=== PATIENT | male | born 1945 | race Caucasian/White ===

== ENCOUNTER → 2017-12-11 | Outpatient (CLI) | payer MEDICARE, OTHER ==
[~2017-12-11] MED LIST: ISOVUE-370 76% 100ML VIAL (Q9967) As Ordered
== END ==
LOC: M RAD 17:55
DX: I65.23 Occlusion and stenosis of bilateral carotid arteries (principal); I67.2 Cerebral atherosclerosis
CPT/HCPCS: Q9967

== ENCOUNTER → 2018-07-24 | Outpatient (CLI) | payer MEDICARE, OTHER ==
--- NOTE | 2018-07-24 11:43 | REP ---
Duplex carotid sonography: History: Occlusion and stenosis bilateral carotid arteries. Comparison CT angiography December 11, 2017. Findings: Antegrade flow is observed in the left vertebral artery. The right vertebral artery was not seen by ultrasound. There is a 2.5 x 1.2 x 0.8 cm lymph node in the right neck noted incidentally. Right carotid: The right common carotid artery is unremarkable on two-dimensional scanning. There is moderate mixed plaquing in the bulb and proximal ICA producing some stenosis in the proximal ICA. Elevated systolic velocities are observed. Velocity chart right carotid: PSV EDV Right CCA 121.0 cm/s Right ICA 165.0 38.0 Right ECA 94.0 Right ICA/CCA ratio 1.4. Impression: 50-79% category narrowing in the right ICA by Doppler velocity criteria. Moderate mixed plaquing in the proximal ICA. Left carotid: The left common carotid artery is unremarkable on two-dimensional scanning. There is moderate mixed plaquing in the proximal ICA and bulb on two-dimensional scanning. Color flow and spectral Doppler interrogation are unremarkable on the left. Velocity chart left carotid: PSV EDV Left CCA 76.0 cm/s Left ICA 81.0 23.0 Left ECA 59.0 Left ICA/CCA ratio normal 1.1. Impression: 16-49% category narrowing in the left ICA by Doppler velocity criteria. Probably near the upper end of this range. Electronically Signed by Tin Medina MD 07/24/2018 01:37 P
== END ==
LOC: M RAD 09:33
PROVIDERS: ATTEND Surgery Vascular Surgery
DX: I65.23 Occlusion and stenosis of bilateral carotid arteries (principal)

== ENCOUNTER → 2019-02-15 | Outpatient (CLI) | payer MEDICARE, OTHER ==
--- NOTE | 2019-02-15 13:18 | REP ---
Clinical: History of stenosis . Comparison: 07/24/2018 Technique: Juarez scale and color Doppler evaluation using linear high frequency transducer Findings: Two-dimensional juarez scale and color images demonstrate bilateral atherosclerotic changes including significant narrowing to the right carotid bulb and proximal internal carotid artery. Normal flow direction in the bilateral vertebral arteries noted. RIGHT (cm/s) LEFT (cm/s) ICA peak systolic velocity 286 96.5 ICA diastolic velocity 68.3 22.6 ECA peak systolic velocity 130 122 CCA peak systolic velocity 103 180 ICA/CCA ratio 2.8 0.5 Impression: Narrowing through the proximal right internal carotid artery approaches the 70% range. Electronically Signed by Jason Elam MD 02/15/2019 01:10 P
== END ==
LOC: M RAD 12:19
PROVIDERS: ATTEND Physician Assistant
DX: I65.29 Occlusion and stenosis of unspecified carotid artery (principal)

== ENCOUNTER → 2019-05-19 | Outpatient (CLI) | payer MEDICARE, BC ==
--- NOTE | 2019-05-19 13:13 | REP ---
Bilateral lower extremity arterial Doppler ultrasound: The right lower extremity: Brachial peak systole: 60 mmHg. The dorsalis pedis peak systole: 200 mmHg. OFFICE RECEPTIONIST peak systole: 210 mmHg. YSABEL: 1.3 Peak Systolic Phasicity Velocity PRESIDENTIAL HELICOPTER CREW CHIEF 140 biphasic Profunda 127 biphasic SFA prox 118 biphasic SFA mid 66.6 biphasic SFA dist 101 biphasic Pop 77.9 biphasic ADDI prox 40.4 biphasic Tib/P tr 64.4 biphasic OFFICE RECEPTIONIST pr 23.9 biphasic OFFICE RECEPTIONIST dst 93.7 biphasic ADDI dst 46.1 biphasic Left lower extremity: Brachial peak systole: 158 mmHg. Dorsalis pedis peak systole: 180 mmHg. OFFICE RECEPTIONIST: 174 mmHg. YSABEL: 1.1 Peak Systolic Phasicity Velocity PRESIDENTIAL HELICOPTER CREW CHIEF 115 biphasic Profunda 37.7 biphasic SFA prox 90.0 biphasic SFA mid 102 biphasic SFA dist 119 biphasic Pop 93.2 biphasic ADDI prox 191 biphasic Tib/P tr 72.1 biphasic OFFICE RECEPTIONIST pr 78 biphasic OFFICE RECEPTIONIST dst 91.4 biphasic ADDI dst 37 biphasic The there is mild/moderate atheromatous plaque bilaterally. There are biphasic wave forms bilaterally. There is a 2:1 stenosis in the proximal left ADDI. Electronically Signed by Chadwick Becerril MD 05/19/2019 01:05 P
== END ==
LOC: M RAD 11:48
PROVIDERS: ATTEND Physician Assistant
DX: R09.89 Other specified symptoms and signs involving the circulatory and respiratory systems (principal)

== ENCOUNTER → 2019-11-18 | Outpatient (CLI) | payer MEDICARE, BC | LOC: M RAD 11:30 | PROVIDERS: ATTEND Physician Assistant | DX: I65.29 Occlusion and stenosis of unspecified carotid artery (principal) ==

== ENCOUNTER 2020-06-23 10:53 | Inpatient (IN) | payer MEDICARE, BC ==
[~2020-06-23] VITALS: Ht 180.3 cm; Wt 131.0 kg
[2020-06-23] MEDS ORDERED: GLUCAGON INJ 1MG VIAL SC PRN (13:55)
[2020-06-23] MEDS ORDERED: DEXTROSE 50% 50 ML SYRINGE IV PRN (13:55)
[2020-06-23] MEDS ORDERED: ACETAMINOPHEN TAB 650MG DOSE (2X325MG) PEG PRN (13:55)
[2020-06-23] MEDS ORDERED: BISACODYL 10 MG SUPP PR PRN (13:55)
[2020-06-23] MEDS ORDERED: GLUCOSE 4GM CHEW TABLET PO PRN (13:55)
--- NOTE | 2020-06-23 14:37 | HPEPDOC ---
Attic Fans Mechanic Note DATE OF ADMISSION: 06-23-20 DATE OF SERVICE: 06-24-20 TIME OF ADMISSION: Please refer to physician's admission order. 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 He was not a candidate for TPA, however was evaluated by neurosurgery and underwent a thrombectomy with TICI 2b reperfusion on 06-01-20. 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 His antiplatelet therapy was held, EVD placed with serial CTHs and ultimately removed 06-10-20. Follow-up CTH on 06-12-20 showed, No significant interval change. Stable extent of intraparenchymal hemorrhage and edema involving the right basal ganglia/external capsule, extra-axial blood in the occipital horns of the lateral ventricles. Stable midline shift to the left measures approximately 4 mm at the level of the foramen of Alfredo. Stable size of the ventricular system. He was treated with Keppra for seizure-like activity which was after stopped due to negative findings on EEG. He was treated for HAP aspiration klebsiella PNA in setting of hypoxic respiratory failure and developed Acute renal failure with tubular necrosis. He was seen by orthopedics for right leg weakness deemed to be from severe lumbar stenosis, but not deemed operable. He remained NPO per speech therapy recommendations and underwent a PEG tube placement on 06-22-20 without complications. He had significant mobility impairments and deemed medically appropriate for discharge to ARU on 06-23-20. REVIEW OF SYSTEMS: The following is a completed review of systems and has been reviewed. Difficult to assess due to patient unable to respond, he appeared lethargic, able to be woken up briefly, did not appear to be in pain- (per nursing and therapy staff had been up for therapy session and able to do oral care) EARS, NOSE, & THROAT: + dysphagia PULMONARY: +on 02, breathing comfortably GASTROINTESTINAL: +peg GENITOURINARY: +incontinence MUSCULOSKELETAL: generalized weakness NEUROLOGICAL:+ left sided paresis SKIN: +sacral ulcers PAST MEDICAL HISTORY: as per HPI ALLERGIES: Please see below. MEDICATIONS: Please see below. SOCIAL HISTORY: No etoh/illicit drugs/smoking DIET: NPO PHYSICAL EXAMINATION: VITAL SIGNS: Please see below. GENERAL:sleeping, but able to wake, obese HEENT: PERRL. Clear conjunctiva, +left sided facial droop CARDIOVASCULAR: [Regular rate and rhythm. No murmurs, rubs, or gallops LUNGS: clear to auscultation bilaterally. No wheezes. No rhonch ABDOMEN: Soft, nontender, nondistended. Positive bowel sounds. Normal active bowel sounds, +PEG NEUROLOGICAL: sleeping, able ot be woken briefly, able to squeeze hand to command EXTREMITIES: 5/5 RUE, spontaneous motion in both RLE and LLE, flaccid LUE (-) edema bilat SKIN: sacral ulcers, right frontal sutures c/d/i LABORATORY DATA: Please see below. IMAGING:Imaging documentation personally reviewed by record FUNCTIONAL STATUS: Premorbid: Independent with all activities of daily life as well as mobility On Admission: total assist for bed mobility, dressing, toileting, ambulation GOALS: Supervision for bed mobility, contact guard for dressing, toileting ambulation ASSESSMENT:74-year-old M with past medical history of HTn, HLD who presents status post stroke with hemorrhagic conversion PLAN: 1. rehab- pt/ot advance mobility and ADLs, strengthen/stretch/maintain ROM all 4limbs -FAMILY PROGRAM SPECIALIST for cog and swallow eval-oral care 2. 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 s/p EVD placement and removal 06-10-20, c/u ASA and statin -encephalopathic c/u amantadine and provigil for neurostimulation -monitor for seizures -patient with left sided paresis due to stroke and RLE weakness in setting of severe lumbar stenosis- tx with therapy -daily thiamine -will start SSRI for motor recovery if able to wean off scheduled reglan (or make prn) 3. Cardiac- hx of HTN c/e labetalol, amlodipine, Diovan, clonidine- medicine consulted to assist in overall management 4. Resp- s/p treatment for klebsiella PNA with hypoxic respiratory failure- duonebs, guaifenesin, monitor for infection 5. GI- NPO, PEG feeds goal 65cc/hr for now, will transition to bolus feeds Friday if able to tolerate -c/u reglan and zofran prn for nausea -pepcid for ppx 6. DVT ppx- will order dopplers, c/u lovenox 7. SKin- turn q2 heel floats, zinc oxide to sacrum 8. - c/u [place] for now, will co trial voids once more mobile 9. Endo- newly dx DM, c/u insulin 10. Pain- tylenol prn 11. Dispo- TBD POST ADMISSION PHYSICIAN EVALUATION: Medical and functional status: Description of medical status, medical assessment: As above. Rehabilitation diagnosis and current and prior cold morbid medical conditions as above. Risk of complications and plans to mitigate them as above. Description of functional status current status is as above. Prior status as above. Status compared to preadmission: There are no clinically significant differences between the patient's current status and the information described on the preadmission screening document. Treatment plan anticipated: Treatment plan is as described above. Required disciplines including physical therapy, occupational therapy, others as noted above. Intensity of services: 3 hours a day, 6 days a week. Special considerations: There are no specific special or safety considerations that would likely preclude immediate implementation of an intensive rehabilitation program or subsequently influence the plan of care. ATTESTATION: Considering all the information above, it is my best judgment that this patient requires intensive rehabilitation therapy as described above and an inpatient hospital environment due to the complexity of nursing, medical, and rehabilitation needs required by the patient. Furthermore, this patient can reasonably be expected to participate in an benefit from an inpatient rehabilitation stay with an interdisciplinary team approach to the delivery of rehabilitation care under the direction and supervision of rehabilitation physician. PROGNOSIS: fair ESTIMATED LENGTH OF STAY:21-28 days. PROJECTED DISCHARGE DESTINATION: Home with family support and any durable medical equipment required to increase functional safety and mobility. TIME SPENT COUNSELING AND COORDINATING INITIAL CARE: Greater than 70 minutes. Vital Signs Vital Signs Date Time Temp Pulse Resp B/P (MAP) Pulse Ox O2 Delivery O2 Flow Rate FiO2 06/23/20 18:00 98.1 80 20 123/58 (79) 94 Nasal Cannula 3.0 Home Medications Scheduled Amantadine HCl (Amantadine) 100 Mg Tablet, 100 MG PO BID, (Reported) GIVEN A SLOUTION AT [facility] Amlodipine Besylate (Amlodipine Besylate) 10 Mg Tablet, 10 MG PO DAILY, (R eported) Aspirin (Aspirin) 81 Mg Tab.chew, 81 MG PO DAILY, (Reported) Atorvastatin Calcium (Atorvastatin Calcium) 80 Mg Tablet, 80 MG PO QHS, (Reported) Clonidine HCl (Clonidine HCl) 0.1 Mg Tablet, 0.1 MG PEG BID, (Reported) Docusate Sodium (Docusate Sodium) 50 Mg/5 Ml Liquid, 10 ML PO BID, (Reported) Enoxaparin Sodium (Lovenox) 40 Mg/0.4 Ml Syringe, 40 MG SC DAILY, (Reported) Insulin Glargine,Hum.rec.anlog (Lantus Solostar) 100 Unit/1 Ml Insuln.pen, 32 U NITS SC QHS, (Reported) Labetalol HCl (Labetalol HCl) 300 Mg Tablet, 300 MG PO BID, (Reported) Modafinil (Modafinil) 100 Mg Tablet, 100 MG PO BID, (Reported) 0600, 1400 Pantoprazole Sodium (Protonix IV) 40 Mg Vial, 40 MG IV BID, (Reported) Polyethylene Glycol 3350 (Polyethylene Glycol 3350) 17 Gm Powd.pack, 17 GM PO DAILY, (Reported) Sennosides (Senna) 8.8 Mg/5 Ml Syrup, 10 ML PO QHS, (Reported) Tamsulosin HCl (Flomax) 0.4 Mg Capsule, 0.4 MG PO BID, (Reported) once daily 1/2 hour following the same meal each day Thiamine HCl (Thiamine HCl) 100 Mg Tablet, 100 MG PO DAILY, (Reported) GIVEN AN INJECTION AT [facility] Valsartan (Valsartan) 320 Mg Tablet, 320 MG PO DAILY, (Reported) Allergies Coded Allergies: No Known Allergies (Unverified , 06/23/20) A-FIB/CHADSVASC A-FIB History Current/History of A-Fib/PAF?: No Current PO Anticoag Therapy: No RICKY MCDONOUGH MD Jun 23, 2020 14:37
[2020-06-23 18:00] VITALS: BP 123/58
[2020-06-23] MEDS: REMEDY PHYTOPLEX Z-GUARD PASTE 113GM TUBE (FROM STOREROOM PRODUCT) TOP SCH (18:00)
[2020-06-23] MEDS: HumaLOG INSULIN (NovoLOG) PER UNIT SC SCH (18:00)
[2020-06-23] MEDS ORDERED: CLON-412 PEG (19:03)
[2020-06-23] MEDS ORDERED: VALS1TAB68 PO (19:03)
[2020-06-23] MEDS ORDERED: MODA100T13 PO (19:03)
[2020-06-23] MEDS ORDERED: AMLO1TAB25 PO (19:03)
[2020-06-23] MEDS ORDERED: POLY17PO18 PO (19:03)
[2020-06-23] MEDS ORDERED: DOCU5LIQ PO (19:03)
[2020-06-23] MEDS ORDERED: LABE300T2 PO (19:03)
[2020-06-23] MEDS ORDERED: PROT40IN4 IV (19:03)
[2020-06-23] MEDS ORDERED: AMAN100T PO (19:03)
[2020-06-23] MEDS ORDERED: ASPI81CH33 PO (19:03)
[2020-06-23] MEDS ORDERED: LOVE1INJ SC (19:03)
[2020-06-23] MEDS ORDERED: SENN8.8S11 PO (19:03)
[2020-06-23] MEDS ORDERED: THIA100T7 PO (19:03)
[2020-06-23] MEDS ORDERED: FLOM0.4C39 PO (19:04)
[2020-06-23] MEDS ORDERED: LANTINJ4 SC (19:04)
[2020-06-23] MEDS ORDERED: ATOR80TA59 PO (19:04)
[2020-06-23] MEDS: IPRATROPIUM 0.5MG/ALBUTEROL 2.5MG INH SOL UD 3ML (DUONEB) NEB SCH (20:00)
--- NOTE | 2020-06-23 20:14 | REPVR ---
PROCEDURE INFORMATION: Exam: US Duplex Lower Extremity Veins, Bilateral Exam date and time: 06/23/2020 8:04 PM Age: 74 years old Clinical indication: Condition or disease; Other: Immobility TECHNIQUE: Imaging protocol: Real-time duplex ultrasound of the extremities with 2-D fox scale, color Doppler flow and spectral waveform analysis with image documentation. Complete exam focused on the bilateral lower extremity veins. COMPARISON: No relevant prior studies available. FINDINGS: Right deep veins: Unremarkable. The common femoral, femoral and popliteal veins are patent without thrombus. Normal Doppler waveforms. Normal compressibility and/or augmentation response. Right superficial veins: Saphenofemoral junction is patent without thrombus. Left deep veins: Unremarkable. The common femoral, femoral and popliteal veins are patent without thrombus. Normal Doppler waveforms. Normal compressibility and/or augmentation response. Left superficial veins: Saphenofemoral junction is patent without thrombus. Soft tissues: Unremarkable. IMPRESSION: No sonographic evidence of deep vein thrombosis. Electronically signed by: Abad Reyes On 06/23/2020 20:14:58 PM
[2020-06-23 20:20] VITALS: BP 147/76
[2020-06-23] MEDS: AMANTADINE 100MG/10ML SYRUP UDC PEG SCH (21:47)
[2020-06-23] MEDS: guaiFENesin SYRUP 200 MG/10 ML UDC PEG SCH (21:47)
[2020-06-23] MEDS: MAGIC MOUTHWASH SUSPENSION BTL SSP SCH (21:47)
[2020-06-23] MEDS: FAMOTIDINE 20 MG TAB PEG SCH (21:48)
[2020-06-23] MEDS: SENNA 8.6 MG TAB (SENOKOT) PEG SCH (21:48)
[2020-06-23] MEDS: cloNIDine 0.1MG TABLET GT SCH (21:48)
[2020-06-23] MEDS: LEVEMIR (INSULIN DETEMIR) 1 UNITS/0.01ML SC SCH (21:48)
[2020-06-23] MEDS: ATORVASTATIN 20 MG TAB PEG SCH (21:49)
[2020-06-23] MEDS: LABETALOL 100MG TAB PEG SCH (21:49)
[2020-06-24] MEDS: METOCLOPRAMIDE HCL LIQUID 10 MG/10 ML UDC PEG SCH ×4 (00:38→17:18)
[2020-06-24] MEDS: HumaLOG INSULIN (NovoLOG) PER UNIT SC SCH ×4 (00:39→17:19)
[2020-06-24] MEDS: REMEDY PHYTOPLEX Z-GUARD PASTE 113GM TUBE (FROM STOREROOM PRODUCT) TOP SCH ×4 (00:39→17:19)
[2020-06-24 06:00] VITALS: BP 147/70
[2020-06-24] MEDS: MODAFINIL 100 MG TABLET PEG SCH ×2 (06:07→14:17)
[2020-06-24] MEDS: IPRATROPIUM 0.5MG/ALBUTEROL 2.5MG INH SOL UD 3ML (DUONEB) NEB SCH ×3 (07:06→19:42)
[2020-06-24 07:11] LABS: BASO % 0.2 % (0.0-1.0); EOS # 0.4 10^3/uL (0.0-0.5); EOS % 4.3 % (0.0-3.0); HEMOGLOBIN 8.7 g/dl (13.5-17.5); LYMPH # 1.1 10^3/uL (1.5-5.0); LYMPH % 10.6 % (24.0-44.0); MEAN CORPUSCULAR HEMOGLOBIN 25.5 pg (27.0-33.0); MONO # 0.7 10^3/uL (0.0-0.8); MONO % 6.5 % (2.0-8.0); NEUTROPHILS # 7.8 10^3/uL (1.5-8.5); NEUTROPHILS % 77.8 % (36.0-66.0); PLATELET COUNT, AUTOMATED 291 10^3/uL (150-450); RED BLOOD COUNT 3.41 10^6/uL (4.30-6.10); WHITE BLOOD COUNT 10.1 10^3/uL (4.0-10.0)
[2020-06-24 07:34] LABS: ALBUMIN 2.4 GM/DL (3.2-5.2); ALT/SGPT 62 U/L (12-78); BILIRUBIN,TOTAL 0.6 MG/DL (0.2-1.0); BLOOD UREA NITROGEN 33 MG/DL (7-18); CALCIUM LEVEL 8.8 MG/DL (8.8-10.2); CARBON DIOXIDE LEVEL 30 MEQ/L (21-32); CHLORIDE LEVEL 103 MEQ/L (98-107); CREATININE FOR GFR 0.94 MG/DL (0.70-1.30); GLOMERULAR FILTRATION RATE > 60.0 (>42); GLUCOSE, FASTING 210 MG/DL (70-100); POTASSIUM SERUM 4.2 MEQ/L (3.5-5.1); SODIUM LEVEL 138 MEQ/L (136-145); TOTAL PROTEIN 6.5 GM/DL (6.4-8.2)
[2020-06-24] MEDS: ASPIRIN 81 MG CHEW TABLET PEG SCH (08:33)
[2020-06-24] MEDS: cloNIDine 0.1MG TABLET GT SCH ×2 (08:33→20:17)
[2020-06-24] MEDS: VALSARTAN 80 MG TAB (DIOVAN) PEG SCH (08:34)
[2020-06-24] MEDS: LABETALOL 100MG TAB PEG SCH ×2 (08:35→20:16)
[2020-06-24] MEDS: FAMOTIDINE 20 MG TAB PEG SCH ×2 (08:35→20:17)
[2020-06-24] MEDS: amLODIPine 5 MG TAB PEG SCH (08:35)
[2020-06-24] MEDS: guaiFENesin SYRUP 200 MG/10 ML UDC PEG SCH ×4 (08:35→20:17)
[2020-06-24] MEDS: AMANTADINE 100MG/10ML SYRUP UDC PEG SCH ×2 (08:35→20:17)
[2020-06-24] MEDS: MAGIC MOUTHWASH SUSPENSION BTL SSP SCH ×4 (08:36→20:17)
[2020-06-24] MEDS: THIAMINE 200MG/2ML VIAL (J3411 PER 100MG) IM SCH (08:36)
[2020-06-24] MEDS: ENOXAPARIN 40MG/0.4ML SYRINGE (J1650 PER 10MG) SC SCH (08:36)
[2020-06-24 14:00] VITALS: BP 140/65
[2020-06-24 20:00] VITALS: BP 133/60
[2020-06-24] MEDS: SENNA 8.6 MG TAB (SENOKOT) PEG SCH (20:16)
[2020-06-24] MEDS: ATORVASTATIN 20 MG TAB PEG SCH (20:17)
[2020-06-24] MEDS: LEVEMIR (INSULIN DETEMIR) 1 UNITS/0.01ML SC SCH (20:18)
[2020-06-25] MEDS: METOCLOPRAMIDE HCL LIQUID 10 MG/10 ML UDC PEG SCH ×4 (00:31→17:05)
[2020-06-25] MEDS: HumaLOG INSULIN (NovoLOG) PER UNIT SC SCH ×4 (00:31→17:06)
[2020-06-25] MEDS: REMEDY PHYTOPLEX Z-GUARD PASTE 113GM TUBE (FROM STOREROOM PRODUCT) TOP SCH ×4 (00:32→18:00)
[2020-06-25 05:27] VITALS: BP 141/65
[2020-06-25] MEDS: MODAFINIL 100 MG TABLET PEG SCH ×2 (06:00→14:37)
[2020-06-25] MEDS: IPRATROPIUM 0.5MG/ALBUTEROL 2.5MG INH SOL UD 3ML (DUONEB) NEB SCH ×3 (07:00→20:06)
[2020-06-25] MEDS: ASPIRIN 81 MG CHEW TABLET PEG SCH (08:00)
[2020-06-25] MEDS: VALSARTAN 80 MG TAB (DIOVAN) PEG SCH (08:00)
[2020-06-25] MEDS: amLODIPine 5 MG TAB PEG SCH (08:00)
[2020-06-25] MEDS: AMANTADINE 100MG/10ML SYRUP UDC PEG SCH ×2 (08:00→21:00)
[2020-06-25] MEDS: MAGIC MOUTHWASH SUSPENSION BTL SSP SCH ×4 (08:01→21:02)
[2020-06-25] MEDS: THIAMINE 200MG/2ML VIAL (J3411 PER 100MG) IM SCH (08:01)
[2020-06-25] MEDS: cloNIDine 0.1MG TABLET GT SCH ×2 (08:06→21:01)
[2020-06-25] MEDS: FAMOTIDINE 20 MG TAB PEG SCH ×2 (08:06→21:01)
[2020-06-25] MEDS: guaiFENesin SYRUP 200 MG/10 ML UDC PEG SCH ×4 (08:07→21:00)
[2020-06-25] MEDS: ENOXAPARIN 40MG/0.4ML SYRINGE (J1650 PER 10MG) SC SCH (08:07)
[2020-06-25 08:11] VITALS: BP 117/56
[2020-06-25] MEDS: LABETALOL 100MG TAB PEG SCH ×2 (09:00→21:01)
[2020-06-25 13:58] VITALS: BP 137/61
[2020-06-25 20:00] VITALS: BP 144/67
[2020-06-25] MEDS: ATORVASTATIN 20 MG TAB PEG SCH (21:01)
[2020-06-25] MEDS: SENNA 8.6 MG TAB (SENOKOT) PEG SCH (21:01)
[2020-06-25] MEDS: LEVEMIR (INSULIN DETEMIR) 1 UNITS/0.01ML SC SCH (21:02)
[2020-06-25 22:00] VITALS: BP 144/67
[2020-06-26] MEDS: METOCLOPRAMIDE HCL LIQUID 10 MG/10 ML UDC PEG SCH ×5 (00:48→23:51)
[2020-06-26] MEDS: HumaLOG INSULIN (NovoLOG) PER UNIT SC SCH ×5 (00:49→23:52)
[2020-06-26] MEDS: REMEDY PHYTOPLEX Z-GUARD PASTE 113GM TUBE (FROM STOREROOM PRODUCT) TOP SCH ×5 (00:49→23:52)
[2020-06-26] MEDS: MODAFINIL 100 MG TABLET PEG SCH ×2 (05:50→13:07)
[2020-06-26 06:00] VITALS: BP 115/59
[2020-06-26] MEDS: IPRATROPIUM 0.5MG/ALBUTEROL 2.5MG INH SOL UD 3ML (DUONEB) NEB SCH ×3 (07:04→19:52)
[2020-06-26] MEDS: THIAMINE 200MG/2ML VIAL (J3411 PER 100MG) IM SCH (08:57)
[2020-06-26] MEDS: MAGIC MOUTHWASH SUSPENSION BTL SSP SCH ×4 (08:58→20:23)
[2020-06-26] MEDS: AMANTADINE 100MG/10ML SYRUP UDC PEG SCH ×2 (09:01→20:16)
[2020-06-26] MEDS: ENOXAPARIN 40MG/0.4ML SYRINGE (J1650 PER 10MG) SC SCH (09:01)
[2020-06-26] MEDS: guaiFENesin SYRUP 200 MG/10 ML UDC PEG SCH ×4 (09:02→20:16)
[2020-06-26] MEDS: amLODIPine 5 MG TAB PEG SCH (09:03)
[2020-06-26] MEDS: LABETALOL 100MG TAB PEG SCH ×2 (09:04→20:18)
[2020-06-26] MEDS: ASPIRIN 81 MG CHEW TABLET PEG SCH (09:04)
[2020-06-26] MEDS: VALSARTAN 80 MG TAB (DIOVAN) PEG SCH (09:04)
[2020-06-26] MEDS: FAMOTIDINE 20 MG TAB PEG SCH ×2 (09:04→20:17)
[2020-06-26] MEDS: cloNIDine 0.1MG TABLET GT SCH ×2 (09:05→20:18)
--- NOTE | 2020-06-26 09:35 | IPNPDOC ---
PM&R Progress Note DATE OF SERVICE: Jun 26, 2020 Practice Representative Progress Note Subjective: Patient seen sitting up in therapy, able to march in place to command inconsistently, was unable to verbalize at the time but smiled and reached out to shake hands with his right arm. REVIEW OF SYSTEMS: The following is a completed review of systems and has been reviewed. Difficult to assess due to patient unable to respond, he appeared lethargic, able to be woken up briefly, did not appear to be in pain- (per nursing and therapy staff had been up for therapy session and able to do oral c are) EARS, NOSE, & THROAT: + dysphagia PULMONARY: +on 02, breathing comfortably GASTROINTESTINAL: +peg GENITOURINARY: +incontinence MUSCULOSKELETAL: generalized weakness NEUROLOGICAL:+ left sided paresis SKIN: +sacral ulcers PHYSICAL EXAMINATION: VITAL SIGNS: Please see below. GENERAL: NAD HEENT: PERRL. Clear conjunctiva, +left sided facial droop CARDIOVASCULAR: Regular rate and rhythm. No murmurs, rubs, or gallops LUNGS: clear to auscultation bilaterally. No wheezes. No rhonch ABDOMEN: Soft, nontender, nondistended. Positive bowel sounds. Normal active bowel sounds, +PEG NEUROLOGICAL: responds inconsistently to commands, A&O x0, ranchos level 3 EXTREMITIES: 5/5 RUE, spontaneous motion in both RLE and LLE, flaccid LUE (-) edema bilat SKIN: sacral ulcers, right frontal sutures c/d/i ASSESSMENT:74-year-old M with past medical history of HTn, HLD who presents status post stroke with hemorrhagic conversion PLAN: 1. rehab- pt/ot advance mobility and ADLs, strengthen/stretch/maintain ROM all 4limbs -MANUFACTURING ENGINEERING DIRECTOR for cog and swallow eval-oral care 2. 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 s/p EVD placement and removal 06-10-20, c/u presenting as severe non-traumatic brain injury patient with a [place] Score of about 3 will benefit from therapy, c/u ASA and statin -encephalopathic c/u amantadine and provigil for neurostimulation-patient seems to be more alert in the afternoon with therapy, tapering reglan -monitor for seizures -patient with left sided paresis due to stroke and RLE weakness in setting of severe lumbar stenosis- tx with therapy -daily thiamine -will start SSRI for motor recovery if able to wean off scheduled reglan to avoid serotonin syndrome 3. Cardiac- hx of HTN c/e labetalol, amlodipine, Diovan, clonidine- medicine consulted to assist in overall management 4. Resp- s/p treatment for klebsiella PNA with hypoxic respiratory failure- duonebs, guaifenesin, monitor for infection -suspect sleep apnea, c/u nocturnal 02 5. GI- NPO, PEG feeds goal 65cc/hr patient tolerating, will wean off reglan as contributing to lethargy before switching to bolus feeds -c/u reglan (tapering) and zofran prn for nausea -pepcid for ppx 6. DVT ppx- will order dopplers, c/u lovenox 7. SKin- turn q2 heel floats, zinc oxide to sacrum 8. - c/u lagunas for now, will co trial voids once more mobile 9. Endo- newly dx DM, c/u insulin 10. Pain- tylenol prn 11. Dispo- TBD Allergies Coded Allergies: No Known Allergies (Unverified , 06/23/20) Vital Signs Vital Signs Date Time Temp Pulse Resp B/P (MAP) Pulse Ox O2 Delivery O2 Flow Rate FiO2 06/26/20 09:05 141/66 06/26/20 09:04 85 06/26/20 06:32 94 Nasal Cannula 3.0 06/26/20 06:00 98.2 21 Laboratory Data Labs 24H Laboratory Tests 2 06/25/20 11:50: Bedside Glucose (Misc Panel) 252H 06/25/20 16:33: Bedside Glucose (Misc Panel) 211H 06/25/20 20:45: Bedside Glucose (Misc Panel) 246H 06/25/20 23:59: Bedside Glucose (Misc Panel) 241H 06/26/20 05:23: Bedside Glucose (Misc Panel) 288H Microbiology Microbiology 06/24/20 Blood Culture - Preliminary, Resulted No Growth after 48 hours. All Specime... 06/24/20 Blood Culture - Preliminary, Resulted No Growth after 48 hours. All Specime... Current Medications Current Medications Current Medications Medications (Trade) Dose Ordered Sig/Andi Route PRN Reason Start Time Stop Time Status Last Admin Dose Admin Acetaminophen (Tylenol Tab) 650 mg Q4HP PRN PEG fever/MILD PAIN (PS 1-4) 06/23/20 13:55 Albuterol/ Ipratropium (Duoneb (Ipr 0.5mg/Alb 2.5mg)) 3 ml RTID NEB 06/23/20 20:00 06/26/20 07:04 Amantadine HCl (Symmetrel Syrup) 100 mg BID PEG 06/23/20 21:00 06/26/20 09:01 Amlodipine Besylate (Norvasc) 5 mg DAILY PEG 06/24/20 09:00 06/26/20 09:03 Aspirin (Aspirin Chewable) 81 mg DAILY PEG 06/24/20 09:00 06/26/20 09:04 Atorvastatin Calcium (Lipitor) 80 mg QHS PEG 06/23/20 21:00 06/25/20 21:01 Bisacodyl (Dulcolax Suppository) 10 mg DAILYPRN PRN DC CONSTIPATION 06/23/20 13:55 Clonidine HCl (Catapres) 0.1 mg BID GT 06/23/20 21:00 06/26/20 09:05 Dextrose (Dextrose 50%) 25 ml ASDIRECTED PRN IV SEE LABEL COMMENTS 06/23/20 13:55 Enoxaparin Sodium (Lovenox) 40 mg DAILY SC 06/24/20 09:00 06/26/20 09:01 Famotidine (Pepcid) 40 mg BID PEG 06/23/20 21:00 06/26/20 09:04 Glucagon (Glucagon) 1 mg ASDIRECTED PRN SC SEE LABEL COMMENTS 06/23/20 13:55 Glucose (Glucose) 16 GM ASDIRECTED PRN PO SEE LABEL COMMENTS 06/23/20 13:55 Guaifenesin (Robitussin) 10 ml QID PEG 06/23/20 21:00 06/26/20 09:02 Home Med (Med Rec Complete!) ASDIRECTED XX 06/23/20 19:15 06/23/20 19:14 DC Insulin Detemir (Levemir Insulin) 10 units QHS SC 06/23/20 21:00 06/25/20 21:02 Insulin Human Lispro (HumaLOG INSULIN) SEE PROTOCOL TABLE Q6H SC 06/23/20 18:00 06/26/20 05:51 Labetalol HCl (Normodyne, Trandate) 300 mg BID PEG 06/23/20 21:00 06/26/20 09:04 Lidocaine/ Diphenhydr/Alum/ Mg/Simeth (Magic Mouthwash) 5ml QID SSP 06/23/20 21:00 06/26/20 08:58 Metoclopramide HCl (Reglan Liquid) 10 mg Q6H PEG 06/24/20 00:00 06/26/20 05:50 Modafinil (Provigil) 100 mg BID@0600,1400 PEG 06/24/20 06:00 06/26/20 05:50 Senna (Senokot) 1 tab QHS PEG 06/23/20 21:00 06/25/20 21:01 Thiamine HCl (VITAMIN B1 INJection) 100 mg DAILY IM 06/24/20 09:00 06/26/20 08:57 Valsartan (Diovan) 320 mg DAILY PEG 06/24/20 09:00 06/26/20 09:04 RICKY MCDONOUGH MD Jun 26, 2020 09:35
[2020-06-26 12:04] LABS: HEMOGLOBIN 8.4 g/dl (13.5-17.5); MEAN CORPUSCULAR HEMOGLOBIN 25.5 pg (27.0-33.0); MEAN CORPUSCULAR VOLUME 84.8 fl (80.0-96.0); NEUTROPHILS % 75.5 % (36.0-66.0); PLATELET COUNT, AUTOMATED 249 10^3/uL (150-450); WHITE BLOOD COUNT 9.6 10^3/uL (4.0-10.0)
[2020-06-26 12:05] LABS: BASO % 0.1 % (0.0-1.0); EOS # 0.5 10^3/uL (0.0-0.5); EOS % 5.4 % (0.0-3.0); LYMPH % 10.3 % (24.0-44.0); MONO # 0.8 10^3/uL (0.0-0.8); MONO % 8.4 % (2.0-8.0); NEUTROPHILS # 7.2 10^3/uL (1.5-8.5)
[2020-06-26 12:27] LABS: BLOOD UREA NITROGEN 48 MG/DL (7-18); CALCIUM LEVEL 8.7 MG/DL (8.8-10.2); CARBON DIOXIDE LEVEL 29 MEQ/L (21-32); CHLORIDE LEVEL 102 MEQ/L (98-107); CREATININE FOR GFR 1.05 MG/DL (0.70-1.30); GLOMERULAR FILTRATION RATE > 60.0 (>42); GLUCOSE, FASTING 331 MG/DL (70-100); POTASSIUM SERUM 4.9 MEQ/L (3.5-5.1); SODIUM LEVEL 136 MEQ/L (136-145)
[2020-06-26 14:00] VITALS: BP 113/58
[2020-06-26 17:29] LABS: ABG BASE EXCESS 4.4 (-2.0-2.0); ABG HCO3 28.1 MEQ/L (22.0-26.0); ABG O2 SATURATION 92.4 % (95.0-99.0); ABG PARTIAL PRESSURE CO2 38.3 mmHg (35.0-45.0); ABG STANDARD HCO3 28.4 MEQ/L (22.0-26.0); ABG TOTAL CO2 29.3 MEQ/L (23.0-31.0); ABG pH (ARTERIAL) 7.484 UNITS (7.350-7.450)
[2020-06-26 17:30] VITALS: O2SAT 93
--- NOTE | 2020-06-26 17:48 | REP ---
INDICATION: somnolent COMPARISON: None. TECHNIQUE: Portable AP view of the chest FINDINGS: The mediastinum and cardiac silhouette are within normal limits for portable technique. Evidence for prior sternotomy and CABG noted. The lung solorio demonstrate chronic appearing changes without acute consolidation, effusion, or pneumothorax. Skeletal structures are intact. IMPRESSION: Chronic appearing changes suggested. No discrete focal consolidation or effusion. <Electronically signed by Jason Elam > 06/26/20 [id number]
--- NOTE | 2020-06-26 18:42 | CR.PDOC ---
General Date of Consultation: Jun 26, 2020 Consultation REASON FOR CONSULTATION/CHIEF COMPLAINT hx of CVA HISTORY OF PRESENT ILLNESS: 74 yo M with a hx of HTN, HLD, CAD s/p CABG in 1999, chronic diastolic CHF, R ICA occlusion (on DAPT). Sustained a large ischemic CVA with L sided weakness and facial droop, CTA at [facility] showing R ICA and R M1 occlusion. Did not receive tPA as non candidate, but underwent a thrombectomy with TICI 2b reperfusion on 06/01/20. Subsequently he developed hemorrhagic conerish with IVH extension and obstructive hydrocephalus. Antiplaletes were held and an external ventricular drain was placed. Stay was complicated by seizure like activity, and was started on keppra, as well as a bout of hospital acquired pneumonia 2/2 aspiration with klebsiella PNA. He further suffered from hypoxic respiratory failure as well as acute renal failure and tubular necrosis. Patient underwent a PEG tube placement. Transfered to ARU at [facility] on 06/23/20. ALLERGIES: Please see below. HOME MEDICATIONS: Please see below. PAST MEDICAL HISTORY: HTN HLDCAD s/p CABG 1999 Chronic diastolic CHF R CRISTI occlusion FAMILY HISTORY: unable to obtain SOCIAL HISTORY: Patient denies smoking Patient denies etoh use Patient denies illicit drug use REVIEW OF SYSTEMS: patient is somnolent, unable to obtain PHYSICAL EXAMINATION: VITAL SIGNS: please see below General: sleeping rousing to stimulation HEENT: L sided facial droop. PERRLA Neck: supple, normal ROM, no JVD Respiratory: lungs CTAB, no wheeze, no rales, no crackles CVS: RRR, normal S1, S2, no murmurs Abdo: soft, no masses, no hepatosplenomegaly, BS+, no rebound tenderness Extremities: no edema, pulses 2+ MSK: no joint deformities, normal ROM Neuro: deeply sleeping, able to rouse intermittently. 0/5 strength in LUE LABORATORY DATA: Please see below. ASSESSMENT/PLAN: R MCA infact s/p thrombectomy/hemorrhagic conversion/obstructing hydrocephalus - s/p EVD placement. was removed 05/23/20 - continue aspirin - continue statin - on amantadine and provigil, per PMR - plavix held Hypoxic respiratory failure - suspected ANJEL, likely chronic respiratory failure - 97% on 3L NC - ABG pH 7.484. pCO28.1. pO2 59. HCO3 28.1. - d/w Dr. Walker. will obtain nocturnal oxymetry. - if desaturates, trial CPAP Hx of seizures s/p CVA - seizure precautions HTN - c/w meds: labetalol. amlodipine. clonidine. valsartan DM2 - ISS. FSBS. Hx of klebsiella HAP - CXR on 06/26/20, no infiltrate - no WBC, no fevers. R leg weakness, per report 2/2 lumbar stenosis - was seen by ortho in [facility] - deemed inoperable Vital Signs/I&O Vital Signs Date Time Temp Pulse Resp B/P (MAP) Pulse Ox O2 Delivery O2 Flow Rate FiO2 06/26/20 14:00 98.1 79 20 113/58 (76) 97 Nasal Cannula 3.0 I&O- Last 24 Hours up to 6 AM 06/26/20 06:00 Intake Total 2595 ml Balance 2595 ml Laboratory Data Labs 24H Laboratory Tests 2 06/25/20 20:45: Bedside Glucose (Misc Panel) 246H 06/25/20 23:59: Bedside Glucose (Misc Panel) 241H 06/26/20 05:23: Bedside Glucose (Misc Panel) 288H 06/26/20 11:21: Bedside Glucose (Misc Panel) 282H 06/26/20 11:33: Immature Granulocyte % (Auto) 0.3, Neutrophils (%) (Auto) 75.5H, Lymphocytes (%) (Auto) 10.3L, Monocytes (%) (Auto) 8.4H, Eosinophils (%) (Auto) 5.4H, Basophils (%) (Auto) 0.1, Neutrophils # (Auto) 7.2, Lymphocytes # (Auto) 1.0L, Monocytes # (Auto) 0.8, Eosinophils # (Auto) 0.5, Basophils # (Auto) 0.0, Nucleated Red Blood Cells % (auto) 0.0, Anion Gap 5L, Glomerular Filtration Rate > 60.0, Calcium Level 8.7L 06/26/20 16:28: Bedside Glucose (Misc Panel) 276H 06/26/20 17:12: Blood Gas Bicarbonate Standard 28.4H, Arterial Blood pH 7.484H, Arterial Blood Partial Pressure CO2 38.3, Arterial Blood Partial Pressure O2 59.0L, Arterial Blood Total CO2 29.3, Arterial Blood HCO3 28.1H, Arterial Blood Base Excess 4 .4H, Arterial Blood Oxygen Saturation 92.4L 06/26/20 17:47: Bedside Glucose (Misc Panel) 248H CBC/BMP Laboratory Tests 06/26/20 11:33 Microbiology Microbiology 06/24/20 Blood Culture - Preliminary, Resulted No Growth after 48 hours. All Specime... 06/24/20 Blood Culture - Preliminary, Resulted No Growth after 48 hours. All Specime... Allergies Coded Allergies: No Known Allergies (Unverified , 06/23/20) Home Medications Scheduled Amantadine HCl (Amantadine) 100 Mg Tablet, 100 MG PO BID, (Reported) GIVEN A SLOUTION AT [facility] Amlodipine Besylate (Amlodipine Besylate) 10 Mg Tablet, 10 MG PO DAILY, (Reported) Aspirin (Aspirin) 81 Mg Tab.chew, 81 MG PO DAILY, (Reported) Atorvastatin Calcium (Atorvastatin Calcium) 80 Mg Tablet, 80 MG PO QHS, (Reported) Clonidine HCl (Clonidine HCl) 0.1 Mg Tablet, 0.1 MG PEG BID, (Reported) Docusate Sodium (Docusate Sodium) 50 Mg/5 Ml Liquid, 10 ML PO BID, (Reported) Enoxaparin Sodium (Lovenox) 40 Mg/0.4 Ml Syringe, 40 MG SC DAILY, (Reported) Insulin Glargine,Hum.rec.anlog (Lantus Solostar) 100 Unit/1 Ml Insuln.pen, 32 UNITS SC QHS, (Reported) Labetalol HCl (Labetalol HCl) 300 Mg Tablet, 300 MG PO BID, (Reported) Modafinil (Modafinil) 100 Mg Tablet, 100 MG PO BID, (Reported) 0600, 1400 Pantoprazole Sodium (Protonix IV) 40 Mg Vial, 40 MG IV BID, (Reported) Polyethylene Glycol 3350 (Polyethylene Glycol 3350) 17 Gm Powd.pack, 17 GM PO DAILY, (Reported) Sennosides (Senna) 8.8 Mg/5 Ml Syrup, 10 ML PO QHS, (Reported) Tamsulosin HCl (Flomax) 0.4 Mg Capsule, 0.4 MG PO BID, (Reported) once daily 1/2 hour following the same meal each day Thiamine HCl (Thiamine HCl) 100 Mg Tablet, 100 MG PO DAILY, (Reported) GIVEN AN INJECTION AT [facility] Valsartan (Valsartan) 320 Mg Tablet, 320 MG PO DAILY, (Reported) SHIV TORRES MD Jun 26, 2020 18:42
[2020-06-26 19:53] VITALS: O2SAT 97
[2020-06-26 20:00] VITALS: BP 140/63
[2020-06-26] MEDS: ATORVASTATIN 20 MG TAB PEG SCH (20:16)
[2020-06-26] MEDS: SENNA 8.6 MG TAB (SENOKOT) PEG SCH (20:17)
[2020-06-26] MEDS ORDERED: LEVEMIR (INSULIN DETEMIR) 1 UNITS/0.01ML SC SCH (21:00)
[2020-06-26 22:00] VITALS: BP 140/63
[2020-06-27] MEDS: MODAFINIL 100 MG TABLET PEG SCH ×2 (05:54→13:12)
[2020-06-27] MEDS: METOCLOPRAMIDE HCL LIQUID 10 MG/10 ML UDC PEG SCH ×3 (05:54→17:59)
[2020-06-27] MEDS: HumaLOG INSULIN (NovoLOG) PER UNIT SC SCH ×4 (05:54→23:59)
[2020-06-27] MEDS: REMEDY PHYTOPLEX Z-GUARD PASTE 113GM TUBE (FROM STOREROOM PRODUCT) TOP SCH ×4 (05:55→23:59)
[2020-06-27 06:00] VITALS: BP 124/69
[2020-06-27] MEDS: IPRATROPIUM 0.5MG/ALBUTEROL 2.5MG INH SOL UD 3ML (DUONEB) NEB SCH ×3 (07:45→20:00)
[2020-06-27 08:16] LABS: HEMATOCRIT 25.9 % (42.0-52.0); HEMOGLOBIN 7.9 g/dl (13.5-17.5); MEAN CORPUSCULAR HEMOGLOBIN 25.8 pg (27.0-33.0); MEAN CORPUSCULAR HGB CONC 30.5 g/dl (32.0-36.5); MEAN CORPUSCULAR VOLUME 84.6 fl (80.0-96.0); PLATELET COUNT, AUTOMATED 228 10^3/uL (150-450); RED BLOOD COUNT 3.06 10^6/uL (4.30-6.10); WHITE BLOOD COUNT 9.2 10^3/uL (4.0-10.0)
[2020-06-27 08:40] LABS: ALBUMIN 2.2 GM/DL (3.2-5.2); BILIRUBIN,TOTAL 0.3 MG/DL (0.2-1.0); CALCIUM LEVEL 8.6 MG/DL (8.8-10.2); CREATININE FOR GFR 1.28 MG/DL (0.70-1.30); GLOMERULAR FILTRATION RATE 58.3 (>42); POTASSIUM SERUM 4.5 MEQ/L (3.5-5.1)
[2020-06-27] MEDS: ENOXAPARIN 40MG/0.4ML SYRINGE (J1650 PER 10MG) SC SCH (09:50)
[2020-06-27] MEDS: THIAMINE 200MG/2ML VIAL (J3411 PER 100MG) IM SCH (09:50)
[2020-06-27] MEDS: AMANTADINE 100MG/10ML SYRUP UDC PEG SCH ×2 (09:50→21:09)
[2020-06-27] MEDS: guaiFENesin SYRUP 200 MG/10 ML UDC PEG SCH ×4 (09:50→21:09)
[2020-06-27] MEDS: ASPIRIN 81 MG CHEW TABLET PEG SCH (09:50)
[2020-06-27 09:51] LABS: PERCENT SATURATION 8.9 % (19.7-50.0)
[2020-06-27] MEDS: FAMOTIDINE 20 MG TAB PEG SCH ×2 (09:51→21:08)
[2020-06-27] MEDS: MAGIC MOUTHWASH SUSPENSION BTL SSP SCH ×4 (09:56→21:10)
[2020-06-27] MEDS: cloNIDine 0.1MG TABLET GT SCH ×2 (09:57→21:09)
[2020-06-27] MEDS: LABETALOL 100MG TAB PEG SCH ×2 (09:58→21:08)
[2020-06-27] MEDS: amLODIPine 5 MG TAB PEG SCH (09:59)
[2020-06-27] MEDS: VALSARTAN 80 MG TAB (DIOVAN) PEG SCH (10:00)
--- NOTE | 2020-06-27 10:32 | IPNPDOC ---
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 REVIEW OF SYSTEMS: The following is a completed review of systems and has been reviewed. Difficult to assess due to patient unable to respond, he appeared lethargic, able to be woken up briefly, did not appear to be in pain- (per nursing and therapy staff had been up for therapy session and able to do oral care) EARS, NOSE, & THROAT: + dysphagia PULMONARY: +on 02, breathing comfortably GASTROINTESTINAL: +peg GENITOURINARY: +incontinence MUSCULOSKELETAL: generalized weakness NEUROLOGICAL:+ left sided paresis SKIN: +sacral ulcers PHYSICAL EXAMINATION: VITAL SIGNS: Please see below. GENERAL: NAD HEENT: PERRL. Clear conjunctiva, +left sided facial droop CARDIOVASCULAR: Regular rate and rhythm. No murmurs, rubs, or gallops LUNGS: clear to auscultation bilaterally. No wheezes. No rhonchi ABDOMEN: Soft, nontender, nondistended. Positive bowel sounds. Normal active bowel sounds, +PEG NEUROLOGICAL: responds inconsistently to commands, A&O x0, ranch[place] level 3 EXTREMITIES: 5/5 RUE, spontaneous motion in both RLE and LLE, flaccid LUE (+) edema LE bilat SKIN: sacral ulcers, right frontal sutures c/d/i ASSESSMENT:74-year-old M with past medical history of HTn, HLD who presents status post stroke with hemorrhagic conversion PLAN: 1. rehab- pt/ot advance mobility and ADLs, strengthen/stretch/maintain ROM all 4limbs -FACTORY HAND for cog and swallow eval-oral care 2. 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 s/p EVD placement and removal 06-10-20, c/u presenting as severe non-traumatic brain injury patient with a [place] Score of about 3 will benefit from therapy, c/u ASA and statin -encephalopathic c/u amantadine and provigil for neurostimulation-patient seems to be more alert in the afternoon with therapy, tapering reglan -monitor for seizures -patient with left sided paresis due to stroke and RLE weakness in setting of severe lumbar stenosis- tx with therapy -daily thiamine -will start SSRI for motor recovery if able to wean off scheduled reglan to avoid serotonin syndrome 3. Cardiac- hx of HTN c/e labetalol, amlodipine, Diovan, clonidine- medicine consulted to assist in overall management -ECHO at [facility] 06-11-20 showing grade 2 diastolic CHF- will consult renal to assist with fluid management as more edematous today on exam and increase in BUN/[employer] 4. Resp- s/p treatment for klebsiella PNA with hypoxic respiratory failure- duonebs, guaifenesin, monitor for infection- CXR 06-26-20 negative for infiltrate -suspect sleep apnea, c/u nocturnal 02- goal 88-92% to avoid increasing apneic episodes 5. GI- NPO, PEG feeds goal 65cc/hr patient tolerating, will wean off reglan as contributing to lethargy before switching to bolus feeds -c/u reglan (tapering) and zofran prn for nausea -pepcid for ppx -will order FOBT for drop in Hgb 6. DVT ppx- dopplers negative for dvt, c/u lovenox 7. SKin- turn q2 heel floats, zinc oxide to sacrum 8. - not retaining, however incontinent, will order UA to see if infection contributing to AMS 9. Renal- will consult for fluid management in setting of CHF, to monitor kidney function, and assist with iron deficiency anemia 9. Endo- newly dx DM, c/u insulin 10. Pain- tylenol prn 11. Dispo- TBD Allergies Coded Allergies: No Known Allergies (Unverified , 06/23/20) Vital Signs Vital Signs Date Time Temp Pulse Resp B/P (MAP) Pulse Ox O2 Delivery O2 Flow Rate FiO2 06/27/20 10:00 142/68 06/27/20 09:59 89 06/27/20 06:00 98.8 20 95 Nasal Cannula 3.0 06/26/20 22:49 28 Laboratory Data CBC/BMP Laboratory Tests 06/26/20 11:33 06/27/20 07:29 Labs 24H Laboratory Tests 2 06/26/20 11:21: Bedside Glucose (Misc Panel) 282H 06/26/20 11:33: Immature Granulocyte % (Auto) 0.3, Neutrophils (%) (Auto) 75.5H, Lymphocytes (%) (Auto) 10.3L, Monocytes (%) (Auto) 8.4H, Eosinophils (%) (Auto) 5.4H, Basophils (%) (Auto) 0.1, Neutrophils # (Auto) 7.2, Lymphocytes # (Auto) 1.0L, Monocytes # (Auto) 0.8, Eosinophils # (Auto) 0.5, Basophils # (Auto) 0.0, Nucleated Red Blood Cells % (auto) 0.0, Anion Gap 5L, Glomerular Filtration Rate > 60.0, Calci um Level 8.7L 06/26/20 16:28: Bedside Glucose (Misc Panel) 276H 06/26/20 17:12: Blood Gas Bicarbonate Standard 28.4H, Arterial Blood pH 7.484H, Arterial Blood Partial Pressure CO2 38.3, Arterial Blood Partial Pressure O2 59.0L, Arterial Blood Total CO2 29.3, Arterial Blood HCO3 28.1H, Arterial Blood Base Excess 4.4H, Arterial Blood Oxygen Saturation 92.4L 06/26/20 17:47: Bedside Glucose (Misc Panel) 248H 06/26/20 20:21: Bedside Glucose (Misc Panel) 212H 06/26/20 23:34: Bedside Glucose (Misc Panel) 201H 06/27/20 05:06: Bedside Glucose (Misc Panel) 305H 06/27/20 07:29: Nucleated Red Blood Cells % (auto) 0.0, Anion Gap 7L, Glomerular Filtration Rate 58.3, Calcium Level 8.6L, Iron Level 21L, Total Iron Binding Capacity 235L, Transferrin % Saturation 8.9L, Ferritin 302, Total Bilirubin 0.3, Aspartate Amino Transf (AST/SGOT) 28, Alanine Aminotransferase (ALT/SGPT) 49, Alkaline Phosphatase 97, Total Protein 7.0, Albumin 2.2L, Albumin/Globulin Ratio 0.5 Microbiology Microbiology 06/24/20 Blood Culture - Preliminary, Resulted No Growth after 72 hours. All specime... 06/24/20 Blood Culture - Preliminary, Resulted No Growth after 72 hours. All specime... Current Medications Current Medications Current Medications Medications (Trade) Dose Ordered Sig/Andi Route PRN Reason Start Time Stop Time Status Last Admin Dose Admin Acetaminophen (Tylenol Tab) 650 mg Q4HP PRN PEG fever/MILD PAIN (PS 1-4) 06/23/20 13:55 Albuterol/ Ipratropium (Duoneb (Ipr 0.5mg/Alb 2.5mg)) 3 ml RTID NEB 06/23/20 20:00 06/27/20 07:45 Amantadine HCl (Symmetrel Syrup) 100 mg BID PEG 06/23/20 21:00 06/27/20 09:50 Amlodipine Besylate (Norvasc) 5 mg DAILY PEG 06/24/20 09:00 06/27/20 09:59 Aspirin (Aspirin Chewable) 81 mg DAILY PEG 06/24/20 09:00 06/27/20 09:50 Atorvastatin Calcium (Lipitor) 80 mg QHS PEG 06/23/20 21:00 06/26/20 20:16 Bisacodyl (Dulcolax Suppository) 10 mg DAILYPRN PRN [place] CONSTIPATION 06/23/20 13:55 Clonidine HCl (Catapres) 0.1 mg BID GT 06/23/20 21:00 06/27/20 09:57 Dextrose (Dextrose 50%) 25 ml ASDIRECTED PRN IV SEE LABEL COMMENTS 06/23/20 13:55 Enoxaparin Sodium (Lovenox) 40 mg DAILY SC 06/24/20 09:00 06/27/20 09:50 Famotidine (Pepcid) 40 mg BID PEG 06/23/20 21:00 06/27/20 09:51 Glucagon (Glucagon) 1 mg ASDIRECTED PRN SC SEE LABEL COMMENTS 06/23/20 13:55 Glucose (Glucose) 16 GM ASDIRECTED PRN PO SEE LABEL COMMENTS 06/23/20 13:55 Guaifenesin (Robitussin) 10 ml QID PEG 06/23/20 21:00 06/27/20 09:50 Home Med (Med Rec Complete!) ASDIRECTED XX 06/23/20 19:15 06/23/20 19:14 DC Insulin Detemir (Levemir Insulin) 10 units QHS SC 06/23/20 21:00 06/26/20 09:35 DC 06/25/20 21:02 Insulin Detemir (Levemir Insulin) 12 units QHS SC 06/26/20 21:00 06/27/20 07:18 DC 06/26/20 20:23 Insulin Detemir (Levemir Insulin) 20 units QHS SC 06/27/20 21:00 Insulin Human Lispro (HumaLOG INSULIN) SEE PROTOCOL TABLE Q6H SC 06/23/20 18:00 06/27/20 05:54 Labetalol HCl (Normodyne, Trandate) 300 mg BID PEG 06/23/20 21:00 06/27/20 09:58 Lidocaine/ Diphenhydr/Alum/ Mg/Simeth (Magic Mouthwash) 5ml QID SSP 06/23/20 21:00 06/27/20 09:56 Metoclopramide HCl (Reglan Liquid) 5 mg Q6H PEG 06/26/20 12:00 06/27/20 05:54 Metoclopramide HCl (Reglan Liquid) 10 mg Q6H PEG 06/24/20 00:00 06/26/20 09:35 DC 06/26/20 05:50 Modafinil (Provigil) 100 mg BID@0600,1400 PEG 06/24/20 06:00 06/27/20 05:54 Senna (Senokot) 1 tab QHS PEG 06/23/20 21:00 06/26/20 20:17 Thiamine HCl (VITAMIN B1 INJection) 100 mg DAILY IM 06/24/20 09:00 06/27/20 09:50 Valsartan (Diovan) 320 mg DAILY PEG 06/24/20 09:00 06/27/20 10:00 RICKY MCDONOUGH MD Jun 27, 2020 10:32
--- NOTE | 2020-06-27 12:43 | IPNPDOC ---
Date Seen The patient was seen on 06/27/20. Progress Note SUBJECTIVE: Neg CXR, lower H/H today. Ordered occult blood and anemia workup. Somnolent on exam today;however, saturating well on 3 L NC. Reglan being titrated down. Creatinine slightly increased, watching with labs. Patient did not wake up to cooperate with exam today. Per nursing similar to yesterday. OBJECTIVE: PHYSICAL EXAMINATION: VITAL SIGNS: please see below General: arousable minimally with sleeping on exam- similar to day prior HEENT: L sided facial droop. PERRLA Neck: supple, normal ROM, no JVD Respiratory: lungs CTAB, no wheeze, no rales, no crackles CVS: RRR, normal S1, S2, no murmurs Abdo: PEG in place LUQ, soft, no masses, no hepatosplenomegaly, BS+ Extremities: +1 pitting edema in lower ext, pulses 2+ MSK: no joint deformities, normal ROM Neuro: 0/5 strength in LUE, reflexes in tact in all extremities, Did not participate in eye exam, cranial nerve exam. LABORATORY DATA: Please see below. ASSESSMENT/PLAN: R MCA infact with somnolence s/p thrombectomy/hemorrhagic conversion/obstructing hydrocephalus - S/p EVD placement. was removed 05/23/20 - New infection source unlikely so somnolence thought to be low level brain injury - Tapering down reglan as this could be causing some somnolence - Continue aspirin, statin - On amantadine and provigil, per PMR - plavix held Hypoxic respiratory failure likely 2/2 to ANJEL, chronic respiratory failure - 97% on 3L NC- 6 LNC overnight - Case discussed with Dr. Walker who suggested nocturnal oximetry- known ANJEL per family, refused CPAP - CXR: no acute abnormality - Repeat ABG PRN SHERIDAN , r/o GI bleed -No s/s of bleeding;however, H/H less today -Occult blood, anemia workup pending -C/w ASA, enoxaparin for now. Plavix is held -C/w ferrous sulfate supplementation Fluid overload, hx of chronic diastolic CHF without exacerbation -+ 1 edema in lower ext, no upper ext edema, SOB increased or s/s of overload on CXR -C/w BB, CCB -Not on lasix Respiratory alkalosis primary, chronic with secondary metabolic alkalosis -No new issues seen that can cause -No hyperventilation, incr atelectasis, concern for PE or increased pulmonary edema on CXR -Monitor closely, ABG PRN -Nephrology consulted. Hx of seizures s/p CVA - No seizures while here - seizure precautions DM2 -Uncontrolled BS -Resumed/increased to home insulin, ISS -FSBS, hypoglycemic protocol HTN - c/w meds: labetalol. amlodipine. clonidine. valsartan Hx of klebsiella HAP - CXR on 06/26/20, no infiltrate - no WBC, no fevers. R leg weakness, per report 2/2 lumbar stenosis - was seen by ortho in [facility] - deemed inoperable Dysphagia 2/2 to CVA -PEG in place, operating well -Increased free water per nephrology DVT px -enoxaparin DISPOSITION: Will continue to follow closely while in ARU. VS, I&O, 24H, Fishbone Vital Signs/I&O Vital Signs Date Time Temp Pulse Resp B/P (MAP) Pulse Ox O2 Delivery O2 Flow Rate FiO2 06/27/20 10:00 142/68 06/27/20 09:59 89 06/27/20 06:00 98.8 20 95 Nasal Cannula 3.0 06/26/20 22:49 28 I&O- Last 24 Hours up to 6 AM 06/27/20 06:00 Intake Total 195 ml Balance 195 ml Laboratory Data 24H LABS Laboratory Tests 2 06/26/20 16:28: Bedside Glucose (Misc Panel) 276H 06/26/20 17:12: Blood Gas Bicarbonate Standard 28.4H, Arterial Blood pH 7.484H, Arterial Blood Partial Pressure CO2 38.3, Arterial Blood Partial Pressure O2 59.0L, Arterial Blood Total CO2 29.3, Arterial Blood HCO3 28.1H, Arterial Blood Base Excess 4.4H, Arterial Blood Oxygen Saturation 92.4L 06/26/20 17:47: Bedside Glucose (Misc Panel) 248H 06/26/20 20:21: Bedside Glucose (Misc Panel) 212H 06/26/20 23:34: Bedside Glucose (Misc Panel) 201H 06/27/20 05:06: Bedside Glucose (Misc Panel) 305H 06/27/20 07:29: Nucleated Red Blood Cells % (auto) 0.0, Anion Gap 7L, Glomerular Filtration Rate 58.3, Calcium Level 8.6L, Iron Level 21L, Total Iron Binding Capacity 235L, Transferrin % Saturation 8.9L, Ferritin 302, Total Bilirubin 0.3, Aspartate A jimmy Transf (AST/SGOT) 28, Alanine Aminotransferase (ALT/SGPT) 49, Alkaline Phosphatase 97, Total Protein 7.0, Albumin 2.2L, Albumin/Globulin Ratio 0.5 06/27/20 11:13: Urine Color YELLOW, Urine Appearance HAZY, Urine pH 5.0, Urine Specific [place] 1.016, Urine Protein NEGATIVE, Urine Glucose (UA) NEGATIVE, Urine Ketones NEGATIVE, Urine Blood NEGATIVE, Urine Nitrite NEGATIVE, Urine Bilirubin NEGATIVE, Urine Urobilinogen 2.0H, Urine Leukocyte Esterase NEGATIVE, Urine WBC (Auto) 1, Urine RBC (Auto) 8H, Urine Hyaline Casts (Auto) 0, Urine Bacteria (Auto) NEGATIVE, Urine Squamous Epithelial Cells 0, Urine Sperm (Auto) 06/27/20 11:22: Bedside Glucose (Misc Panel) 276H CBC/BMP Laboratory Tests 06/27/20 07:29 Microbiology Microbiology 06/27/20 Stool Occult Blood (DARREN), Ordered Pending 06/24/20 Blood Culture - Preliminary, Resulted No Growth after 72 hours. All specime... 06/24/20 Blood Culture - Preliminary, Resulted No Growth after 72 hours. All specime... Current Medications Current Medications Medications (Trade) Dose Ordered Sig/Andi Route PRN Reason Start Time Stop Time Status Last Admin Dose Admin Acetaminophen (Tylenol Tab) 650 mg Q4HP PRN PEG fever/MILD PAIN (PS 1-4) 06/23/20 13:55 Albuterol/ Ipratropium (Duoneb (Ipr 0.5mg/Alb 2.5mg)) 3 ml RTID NEB 06/23/20 20:00 06/27/20 07:45 Amantadine HCl (Symmetrel Syrup) 100 mg BID PEG 06/23/20 21:00 06/27/20 09:50 Amlodipine Besylate (Norvasc) 5 mg DAILY PEG 06/24/20 09:00 06/27/20 09:59 Aspirin (Aspirin Chewable) 81 mg DAILY PEG 06/24/20 09:00 06/27/20 09:50 Atorvastatin Calcium (Lipitor) 80 mg QHS PEG 06/23/20 21:00 06/26/20 20:16 Bisacodyl (Dulcolax Suppository) 10 mg DAILYPRN PRN [place] CONSTIPATION 06/23/20 13:55 Clonidine HCl (Catapres) 0.1 mg BID GT 06/23/20 21:00 06/27/20 09:57 Dextrose (Dextrose 50%) 25 ml ASDIRECTED PRN IV SEE LABEL COMMENTS 06/23/20 13:55 Enoxaparin Sodium (Lovenox) 40 mg DAILY SC 06/24/20 09:00 06/27/20 09:50 Famotidine (Pepcid) 40 mg BID PEG 06/23/20 21:00 06/27/20 09:51 Ferrous Sulfate (Ferrous Sulfate) 300 mg BID PEG 06/27/20 09:00 Glucagon (Glucagon) 1 mg ASDIRECTED PRN SC SEE LABEL COMMENTS 06/23/20 13:55 Glucose (Glucose) 16 GM ASDIRECTED PRN PO SEE LABEL COMMENTS 06/23/20 13:55 Guaifenesin (Robitussin) 10 ml QID PEG 06/23/20 21:00 06/27/20 09:50 Home Med (Med Rec Complete!) ASDIRECTED XX 06/23/20 19:15 06/23/20 19:14 DC Insulin Detemir (Levemir Insulin) 10 units QHS SC 06/23/20 21:00 06/26/20 09:35 DC 06/25/20 21:02 Insulin Detemir (Levemir Insulin) 12 units QHS SC 06/26/20 21:00 06/27/20 07:18 DC 06/26/20 20:23 Insulin Detemir (Levemir Insulin) 20 units QHS SC 06/27/20 21:00 Insulin Human Lispro (HumaLOG INSULIN) SEE PROTOCOL TABLE Q6H SC 06/23/20 18:00 06/27/20 05:54 Labetalol HCl (Normodyne, Trandate) 300 mg BID PEG 06/23/20 21:00 06/27/20 09:58 Lidocaine/ Diphenhydr/Alum/ Mg/Simeth (Magic Mouthwash) 5ml QID SSP 06/23/20 21:00 06/27/20 09:56 Metoclopramide HCl (Reglan Liquid) 5 mg Q6H PEG 06/26/20 12:00 06/27/20 05:54 Metoclopramide HCl (Reglan Liquid) 10 mg Q6H PEG 06/24/20 00:00 06/26/20 09:35 DC 06/26/20 05:50 Modafinil (Provigil) 100 mg BID@0600,1400 PEG 06/24/20 06:00 06/27/20 05:54 Senna (Senokot) 1 tab QHS PEG 06/23/20 21:00 06/26/20 20:17 Thiamine HCl (VITAMIN B1 INJection) 100 mg DAILY IM 06/24/20 09:00 06/27/20 09:50 Valsartan (Diovan) 320 mg DAILY PEG 06/24/20 09:00 06/27/20 10:00 Allergies Coded Allergies: No Known Allergies (Unverified , 06/23/20) Lucy Carr MD Jun 27, 2020 12:43
[2020-06-27] MEDS: FERROUS SULFATE 300MG/5ML UDC LIQUID PEG SCH ×2 (13:12→21:09)
[2020-06-27 14:00] VITALS: BP 141/68
[2020-06-27 20:00] VITALS: BP 137/63
[2020-06-27] MEDS ORDERED: LEVEMIR (INSULIN DETEMIR) 1 UNITS/0.01ML SC SCH (21:00)
[2020-06-27] MEDS: SENNA 8.6 MG TAB (SENOKOT) PEG SCH (21:08)
[2020-06-27] MEDS: ATORVASTATIN 20 MG TAB PEG SCH (21:08)
[2020-06-27] MEDS: LEVEMIR (INSULIN DETEMIR) 1 UNITS/0.01ML SC SCH (21:10)
[2020-06-28 05:15] VITALS: BP 152/66
[2020-06-28] MEDS: HumaLOG INSULIN (NovoLOG) PER UNIT SC SCH ×3 (05:47→17:52)
[2020-06-28] MEDS: MODAFINIL 100 MG TABLET PEG SCH ×2 (05:47→14:05)
[2020-06-28] MEDS: METOCLOPRAMIDE HCL LIQUID 10 MG/10 ML UDC PEG SCH ×3 (05:47→12:01)
[2020-06-28] MEDS: REMEDY PHYTOPLEX Z-GUARD PASTE 113GM TUBE (FROM STOREROOM PRODUCT) TOP SCH ×4 (05:48→21:22)
[2020-06-28 06:28] LABS: HEMATOCRIT 25.2 % (42.0-52.0); HEMOGLOBIN 7.8 g/dl (13.5-17.5); MEAN CORPUSCULAR HEMOGLOBIN 25.9 pg (27.0-33.0); MEAN CORPUSCULAR VOLUME 83.7 fl (80.0-96.0); PLATELET COUNT, AUTOMATED 191 10^3/uL (150-450); RED BLOOD COUNT 3.01 10^6/uL (4.30-6.10); WHITE BLOOD COUNT 8.8 10^3/uL (4.0-10.0)
[2020-06-28 07:02] LABS: ALBUMIN 2.2 GM/DL (3.2-5.2); ALT/SGPT 50 U/L (12-78); BILIRUBIN,TOTAL 0.5 MG/DL (0.2-1.0); BLOOD UREA NITROGEN 50 MG/DL (7-18); CALCIUM LEVEL 8.7 MG/DL (8.8-10.2); CARBON DIOXIDE LEVEL 32 MEQ/L (21-32); CHLORIDE LEVEL 101 MEQ/L (98-107); CREATININE FOR GFR 0.96 MG/DL (0.70-1.30); GLOMERULAR FILTRATION RATE > 60.0 (>42); GLUCOSE, FASTING 229 MG/DL (70-100); POTASSIUM SERUM 4.5 MEQ/L (3.5-5.1); SODIUM LEVEL 136 MEQ/L (136-145); TOTAL PROTEIN 6.2 GM/DL (6.4-8.2)
[2020-06-28] MEDS: IPRATROPIUM 0.5MG/ALBUTEROL 2.5MG INH SOL UD 3ML (DUONEB) NEB SCH ×3 (07:12→20:57)
[2020-06-28 09:06] VITALS: BP 164/72
[2020-06-28] MEDS: FERROUS SULFATE 300MG/5ML UDC LIQUID PEG SCH ×2 (09:06→21:20)
[2020-06-28] MEDS: AMANTADINE 100MG/10ML SYRUP UDC PEG SCH ×2 (09:06→21:19)
[2020-06-28] MEDS: FAMOTIDINE 20 MG TAB PEG SCH ×2 (09:07→21:18)
[2020-06-28] MEDS: amLODIPine 5 MG TAB PEG SCH (09:07)
[2020-06-28] MEDS: guaiFENesin SYRUP 200 MG/10 ML UDC PEG SCH ×4 (09:07→21:19)
[2020-06-28] MEDS: ASPIRIN 81 MG CHEW TABLET PEG SCH (09:07)
[2020-06-28] MEDS: cloNIDine 0.1MG TABLET GT SCH ×2 (09:07→21:18)
[2020-06-28] MEDS: LABETALOL 100MG TAB PEG SCH ×2 (09:08→21:19)
[2020-06-28] MEDS: VALSARTAN 80 MG TAB (DIOVAN) PEG SCH (09:08)
[2020-06-28] MEDS: THIAMINE 200MG/2ML VIAL (J3411 PER 100MG) IM SCH (09:08)
[2020-06-28] MEDS: MAGIC MOUTHWASH SUSPENSION BTL SSP SCH ×4 (09:09→21:21)
[2020-06-28] MEDS: ENOXAPARIN 40MG/0.4ML SYRINGE (J1650 PER 10MG) SC SCH (09:09)
--- NOTE | 2020-06-28 12:29 | IPNPDOC ---
PM&R Progress Note DATE OF SERVICE: Jun 28, 2020 Waiter Waitress Progress Note Subjective: Patient seen in in therapy working on the tilt table and later seen in bed, appeared comfortable, but sleeping. REVIEW OF SYSTEMS: The following is a completed review of systems and has been reviewed. Difficult to assess due to patient unable to respond, he appeared lethargic, able to be woken up briefly, did not appear to be in pain- (per nursing and therapy staff had been up for therapy session and able to do oral care) EARS, NOSE, & THROAT: + dysphagia PULMONARY: +on 02, breathing comfortably GASTROINTESTINAL: +peg GENITOURINARY: +incontinence MUSCULOSKELETAL: generalized weakness NEUROLOGICAL:+ left sided paresis SKIN: +sacral ulcers PHYSICAL EXAMINATION: VITAL SIGNS: Please see below. GENERAL: NAD HEENT: PERRL. Clear conjunctiva, +left sided facial droop CARDIOVASCULAR: Regular rate and rhythm. No murmurs, rubs, or gallops LUNGS: clear to auscultation bilaterally. No wheezes. No rhonchi ABDOMEN: Soft, nontender, nondistended. Positive bowel sounds. Normal active bowel sounds, +PEG NEUROLOGICAL: responds inconsistently to commands, A&O x0, ranchos level 3 EXTREMITIES: 5/5 RUE, spontaneous motion in both RLE and LLE, flaccid LUE (+) edema LE bilat SKIN: sacral ulcers, right frontal sutures c/d/i ASSESSMENT:74-year-old M with past medical history of HTn, HLD who presents status post stroke with hemorrhagic conversion PLAN: 1. rehab- pt/ot advance mobility and ADLs, strengthen/stretch/maintain ROM all 4limbs -BURRITO MAKER for cog and swallow eval-oral care 2. 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 s/p EVD placement and removal 06-10-20, c/u presenting as severe non-traumatic brain injury patient with a [place] Score of about 3 will benefit from the rapy, c/u ASA and statin -encephalopathic c/u amantadine and provigil for neurostimulation-patient seems to be more alert in the afternoon with therapy, d/cing reglan today which should help improve lethargy -monitor for seizures -patient with left sided paresis due to stroke and RLE weakness in setting of severe lumbar stenosis- tx with therapy -daily thiamine -will start SSRI for motor recovery if able to wean off scheduled reglan to avoid serotonin syndrome 3. Cardiac- hx of HTN c/e labetalol, amlodipine, Diovan, clonidine- medicine consulted to assist in overall management -ECHO at [facility] 06-11-20 showing grade 2 diastolic CHF 4. Resp- s/p treatment for klebsiella PNA with hypoxic respiratory failure- duonebs, guaifenesin, monitor for infection- CXR 06-26-20 negative for infiltrate -suspect sleep apnea, c/u nocturnal 02- goal 88-92% to avoid increasing apneic episodes 5. GI- NPO, PEG feeds goal 65cc/hr patient tolerating, d/c reglan today and monitor for residuals -c/u zofran prn for nausea -pepcid for ppx -FOBT reordered 6. DVT ppx- dopplers negative for dvt, c/u lovenox 7. SKin- turn q2 heel floats, zinc oxide to sacrum 8. - not retaining, however incontinent, will order UA to see if infection contributing to AMS 9. Renal- consulted for fluid management in setting of CHF, to monitor kidney function, and assist with iron deficiency anemia -increased free water boluses to correct elevated BUN-recs appreciated -c/u iron supplement for iron deficiency anemia 9. Endo- newly dx DM, c/u insulin 10. Pain- tylenol prn 11. Dispo- TBD Allergies Coded Allergies: No Known Allergies (Unverified , 06/23/20) Vital Signs Vital Signs Date Time Temp Pulse Resp B/P (MAP) Pulse Ox O2 Delivery O2 Flow Rate FiO2 06/28/20 09:08 164/72 06/28/20 09:08 84 06/28/20 08:00 2.0 06/28/20 05:15 98.0 21 94 Nasal Cannula 06/26/20 22:49 28 Laboratory Data CBC/BMP Laboratory Tests 06/28/20 05:29 Labs 24H Laboratory Tests 2 06/27/20 16:31: Bedside Glucose (Misc Panel) 308H 06/27/20 17:48: Bedside Glucose (Misc Panel) 279H 06/27/20 20:54: Bedside Glucose (Misc Panel) 227H 06/27/20 23:53: Bedside Glucose (Misc Panel) 245H 06/28/20 04:33: Bedside Glucose (Misc Panel) 201H 06/28/20 05:29: Nucleated Red Blood Cells % (auto) 0.0, Anion Gap 3L, Glomerular Filtration Rate > 60.0, Calcium Level 8.7L, Total Bilirubin 0.5#, Aspartate Amino Transf (AST/SGOT) 28, Alanine Aminotransferase (ALT/SGPT) 50, Alkaline Phosphatase 98, Total Protein 6.2L, Albumin 2.2L, Albumin/Globulin Ratio 0.6 06/28/20 11:33: Bedside Glucose (Misc Panel) 291H Microbiology Microbiology 06/27/20 Stool Occult Blood (DARREN), Ordered Pending 06/24/20 Blood Culture - Preliminary, Resulted No Growth after 72 hours. All specime... 06/24/20 Blood Culture - Preliminary, Resulted No Growth after 72 hours. All specime... Current Medications Current Medications Current Medications Medications (Trade) Dose Ordered Sig/Andi Route PRN Reason Start Time Stop Time Status Last Admin Dose Admin Acetaminophen (Tylenol Tab) 650 mg Q4HP PRN PEG fever/MILD PAIN (PS 1-4) 06/23/20 13:55 Albuterol/ Ipratropium (Duoneb (Ipr 0.5mg/Alb 2.5mg)) 3 ml RTID NEB 06/23/20 20:00 06/28/20 07:12 Amantadine HCl (Symmetrel Syrup) 100 mg BID PEG 06/23/20 21:00 06/28/20 09:06 Amlodipine Besylate (Norvasc) 5 mg DAILY PEG 06/24/20 09:00 06/28/20 09:07 Aspirin (Aspirin Chewable) 81 mg DAILY PEG 06/24/20 09:00 06/28/20 09:07 Atorvastatin Calcium (Lipitor) 80 mg QHS PEG 06/23/20 21:00 06/27/20 21:08 Bisacodyl (Dulcolax Suppository) 10 mg DAILYPRN PRN [place] CONSTIPATION 06/23/20 13:55 Clonidine HCl (Catapres) 0.1 mg BID GT 06/23/20 21:00 06/28/20 09:07 Dextrose (Dextrose 50%) 25 ml ASDIRECTED PRN IV SEE LABEL COMMENTS 06/23/20 13:55 Enoxaparin Sodium (Lovenox) 40 mg DAILY SC 06/24/20 09:00 06/28/20 09:09 Famotidine (Pepcid) 40 mg BID PEG 06/23/20 21:00 06/28/20 09:07 Ferrous Sulfate (Ferrous Sulfate) 300 mg BID PEG 06/27/20 09:00 06/28/20 09:06 Glucagon (Glucagon) 1 mg ASDIRECTED PRN SC SEE LABEL COMMENTS 06/23/20 13:55 Glucose (Glucose) 16 GM ASDIRECTED PRN PO SEE LABEL COMMENTS 06/23/20 13:55 Guaifenesin (Robitussin) 10 ml QID PEG 06/23/20 21:00 06/28/20 12:03 Home Med (Med Rec Complete!) ASDIRECTED XX 06/23/20 19:15 06/23/20 19:14 DC Insulin Detemir (Levemir Insulin) 10 units QHS SC 06/23/20 21:00 06/26/20 09:35 DC 06/25/20 21:02 Insulin Detemir (Levemir Insulin) 12 units QHS SC 06/26/20 21:00 06/27/20 07:18 DC 06/26/20 20:23 Insulin Detemir (Levemir Insulin) 20 units QHS SC 06/27/20 21:00 06/27/20 12:20 DC Insulin Detemir (Levemir Insulin) 32 units QHS SC 06/27/20 21:00 06/27/20 21:10 Insulin Human Lispro (HumaLOG INSULIN) SEE PROTOCOL TABLE Q6H SC 06/23/20 18:00 06/28/20 12:01 Labetalol HCl (Normodyne, Trandate) 300 mg BID PEG 06/23/20 21:00 06/28/20 09:08 Lidocaine/ Diphenhydr/Alum/ Mg/Simeth (Magic Mouthwash) 5ml QID SSP 06/23/20 21:00 06/28/20 12:03 Metoclopramide HCl (Reglan Liquid) 5 mg Q6H PEG 06/26/20 12:00 06/28/20 12:01 Metoclopramide HCl (Reglan Liquid) 10 mg Q6H PEG 06/24/20 00:00 06/26/20 09:35 DC 06/26/20 05:50 Modafinil (Provigil) 100 mg BID@0600,1400 PEG 06/24/20 06:00 06/28/20 05:47 Senna (Senokot) 1 tab QHS PEG 06/23/20 21:00 06/27/20 21:08 Thiamine HCl (VITAMIN B1 INJection) 100 mg DAILY IM 06/24/20 09:00 06/28/20 09:08 Valsartan (Diovan) 320 mg DAILY PEG 06/24/20 09:00 06/28/20 09:08 RICKY MCDONOUGH MD Jun 28, 2020 12:29
[2020-06-28 14:00] VITALS: BP 142/67
[2020-06-28 20:00] VITALS: BP 163/71
--- NOTE | 2020-06-28 20:56 | CR ---
NEPHROLOGY CONSULTATION DATE: 06/28/2020 REQUESTING PHYSICIAN: RICKY MCDONOUGH M.D. REASON FOR CONSULTATION: Acute kidney injury. HISTORY OF PRESENT ILLNESS: The patient is a 74-year-old male with a history of hypertension, hyperlipidemia, coronary artery disease, status post CABG in 1999, history of chronic diastolic dysfunction, history of right internal carotid artery occlusion, and a history of large ischemic CVA with left sided weakness and facial droop. He is admitted to the acute rehab floor at [facility] due to the stroke. He did not receive TPA as he was not a candidate. The patient did have a thrombectomy with TICI to be for perfusion. He developed a hemorrhagic stroke with extension and obstructive hydrocephalus. An external ventricle drain was placed. His hospitalization was complicated with seizure-like activity and was started on Keppra. He also had a hospital acquired pneumonia due to aspiration. He had acute renal failure with acute tubular necrosis and hypoxic respiratory failure. The patient has a PEG tube placement for feeding. He has now at the acute rehab unit at [facility] for rehab. A Nephrology consultation was requested as the patient had elevated BUN and progressive increase in the creatinine. He has been receiving tube feedings along with free water. MEDICATIONS: His current medications in the hospital are: 1. Levemir insulin 32 units at bedtime. 2. Ferrous Sulfate 300 mg twice daily. 3. Lovenox 40 mg subcutaneously daily. 4. Levemir insulin 32 units at bedtime. 5. Ferrous Sulfate 300 mg twice daily. 6. Lovenox 40 mg subcutaneously daily. 7. Vitamin B-1 100 mg daily. 8. Amlodipine 5 mg daily. 9. Aspirin 81 mg daily. 10. Diovan 320 mg daily. 11. Provigil 100 mg twice daily. 12. Senokot one tablet at bedtime. 13. Dilantin syrup 100 mg twice daily. 14. Catapres 0.1 mg twice daily. 15. Labetalol 300 mg twice daily. 16. Pepcid 40 mg twice daily. 17. Robitussin 10 mL four times daily. 18. Atorvastatin 80 mg at bedtime. 19. Albuterol nebulizers three times daily. 20. Humalog insulin per sliding scale. 21. Tylenol as needed. He is receiving all his medications via PEG tube. ALLERGIES: The patient has no known drug allergies. FAMILY HISTORY: The patient's family history is not obtainable at present. PERSONAL AND SOCIAL HISTORY: The patient himself is not able to provide any information at present as he is non-communicative. REVIEW OF SYSTEMS: The patient's review of systems was not possible, as the patient is unable to answer any questions. Nursing staff reports that he has been tolerating his tube feedings well without any significant residuals. He is not able to follow any commands. PHYSICAL EXAMINATION: VITAL SIGNS: Temperature 98.7 degrees Fahrenheit, heart rate 84 per minute and respiratory rate 20 per minute, blood pressure 164/72 mm of mercury and oxygen saturation 99% on 2-3 liters oxygen. GENERAL APPEARANCE: The patient is totally non-communicative. HEENT: His head is atraumatic. Oral mucosa is dry. NECK: Supple and JVD not visible. HEART: Regular. LUNGS: Decreased breath sounds due to poor inspiratory effort. ABDOMEN: Soft and a PEG tube is in place. Bowel sounds are normal. EXTREMITIES: Without any cyanosis or clubbing. There is no peripheral edema. NEUROLOGICAL: The patient is unresponsive and non-communicative. LABORATORY STUDIES: Yesterday his hemoglobin was 9.2, white blood cell count was 9.2, hemoglobin 7.9 and hematocrit 25.9, platelet count 228. His BUN was up to 58 and creatinine 1.28 yesterday and glucose 309. Sodium 138 and potassium 4.5, CO2 was 28 and calcium 8.6. His iron level is 21. His saturation is 0.9%, total protein 7.0 and albumin 2.2. Blood gas done on June 26 showed a pH of 7.48, pco2 38 and pO2 59. Urinalysis no protein or blood, only one WBC and 8 RBCs. PROBLEMS: 1. Acute kidney injury most likely the patient has prerenal azotemia due to inability to take any fluids by mouth. He is receiving tube feeding at 65 mL per hour and in addition, he is receiving some free water. I have increased the free water and BUN has already come down to 50 and creatinine 0.96 today. Electrolytes are within normal range. At this point his volume status is very well compensated, and we will continue with the current free water along with tube feeds. Once his condition reaches of adequate hydration, then we will consider to cut back on the free water right now he is receiving 300 mL of free water every 4 hours and nursing staff is checking the residual of his gastric contents. 2. Anemia - The patient has significant anemia due to complicated hospitalization recently and he also has iron deficiency. He receiving iron supplement via G-tube. His anemia is likely to get worse as he gets hydrated. There is no emergent indication for a transfusion at this point, and CBC should be repeated again in a couple of days. 3. Protein calorie malnutrition related to complicated recent hospitalization and the apparently is now receiving adequate nutrition via G-tube it will probably take a while before his serum albumin level improves. Thank you for involving me in the care of Mr. Patterson. I will follow him along with you. MARTIN
[2020-06-28] MEDS: SENNA 8.6 MG TAB (SENOKOT) PEG SCH (21:19)
[2020-06-28] MEDS: ATORVASTATIN 20 MG TAB PEG SCH (21:19)
[2020-06-28] MEDS: LEVEMIR (INSULIN DETEMIR) 1 UNITS/0.01ML SC SCH (21:20)
[2020-06-29] MEDS: HumaLOG INSULIN (NovoLOG) PER UNIT SC SCH ×4 (00:17→17:45)
[2020-06-29 06:00] VITALS: BP 103/52
[2020-06-29 06:03] LABS: BASO % 0.2 % (0.0-1.0); EOS # 0.3 10^3/uL (0.0-0.5); EOS % 3.4 % (0.0-3.0); HEMOGLOBIN 7.9 g/dl (13.5-17.5); LYMPH % 10.1 % (24.0-44.0); MEAN CORPUSCULAR HEMOGLOBIN 26.1 pg (27.0-33.0); MEAN CORPUSCULAR HGB CONC 31.6 g/dl (32.0-36.5); MEAN CORPUSCULAR VOLUME 82.5 fl (80.0-96.0); MONO # 0.9 10^3/uL (0.0-0.8); MONO % 9.4 % (2.0-8.0); NEUTROPHILS # 7.4 10^3/uL (1.5-8.5); NEUTROPHILS % 76.5 % (36.0-66.0); PLATELET COUNT, AUTOMATED 205 10^3/uL (150-450); RED BLOOD COUNT 3.03 10^6/uL (4.30-6.10); WHITE BLOOD COUNT 9.7 10^3/uL (4.0-10.0)
[2020-06-29] MEDS: REMEDY PHYTOPLEX Z-GUARD PASTE 113GM TUBE (FROM STOREROOM PRODUCT) TOP SCH ×3 (06:45→17:46)
[2020-06-29] MEDS: MODAFINIL 100 MG TABLET PEG SCH ×2 (06:45→15:22)
[2020-06-29] MEDS: IPRATROPIUM 0.5MG/ALBUTEROL 2.5MG INH SOL UD 3ML (DUONEB) NEB SCH ×3 (07:26→20:38)
--- NOTE | 2020-06-29 07:48 | IPNPDOC ---
PM&R Progress Note DATE OF SERVICE: Jun 29, 2020 Global Professional Progress Note Subjective: Patient seen in PT, being turned in bed for bowel care, patient appeared diaphoretic with more labored breathing. REVIEW OF SYSTEMS: The following is a completed review of systems and has been reviewed. Difficult to assess due to patient unable to respond EARS, NOSE, & THROAT: + dysphagia PULMONARY: +on 02, breathing more labored GASTROINTESTINAL: +peg GENITOURINARY: +incontinence MUSCULOSKELETAL: generalized weakness NEUROLOGICAL:+ left sided paresis SKIN: +sacral ulcers PHYSICAL EXAMINATION: VITAL SIGNS: Please see below. GENERAL: NAD HEENT: PERRL. Clear conjunctiva, +left sided facial droop CARDIOVASCULAR: Regular rate and rhythm. No murmurs, rubs, or gallops LUNGS: clear to auscultation bilaterally. No wheezes. No rhonchi ABDOMEN: Soft, nontender, slightly distended. Positive bowel sounds. Normal active bowel sounds, +PEG NEUROLOGICAL: responds inconsistently to commands, A&O x0, ranchos level 3 EXTREMITIES: 5/5 RUE, spontaneous motion in both RLE and LLE, flaccid LUE (+) edema LE bilat SKIN: sacral ulcers, right frontal sutures c/d/i ASSESSMENT:74-year-old M with past medical history of HTn, HLD who presents status post stroke with hemorrhagic conversion PLAN: 1. rehab- pt/ot advance mobility and ADLs, strengthen/stretch/maintain ROM all 4limbs -BURGLAR ALARM INSTALLER for cog and swallow eval-oral care 2. 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 s/p EVD placement and removal 06-10-20, c/u presenting as severe non-traumatic brain injury patient with a [place] Score of about 3 will benefit from therapy, c/u ASA and statin -encephalopathic c/u amantadine and provigil for neurostimulation-patient seems to be more alert in the afternoon with therapy, d/cing reglan today which should help improve lethargy -monitor for seizures -patient with left sided paresis due to stroke and RLE weakness in setting of severe lumbar stenosis- tx with therapy -daily thiamine -will start SSRI for motor recovery once weaned off reglan to avoid serotonin syndrome 3. Cardiac- hx of HTN c/e labetalol, amlodipine, Diovan, clonidine- medicine consulted to assist in overall management -ECHO at [facility] 06-11-20 showing grade 2 diastolic CHF 4. Resp- s/p treatment for klebsiella PNA with hypoxic respiratory failure- duonebs, guaifenesin, monitor for infection- CXR 06-26-20 negative for infiltrate, however today patient with increased work of breathing, diaphoretic, with fever of 101, CXR ordered in addition to blood cx and MRSA screen, will start IV zosyn for presumed aspiration PNA and c/u to monitor -suspect sleep apnea, c/u nocturnal 02- goal 88-92% to avoid increasing apneic episodes 5. GI- NPO, PEG feeds goal 65cc/hr patient tolerating, d/c'd reglan c/u to monitor for residuals -c/u zofran prn for nausea -pepcid for ppx -FOBT reordered -KUB ordered today as part of fever work-up to r/o obstruction/perforation 6. DVT ppx- dopplers negative for dvt, c/u lovenox 7. SKin- turn q2 heel floats, zinc oxide to sacrum 8. - not retaining, however incontinent, but Urine negative for infection 9. Renal- consulted for fluid management in setting of CHF, to monitor kidney function, and assist with iron deficiency anemia -increased free water boluses to correct elevated BUN-recs appreciated -c/u iron supplement for iron deficiency anemia 9. Endo- newly dx DM, c/u insulin adjustments for hyperglycemia 10. Pain- tylenol changed to standing with lidoderm patch to right shoulder- patient grimaces with rotation of right shoulder 11. Dispo- TBD Allergies Coded Allergies: No Known Allergies (Unverified , 06/23/20) Vital Signs Vital Signs Date Time Temp Pulse Resp B/P (MAP) Pulse Ox O2 Delivery O2 Flow Rate FiO2 06/29/20 06:00 98.1 85 17 103/52 (69) 94 Aerosol Mask 1.0 06/26/20 22:49 28 Laboratory Data CBC/BMP Laboratory Tests 06/29/20 05:20 Labs 24H Laboratory Tests 2 06/28/20 11:33: Bedside Glucose (Misc Panel) 291H 06/28/20 16:24: Bedside Glucose (Misc Panel) 301H 06/28/20 17:45: Bedside Glucose (Misc Panel) 297H 06/28/20 20:13: Bedside Glucose (Misc Panel) 256H 06/29/20 00:07: Bedside Glucose (Misc Panel) 256H 06/29/20 05:20: Immature Granulocyte % (Auto) 0.4, Neutrophils (%) (Auto) 76.5H, Lymphocytes (%) (Auto) 10.1L, Monocytes (%) (Auto) 9.4H, Eosinophils (%) (Auto) 3.4H, Basophils (%) (Auto) 0.2, Neutrophils # (Auto) 7.4, Lymphocytes # (Auto) 1.0L, Monocytes # (Auto) 0.9H, Eosinophils # (Auto) 0.3, Basophils # (Auto) 0.0, Nucleated Red Blood Cells % (auto) 0.0 06/29/20 06:17: Bedside Glucose (Misc Panel) 303H Microbiology Microbiology 06/27/20 Stool Occult Blood (DARREN), Ordered Pending 06/24/20 Blood Culture - Final, Complete NO GROWTH AFTER 5 DAYS 06/24/20 Blood Culture - Final, Complete NO GROWTH AFTER 5 DAYS Current Medications Current Medications Current Medications Medications (Trade) Dose Ordered Sig/Andi Route PRN Reason Start Time Stop Time Status Last Admin Dose Admin Acetaminophen (Tylenol Tab) 650 mg Q4HP PRN PEG fever/MILD PAIN (PS 1-4) 06/23/20 13:55 Albuterol/ Ipratropium (Duoneb (Ipr 0.5mg/Alb 2.5mg)) 3 ml RTID NEB 06/23/20 20:00 06/29/20 07:26 Amantadine HCl (Symmetrel Syrup) 100 mg BID PEG 06/23/20 21:00 06/28/20 21:19 Amlodipine Besylate (Norvasc) 5 mg DAILY PEG 06/24/20 09:00 06/28/20 09:07 Aspirin (Aspirin Chewable) 81 mg DAILY PEG 06/24/20 09:00 06/28/20 09:07 Atorvastatin Calcium (Lipitor) 80 mg QHS PEG 06/23/20 21:00 06/28/20 21:19 Bisacodyl (Dulcolax Suppository) 10 mg DAILYPRN PRN [place] CONSTIPATION 06/23/20 13:55 Clonidine HCl (Catapres) 0.1 mg BID GT 06/23/20 21:00 06/28/20 21:18 Dextrose (Dextrose 50%) 25 ml ASDIRECTED PRN IV SEE LABEL COMMENTS 06/23/20 13:55 Enoxaparin Sodium (Lovenox) 40 mg DAILY SC 06/24/20 09:00 06/28/20 09:09 Famotidine (Pepcid) 40 mg BID PEG 06/23/20 21:00 06/28/20 21:18 Ferrous Sulfate (Ferrous Sulfate) 300 mg BID PEG 06/27/20 09:00 06/28/20 21:20 Glucagon (Glucagon) 1 mg ASDIRECTED PRN SC SEE LABEL COMMENTS 06/23/20 13:55 Glucose (Glucose) 16 GM ASDIRECTED PRN PO SEE LABEL COMMENTS 06/23/20 13:55 Guaifenesin (Robitussin) 10 ml QID PEG 06/23/20 21:00 06/28/20 21:19 Home Med (Med Rec Complete!) ASDIRECTED XX 06/23/20 19:15 06/23/20 19:14 DC Insulin Detemir (Levemir Insulin) 10 units QHS SC 06/23/20 21:00 06/26/20 09:35 DC 06/25/20 21:02 Insulin Detemir (Levemir Insulin) 12 units QHS SC 06/26/20 21:00 06/27/20 07:18 DC 06/26/20 20:23 Insulin Detemir (Levemir Insulin) 20 units QHS SC 06/27/20 21:00 06/27/20 12:20 DC Insulin Detemir (Levemir Insulin) 32 units QHS SC 06/27/20 21:00 06/28/20 21:20 Insulin Human Lispro (HumaLOG INSULIN) SEE PROTOCOL TABLE Q6H SC 06/23/20 18:00 06/29/20 06:46 Labetalol HCl (Normodyne, Trandate) 300 mg BID PEG 06/23/20 21:00 06/28/20 21:19 Lidocaine/ Diphenhydr/Alum/ Mg/Simeth (Magic Mouthwash) 5ml QID SSP 06/23/20 21:00 06/28/20 21:21 Metoclopramide HCl (Reglan Liquid) 5 mg Q6H PEG 06/26/20 12:00 06/28/20 12:28 DC 06/28/20 12:01 Metoclopramide HCl (Reglan Liquid) 10 mg Q6H PEG 06/24/20 00:00 06/26/20 09:35 DC 06/26/20 05:50 Modafinil (Provigil) 100 mg BID@0600,1400 PEG 06/24/20 06:00 06/29/20 06:45 Senna (Senokot) 1 tab QHS PEG 06/23/20 21:00 06/28/20 21:19 Thiamine HCl (VITAMIN B1 INJection) 100 mg DAILY IM 06/24/20 09:00 06/28/20 09:08 Valsartan (Diovan) 320 mg DAILY PEG 06/24/20 09:00 06/28/20 09:08 RICKY MCDONOUGH MD Jun 29, 2020 07:48
[2020-06-29] MEDS: amLODIPine 5 MG TAB PEG SCH (09:00)
[2020-06-29] MEDS: cloNIDine 0.1MG TABLET GT SCH ×2 (09:00→22:00)
[2020-06-29] MEDS: LABETALOL 100MG TAB PEG SCH ×2 (09:00→22:01)
[2020-06-29] MEDS: VALSARTAN 80 MG TAB (DIOVAN) PEG SCH (09:00)
[2020-06-29] MEDS: guaiFENesin SYRUP 200 MG/10 ML UDC PEG SCH ×4 (09:05→21:59)
[2020-06-29] MEDS: AMANTADINE 100MG/10ML SYRUP UDC PEG SCH ×2 (09:05→21:59)
[2020-06-29] MEDS: FERROUS SULFATE 300MG/5ML UDC LIQUID PEG SCH ×2 (09:05→21:59)
[2020-06-29] MEDS: LEVEMIR (INSULIN DETEMIR) 1 UNITS/0.01ML SC SCH ×2 (09:06→21:59)
[2020-06-29] MEDS: THIAMINE 200MG/2ML VIAL (J3411 PER 100MG) IM SCH (09:06)
[2020-06-29] MEDS: MAGIC MOUTHWASH SUSPENSION BTL SSP SCH ×4 (09:07→22:00)
[2020-06-29] MEDS: ASPIRIN 81 MG CHEW TABLET PEG SCH (09:09)
[2020-06-29] MEDS: ENOXAPARIN 40MG/0.4ML SYRINGE (J1650 PER 10MG) SC SCH (09:10)
[2020-06-29] MEDS: FAMOTIDINE 20 MG TAB PEG SCH ×2 (09:10→22:00)
[2020-06-29 13:30] VITALS: BP 164/72
[2020-06-29] MEDS ORDERED: ACETAMINOPHEN TAB 650MG DOSE (2X325MG) PEG PRN (13:35)
[2020-06-29 14:00] VITALS: BP 166/73
--- NOTE | 2020-06-29 14:37 | REP ---
INDICATION: hx of recent hemorrhagic stroke r/o new bleed. COMPARISON: The only comparison brain CT study available at this juncture is December 11, 2017 CT angiography of the brain.. TECHNIQUE: Helical scanning is acquired. 5 mm axial images were reformatted. Coronal MPR images were generated. FINDINGS: Digital preliminary arcade games mechanic images are unremarkable. There is heavy vascular calcification in the distal internal carotid and distal vertebral arteries bilaterally. The bony calvarium is intact. Visualized paranasal sinuses are clear. No intraorbital abnormality is seen. On soft tissue window settings, there is periventricular low-density and edematous mass effect in the right frontal lobe and right basal ganglia. Centrally in the low-density area there is slightly higher attenuation material consistent with resolving basal ganglia hemorrhage or hemorrhagic infarction. The adjacent overlying fox matter appears relatively spared. There is some low density extending into the caudate nucleus. The right frontal horn is attenuated by the mass effect. There is no evidence of midline shift however. No extra-axial fluid collection is seen. No intracranial mass is observed. No acute intracranial hemorrhage is seen. IMPRESSION: Findings consistent with resolving right basal ganglia hemorrhage or hemorrhagic infarction. Some mass effect but no midline shift. No acute intracranial bleed seen.. <Electronically signed by Ranjit Medina > 06/29/20 [id number]
--- NOTE | 2020-06-29 14:37 | REP ---
INDICATION: r/o aspiration PNA vs pulmonary edema COMPARISON: 06/26/2020 TECHNIQUE: PA and lateral. FINDINGS: The mediastinum and cardiac silhouette are stable. No focal consolidation, effusion, or pneumothorax. Skeletal structures stable. IMPRESSION: No acute cardiopulmonary process. <Electronically signed by Jason Elam > 06/29/20 [id number]
--- NOTE | 2020-06-29 14:38 | REP ---
INDICATION: r/o aspiration PNA vs pulmonary edema COMPARISON: None. TECHNIQUE: Supine view of the abdomen and pelvis. FINDINGS: Percutaneous gastrostomy tube appears to be in satisfactory position. The bowel gas pattern is nonspecific. No obvious free air. No organomegaly. No abnormal foreign body. Skeletal structures demonstrate age-related changes. IMPRESSION: Nonspecific bowel gas pattern. Percutaneous gastrostomy in satisfactory position. <Electronically signed by Jason Elam > 06/29/20 [id number]
[2020-06-29] MEDS: LIDOCAINE 5% (LIDODERM) PATCH TD SCH (15:22)
[2020-06-29] MEDS: PIPERACILLIN/TAZOBACTAM SOD 4.5 GM in D5W MINI-BAG PLUS 50 ML IV SCH ×2 (15:23→21:58)
[2020-06-29] MEDS: ACETAMINOPHEN 325 MG/10.15 ML UDC GT SCH ×2 (15:23→21:59)
[2020-06-29 16:15] LABS: NT-PRO BNP 1504 PG/ML (<450)
[2020-06-29 19:00] LABS: BLOOD UREA NITROGEN 34 MG/DL (7-18); CALCIUM LEVEL 8.6 MG/DL (8.8-10.2); CARBON DIOXIDE LEVEL 30 MEQ/L (21-32); CHLORIDE LEVEL 98 MEQ/L (98-107); GLOMERULAR FILTRATION RATE > 60.0 (>42); GLUCOSE, FASTING 335 MG/DL (70-100); POTASSIUM SERUM 4.6 MEQ/L (3.5-5.1); SODIUM LEVEL 133 MEQ/L (136-145)
[2020-06-29 20:10] VITALS: BP 146/65
[2020-06-29] MEDS: ATORVASTATIN 20 MG TAB PEG SCH (22:01)
[2020-06-29] MEDS: **NOTE PATIENT COMMENT** MISC XX SCH (22:02)
[2020-06-30] MEDS: REMEDY PHYTOPLEX Z-GUARD PASTE 113GM TUBE (FROM STOREROOM PRODUCT) TOP SCH ×5 (00:03→23:44)
[2020-06-30] MEDS: HumaLOG INSULIN (NovoLOG) PER UNIT SC SCH ×5 (00:03→23:45)
[2020-06-30] MEDS: PIPERACILLIN/TAZOBACTAM SOD 4.5 GM in D5W MINI-BAG PLUS 50 ML IV SCH ×4 (02:19→21:20)
[2020-06-30] MEDS: MODAFINIL 100 MG TABLET PEG SCH ×2 (05:53→13:47)
[2020-06-30 06:00] VITALS: BP 159/77
[2020-06-30 06:07] LABS: BASO % 0.2 % (0.0-1.0); EOS # 0.2 10^3/uL (0.0-0.5); EOS % 2.4 % (0.0-3.0); HEMATOCRIT 25.1 % (42.0-52.0); HEMOGLOBIN 7.8 g/dl (13.5-17.5); LYMPH # 0.8 10^3/uL (1.5-5.0); LYMPH % 8.4 % (24.0-44.0); MEAN CORPUSCULAR HEMOGLOBIN 25.9 pg (27.0-33.0); MEAN CORPUSCULAR HGB CONC 31.1 g/dl (32.0-36.5); MEAN CORPUSCULAR VOLUME 83.4 fl (80.0-96.0); MONO % 10.4 % (2.0-8.0); NEUTROPHILS # 7.2 10^3/uL (1.5-8.5); NEUTROPHILS % 78.2 % (36.0-66.0); PLATELET COUNT, AUTOMATED 183 10^3/uL (150-450); RED BLOOD COUNT 3.01 10^6/uL (4.30-6.10); WHITE BLOOD COUNT 9.2 10^3/uL (4.0-10.0)
[2020-06-30 06:28] LABS: BLOOD UREA NITROGEN 33 MG/DL (7-18); CALCIUM LEVEL 8.4 MG/DL (8.8-10.2); CARBON DIOXIDE LEVEL 31 MEQ/L (21-32); CHLORIDE LEVEL 99 MEQ/L (98-107); CREATININE FOR GFR 0.96 MG/DL (0.70-1.30); GLOMERULAR FILTRATION RATE > 60.0 (>42); GLUCOSE, FASTING 337 MG/DL (70-100); POTASSIUM SERUM 4.3 MEQ/L (3.5-5.1); SODIUM LEVEL 135 MEQ/L (136-145)
[2020-06-30] MEDS: IPRATROPIUM 0.5MG/ALBUTEROL 2.5MG INH SOL UD 3ML (DUONEB) NEB SCH ×3 (07:12→18:29)
--- NOTE | 2020-06-30 08:12 | IPN ---
NEPHROLOGY PROGRESS NOTE DATE: 06/29/2020 SUBJECTIVE: Mr. Patterson is seen this morning at this bedside. He is laying in the bed and remains unresponsive. He has Grant rob breathing. He continues to receive tube feeding and free water via his PEG tube. OBJECTIVE: PHYSICAL EXAMINATION: VITAL SIGNS: Temperature 98.1 degrees Fahrenheit, heart rate 85 per minute and respiratory rate 17 per minute. Blood pressure 106/52 mm of mercury and oxygen saturation 94%. HEENT: His head is atraumatic. NECK: Supple and JVD not abnormally elevated. HEART: Regular. LUNGS: Good bilateral air entry. He has Grant rob breathing. ABDOMEN: Soft and PEG tube is in place. EXTREMITIES: Without any cyanosis or clubbing. NEUROLOGICAL: He remains unresponsive. LABORATORY STUDIES: Today's labs show a white blood cell count of 9.7, hemoglobin 7.9 and hematocrit 25.0. He did not have any chemistries done today. Yesterday his BUN was 50 and creatinine 0.96. His BNP level is down today which s 1,504. PROBLEMS: 1. Acute kidney injury superimposed on chronic kidney disease - with increased free water via PEG tube, his kidney function did improve yesterday. I am going to add another basic metabolic profile today and will monitor his kidney function. We will check his chemistries again tomorrow. 2. Congestive heart failure volume status seems clinically compensated without any peripheral edema or elevated neck veins. His BNP level is slightly elevated at 1,500 and we will need to monitor and trend his BNP level. At this point we will continue with current free water and tube feeding. 3. Anemia his anemia is significant but unchanged over the last few days. He is receiving iron supplements. No urgent need for a transfusion and we will hold off on any Aranesp due to risk of thromboembolic complications and improved renal function. 4. Nutrition - The patient continues to receive his tube feeding and free water. Electrolytes are stable.
[2020-06-30] MEDS: LEVEMIR (INSULIN DETEMIR) 1 UNITS/0.01ML SC SCH ×2 (08:14→21:19)
[2020-06-30] MEDS: FERROUS SULFATE 300MG/5ML UDC LIQUID PEG SCH ×2 (08:23→21:18)
[2020-06-30] MEDS: ENOXAPARIN 40MG/0.4ML SYRINGE (J1650 PER 10MG) SC SCH (08:23)
[2020-06-30] MEDS: ACETAMINOPHEN 325 MG/10.15 ML UDC GT SCH ×3 (08:23→21:18)
[2020-06-30] MEDS: AMANTADINE 100MG/10ML SYRUP UDC PEG SCH ×2 (08:24→21:18)
[2020-06-30] MEDS: FAMOTIDINE 20 MG TAB PEG SCH ×2 (08:24→21:16)
[2020-06-30] MEDS: cloNIDine 0.1MG TABLET GT SCH ×2 (08:24→21:18)
[2020-06-30] MEDS: guaiFENesin SYRUP 200 MG/10 ML UDC PEG SCH ×4 (08:24→21:18)
[2020-06-30] MEDS: VALSARTAN 80 MG TAB (DIOVAN) PEG SCH (08:24)
[2020-06-30] MEDS: ASPIRIN 81 MG CHEW TABLET PEG SCH (08:25)
[2020-06-30] MEDS: LABETALOL 100MG TAB PEG SCH ×2 (08:25→21:17)
[2020-06-30] MEDS: MAGIC MOUTHWASH SUSPENSION BTL SSP SCH ×4 (08:25→21:20)
[2020-06-30] MEDS: amLODIPine 5 MG TAB PEG SCH (08:25)
[2020-06-30] MEDS: LIDOCAINE 5% (LIDODERM) PATCH TD SCH (08:26)
[2020-06-30] MEDS: THIAMINE 200MG/2ML VIAL (J3411 PER 100MG) IM SCH (08:26)
[2020-06-30 14:00] VITALS: BP 141/66
[2020-06-30 20:00] VITALS: BP 126/61
[2020-06-30] MEDS: ATORVASTATIN 20 MG TAB PEG SCH (21:16)
[2020-06-30] MEDS: **NOTE PATIENT COMMENT** MISC XX SCH (21:25)
[2020-07-01] MEDS: PIPERACILLIN/TAZOBACTAM SOD 4.5 GM in D5W MINI-BAG PLUS 50 ML IV SCH ×4 (02:50→21:30)
[2020-07-01 05:14] VITALS: BP 166/73
[2020-07-01] MEDS: REMEDY PHYTOPLEX Z-GUARD PASTE 113GM TUBE (FROM STOREROOM PRODUCT) TOP SCH ×3 (05:53→18:08)
[2020-07-01] MEDS: MODAFINIL 100 MG TABLET PEG SCH ×2 (05:53→14:02)
[2020-07-01] MEDS: HumaLOG INSULIN (NovoLOG) PER UNIT SC SCH ×3 (05:53→18:08)
[2020-07-01 06:22] VITALS: BP 134/88
[2020-07-01] MEDS: IPRATROPIUM 0.5MG/ALBUTEROL 2.5MG INH SOL UD 3ML (DUONEB) NEB SCH ×3 (07:11→19:32)
[2020-07-01] MEDS: ASPIRIN 81 MG CHEW TABLET PEG SCH (08:46)
[2020-07-01] MEDS: cloNIDine 0.1MG TABLET GT SCH ×2 (08:46→21:31)
[2020-07-01] MEDS: ENOXAPARIN 40MG/0.4ML SYRINGE (J1650 PER 10MG) SC SCH (08:46)
[2020-07-01] MEDS: LIDOCAINE 5% (LIDODERM) PATCH TD SCH (08:46)
[2020-07-01] MEDS: amLODIPine 5 MG TAB PEG SCH (08:46)
[2020-07-01] MEDS: guaiFENesin SYRUP 200 MG/10 ML UDC PEG SCH ×4 (08:47→21:30)
[2020-07-01] MEDS: ACETAMINOPHEN 325 MG/10.15 ML UDC GT SCH ×3 (08:47→21:30)
[2020-07-01] MEDS: FAMOTIDINE 20 MG TAB PEG SCH ×2 (08:47→21:31)
[2020-07-01] MEDS: FERROUS SULFATE 300MG/5ML UDC LIQUID PEG SCH (08:47)
[2020-07-01] MEDS: AMANTADINE 100MG/10ML SYRUP UDC PEG SCH ×2 (08:47→21:30)
[2020-07-01] MEDS: MAGIC MOUTHWASH SUSPENSION BTL SSP SCH ×4 (08:48→21:32)
[2020-07-01] MEDS: LABETALOL 100MG TAB PEG SCH ×2 (08:48→21:31)
[2020-07-01] MEDS: THIAMINE 200MG/2ML VIAL (J3411 PER 100MG) IM SCH (08:48)
[2020-07-01] MEDS: LEVEMIR (INSULIN DETEMIR) 1 UNITS/0.01ML SC SCH ×2 (08:50→21:32)
[2020-07-01] MEDS: VALSARTAN 80 MG TAB (DIOVAN) PEG SCH (08:52)
[2020-07-01] MEDS: IRON SUCROSE 100 MG in NS 100 ML IV SCH (12:16)
[2020-07-01 12:20] VITALS: BP 132/63
[2020-07-01 12:35] VITALS: BP 136/63
--- NOTE | 2020-07-01 19:12 | REPVR ---
PROCEDURE INFORMATION: Exam: CT Chest Without Contrast; Diagnostic Exam date and time: 07/01/2020 5:50 PM Age: 74 years old Clinical indication: Other: R/O infiltrate TECHNIQUE: Imaging protocol: Diagnostic computed tomography of the chest without contrast. 3D rendering (Not supervised by radiologist): MIP and/or 3D reconstructed images were created by the technologist. Radiation optimization: All CT scans at this facility use at least one of these dose optimization techniques: automated exposure control; mA and/or kV adjustment per patient size (includes targeted exams where dose is matched to clinical indication); or iterative reconstruction. COMPARISON: CR Chest, 2 view PA, Lat 06/29/2020 2:20 PM FINDINGS: Tubes, catheters and devices: Gastrostomy tube is present with balloon in the stomach, partially included. Thyroid: Included thyroid is unremarkable. Lungs: There is breathing motion artifact. Discoid atelectasis or scar is seen in the lower lungs. No definite dense consolidation. Limited evaluation for ground-glass infiltrates given the breathing motion artifact. Dependent changes posteriorly in the lower lobes more than the upper lobes. Pleural spaces: Unremarkable. No pneumothorax. No pleural effusion. Heart: Cardiac revascularization has been performed. There is coronary atherosclerosis. Heart size is enlarged. No pericardial effusion. Pulmonary arteries: Central pulmonary arteries are enlarged. Aorta: Thoracic aorta is tortuous, ectatic, and atherosclerotic. Additional atherosclerotic changes in the upper abdomen. The pancreas appears atrophic or visualized. Atherosclerotic calcification in the splenic artery and upper abdominal aorta. Lymph nodes: There are small bilateral axillary lymph nodes. Mildly enlarged lymph node along the right anterolateral aspect of the charlene measuring 14 mm short axis dimension. Multiple small paratracheal nodes. Bones/joints: Median sternotomy has been performed. The 2 superior median sternotomy wires are again fractured. There is no acute osseous abnormality. Multilevel degenerative changes in the sub thoracic spine. Breathing motion artifact limits evaluation for subtle rib fractures. Soft tissues: Mild bilateral gynecomastia. IMPRESSION: 1. No definite dense consolidation. Discoid atelectasis or scar bilaterally as well as additional nodular atelectasis or scar in the lingula upon further review. Some limitation in evaluation for ground-glass opacities given significant breathing motion artifact. Mild dependent changes in the lungs bilaterally posteriorly. 2. Cardiomegaly, status post cardiac revascularization. 3. Prior median sternotomy with fracture of the 2 superior most wires again noted. 4. Enlarged central pulmonary arteries suggesting pulmonary arterial hypertension. 5. Aortic and coronary as well as splenic artery atherosclerosis. 6. The history provided is rule out infiltrate. An addendum will be added to this report when clinical history becomes available. Electronically signed by: Mita Acosta On 07/01/2020 19:12:27 PM
[2020-07-01 19:32] VITALS: O2SAT 95
[2020-07-01 20:00] VITALS: BP 128/58
[2020-07-01] MEDS: **NOTE PATIENT COMMENT** MISC XX SCH (21:30)
[2020-07-01] MEDS: ATORVASTATIN 20 MG TAB PEG SCH (21:30)
--- NOTE | 2020-07-01 22:29 | IPN ---
NEPHROLOGY PROGRESS NOTE DATE: 07/01/2020 SUBJECTIVE: Patient was seen and examined at the bedside today morning. He was lying in the rehab unit. He continues to be on tube feeds, Jevity. Latest labs are not available. Patient is unable to provide any review of systems at this time. OBJECTIVE: VITAL SIGNS: Temperature 97 degrees Fahrenheit, blood pressure 136/63, pulse 82, respiratory rate 20, sating 89% on the aerosol mask at 1 liter. INTAKE AND OUTPUT: Urine output is not recorded well. Weight in the bed scale is 115.3 kg. PHYSICAL EXAMINATION: GENERAL: Patient is awake, nonverbal, lying in bed. HEENT: Pupils equally round and reactive to light. Mucous membranes are moist. Neck is supple. No JVD. RESPIRATORY: Chest is clear to auscultation bilaterally. Bilateral equal air entry. No rales or rhonchi. CARDIOVASCULAR: S1, S2, regular rate. No significant edema of the bilateral lower extremities. ABDOMEN: Soft, positive bowel sounds. He has a PEG tube in the epigastrium, which is being used for tube feeds at this time. GENITOURINARY: Bladder is not palpable. MUSCULOSKELETAL: No clubbing or cyanosis. Pulses are 2+. 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 He has left hemiparesis. He follows very few commands. LABORATORY DATA: CBC is from yesterday with hemoglobin 7.8 and BMP is also from yesterday with creatinine of 0.96. CURRENT INPATIENT MEDICATIONS: Patient's medications were all reviewed by myself. There is no other significant change in the medications today as compared with yesterday. I have started the patient on Venofer 100 mg I.V. daily. He continues to be on I.V. Zosyn. I changed the iron tablet to 300 mg via PEG once a day only. Insulin Levemir was changed to 13 units subcutaneously in the morning and 40 units in the evening. ASSESSMENT AND PLAN: 1. Acute kidney injury superimposed on chronic kidney disease: Patient's renal function is stable. Creatinine is 0.9. 2. Iron deficiency anemia: Patient has been started on I.V. Venofer. Oral iron dose has been decreased. 3. Nutrition: Patient continues to be on Jevity tube feeds, which he is tolerating well. 4. Right middle cerebral artery infarct; status post thrombectomy with left hemiparesis: Patient is getting physical therapy. Continue aspirin and statin.
[2020-07-02] VITALS (7 sets, daily range): BP systolic 132–151; BP diastolic 61–68
[2020-07-02] MEDS: REMEDY PHYTOPLEX Z-GUARD PASTE 113GM TUBE (FROM STOREROOM PRODUCT) TOP SCH ×4 (00:22→17:51)
[2020-07-02] MEDS: HumaLOG INSULIN (NovoLOG) PER UNIT SC SCH ×4 (00:23→17:51)
[2020-07-02] MEDS: PIPERACILLIN/TAZOBACTAM SOD 4.5 GM in D5W MINI-BAG PLUS 50 ML IV SCH ×4 (03:40→21:24)
[2020-07-02] MEDS: MODAFINIL 100 MG TABLET PEG SCH ×2 (05:52→13:08)
[2020-07-02] MEDS: IPRATROPIUM 0.5MG/ALBUTEROL 2.5MG INH SOL UD 3ML (DUONEB) NEB SCH ×3 (07:12→20:14)
[2020-07-02 08:26] LABS: BASO % 0.2 % (0.0-1.0); EOS # 0.6 10^3/uL (0.0-0.5); EOS % 6.1 % (0.0-3.0); HEMATOCRIT 24.8 % (42.0-52.0); HEMOGLOBIN 7.6 g/dl (13.5-17.5); LYMPH % 10.3 % (24.0-44.0); MEAN CORPUSCULAR HEMOGLOBIN 25.6 pg (27.0-33.0); MEAN CORPUSCULAR HGB CONC 30.6 g/dl (32.0-36.5); MEAN CORPUSCULAR VOLUME 83.5 fl (80.0-96.0); MONO # 0.5 10^3/uL (0.0-0.8); MONO % 5.5 % (2.0-8.0); NEUTROPHILS # 7.3 10^3/uL (1.5-8.5); NEUTROPHILS % 77.5 % (36.0-66.0); PLATELET COUNT, AUTOMATED 181 10^3/uL (150-450); RED BLOOD COUNT 2.97 10^6/uL (4.30-6.10); WHITE BLOOD COUNT 9.4 10^3/uL (4.0-10.0)
[2020-07-02 08:43] LABS: ALBUMIN 1.8 GM/DL (3.2-5.2); BLOOD UREA NITROGEN 39 MG/DL (7-18); CALCIUM LEVEL 8.1 MG/DL (8.8-10.2); CARBON DIOXIDE LEVEL 30 MEQ/L (21-32); CHLORIDE LEVEL 100 MEQ/L (98-107); CREATININE FOR GFR 0.83 MG/DL (0.70-1.30); GLOMERULAR FILTRATION RATE > 60.0 (>42); GLUCOSE, FASTING 239 MG/DL (70-100); PHOSPHORUS LEVEL 2.9 MG/DL (2.5-4.9); POTASSIUM SERUM 3.8 MEQ/L (3.5-5.1); SODIUM LEVEL 137 MEQ/L (136-145)
[2020-07-02] MEDS: cloNIDine 0.1MG TABLET GT SCH ×2 (09:26→21:22)
[2020-07-02] MEDS: ASPIRIN 81 MG CHEW TABLET PEG SCH (09:26)
[2020-07-02] MEDS: FAMOTIDINE 20 MG TAB PEG SCH ×2 (09:26→21:21)
[2020-07-02] MEDS: ACETAMINOPHEN 325 MG/10.15 ML UDC GT SCH ×3 (09:26→21:23)
[2020-07-02] MEDS: amLODIPine 5 MG TAB PEG SCH (09:26)
[2020-07-02] MEDS: VALSARTAN 80 MG TAB (DIOVAN) PEG SCH (09:26)
[2020-07-02] MEDS: LABETALOL 100MG TAB PEG SCH ×2 (09:26→21:22)
[2020-07-02] MEDS: LEVEMIR (INSULIN DETEMIR) 1 UNITS/0.01ML SC SCH ×2 (09:27→21:23)
[2020-07-02] MEDS: THIAMINE 200MG/2ML VIAL (J3411 PER 100MG) IM SCH (09:27)
[2020-07-02] MEDS: guaiFENesin SYRUP 200 MG/10 ML UDC PEG SCH ×4 (09:27→21:22)
[2020-07-02] MEDS: AMANTADINE 100MG/10ML SYRUP UDC PEG SCH ×2 (09:27→21:22)
[2020-07-02] MEDS: ENOXAPARIN 40MG/0.4ML SYRINGE (J1650 PER 10MG) SC SCH (09:27)
[2020-07-02] MEDS: FERROUS SULFATE 300MG/5ML UDC LIQUID PEG SCH (09:28)
[2020-07-02] MEDS: MAGIC MOUTHWASH SUSPENSION BTL SSP SCH ×4 (09:28→21:23)
[2020-07-02] MEDS: LIDOCAINE 5% (LIDODERM) PATCH TD SCH (09:28)
[2020-07-02] MEDS: IRON SUCROSE 100 MG in NS 100 ML IV SCH (13:11)
[2020-07-02] MEDS: ATORVASTATIN 20 MG TAB PEG SCH (21:21)
[2020-07-02] MEDS: **NOTE PATIENT COMMENT** MISC XX SCH (21:23)
--- NOTE | 2020-07-02 22:14 | IPN ---
PROGRESS NOTE DATE: 07/02/2020 SUBJECTIVE: Patient was seen and examined at the bedside today morning. He was laying in the bed, he was awake, he continues to be on tube feeds. Renal function is stable. OBJECTIVE: Vital signs: Temperature is 97.9 degrees Fahrenheit, blood pressure 141/63, pulse is 76, respiratory rate of 20, saturating 96% on aerosol mask at 1 liter. Intake and output: Urine output is not recorded. He has incontinent voids. Weight in the bed scale is 117.9 kg. PHYSICAL EXAMINATION: General: Patient is awake, answers very few questions. Head and neck exam: Extraocular muscles intact. Pupils equally round and reactive to light. Mucous membranes are moist. Neck is supple. There is no jugular venous distension (JVD). Cardiovascular: S1, S2, regular rate. No edema of the bilateral lower extremities. Respiratory: Chest is clear to auscultation bilaterally. Bilateral equal air entry. No rales or rhonchi. Abdomen: Soft, obese, positive bowel sounds. Percutaneous endoscopic gastrostomy (PEG) tube in the epigastrium is noted. Musculoskeletal: No clubbing or cyanosis. Pulses are 2+. Central nervous system (DRESSAGE JUDGE): Patient has dysphagia, answers very few questions, and he has left hemiparesis. LABORATORY REVIEW: CBC showed WBC 9.4, hemoglobin 7.6, platelets are 181. BMP showed sodium 137, potassium 3.8, chloride 100, bicarbonate 30, BUN 39, creatinine is 0.8. CURRENT INPATIENT MEDICATIONS: Patient's medications were all reviewed by myself. He continues to be on IV Venofer. I have ordered 1 unit of packed red blood cells (PRBC) transfusion. No other significant change in the medications today as compared with yesterday. ASSESSMENT AND PLAN: 1. Iron deficiency anemia. Patient is on Venofer, however hemoglobin stays below 8. One unit of packed red blood cells (PRBC) transfusion will be given today. Continue current dose of Venofer. 2. Chronic kidney disease stage II. Renal function is stable and has improved with a glomerular filtration rate (GFR) greater than 60 and creatinine of 0.8. Okay to continue current medications. 3. Hypertension. Continue current dose of amlodipine 5 mg by mouth daily, clonidine 0.1 mg twice a day, and valsartan 320 mg by mouth daily. 4. 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 Continue current antihypertensive regimen. Continue Lipitor 80 mg daily. 5. Nutrition. Patient is unable to take feeds orally. He is currently dependent on Jevity tube feeds via the percutaneous endoscopic gastrostomy (PEG) tube.
[2020-07-03] MEDS: HumaLOG INSULIN (NovoLOG) PER UNIT SC SCH ×4 (00:15→18:30)
[2020-07-03] MEDS: REMEDY PHYTOPLEX Z-GUARD PASTE 113GM TUBE (FROM STOREROOM PRODUCT) TOP SCH ×5 (00:15→21:44)
[2020-07-03] MEDS: PIPERACILLIN/TAZOBACTAM SOD 4.5 GM in D5W MINI-BAG PLUS 50 ML IV SCH ×4 (03:01→21:43)
[2020-07-03] MEDS: MODAFINIL 100 MG TABLET PEG SCH ×2 (05:47→13:36)
[2020-07-03 06:00] VITALS: BP 150/76
[2020-07-03 06:38] LABS: BASO % 0.2 % (0.0-1.0); EOS # 0.5 10^3/uL (0.0-0.5); EOS % 5.7 % (0.0-3.0); HEMATOCRIT 26.3 % (42.0-52.0); HEMOGLOBIN 8.1 g/dl (13.5-17.5); LYMPH % 10.5 % (24.0-44.0); MEAN CORPUSCULAR HEMOGLOBIN 26.1 pg (27.0-33.0); MEAN CORPUSCULAR HGB CONC 30.8 g/dl (32.0-36.5); MEAN CORPUSCULAR VOLUME 84.8 fl (80.0-96.0); MONO # 0.6 10^3/uL (0.0-0.8); MONO % 6.5 % (2.0-8.0); NEUTROPHILS # 7.1 10^3/uL (1.5-8.5); NEUTROPHILS % 76.6 % (36.0-66.0); PLATELET COUNT, AUTOMATED 204 10^3/uL (150-450); WHITE BLOOD COUNT 9.3 10^3/uL (4.0-10.0)
[2020-07-03 07:05] LABS: BLOOD UREA NITROGEN 33 MG/DL (7-18); CALCIUM LEVEL 8.4 MG/DL (8.8-10.2); CARBON DIOXIDE LEVEL 30 MEQ/L (21-32); CHLORIDE LEVEL 100 MEQ/L (98-107); CREATININE FOR GFR 0.85 MG/DL (0.70-1.30); GLOMERULAR FILTRATION RATE > 60.0 (>42); GLUCOSE, FASTING 297 MG/DL (70-100); POTASSIUM SERUM 3.9 MEQ/L (3.5-5.1); SODIUM LEVEL 135 MEQ/L (136-145)
[2020-07-03] MEDS: IPRATROPIUM 0.5MG/ALBUTEROL 2.5MG INH SOL UD 3ML (DUONEB) NEB SCH ×3 (07:08→19:36)
--- NOTE | 2020-07-03 09:16 | IPN ---
NEPHROLOGY PROGRESS NOTE DATE: 06/30/2020 SUBJECTIVE: Mr. Patterson is seen this morning on his bedside. His is present on the bedside today. When I called his name, the patient briefly opened his eyes and did respond; however, after that, multiple attempts failed to elicit any response from him. He has been totally unresponsive. The patient is receiving tube feedings and medications through is percutaneous endoscopic gastrostomy (PEG) tube. PHYSICAL EXAMINATION: Temperature 98 degrees Fahrenheit, heart rate 84 per minute, respiratory rate 18 per minute, blood pressure 159/77 mmHg, oxygen saturation 95%. HEAD: Atraumatic. Patient is completely unresponsive. NECK: Neck veins are difficult to be assessed. HEART SOUNDS: Regular. LUNGS: Diminished breath sounds at bases. Patient has Grant Triplett breathing. ABDOMEN: Soft and PEG tube is in place. EXTREMITIES: Without any cyanosis or clubbing. There is no peripheral edema. LABORATORY STUDIES: Today's labs show WBC 9.2, hemoglobin 7.8, hematocrit 25. Sodium 135, potassium 4.3, BUN 33, creatinine 0.96, glucose 337, calcium 8.4. PROBLEMS: 1. Acute kidney injury. Kidney function has recovered and patient continues with free water via PEG tube along with tube feeding. 2. Hyperglycemia. His blood sugars are running somewhat high. I recommend adjustment in his insulin. 3. Anemia. At present, his anemia is essentially unchanged for the last four days. He is receiving iron through his PEG tube. 4. History of congestive heart failure. Currently, he is not on any diuretic and he is receiving tube feeing along with free water. Will need to monitor closely and probably make some adjustments in the amount of free water over the next few days. 5. Stroke with left-sided weakness. Patient remains completely unresponsive. His left upper extremity is completely plegic and he cannot hold it up. He was able to hold his right hand up.
[2020-07-03] MEDS: guaiFENesin SYRUP 200 MG/10 ML UDC PEG SCH ×4 (09:43→21:45)
[2020-07-03] MEDS: ACETAMINOPHEN 325 MG/10.15 ML UDC GT SCH ×3 (09:43→21:41)
[2020-07-03] MEDS: FERROUS SULFATE 300MG/5ML UDC LIQUID PEG SCH (09:43)
[2020-07-03] MEDS: LEVEMIR (INSULIN DETEMIR) 1 UNITS/0.01ML SC SCH ×2 (09:43→21:43)
[2020-07-03] MEDS: AMANTADINE 100MG/10ML SYRUP UDC PEG SCH ×2 (09:43→21:42)
[2020-07-03] MEDS: FAMOTIDINE 20 MG TAB PEG SCH (09:44)
[2020-07-03] MEDS: LIDOCAINE 5% (LIDODERM) PATCH TD SCH (09:44)
[2020-07-03] MEDS: MAGIC MOUTHWASH SUSPENSION BTL SSP SCH ×4 (09:45→21:44)
[2020-07-03] MEDS: ENOXAPARIN 40MG/0.4ML SYRINGE (J1650 PER 10MG) SC SCH (09:45)
[2020-07-03] MEDS: THIAMINE 200MG/2ML VIAL (J3411 PER 100MG) IM SCH (09:45)
[2020-07-03] MEDS: amLODIPine 5 MG TAB PEG SCH (09:46)
[2020-07-03] MEDS: LABETALOL 100MG TAB PEG SCH ×2 (09:46→21:39)
[2020-07-03] MEDS: ASPIRIN 81 MG CHEW TABLET PEG SCH (09:46)
[2020-07-03] MEDS: cloNIDine 0.1MG TABLET GT SCH ×2 (09:46→21:39)
[2020-07-03] MEDS: VALSARTAN 80 MG TAB (DIOVAN) PEG SCH (09:51)
[2020-07-03] MEDS: PANTOPRAZOLE 40MG VIAL (C9113 PER 1) IV SCH (11:55)
[2020-07-03] MEDS: IRON SUCROSE 100 MG in NS 100 ML IV SCH (11:55)
[2020-07-03 14:00] VITALS: BP 142/65
[2020-07-03] MEDS: **NOTE PATIENT COMMENT** MISC XX SCH (18:31)
[2020-07-03 20:00] VITALS: BP 150/76
[2020-07-03] MEDS: ATORVASTATIN 20 MG TAB PEG SCH (21:40)
[2020-07-03] MEDS: SODIUM CHLORIDE NASAL 0.65% SPRAY BTL (OCEAN) SCH (21:44)
--- NOTE | 2020-07-03 22:25 | IPN ---
NEPHROLOGY PROGRESS NOTE DATE: 07/03/2020 SUBJECTIVE: Patient was seen and examined at the bedside today morning. The patient is much more awake and alert today. He is off the oxygen mask. He was able to answer a few questions and tries to communicate. He continues to be on tube feeds. He was given a unit of PRBC transfusion. Hemoglobin level improved to 8.1 today. OBJECTIVE: VITAL SIGNS: Temperature 97.9 degrees Fahrenheit, blood pressure 150/76, pulse 78, respiratory rate 18, sating 93% on room air. INTAKE AND OUTPUT: Urine output is not recorded, he has incontinent voids. Weight in the bed scale is 117.8 kg. PHYSICAL EXAMINATION: GENERAL: Patient is awake, alert, tries to communicate. Eyes are open. HEAD AND NECK: Pupils equally round and reactive to light. Mucous membranes are moist. Neck is supple. No JVD. RESPIRATORY: Chest is clear to auscultation bilaterally. Bilateral equal air entry. No rales or rhonchi. CARDIOVASCULAR: S1, S2, regular rate. No significant edema of the bilateral lower extremities. ABDOMEN: Soft, obese, positive bowel sounds. PEG tube in the epigastrium is noted MUSCULOSKELETAL: No clubbing or cyanosis. Pulses are 2+. ELECTRICAL SUPERVISOR: Patient is expressive aphasia and he has left hemiparesis. LABORATORY REVIEW: CBC showed WBC 9.3, hemoglobin 8.1, platelets 204,000. BMP showed sodium 135, potassium 3.9, chloride 100, bicarb 30, BUN 33, creatinine 0.8. Calcium 8.4. CURRENT INPATIENT MEDICATIONS: Patient's medications were all reviewed by myself. He continues to be on I.V. Zosyn. No other significant change in the medications today as compared with yesterday. ASSESSMENT AND PLAN: 1. Chronic kidney disease stage 2: Patient's renal function is stable, close to his baseline with a creatinine of 0.8. 2. Iron deficiency anemia: Patient was given 1 unit of PRBC transfusion. He is also getting I.V. Venofer. Hemoglobin level is stable and improving. 3. Hypertension: Continue current dose of Amlodipine, Clonidine and Valsartan. 4. 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 5. Nutrition: Patient is getting Jevity tube feeds. Patient's renal function is stable. Electrolytes are within the acceptable range. Nephrology service is going to sign off at this moment. Please call nephrology service for any help in the management of this patient during this hospitalization.
[2020-07-04] MEDS: HumaLOG INSULIN (NovoLOG) PER UNIT SC SCH ×5 (00:32→21:00)
[2020-07-04] MEDS: PIPERACILLIN/TAZOBACTAM SOD 4.5 GM in D5W MINI-BAG PLUS 50 ML IV SCH ×4 (03:00→21:29)
[2020-07-04] MEDS: MODAFINIL 100 MG TABLET PEG SCH ×2 (05:59→13:24)
[2020-07-04 06:00] VITALS: BP 144/62
[2020-07-04] MEDS: REMEDY PHYTOPLEX Z-GUARD PASTE 113GM TUBE (FROM STOREROOM PRODUCT) TOP SCH ×4 (06:00→21:40)
[2020-07-04] MEDS: IPRATROPIUM 0.5MG/ALBUTEROL 2.5MG INH SOL UD 3ML (DUONEB) NEB SCH ×3 (07:09→19:43)
[2020-07-04] MEDS: ENOXAPARIN 40MG/0.4ML SYRINGE (J1650 PER 10MG) SC SCH (08:40)
[2020-07-04] MEDS: THIAMINE 200MG/2ML VIAL (J3411 PER 100MG) IM SCH (08:41)
[2020-07-04] MEDS: LEVEMIR (INSULIN DETEMIR) 1 UNITS/0.01ML SC SCH ×2 (08:41→21:36)
[2020-07-04] MEDS: PANTOPRAZOLE 40MG VIAL (C9113 PER 1) IV SCH (08:41)
[2020-07-04] MEDS: FERROUS SULFATE 300MG/5ML UDC LIQUID PEG SCH (08:42)
[2020-07-04] MEDS: ACETAMINOPHEN 325 MG/10.15 ML UDC GT SCH ×3 (08:42→21:37)
[2020-07-04] MEDS: guaiFENesin SYRUP 200 MG/10 ML UDC PEG SCH ×4 (08:42→21:37)
[2020-07-04] MEDS: cloNIDine 0.1MG TABLET GT SCH ×2 (08:43→21:38)
[2020-07-04] MEDS: amLODIPine 5 MG TAB PEG SCH (08:43)
[2020-07-04] MEDS: ASPIRIN 81 MG CHEW TABLET PEG SCH (08:43)
[2020-07-04] MEDS: LABETALOL 100MG TAB PEG SCH ×2 (08:43→21:38)
[2020-07-04] MEDS: VALSARTAN 80 MG TAB (DIOVAN) PEG SCH (08:44)
[2020-07-04] MEDS: AMANTADINE 100MG/10ML SYRUP UDC PEG SCH ×2 (08:44→21:37)
[2020-07-04] MEDS: MAGIC MOUTHWASH SUSPENSION BTL SSP SCH ×4 (08:44→21:39)
[2020-07-04] MEDS: SODIUM CHLORIDE NASAL 0.65% SPRAY BTL (OCEAN) SCH ×3 (08:44→21:39)
[2020-07-04] MEDS: LIDOCAINE 5% (LIDODERM) PATCH TD SCH (08:45)
[2020-07-04] MEDS: ESCITALOPRAM OXALATE 10 MG TAB (LEXAPRO) PEG SCH (09:00)
[2020-07-04] MEDS ORDERED: GLUCOSE 4GM CHEW TABLET PO PRN (11:05)
[2020-07-04] MEDS ORDERED: GLUCAGON INJ 1MG VIAL SC PRN (11:05)
[2020-07-04] MEDS ORDERED: DEXTROSE 50% 50 ML SYRINGE IV PRN (11:05)
--- NOTE | 2020-07-04 11:29 | IPNPDOC ---
PM&R Progress Note DATE OF SERVICE: Jul 04, 2020 Zinc Chloride Operator Progress Note Subjective: Patient seen in his room sitting up in his chair with his eyes open, smiling, able to provide some appropriate responses to questions, not oriented to place or time, interacting somewhat with his who was in the room. REVIEW OF SYSTEMS: The following is a completed review of systems and has been reviewed. Difficult to assess due to patient unable to respond EARS, NOSE, & THROAT: + dysphagia PULMONARY: denies cough GASTROINTESTINAL: +peg GENITOURINARY: +incontinence MUSCULOSKELETAL: generalized weakness NEUROLOGICAL:+ left sided paresis SKIN: +sacral ulcers PHYSICAL EXAMINATION: VITAL SIGNS: Please see below. GENERAL: NAD, sitting up in chair, alert HEENT: PERRL. Clear conjunctiva, +left sided facial droop CARDIOVASCULAR: Regular rate and rhythm. No murmurs, rubs, or gallops LUNGS: clear to auscultation bilaterally. No wheezes. No rhonchi, breathing comfortably ABDOMEN: Soft, nontender, slightly distended. no guarding, Positive bowel sounds. Normal active bowel sounds, +PEG NEUROLOGICAL: responds inconsistently to commands, A&O x0, ranchos level 3 EXTREMITIES: 5/5 RUE, spontaneous motion in both RLE and LLE, flaccid LUE SKIN: sacral ulcers, right frontal sutures c/d/i ASSESSMENT:74-year-old M with past medical history of HTn, HLD who presents status post stroke with hemorrhagic conversion PLAN: 1. rehab- pt/ot advance mobility and ADLs, strengthen/stretch/maintain ROM all 4limbs, starting to tolerate being upright more and beginning to participate in therapy from a cognitive standpoint -MAPPING PILOT for cog and swallow eval-oral care 2. 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 s/p EVD placement and removal 06-10-20, c/u presenting as severe non-traumatic brain injury patient with a [place] Score of about 4 will benefit from therapy, c/u ASA and statin -encephalopathic c/u amantadine and provigil for neurostimulation-reglan discontinued- cognition and level of alertness improving -monitor for seizures -patient with left sided paresis due to stroke and RLE weakness in setting of severe lumbar stenosis- tx with therapy -daily thiamine -will start lexapro to help with motor recovery 3. Cardiac- hx of HTN c/e labetalol, amlodipine, Diovan, clonidine- medicine consulted to assist in overall management -ECHO at [facility] 06-11-20 showing grade 2 diastolic CHF 4. Resp- s/p treatment for klebsiella PNA with hypoxic respiratory failure at [facility], restarted on IV zosyn 06-29-20 due to increased work of breathing and fever, f/u CT 07-01-20 showing no definite infiltrate, however did show bilat discoid atelectasis, patient has cognitively improved since starting ant ibiotics, will c/u through today for 5-day course, c/u duonebs, guaifenesin -suspect sleep apnea, c/u nocturnal 02- goal 88-92% to avoid increasing apneic episodes 5. GI- NPO, patient tolerating PEG feeds, now off reglan, will switch to bolus feeds -c/u zofran prn for nausea -pepcid for ppx -FOBT negative -KUB 06-29-20 WNL 6. DVT ppx- dopplers negative for dvt, c/u lovenox 7. SKin- turn q2 heel floats, zinc oxide to sacrum 8. - not retaining, however incontinent, but Urine negative for infection 9. Renal- consulted for fluid management in setting of CHF, to monitor kidney function, and assist with iron deficiency anemia- intervention appreciated, renal signing off -c/u increased free water boluses to correct elevated BUN- -c/u iron supplement for iron deficiency anemia 9. Endo- newly dx DM, c/u insulin adjustments for hyperglycemia 10. heme- iron deficiency anemia s/p venofer per renal and 1 unit prbc 07-02-20, FOBT negative, c/u to monitor 10. Pain- tylenol changed to standing with lidoderm patch to right shoulder- 11. Dispo- TBD Allergies Coded Allergies: No Known Allergies (Unverified , 06/23/20) Vital Signs Vital Signs Date Time Temp Pulse Resp B/P (MAP) Pulse Ox O2 Delivery O2 Flow Rate FiO2 07/04/20 08:44 144/62 07/04/20 08:43 79 07/04/20 06:00 96.8 18 99 Aerosol Mask 1.0 07/01/20 19:32 24 Laboratory Data Labs 24H Laboratory Tests 2 07/03/20 12:02: Bedside Glucose (Misc Panel) 270H 07/03/20 17:53: Bedside Glucose (Misc Panel) 236H 07/03/20 20:06: Bedside Glucose (Misc Panel) 201H 07/04/20 00:05: Bedside Glucose (Misc Panel) 245H 07/04/20 05:51: Bedside Glucose (Misc Panel) 207H Microbiology Microbiology 06/29/20 Blood Culture - Preliminary, Resulted No Growth after 72 hours. All specime... 06/29/20 Blood Culture - Preliminary, Resulted No Growth after 72 hours. All specime... 06/29/20 Stool Occult Blood (DARREN) - Final, Complete 06/24/20 Blood Culture - Final, Complete NO GROWTH AFTER 5 DAYS 06/24/20 Blood Culture - Final, Complete NO GROWTH AFTER 5 DAYS Current Medications Current Medications Current Medications Medications (Trade) Dose Ordered Sig/Andi Route PRN Reason Start Time Stop Time Status Last Admin Dose Admin Acetaminophen (Tylenol Suspension) 650 mg TID GT 06/29/20 16:00 07/04/20 08:42 Acetaminophen (Tylenol Tab) 650 mg Q4HP PRN PEG fever/MILD PAIN (PS 1-4) 06/23/20 13:55 06/29/20 13:35 DC Acetaminophen (Tylenol Tab) 650 mg Q8HP PRN PEG fever 06/29/20 13:35 Albuterol/ Ipratropium (Duoneb (Ipr 0.5mg/Alb 2.5mg)) 3 ml RTID NEB 06/23/20 20:00 07/04/20 07:09 Amantadine HCl (Symmetrel Syrup) 100 mg BID PEG 06/23/20 21:00 07/04/20 08:44 Amlodipine Besylate (Norvasc) 5 mg DAILY PEG 06/24/20 09:00 07/04/20 08:43 Aspirin (Aspirin Chewable) 81 mg DAILY PEG 06/24/20 09:00 07/04/20 08:43 Atorvastatin Calcium (Lipitor) 80 mg QHS PEG 06/23/20 21:00 07/03/20 21:40 Bisacodyl (Dulcolax Suppository) 10 mg DAILYPRN PRN [place] CONSTIPATION 06/23/20 13:55 06/29/20 11:02 Clonidine HCl (Catapres) 0.1 mg BID GT 06/23/20 21:00 07/04/20 08:43 Dextrose (Dextrose 50%) 25 ml ASDIRECTED PRN IV SEE LABEL COMMENTS 07/04/20 11:05 UNV Dextrose (Dextrose 50%) 25 ml ASDIRECTED PRN IV SEE LABEL COMMENTS 06/23/20 13:55 07/04/20 11:07 DC Enoxaparin Sodium (Lovenox) 40 mg DAILY SC 06/24/20 09:00 07/04/20 08:40 Escitalopram Oxalate (Lexapro) 10 mg DAILY PEG 07/05/20 09:00 UNV Famotidine (Pepcid) 40 mg BID PEG 06/23/20 21:00 07/03/20 10:00 DC 07/03/20 09:44 Ferrous Sulfate (Ferrous Sulfate) 300 mg BID PEG 06/27/20 09:00 07/01/20 09:25 DC 07/01/20 08:47 Ferrous Sulfate (Ferrous Sulfate) 300 mg DAILY PEG 07/02/20 09:00 07/04/20 08:42 Glucagon (Glucagon) 1 mg ASDIRECTED PRN SC SEE LABEL COMMENTS 07/04/20 11:05 UNV Glucagon (Glucagon) 1 mg ASDIRECTED PRN SC SEE LABEL COMMENTS 06/23/20 13:55 07/04/20 11:07 DC Glucose (Glucose) 16 GM ASDIRECTED PRN PO SEE LABEL COMMENTS 07/04/20 11:05 UNV Glucose (Glucose) 16 GM ASDIRECTED PRN PO SEE LABEL COMMENTS 06/23/20 13:55 07/04/20 11:07 DC Guaifenesin (Robitussin) 10 ml QID PEG 06/23/20 21:00 07/04/20 08:42 Home Med (Med Rec Complete!) ASDIRECTED XX 06/23/20 19:15 06/23/20 19:14 DC Insulin Detemir (Levemir Insulin) 10 units DAILY SC 06/29/20 09:00 07/01/20 09:59 DC 06/30/20 08:14 Insulin Detemir (Levemir Insulin) 10 units QHS SC 06/23/20 21:00 06/26/20 09:35 DC 06/25/20 21:02 Insulin Detemir (Levemir Insulin) 12 units QHS SC 06/26/20 21:00 06/27/20 07:18 DC 06/26/20 20:23 Insulin Detemir ([facility]mir [facility]ulin) [facility] 09:00 07/04/20 08:41 Insulin Detemir (Levemir Insulin) 20 units QHS AK 06/27/20 21:00 06/27/20 12:20 DC Insulin Detemir (Levemir Insulin) 32 units QHS AK 06/27/20 21:00 07/01/20 08:31 DC 06/30/20 21:19 Insulin Detemir (Levemir Insulin) 40 units QHS AK 07/01/20 21:00 07/03/20 21:43 Insulin Human Lispro (HumaLOG INSULIN) SEE PROTOCOL TABLE AC AK 07/04/20 12:00 UNV Insulin Human Lispro (HumaLOG INSULIN) SEE PROTOCOL TABLE Q6H AK 06/23/20 18:00 07/04/20 11:07 DC 07/04/20 05:59 Insulin Human Lispro (HumaLOG INSULIN) SEE PROTOCOL TABLE QHS AK 07/04/20 21:00 UNV Iron 100 mg/ Sodium Chloride 105 ml @ 105 mls/hr Q24H IV 07/01/20 12:00 07/06/20 11:59 07/03/20 11:55 Labetalol HCl (Normodyne, Trandate) 300 mg BID PEG 06/23/20 21:00 07/04/20 08:43 Lidocaine (Lidoderm Patch) 1 patch DAILY TD 06/29/20 13:35 07/04/20 08:45 Lidocaine/ Diphenhydr/Alum/ Mg/Simeth (Magic Mouthwash) 5ml QID SSP 06/23/20 21:00 07/04/20 08:44 Metoclopramide HCl (Reglan Liquid) 5 mg Q6H PEG 06/26/20 12:00 06/28/20 12:28 DC 06/28/20 12:01 Metoclopramide HCl (Reglan Liquid) 10 mg Q6H PEG 06/24/20 00:00 06/26/20 09:35 DC 06/26/20 05:50 Modafinil (Provigil) 100 mg BID@0600,1400 PEG 06/24/20 06:00 07/04/20 05:59 Non-Formulary Medication ( See Comment Field Below ) REMOVE LIDODERM PATCH DAILY@21 XX 06/29/20 21:00 07/02/20 21:23 Pantoprazole Sodium (Protonix) 40 mg DAILY IV 07/03/20 10:00 07/04/20 08:41 Piperacillin Sod/ Tazobactam Sod 4.5 gm/Dextrose 50 ml @ 50 mls/hr Q6H IV 06/29/20 15:00 07/04/20 23:00 07/04/20 08:39 Senna (Senokot) 1 tab QHS PEG 06/23/20 21:00 06/29/20 14:44 DC 06/28/20 21:19 Sodium Chloride ([place] Nasal [place]) 2 spray TID NA 07/03/20 21:00 07/04/20 08:44 Thiamine HCl (VITAMIN B1 INJection) 100 mg DAILY IM 06/24/20 09:00 07/04/20 08:41 Valsartan (Diovan) 320 mg DAILY PEG 06/24/20 09:00 07/04/20 08:44 RICKY MCDONOUGH MD Jul 04, 2020 11:29
[2020-07-04] MEDS: IRON SUCROSE 100 MG in NS 100 ML IV SCH (11:39)
[2020-07-04 14:00] VITALS: BP 151/67
[2020-07-04 20:20] VITALS: BP 129/61
[2020-07-04] MEDS: ATORVASTATIN 20 MG TAB PEG SCH (21:38)
[2020-07-04] MEDS: **NOTE PATIENT COMMENT** MISC XX SCH (21:39)
[2020-07-05 06:13] VITALS: BP 151/80
[2020-07-05] MEDS: MODAFINIL 100 MG TABLET PEG SCH ×2 (06:25→14:07)
[2020-07-05] MEDS: REMEDY PHYTOPLEX Z-GUARD PASTE 113GM TUBE (FROM STOREROOM PRODUCT) TOP SCH ×3 (06:26→17:15)
[2020-07-05 06:41] LABS: BASO % 0.2 % (0.0-1.0); EOS # 0.5 10^3/uL (0.0-0.5); EOS % 5.6 % (0.0-3.0); HEMATOCRIT 26.9 % (42.0-52.0); HEMOGLOBIN 8.4 g/dl (13.5-17.5); LYMPH % 11.2 % (24.0-44.0); MEAN CORPUSCULAR HEMOGLOBIN 26.8 pg (27.0-33.0); MEAN CORPUSCULAR HGB CONC 31.2 g/dl (32.0-36.5); MEAN CORPUSCULAR VOLUME 85.9 fl (80.0-96.0); MONO # 0.5 10^3/uL (0.0-0.8); MONO % 5.2 % (2.0-8.0); NEUTROPHILS # 7.2 10^3/uL (1.5-8.5); NEUTROPHILS % 77.5 % (36.0-66.0); PLATELET COUNT, AUTOMATED 215 10^3/uL (150-450); RED BLOOD COUNT 3.13 10^6/uL (4.30-6.10); WHITE BLOOD COUNT 9.3 10^3/uL (4.0-10.0)
[2020-07-05 07:09] LABS: BLOOD UREA NITROGEN 21 MG/DL (7-18); CALCIUM LEVEL 8.6 MG/DL (8.8-10.2); CARBON DIOXIDE LEVEL 30 MEQ/L (21-32); CHLORIDE LEVEL 104 MEQ/L (98-107); CREATININE FOR GFR 0.58 MG/DL (0.70-1.30); GLOMERULAR FILTRATION RATE > 60.0 (>42); GLUCOSE, FASTING 144 MG/DL (70-100); POTASSIUM SERUM 4.2 MEQ/L (3.5-5.1); SODIUM LEVEL 140 MEQ/L (136-145)
[2020-07-05] MEDS: IPRATROPIUM 0.5MG/ALBUTEROL 2.5MG INH SOL UD 3ML (DUONEB) NEB SCH ×3 (07:16→19:32)
[2020-07-05 07:51] VITALS: BP 164/80
[2020-07-05] MEDS: THIAMINE 200MG/2ML VIAL (J3411 PER 100MG) IM SCH (07:52)
[2020-07-05] MEDS: LIDOCAINE 5% (LIDODERM) PATCH TD SCH (07:52)
[2020-07-05] MEDS: PANTOPRAZOLE 40MG VIAL (C9113 PER 1) IV SCH (07:53)
[2020-07-05] MEDS: LABETALOL 100MG TAB PEG SCH ×2 (07:53→20:56)
[2020-07-05] MEDS: VALSARTAN 80 MG TAB (DIOVAN) PEG SCH (07:54)
[2020-07-05] MEDS: guaiFENesin SYRUP 200 MG/10 ML UDC PEG SCH ×4 (07:54→20:54)
[2020-07-05] MEDS: ACETAMINOPHEN 325 MG/10.15 ML UDC GT SCH ×3 (07:55→20:55)
[2020-07-05] MEDS: ESCITALOPRAM OXALATE 10 MG TAB (LEXAPRO) PEG SCH (07:56)
[2020-07-05] MEDS: FERROUS SULFATE 300MG/5ML UDC LIQUID PEG SCH (07:57)
[2020-07-05] MEDS: amLODIPine 5 MG TAB PEG SCH (07:57)
[2020-07-05] MEDS: cloNIDine 0.1MG TABLET GT SCH ×2 (07:57→20:57)
[2020-07-05] MEDS: ASPIRIN 81 MG CHEW TABLET PEG SCH (07:57)
[2020-07-05] MEDS: AMANTADINE 100MG/10ML SYRUP UDC PEG SCH ×2 (07:58→20:54)
[2020-07-05] MEDS: HumaLOG INSULIN (NovoLOG) PER UNIT SC SCH ×4 (07:58→20:56)
[2020-07-05] MEDS: ENOXAPARIN 40MG/0.4ML SYRINGE (J1650 PER 10MG) SC SCH (07:59)
[2020-07-05] MEDS: MAGIC MOUTHWASH SUSPENSION BTL SSP SCH ×4 (07:59→20:59)
[2020-07-05] MEDS: SODIUM CHLORIDE NASAL 0.65% SPRAY BTL (OCEAN) SCH ×3 (07:59→20:59)
[2020-07-05] MEDS: LEVEMIR (INSULIN DETEMIR) 1 UNITS/0.01ML SC SCH ×2 (08:00→20:56)
--- NOTE | 2020-07-05 10:16 | IPNPDOC ---
PM&R Progress Note DATE OF SERVICE: Jul 05, 2020 [facility] [employer] Experience Strategy Progress Note Subjective: Patient seen in OT sitting in his chair, eyes open, smiling, verbalizing minimally, able to follow commands inconsistently and able to reach forward and hold his trunk steady. REVIEW OF SYSTEMS: The following is a completed review of systems and has been reviewed. Difficult to assess due to patient unable to respond EARS, NOSE, & THROAT: + dysphagia PULMONARY: denies cough GASTROINTESTINAL: +peg GENITOURINARY: +incontinence MUSCULOSKELETAL: generalized weakness NEUROLOGICAL:+ left sided paresis SKIN: +sacral ulcers PHYSICAL EXAMINATION: VITAL SIGNS: Please see below. GENERAL: NAD, sitting up in chair, alert HEENT: PERRL. Clear conjunctiva, +left sided facial droop CARDIOVASCULAR: Regular rate and rhythm. No murmurs, rubs, or gallops LUNGS: clear to auscultation bilaterally. No wheezes. No rhonchi, breathing comfortably ABDOMEN: Soft, nontender, slightly distended. no guarding, Positive bowel sounds. Normal active bowel sounds, +PEG NEUROLOGICAL: responds inconsistently to commands, A&O x0, ranchos level 3 EXTREMITIES: 5/5 RUE, spontaneous motion in both RLE and LLE, flaccid LUE SKIN: sacral ulcers, right frontal sutures c/d/i ASSESSMENT:74-year-old M with past medical history of HTn, HLD who presents status post stroke with hemorrhagic conversion PLAN: 1. rehab- pt/ot advance mobility and ADLs, strengthen/stretch/maintain ROM all 4limbs, starting to tolerate being upright more and beginning to participate in therapy from a cognitive standpoint -[employer]K [employer] OPERATOR for cog and swallow eval-oral care 2. 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 Cardiac- hx of HTN c/u labetalol, amlodipine, Diovan, will increase clonidine to 0.2mg BID for elevated BPs- medicine consulted to assist in overall management -ECHO at [facility] 06-11-20 showing grade 2 diastolic CHF 4. Resp- s/p treatment for klebsiella PNA with hypoxic respiratory failure at [facility], restarted on IV zosyn 06-29-20 due to increased work of breathing and fever, f/u CT 07-01-20 showing no definite infiltrate, however did show bilat discoid atelectasis, patient has cognitively improved since starting antibiotics, will c/u through today for 5-day course, c/u duonebs, guaifenesin -suspect sleep apnea, c/u nocturnal 02- goal 88-92% to avoid increasing apneic episodes 5. GI- NPO, patient tolerating PEG feeds, now off reglan, switched to bolus feeds- tolerating -c/u zofran prn for nausea -pepcid for ppx -FOBT negative -KUB 06-29-20 WNL 6. DVT ppx- dopplers negative for dvt, c/u lovenox 7. SKin- turn q2,heel floats, zinc oxide to sacrum 8. - not retaining, however incontinent, but Urine negative for infection 9. Renal- consulted for fluid management in setting of CHF, to monitor kidney function, and assist with iron deficiency anemia- intervention appreciated, renal signing off 9. Endo- newly dx DM, c/u insulin adjustments for hyperglycemia 10. heme- iron deficiency anemia s/p venofer per renal and 1 unit prbc 07-02-20, FOBT negative, c/u to monitor 10. Pain- tylenol changed to standing with lidoderm patch to right shoulder- 11. Dispo- TBD Allergies Coded Allergies: No Known Allergies (Unverified , 06/23/20) Vital Signs Vital Signs Date Time Temp Pulse Resp B/P (MAP) Pulse Ox O2 Delivery O2 Flow Rate FiO2 07/05/20 08:00 1.0 07/05/20 07:57 78 164/80 07/05/20 06:13 96.8 18 94 Aerosol Mask 07/01/20 19:32 24 Laboratory Data CBC/BMP Laboratory Tests 07/05/20 05:58 Labs 24H Laboratory Tests 2 07/04/20 16:28: Bedside Glucose (Misc Panel) 148H 07/04/20 16:35: Uric Acid 2.2L 07/04/20 20:21: Bedside Glucose (Misc Panel) 217H 07/05/20 05:58: Immature Granulocyte % (Auto) 0.3, Neutrophils (%) (Auto) 77.5H, Lymphocytes (%) (Auto) 11.2L, Monocytes (%) (Auto) 5.2, Eosinophils (%) (Auto) 5.6H, Basophils (%) (Auto) 0.2, Neutrophils # (Auto) 7.2, Lymphocytes # (Auto) 1.0L, Monocytes # (Auto) 0.5, Eosinophils # (Auto) 0.5, Basophils # (Auto) 0.0, Nucleated Red Blood Cells % (auto) 0.0, Anion Gap 6L, Glomerular Filtration Rate > 60.0, Calcium Level 8.6L Microbiology Microbiology 06/29/20 Blood Culture - Final, Complete NO GROWTH AFTER 5 DAYS 06/29/20 Blood Culture - Final, Complete NO GROWTH AFTER 5 DAYS 06/29/20 Stool Occult Blood (DARREN) - Final, Complete Current Medications Current Medications Current Medications Medications (Trade) Dose Ordered Sig/Andi Route PRN Reason Start Time Stop Time Status Last Admin Dose Admin Acetaminophen (Tylenol Suspension) 650 mg TID GT 06/29/20 16:00 07/05/20 07:55 Acetaminophen (Tylenol Tab) 650 mg Q4HP PRN PEG fever/MILD PAIN (PS 1-4) 06/23/20 13:55 06/29/20 13:35 DC Acetaminophen (Tylenol Tab) 650 mg Q8HP PRN PEG fever 06/29/20 13:35 Albuterol/ Ipratropium (Duoneb (Ipr 0.5mg/Alb 2.5mg)) 3 ml RTID NEB 06/23/20 20:00 07/05/20 07:16 Amantadine HCl (Symmetrel Syrup) 100 mg BID PEG 06/23/20 21:00 07/05/20 07:58 Amlodipine Besylate (Norvasc) 5 mg DAILY PEG 06/24/20 09:00 07/05/20 07:57 Aspirin (Aspirin Chewable) 81 mg DAILY PEG 06/24/20 09:00 07/05/20 07:57 Atorvastatin Calcium (Lipitor) 80 mg QHS PEG 06/23/20 21:00 07/04/20 21:38 Bisacodyl (Dulcolax Suppository) 10 mg DAILYPRN PRN [place] CONSTIPATION 06/23/20 13:55 06/29/20 11:02 Clonidine HCl (Catapres) 0.1 mg BID GT 06/23/20 21:00 07/05/20 07:57 Dextrose (Dextrose 50%) 25 ml ASDIRECTED PRN IV SEE LABEL COMMENTS 07/04/20 11:05 Dextrose (Dextrose 50%) 25 ml ASDIRECTED PRN IV SEE LABEL COMMENTS 06/23/20 13:55 07/04/20 11:07 DC Enoxaparin Sodium (Lovenox) 40 mg DAILY SC 06/24/20 09:00 07/05/20 07:59 Escitalopram Oxalate (Lexapro) 10 mg DAILY PEG 07/04/20 09:00 07/05/20 07:56 Famotidine (Pepcid) 40 mg BID PEG 06/23/20 21:00 07/03/20 10:00 DC 07/03/20 09:44 Ferrous Sulfate (Ferrous Sulfate) 300 mg BID PEG 06/27/20 09:00 07/01/20 09:25 DC 07/01/20 08:47 Ferrous Sulfate (Ferrous Sulfate) 300 mg DAILY PEG 07/02/20 09:00 07/05/20 07:57 Glucagon (Glucagon) 1 mg ASDIRECTED PRN SC SEE LABEL COMMENTS 07/04/20 11:05 Glucagon (Glucagon) 1 mg ASDIRECTED PRN SC SEE LABEL COMMENTS 06/23/20 13:55 07/04/20 11:07 DC Glucose (Glucose) 16 GM ASDIRECTED PRN PO SEE LABEL COMMENTS 07/04/20 11:05 Glucose (Glucose) 16 GM ASDIRECTED PRN PO SEE LABEL COMMENTS 06/23/20 13:55 07/04/20 11:07 DC Guaifenesin (Robitussin) 10 ml QID PEG 06/23/20 21:00 07/05/20 07:54 Home Med (Med Rec Complete!) ASDIRECTED XX 06/23/20 19:15 06/23/20 19:14 DC Insulin Detemir (Levemir Insulin) 10 units DAILY SC 06/29/20 09:00 07/01/20 09:59 DC 06/30/20 08:14 Insulin Detemir (Levemir Insulin) 10 units QHS MD 06/23/20 21:00 06/26/20 09:35 DC 06/25/20 21:02 Insulin Detemir (Levemir Insulin) 12 units QHS MD 06/26/20 21:00 06/27/20 07:18 DC 06/26/20 20:23 Insulin Detemir (Le[facility]mir Insulin) [facility] [place] [facility] 09:00 07/05/20 08:00 Insulin Detemir (Levemir Insulin) 20 units QHS MD 06/27/20 21:00 06/27/20 12:20 DC Insulin Detemir (Levemir Insulin) 32 units QHS MD 06/27/20 21:00 07/01/20 08:31 DC 06/30/20 21:19 Insulin Detemir (Levemir Insulin) 40 units QHS MD 07/01/20 21:00 07/04/20 21:36 Insulin Human Lispro (HumaLOG INSULIN) SEE PROTOCOL TABLE AC MD 07/04/20 12:00 07/05/20 07:58 Insulin Human Lispro (HumaLOG INSULIN) SEE PROTOCOL TABLE Q6H MD 06/23/20 18:00 07/04/20 11:07 DC 07/04/20 05:59 Insulin Human Lispro (HumaLOG INSULIN) SEE PROTOCOL TABLE QHS MD 07/04/20 21:00 Iron 100 mg/ Sodium Chloride 105 ml @ 105 mls/hr Q24H IV 07/01/20 12:00 07/06/20 11:59 07/04/20 11:39 Labetalol HCl (Normodyne, Trandate) 300 mg BID PEG 06/23/20 21:00 07/05/20 07:53 Lidocaine (Lidoderm Patch) 1 patch DAILY TD 06/29/20 13:35 07/05/20 07:52 Lidocaine/ Diphenhydr/Alum/ Mg/Simeth (Magic Mouthwash) 5ml QID SSP 06/23/20 21:00 07/05/20 07:59 Metoclopramide HCl (Reglan Liquid) 5 mg Q6H PEG 06/26/20 12:00 06/28/20 12:28 DC 06/28/20 12:01 Metoclopramide HCl (Reglan Liquid) 10 mg Q6H PEG 06/24/20 00:00 06/26/20 09:35 DC 06/26/20 05:50 Modafinil (Provigil) 100 mg BID@0600,1400 PEG 06/24/20 06:00 07/05/20 06:25 Non-Formulary Medication ( See Comment Field Below ) REMOVE LIDODERM PATCH DAILY@ XX 06/29/20 21:00 07/04/20 21:39 Pantoprazole Sodium (Protonix) 40 mg DAILY IV 07/03/20 10:00 07/05/20 07:53 Piperacillin Sod/ Tazobactam Sod 4.5 gm/Dextrose 50 ml @ 50 mls/hr Q6H IV 06/29/20 15:00 07/04/20 23:00 DC 07/04/20 21:29 Senna (Senokot) 1 tab QHS PEG 06/23/20 21:00 06/29/20 14:44 DC 06/28/20 21:19 Sodium Chloride ([place] Nasal [place]) 2 spray TID NA 07/03/20 21:00 07/05/20 07:59 Thiamine HCl (VITAMIN B1 INJection) 100 mg DAILY IM 06/24/20 09:00 07/05/20 07:52 Valsartan (Diovan) 320 mg DAILY PEG 06/24/20 09:00 07/05/20 07:54 RICKY MCDONOUGH MD Jul 05, 2020 10:16
[2020-07-05] MEDS: IRON SUCROSE 100 MG in NS 100 ML IV SCH (12:34)
[2020-07-05] MEDS: SALIVA SUBSTITUTE(MOUTHKOTE) BTL MT SCH ×3 (13:00→20:59)
[2020-07-05 14:00] VITALS: BP 140/65
[2020-07-05 20:00] VITALS: BP 162/68
[2020-07-05] MEDS: ATORVASTATIN 20 MG TAB PEG SCH (20:57)
[2020-07-05] MEDS: **NOTE PATIENT COMMENT** MISC XX SCH (21:00)
[2020-07-06] MEDS: REMEDY PHYTOPLEX Z-GUARD PASTE 113GM TUBE (FROM STOREROOM PRODUCT) TOP SCH ×4 (00:12→17:13)
[2020-07-06 05:15] VITALS: BP 152/70
[2020-07-06] MEDS: MODAFINIL 100 MG TABLET PEG SCH ×2 (05:24→13:07)
[2020-07-06] MEDS: IPRATROPIUM 0.5MG/ALBUTEROL 2.5MG INH SOL UD 3ML (DUONEB) NEB SCH ×3 (07:09→20:00)
[2020-07-06] MEDS: HumaLOG INSULIN (NovoLOG) PER UNIT SC SCH ×4 (08:00→21:00)
[2020-07-06] MEDS: FERROUS SULFATE 300MG/5ML UDC LIQUID PEG SCH (08:01)
[2020-07-06] MEDS: LEVEMIR (INSULIN DETEMIR) 1 UNITS/0.01ML SC SCH ×2 (08:01→21:03)
[2020-07-06] MEDS: AMANTADINE 100MG/10ML SYRUP UDC PEG SCH ×2 (08:01→21:02)
[2020-07-06] MEDS: ASPIRIN 81 MG CHEW TABLET PEG SCH (08:01)
[2020-07-06] MEDS: THIAMINE 200MG/2ML VIAL (J3411 PER 100MG) IM SCH (08:01)
[2020-07-06] MEDS: ACETAMINOPHEN 325 MG/10.15 ML UDC GT SCH ×3 (08:01→21:03)
[2020-07-06] MEDS: ENOXAPARIN 40MG/0.4ML SYRINGE (J1650 PER 10MG) SC SCH (08:02)
[2020-07-06] MEDS: guaiFENesin SYRUP 200 MG/10 ML UDC PEG SCH ×4 (08:02→21:02)
[2020-07-06] MEDS: ESCITALOPRAM OXALATE 10 MG TAB (LEXAPRO) PEG SCH (08:02)
[2020-07-06] MEDS: cloNIDine 0.1MG TABLET GT SCH ×2 (08:03→21:04)
[2020-07-06] MEDS: VALSARTAN 80 MG TAB (DIOVAN) PEG SCH (08:03)
[2020-07-06] MEDS: LABETALOL 100MG TAB PEG SCH ×2 (08:04→21:04)
[2020-07-06] MEDS: LIDOCAINE 5% (LIDODERM) PATCH TD SCH (08:04)
[2020-07-06] MEDS: SODIUM CHLORIDE NASAL 0.65% SPRAY BTL (OCEAN) SCH ×3 (08:04→21:05)
[2020-07-06] MEDS: SALIVA SUBSTITUTE(MOUTHKOTE) BTL MT SCH ×4 (08:05→21:04)
[2020-07-06] MEDS: MAGIC MOUTHWASH SUSPENSION BTL SSP SCH ×4 (08:05→21:04)
[2020-07-06] MEDS: amLODIPine 5 MG TAB PEG SCH (08:05)
[2020-07-06] MEDS: PANTOPRAZOLE 40MG VIAL (C9113 PER 1) IV SCH (08:13)
[2020-07-06 14:00] VITALS: BP 135/63
[2020-07-06 20:00] VITALS: BP 169/80
[2020-07-06] MEDS: ATORVASTATIN 20 MG TAB PEG SCH (21:03)
[2020-07-06] MEDS: **NOTE PATIENT COMMENT** MISC XX SCH (21:05)
[2020-07-07] MEDS: REMEDY PHYTOPLEX Z-GUARD PASTE 113GM TUBE (FROM STOREROOM PRODUCT) TOP SCH ×5 (00:18→21:31)
[2020-07-07 05:23] VITALS: BP 142/82
[2020-07-07] MEDS: MODAFINIL 100 MG TABLET PEG SCH ×2 (05:48→14:05)
[2020-07-07 06:45] LABS: BASO % 0.1 % (0.0-1.0); EOS # 0.5 10^3/uL (0.0-0.5); EOS % 5.3 % (0.0-3.0); HEMATOCRIT 27.5 % (42.0-52.0); HEMOGLOBIN 8.6 g/dl (13.5-17.5); LYMPH # 1.1 10^3/uL (1.5-5.0); LYMPH % 11.4 % (24.0-44.0); MEAN CORPUSCULAR HEMOGLOBIN 26.9 pg (27.0-33.0); MEAN CORPUSCULAR HGB CONC 31.3 g/dl (32.0-36.5); MEAN CORPUSCULAR VOLUME 85.9 fl (80.0-96.0); MONO # 0.4 10^3/uL (0.0-0.8); MONO % 4.6 % (2.0-8.0); NEUTROPHILS # 7.2 10^3/uL (1.5-8.5); NEUTROPHILS % 77.8 % (36.0-66.0); PLATELET COUNT, AUTOMATED 235 10^3/uL (150-450); WHITE BLOOD COUNT 9.2 10^3/uL (4.0-10.0)
[2020-07-07 07:01] LABS: BLOOD UREA NITROGEN 19 MG/DL (7-18); CALCIUM LEVEL 8.6 MG/DL (8.8-10.2); CARBON DIOXIDE LEVEL 29 MEQ/L (21-32); CHLORIDE LEVEL 103 MEQ/L (98-107); CREATININE FOR GFR 0.59 MG/DL (0.70-1.30); GLOMERULAR FILTRATION RATE > 60.0 (>42); GLUCOSE, FASTING 194 MG/DL (70-100); POTASSIUM SERUM 4.2 MEQ/L (3.5-5.1); SODIUM LEVEL 138 MEQ/L (136-145)
[2020-07-07] MEDS: IPRATROPIUM 0.5MG/ALBUTEROL 2.5MG INH SOL UD 3ML (DUONEB) NEB SCH ×3 (07:20→20:04)
[2020-07-07] MEDS: PANTOPRAZOLE 40MG VIAL (C9113 PER 1) IV SCH (08:07)
[2020-07-07] MEDS: LIDOCAINE 5% (LIDODERM) PATCH TD SCH (08:08)
[2020-07-07] MEDS: amLODIPine 5 MG TAB PEG SCH (08:08)
[2020-07-07] MEDS: VALSARTAN 80 MG TAB (DIOVAN) PEG SCH (08:08)
[2020-07-07] MEDS: THIAMINE 200MG/2ML VIAL (J3411 PER 100MG) IM SCH (08:08)
[2020-07-07] MEDS: ACETAMINOPHEN 325 MG/10.15 ML UDC GT SCH ×3 (08:08→21:27)
[2020-07-07] MEDS: AMANTADINE 100MG/10ML SYRUP UDC PEG SCH ×2 (08:09→21:27)
[2020-07-07] MEDS: guaiFENesin SYRUP 200 MG/10 ML UDC PEG SCH ×4 (08:09→21:29)
[2020-07-07] MEDS: ENOXAPARIN 40MG/0.4ML SYRINGE (J1650 PER 10MG) SC SCH (08:09)
[2020-07-07] MEDS: HumaLOG INSULIN (NovoLOG) PER UNIT SC SCH ×4 (08:09→21:00)
[2020-07-07] MEDS: LEVEMIR (INSULIN DETEMIR) 1 UNITS/0.01ML SC SCH ×2 (08:09→21:28)
[2020-07-07] MEDS: FERROUS SULFATE 300MG/5ML UDC LIQUID PEG SCH (08:09)
[2020-07-07] MEDS: LABETALOL 100MG TAB PEG SCH ×2 (08:10→21:29)
[2020-07-07] MEDS: ESCITALOPRAM OXALATE 10 MG TAB (LEXAPRO) PEG SCH (08:10)
[2020-07-07] MEDS: SALIVA SUBSTITUTE(MOUTHKOTE) BTL MT SCH ×4 (08:10→21:30)
[2020-07-07] MEDS: MAGIC MOUTHWASH SUSPENSION BTL SSP SCH ×4 (08:10→21:28)
[2020-07-07] MEDS: SODIUM CHLORIDE NASAL 0.65% SPRAY BTL (OCEAN) SCH ×3 (08:10→21:30)
[2020-07-07] MEDS: cloNIDine 0.1MG TABLET GT SCH ×2 (08:10→21:30)
[2020-07-07] MEDS: ASPIRIN 81 MG CHEW TABLET PEG SCH (08:10)
[2020-07-07 14:00] VITALS: BP 141/63
[2020-07-07 20:00] VITALS: BP 159/76
[2020-07-07] MEDS: ATORVASTATIN 20 MG TAB PEG SCH (21:28)
[2020-07-07] MEDS: **NOTE PATIENT COMMENT** MISC XX SCH (21:30)
[2020-07-08 06:05] VITALS: BP 159/81
[2020-07-08] MEDS: MODAFINIL 100 MG TABLET PEG SCH ×2 (06:10→13:56)
[2020-07-08] MEDS: REMEDY PHYTOPLEX Z-GUARD PASTE 113GM TUBE (FROM STOREROOM PRODUCT) TOP SCH ×4 (06:10→20:58)
[2020-07-08] MEDS: IPRATROPIUM 0.5MG/ALBUTEROL 2.5MG INH SOL UD 3ML (DUONEB) NEB SCH ×3 (07:15→20:06)
[2020-07-08] MEDS: HumaLOG INSULIN (NovoLOG) PER UNIT SC SCH ×4 (08:19→20:56)
[2020-07-08] MEDS: LEVEMIR (INSULIN DETEMIR) 1 UNITS/0.01ML SC SCH ×2 (08:20→20:55)
[2020-07-08] MEDS: THIAMINE 200MG/2ML VIAL (J3411 PER 100MG) IM SCH (08:21)
[2020-07-08] MEDS: MAGIC MOUTHWASH SUSPENSION BTL SSP SCH ×4 (08:21→20:58)
[2020-07-08] MEDS: AMANTADINE 100MG/10ML SYRUP UDC PEG SCH ×2 (08:22→20:54)
[2020-07-08] MEDS: SALIVA SUBSTITUTE(MOUTHKOTE) BTL MT SCH ×4 (08:22→20:57)
[2020-07-08] MEDS: ENOXAPARIN 40MG/0.4ML SYRINGE (J1650 PER 10MG) SC SCH (08:22)
[2020-07-08] MEDS: FERROUS SULFATE 300MG/5ML UDC LIQUID PEG SCH (08:22)
[2020-07-08] MEDS: ACETAMINOPHEN 325 MG/10.15 ML UDC GT SCH ×3 (08:22→20:53)
[2020-07-08] MEDS: OMEPRAZOLE SUSPENSION 20MG 10ML ORAL SYRINGE PEG SCH (08:22)
[2020-07-08] MEDS: ASPIRIN 81 MG CHEW TABLET PEG SCH (08:23)
[2020-07-08] MEDS: amLODIPine 5 MG TAB PEG SCH (08:23)
[2020-07-08] MEDS: cloNIDine 0.1MG TABLET GT SCH ×2 (08:24→20:54)
[2020-07-08] MEDS: VALSARTAN 80 MG TAB (DIOVAN) PEG SCH (08:24)
[2020-07-08] MEDS: LIDOCAINE 5% (LIDODERM) PATCH TD SCH (08:25)
[2020-07-08] MEDS: guaiFENesin SYRUP 200 MG/10 ML UDC PEG SCH ×4 (08:25→20:54)
[2020-07-08] MEDS: LABETALOL 100MG TAB PEG SCH ×2 (08:25→20:55)
[2020-07-08] MEDS: ESCITALOPRAM OXALATE 10 MG TAB (LEXAPRO) PEG SCH (08:25)
[2020-07-08] MEDS: SODIUM CHLORIDE NASAL 0.65% SPRAY BTL (OCEAN) SCH ×3 (08:25→20:56)
[2020-07-08 14:00] VITALS: BP 144/78
[2020-07-08 20:00] VITALS: BP 159/80
[2020-07-08] MEDS: ATORVASTATIN 20 MG TAB PEG SCH (20:54)
[2020-07-08] MEDS: **NOTE PATIENT COMMENT** MISC XX SCH (20:57)
[2020-07-09 05:39] VITALS: BP 155/72
[2020-07-09] MEDS: REMEDY PHYTOPLEX Z-GUARD PASTE 113GM TUBE (FROM STOREROOM PRODUCT) TOP SCH ×4 (06:24→23:48)
[2020-07-09] MEDS: MODAFINIL 100 MG TABLET PEG SCH ×2 (06:24→13:21)
[2020-07-09] MEDS: IPRATROPIUM 0.5MG/ALBUTEROL 2.5MG INH SOL UD 3ML (DUONEB) NEB SCH ×3 (07:11→20:30)
[2020-07-09] MEDS: LEVEMIR (INSULIN DETEMIR) 1 UNITS/0.01ML SC SCH ×2 (08:12→21:25)
[2020-07-09] MEDS: HumaLOG INSULIN (NovoLOG) PER UNIT SC SCH ×4 (08:12→21:24)
[2020-07-09] MEDS: THIAMINE 200MG/2ML VIAL (J3411 PER 100MG) IM SCH (08:14)
[2020-07-09] MEDS: ENOXAPARIN 40MG/0.4ML SYRINGE (J1650 PER 10MG) SC SCH (08:14)
[2020-07-09] MEDS: LIDOCAINE 5% (LIDODERM) PATCH TD SCH (08:14)
[2020-07-09] MEDS: AMANTADINE 100MG/10ML SYRUP UDC PEG SCH ×2 (08:15→21:23)
[2020-07-09] MEDS: FERROUS SULFATE 300MG/5ML UDC LIQUID PEG SCH (08:15)
[2020-07-09] MEDS: guaiFENesin SYRUP 200 MG/10 ML UDC PEG SCH ×4 (08:15→21:22)
[2020-07-09] MEDS: ACETAMINOPHEN 325 MG/10.15 ML UDC GT SCH ×3 (08:15→21:23)
[2020-07-09] MEDS: MAGIC MOUTHWASH SUSPENSION BTL SSP SCH ×4 (08:15→21:24)
[2020-07-09] MEDS: LABETALOL 100MG TAB PEG SCH ×2 (08:16→21:22)
[2020-07-09] MEDS: ASPIRIN 81 MG CHEW TABLET PEG SCH (08:17)
[2020-07-09] MEDS: SALIVA SUBSTITUTE(MOUTHKOTE) BTL MT SCH ×4 (08:17→21:23)
[2020-07-09] MEDS: VALSARTAN 80 MG TAB (DIOVAN) PEG SCH (08:17)
[2020-07-09] MEDS: cloNIDine 0.1MG TABLET GT SCH ×2 (08:17→21:22)
[2020-07-09] MEDS: ESCITALOPRAM OXALATE 10 MG TAB (LEXAPRO) PEG SCH (08:17)
[2020-07-09] MEDS: SODIUM CHLORIDE NASAL 0.65% SPRAY BTL (OCEAN) SCH ×3 (08:18→21:25)
[2020-07-09] MEDS: OMEPRAZOLE SUSPENSION 20MG 10ML ORAL SYRINGE PEG SCH (08:27)
[2020-07-09 14:00] VITALS: BP 134/73
[2020-07-09] MEDS ORDERED: ACETAMINOPHEN 325 MG/10.15 ML UDC PEG PRN (17:45)
[2020-07-09 20:00] VITALS: BP 147/79
[2020-07-09] MEDS: ATORVASTATIN 20 MG TAB PEG SCH (21:22)
[2020-07-09] MEDS: **NOTE PATIENT COMMENT** MISC XX SCH (21:25)
[2020-07-10 06:00] VITALS: BP 134/70
[2020-07-10] MEDS: MODAFINIL 100 MG TABLET PEG SCH ×2 (06:22→14:00)
[2020-07-10] MEDS: REMEDY PHYTOPLEX Z-GUARD PASTE 113GM TUBE (FROM STOREROOM PRODUCT) TOP SCH ×6 (06:22→23:36)
[2020-07-10] MEDS: IPRATROPIUM 0.5MG/ALBUTEROL 2.5MG INH SOL UD 3ML (DUONEB) NEB SCH ×3 (07:13→19:46)
[2020-07-10 07:39] LABS: BASO % 0.2 % (0.0-1.0); EOS # 0.5 10^3/uL (0.0-0.5); EOS % 5.1 % (0.0-3.0); HEMATOCRIT 28.4 % (42.0-52.0); HEMOGLOBIN 8.5 g/dl (13.5-17.5); LYMPH % 11.1 % (24.0-44.0); MEAN CORPUSCULAR HEMOGLOBIN 25.7 pg (27.0-33.0); MEAN CORPUSCULAR HGB CONC 29.9 g/dl (32.0-36.5); MEAN CORPUSCULAR VOLUME 85.8 fl (80.0-96.0); MONO # 0.5 10^3/uL (0.0-0.8); MONO % 5.7 % (2.0-8.0); NEUTROPHILS # 7.3 10^3/uL (1.5-8.5); NEUTROPHILS % 77.4 % (36.0-66.0); PLATELET COUNT, AUTOMATED 278 10^3/uL (150-450); RED BLOOD COUNT 3.31 10^6/uL (4.30-6.10); WHITE BLOOD COUNT 9.4 10^3/uL (4.0-10.0)
[2020-07-10 08:02] LABS: BLOOD UREA NITROGEN 17 MG/DL (7-18); CALCIUM LEVEL 8.5 MG/DL (8.8-10.2); CARBON DIOXIDE LEVEL 27 MEQ/L (21-32); CHLORIDE LEVEL 100 MEQ/L (98-107); CREATININE FOR GFR 0.52 MG/DL (0.70-1.30); GLOMERULAR FILTRATION RATE > 60.0 (>42); GLUCOSE, FASTING 192 MG/DL (70-100); POTASSIUM SERUM 4.2 MEQ/L (3.5-5.1); SODIUM LEVEL 135 MEQ/L (136-145)
[2020-07-10] MEDS: LEVEMIR (INSULIN DETEMIR) 1 UNITS/0.01ML SC SCH ×2 (08:19→21:58)
[2020-07-10] MEDS: guaiFENesin SYRUP 200 MG/10 ML UDC PEG SCH ×4 (08:19→21:57)
[2020-07-10] MEDS: AMANTADINE 100MG/10ML SYRUP UDC PEG SCH ×2 (08:19→21:56)
[2020-07-10] MEDS: HumaLOG INSULIN (NovoLOG) PER UNIT SC SCH ×4 (08:20→21:00)
[2020-07-10] MEDS: ACETAMINOPHEN 325 MG/10.15 ML UDC GT SCH ×3 (08:21→21:57)
[2020-07-10] MEDS: FERROUS SULFATE 300MG/5ML UDC LIQUID PEG SCH (08:21)
[2020-07-10] MEDS: VALSARTAN 80 MG TAB (DIOVAN) PEG SCH (08:22)
[2020-07-10] MEDS: cloNIDine 0.1MG TABLET GT SCH ×2 (08:23→21:58)
[2020-07-10] MEDS: ESCITALOPRAM OXALATE 10 MG TAB (LEXAPRO) PEG SCH (08:23)
[2020-07-10] MEDS: OMEPRAZOLE SUSPENSION 20MG 10ML ORAL SYRINGE PEG SCH (08:25)
[2020-07-10] MEDS: SODIUM CHLORIDE NASAL 0.65% SPRAY BTL (OCEAN) SCH ×3 (08:26→21:58)
[2020-07-10] MEDS: THIAMINE 200MG/2ML VIAL (J3411 PER 100MG) IM SCH (08:26)
[2020-07-10] MEDS: ENOXAPARIN 40MG/0.4ML SYRINGE (J1650 PER 10MG) SC SCH (08:26)
[2020-07-10] MEDS: MAGIC MOUTHWASH SUSPENSION BTL SSP SCH ×4 (08:26→21:58)
[2020-07-10] MEDS: LABETALOL 100MG TAB PEG SCH ×2 (08:27→21:57)
[2020-07-10] MEDS: ASPIRIN 81 MG CHEW TABLET PEG SCH (08:30)
[2020-07-10] MEDS: SALIVA SUBSTITUTE(MOUTHKOTE) BTL MT SCH ×4 (08:31→21:59)
[2020-07-10] MEDS: LIDOCAINE 5% (LIDODERM) PATCH TD SCH (08:31)
--- NOTE | 2020-07-10 10:17 | IPNPDOC ---
PM&R Progress Note DATE OF SERVICE: Jul 06, 2020 [employer] Manager Progress Note Subjective: Patient seen in his room with his sleeping, and therapy reporting he is able to tolerate more therapy. Per speech he was able to swallow apple sauce. REVIEW OF SYSTEMS: The following is a completed review of systems and has been reviewed. Difficult to assess due to patient unable to respond EARS, NOSE, & THROAT: + dysphagia PULMONARY: denies cough GASTROINTESTINAL: +peg GENITOURINARY: +incontinence MUSCULOSKELETAL: generalized weakness NEUROLOGICAL:+ left sided paresis SKIN: +sacral ulcers PHYSICAL EXAMINATION: VITAL SIGNS: Please see below. GENERAL: NAD, sitting up in chair, alert HEENT: PERRL. Clear conjunctiva, +left sided facial droop CARDIOVASCULAR: Regular rate and rhythm. No murmurs, rubs, or gallops LUNGS: clear to auscultation bilaterally. No wheezes. No rhonchi, breathing comfortably ABDOMEN: Soft, nontender, slightly distended. no guarding, Positive bowel sounds. Normal active bowel sounds, +PEG NEUROLOGICAL: responds inconsistently to commands, A&O x0, [place] level 3 EXTREMITIES: 5/5 RUE, spontaneous motion in both RLE and LLE, flaccid LUE SKIN: sacral ulcers, right frontal sutures c/d/i ASSESSMENT:74-year-old M with past medical history of HTn, HLD who presents status post stroke with hemorrhagic conversion PLAN: 1. rehab- pt/ot advance mobility and ADLs, strengthen/stretch/maintain ROM all 4limbs, starting to tolerate being upright more and beginning to participate in therapy from a cognitive standpoint -MITER SAWYER for cog and swallow eval-oral care 2. 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 Cardiac- hx of HTN c/u labetalol, amlodipine, Diovan, will increase clonidine to 0.2mg BID for elevated BPs- medicine consulted to assist in overall management -ECHO at [facility] 06-11-20 showing grade 2 diastolic CHF 4. Resp- s/p treatment for klebsiella PNA with hypoxic respiratory failure at [facility], restarted on IV zosyn 06-29-20 due to increased work of breathing and fever, f/u CT 07-01-20 showing no definite infiltrate, however did show bilat discoid atelectasis, patient has cognitively improved since starting antibiotics, will c/u through today for 5-day course, c/u duonebs, guaifenesin -suspect sleep apnea, c/u nocturnal 02- goal 88-92% to avoid increasing apneic episodes 5. GI- NPO, patient tolerating PEG feeds, now off reglan, switched to bolus feeds- tolerating -c/u zofran prn for nausea -pepcid for ppx -FOBT negative -KUB 06-29-20 WNL 6. DVT ppx- dopplers negative for dvt, c/u lovenox 7. SKin- turn q2,heel floats, zinc oxide to sacrum 8. - not retaining, however incontinent, but Urine negative for infection 9. Renal- consulted for fluid management in setting of CHF, to monitor kidney function, and assist with iron deficiency anemia- intervention appreciated, renal signing off 9. Endo- newly dx DM, c/u insulin adjustments for hyperglycemia 10. heme- iron deficiency anemia s/p venofer per renal and 1 unit prbc 07-02-20, FOBT negative, c/u to monitor 10. Pain- tylenol changed to standing with lidoderm patch to right shoulder- 11. Dispo- TBD Allergies Coded Allergies: No Known Allergies (Unverified , 06/23/20) Vital Signs Vital Signs Date Time Temp Pulse Resp B/P (MAP) Pulse Ox O2 Delivery O2 Flow Rate FiO2 07/10/20 08:30 80 134/70 07/10/20 06:00 97.8 19 96 Room Air 07/05/20 08:00 1.0 Laboratory Data CBC/BMP Laboratory Tests 07/10/20 06:53 Labs 24H Laboratory Tests 2 07/09/20 11:26: Bedside Glucose (Misc Panel) 209H 07/09/20 16:29: Bedside Glucose (Misc Panel) 165H 07/09/20 19:49: Bedside Glucose (Misc Panel) 259H 07/10/20 05:11: Bedside Glucose (Misc Panel) 195H 07/10/20 06:53: Immature Granulocyte % (Auto) 0.5, Neutrophils (%) (Auto) 77.4H, Lymphocytes (%) (Auto) 11.1L, Monocytes (%) (Auto) 5.7, Eosinophils (%) (Auto) 5.1H, Basophils (%) (Auto) 0.2, Neutrophils # (Auto) 7.3, Lymphocytes # (Auto) 1.0L, Monocytes # (Auto) 0.5, Eosinophils # (Auto) 0.5, Basophils # (Auto) 0.0, Nucleated Red Blood Cells % (auto) 0.0, Anion Gap 8, Glomerular Filtration Rate > 60.0, Calcium Level 8.5L Current Medications Current Medications Current Medications Medications (Trade) Dose Ordered Sig/Andi Route PRN Reason Start Time Stop Time Status Last Admin Dose Admin Acetaminophen (Tylenol Suspension) 650 mg Q8HP PRN PEG fever 07/09/20 17:45 Acetaminophen (Tylenol Suspension) 650 mg TID GT 06/29/20 16:00 07/10/20 08:21 Acetaminophen (Tylenol Tab) 650 mg Q4HP PRN PEG fever/MILD PAIN (PS 1-4) 06/23/20 13:55 06/29/20 13:35 DC Acetaminophen (Tylenol Tab) 650 mg Q8HP PRN PEG fever 06/29/20 13:35 07/09/20 17:43 DC Albuterol/ Ipratropium (Duoneb (Ipr 0.5mg/Alb 2.5mg)) 3 ml RTID NEB 06/23/20 20:00 07/10/20 07:13 Amantadine HCl (Symmetrel Syrup) 100 mg BID PEG 06/23/20 21:00 07/10/20 08:19 Amlodipine Besylate (Norvasc) 5 mg DAILY PEG 06/24/20 09:00 07/08/20 08:39 DC 07/08/20 08:23 Amlodipine Besylate (Norvasc) 10 mg DAILY PEG 07/09/20 09:00 07/10/20 08:30 Aspirin (Aspirin Chewable) 81 mg DAILY PEG 06/24/20 09:00 07/10/20 08:30 Atorvastatin Calcium (Lipitor) 80 mg QHS PEG 06/23/20 21:00 07/09/20 21:22 Bisacodyl (Dulcolax Suppository) 10 mg DAILYPRN PRN [place] CONSTIPATION 06/23/20 13:55 06/29/20 11:02 Clonidine HCl (Catapres) 0.1 mg BID GT 06/23/20 21:00 07/05/20 10:16 DC 07/05/20 07:57 Clonidine HCl (Catapres) 0.2 mg BID GT 07/05/20 21:00 07/10/20 08:23 Dextrose (Dextrose 50%) 25 ml ASDIRECTED PRN IV SEE LABEL COMMENTS 07/04/20 11:05 Dextrose (Dextrose 50%) 25 ml ASDIRECTED PRN IV SEE LABEL COMMENTS 06/23/20 13:55 07/04/20 11:07 DC Enoxaparin Sodium (Lovenox) 40 mg DAILY SC 06/24/20 09:00 07/10/20 08:26 Escitalopram Oxalate (Lexapro) 10 mg DAILY PEG 07/04/20 09:00 07/10/20 08:23 Famotidine (Pepcid) 40 mg BID PEG 06/23/20 21:00 07/03/20 10:00 DC 07/03/20 09:44 Ferrous Sulfate (Ferrous Sulfate) 300 mg BID PEG 06/27/20 09:00 07/01/20 09:25 DC 07/01/20 08:47 Ferrous Sulfate (Ferrous Sulfate) 300 mg DAILY PEG 07/02/20 09:00 07/10/20 08:21 Glucagon (Glucagon) 1 mg ASDIRECTED PRN SC SEE LABEL COMMENTS 07/04/20 11:05 Glucagon (Glucagon) 1 mg ASDIRECTED PRN SC SEE LABEL COMMENTS 06/23/20 13:55 07/04/20 11:07 DC Glucose (Glucose) 16 GM ASDIRECTED PRN PO SEE LABEL COMMENTS 07/04/20 11:05 Glucose (Glucose) 16 GM ASDIRECTED PRN PO SEE LABEL COMMENTS 06/23/20 13:55 07/04/20 11:07 DC Guaifenesin (Robitussin) 10 ml QID PEG 06/23/20 21:00 07/10/20 08:19 Home Med (Med Rec Complete!) ASDIRECTED XX 06/23/20 19:15 06/23/20 19:14 DC Insulin Detemir (Levemir Insulin) 10 units DAILY ME 06/29/20 09:00 07/01/20 09:59 DC 06/30/20 08:14 Insulin Detemir (Levemir Insulin) 10 units QHS ME 06/23/20 21:00 06/26/20 09:35 DC 06/25/20 21:02 Insulin Detemir (Levemir Insulin) 12 units QHS ME 06/26/20 21:00 06/27/20 07:18 DC 06/26/20 20:23 Insulin Detemir (Levemir Insulin) [facility] 09:00 07/10/20 08:19 Insulin Detemir (Levemir Insulin) 20 units QHS ME 06/27/20 21:00 06/27/20 12:20 DC Insulin Detemir (Levemir Insulin) 30 units QHS ME 07/05/20 21:00 07/09/20 21:25 Insulin Detemir (Levemir Insulin) 32 units QHS ME 06/27/20 21:00 07/01/20 08:31 DC 06/30/20 21:19 Insulin Detemir (Levemir Insulin) 40 units QHS ME 07/01/20 21:00 07/05/20 10:16 DC 07/04/20 21:36 Insulin Human Lispro (HumaLOG INSULIN) SEE PROTOCOL TABLE AC ME 07/04/20 12:00 07/10/20 08:20 Insulin Human Lispro (HumaLOG INSULIN) SEE PROTOCOL TABLE Q6H ME 06/23/20 18:00 07/04/20 11:07 DC 07/04/20 05:59 Insulin Human Lispro (HumaLOG INSULIN) SEE PROTOCOL TABLE QHS ME 07/04/20 21:00 07/09/20 21:24 Iron 100 mg/ Sodium Chloride 105 ml @ 105 mls/hr Q24H IV 07/01/20 12:00 07/06/20 11:59 DC 07/05/20 12:34 Labetalol HCl (Normodyne, Trandate) 300 mg BID PEG 06/23/20 21:00 07/10/20 08:27 Lidocaine (Lidoderm Patch) 1 patch DAILY TD 06/29/20 13:35 07/10/20 08:31 Lidocaine/ Diphenhydr/Alum/ Mg/Simeth (Magic Mouthwash) 5ml QID SSP 06/23/20 21:00 07/10/20 08:26 Metoclopramide HCl (Reglan Liquid) 5 mg Q6H PEG 06/26/20 12:00 06/28/20 12:28 DC 06/28/20 12:01 Metoclopramide HCl (Reglan Liquid) 10 mg Q6H PEG 06/24/20 00:00 06/26/20 09:35 DC 06/26/20 05:50 Modafinil (Provigil) 100 mg BID@0600,1400 PEG 06/24/20 06:00 07/10/20 06:22 Non-Formulary Medication ( See Comment Field Below ) REMOVE LIDODERM PATCH DAILY@21 XX 06/29/20 21:00 07/09/20 21:25 Omeprazole (First-Omeprazole ORAL SUSPENSION) 40 mg DAILY PEG 07/08/20 09:00 07/10/20 08:25 Pantoprazole Sodium (Protonix) 40 mg DAILY IV 07/03/20 10:00 07/07/20 15:23 DC 07/07/20 08:07 Piperacillin Sod/ Tazobactam Sod 4.5 gm/Dextrose 50 ml @ 50 mls/hr Q6H IV 06/29/20 15:00 07/04/20 23:00 DC 07/04/20 21:29 Saliva Substitute (Mouthkote) 2 sprays QID MT 07/05/20 13:00 07/10/20 08:31 Senna (Senokot) 1 tab QHS PEG 06/23/20 21:00 06/29/20 14:44 DC 06/28/20 21:19 Sodium Chloride ([place] Nasal [place]) 2 spray TID NA 07/03/20 21:00 07/10/20 08:26 Thiamine HCl (VITAMIN B1 INJection) 100 mg DAILY IM 06/24/20 09:00 07/10/20 08:26 Valsartan (Diovan) 320 mg DAILY PEG 06/24/20 09:00 07/10/20 08:22 RICKY MCDONOUGH MD Jul 10, 2020 10:17
--- NOTE | 2020-07-10 10:18 | IPNPDOC ---
PM&R Progress Note DATE OF SERVICE: Jul 10, 2020 Junior Marketing Associate Progress Note Subjective: Patient seen in his room with , appearing comfortable while having his sacrum cleaned. REVIEW OF SYSTEMS: The following is a completed review of systems and has been reviewed. Difficult to assess due to patient unable to respond EARS, NOSE, & THROAT: + dysphagia PULMONARY: denies cough GASTROINTESTINAL: +peg GENITOURINARY: +incontinence MUSCULOSKELETAL: generalized weakness NEUROLOGICAL:+ left sided paresis SKIN: +sacral ulcers PHYSICAL EXAMINATION: VITAL SIGNS: Please see below. GENERAL: NAD, sitting up in chair, alert HEENT: PERRL. Clear conjunctiva, +left sided facial droop CARDIOVASCULAR: Regular rate and rhythm. No murmurs, rubs, or gallops LUNGS: clear to auscultation bilaterally. No wheezes. No rhonchi, breathing comfortably ABDOMEN: Soft, nontender, slightly distended. no guarding, Positive bowel sounds. Normal active bowel sounds, +PEG NEUROLOGICAL: responds inconsistently to commands, A&O x0, ranchos level 3 EXTREMITIES: 5/5 RUE, spontaneous motion in both RLE and LLE, flaccid LUE SKIN: sacral ulcers, right frontal incision healed ASSESSMENT:74-year-old M with past medical history of HTn, HLD who presents status post stroke with hemorrhagic conversion PLAN: 1. rehab- pt/ot advance mobility and ADLs, strengthen/stretch/maintain ROM all 4limbs, starting to tolerate being upright more and beginning to participate in therapy from a cognitive standpoint -COMPOSITE BOND TECHNICIAN for cog and swallow eval-oral care, Modified Barium Swallow ordered for today 2. 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 Cardiac- hx of HTN c/u labetalol, amlodipine, Diovan, will increase clonidine to 0.2mg BID for elevated BPs- medicine consulted to assist in overall management -ECHO at [facility] 06-11-20 showing grade 2 diastolic CHF 4. Resp- s/p treatment for klebsiella PNA with hypoxic respiratory failure at [facility], restarted on IV zosyn on 06-29-20 due to increased work of breathing and fever, f/u CT 07-01-20 showing no definite infiltrate, however did show bilat discoid atelectasis, has finished abx, c/u to monitor for infection- c/u duonebs, guaifenesin -suspect sleep apnea, c/u nocturnal 02- goal 88-92% to avoid increasing apneic episodes 5. GI- NPO with minimal feeds with COMPOSITE BOND TECHNICIAN, patient tolerating PEG feeds, now off reglan, switched to bolus feeds- tolerating -c/u zofran prn for nausea -pepcid for ppx -FOBT negative -KUB 06-29-20 WNL 6. DVT ppx- dopplers negative for dvt, c/u lovenox 7. SKin- turn q2,heel floats, zinc oxide-corn starch to sacrum q2h 8. - not retaining, however incontinent, but Urine negative for infection 9. Renal- consulted for fluid management in setting of CHF, to monitor kidney function, and assist with iron deficiency anemia- intervention appreciated, renal signed 9. Endo- newly dx DM, c/u insulin adjustments for hyperglycemia 10. heme- iron deficiency anemia s/p venofer per renal and 1 unit prbc 07-02-20, FOBT negative, c/u to monitor 10. Pain- tylenol changed to standing with lidoderm patch to right shoulder- 11. Dispo- TBD Allergies Coded Allergies: No Known Allergies (Unverified , 06/23/20) Vital Signs Vital Signs Date Time Temp Pulse Resp B/P (MAP) Pulse Ox O2 Delivery O2 Flow Rate FiO2 07/10/20 08:30 80 134/70 07/10/20 06:00 97.8 19 96 Room Air 07/05/20 08:00 1.0 Laboratory Data CBC/BMP Laboratory Tests 07/10/20 06:53 Labs 24H Laboratory Tests 2 07/09/20 11:26: Bedside Glucose (Misc Panel) 209H 07/09/20 16:29: Bedside Glucose (Misc Panel) 165H 07/09/20 19:49: Bedside Glucose (Misc Panel) 259H 07/10/20 05:11: Bedside Glucose (Misc Panel) 195H 07/10/20 06:53: Immature Granulocyte % (Auto) 0.5, Neutrophils (%) (Auto) 77.4H, Lymphocytes (%) (Auto) 11.1L, Monocytes (%) (Auto) 5.7, Eosinophils (%) (Auto) 5.1H, Basophils (%) (Auto) 0.2, Neutrophils # (Auto) 7.3, Lymphocytes # (Auto) 1.0L, Monocytes # (Auto) 0.5, Eosinophils # (Auto) 0.5, Basophils # (Auto) 0.0, Nucleated Red Blood Cells % (auto) 0.0, Anion Gap 8, Glomerular Filtration Rate > 60.0, Calcium Level 8.5L Current Medications Current Medications Current Medications Medications (Trade) Dose Ordered Sig/Andi Route PRN Reason Start Time Stop Time Status Last Admin Dose Admin Acetaminophen (Tylenol Suspension) 650 mg Q8HP PRN PEG fever 07/09/20 17:45 Acetaminophen (Tylenol Suspension) 650 mg TID GT 06/29/20 16:00 07/10/20 08:21 Acetaminophen (Tylenol Tab) 650 mg Q4HP PRN PEG fever/MILD PAIN (PS 1-4) 06/23/20 13:55 06/29/20 13:35 DC Acetaminophen (Tylenol Tab) 650 mg Q8HP PRN PEG fever 06/29/20 13:35 07/09/20 17:43 DC Albuterol/ Ipratropium (Duoneb (Ipr 0.5mg/Alb 2.5mg)) 3 ml RTID NEB 06/23/20 20:00 07/10/20 07:13 Amantadine HCl (Symmetrel Syrup) 100 mg BID PEG 06/23/20 21:00 07/10/20 08:19 Amlodipine Besylate (Norvasc) 5 mg DAILY PEG 06/24/20 09:00 07/08/20 08:39 DC 07/08/20 08:23 Amlodipine Besylate (Norvasc) 10 mg DAILY PEG 07/09/20 09:00 07/10/20 08:30 Aspirin (Aspirin Chewable) 81 mg DAILY PEG 06/24/20 09:00 07/10/20 08:30 Atorvastatin Calcium (Lipitor) 80 mg QHS PEG 06/23/20 21:00 07/09/20 21:22 Bisacodyl (Dulcolax Suppository) 10 mg DAILYPRN PRN [place] CONSTIPATION 06/23/20 13:55 06/29/20 11:02 Clonidine HCl (Catapres) 0.1 mg BID GT 06/23/20 21:00 07/05/20 10:16 DC 07/05/20 07:57 Clonidine HCl (Catapres) 0.2 mg BID GT 07/05/20 21:00 07/10/20 08:23 Dextrose (Dextrose 50%) 25 ml ASDIRECTED PRN IV SEE LABEL COMMENTS 07/04/20 11:05 Dextrose (Dextrose 50%) 25 ml ASDIRECTED PRN IV SEE LABEL COMMENTS 06/23/20 13:55 07/04/20 11:07 DC Enoxaparin Sodium (Lovenox) 40 mg DAILY SC 06/24/20 09:00 07/10/20 08:26 Escitalopram Oxalate (Lexapro) 10 mg DAILY PEG 07/04/20 09:00 07/10/20 08:23 Famotidine (Pepcid) 40 mg BID PEG 06/23/20 21:00 07/03/20 10:00 DC 07/03/20 09:44 Ferrous Sulfate (Ferrous Sulfate) 300 mg BID PEG 06/27/20 09:00 07/01/20 09:25 DC 07/01/20 08:47 Ferrous Sulfate (Ferrous Sulfate) 300 mg DAILY PEG 07/02/20 09:00 07/10/20 08:21 Glucagon (Glucagon) 1 mg ASDIRECTED PRN SC SEE LABEL COMMENTS 07/04/20 11:05 Glucagon (Glucagon) 1 mg ASDIRECTED PRN SC SEE LABEL COMMENTS 06/23/20 13:55 07/04/20 11:07 DC Glucose (Glucose) 16 GM ASDIRECTED PRN PO SEE LABEL COMMENTS 07/04/20 11:05 Glucose (Glucose) 16 GM ASDIRECTED PRN PO SEE LABEL COMMENTS 06/23/20 13:55 07/04/20 11:07 DC Guaifenesin (Robitussin) 10 ml QID PEG 06/23/20 21:00 07/10/20 08:19 Home Med (Med Rec Complete!) ASDIRECTED XX 06/23/20 19:15 06/23/20 19:14 DC Insulin Detemir (Levemir Insulin) 10 units DAILY NV 06/29/20 09:00 07/01/20 09:59 DC 06/30/20 08:14 Insulin Detemir (Levemir Insulin) 10 units QHS NV 06/23/20 21:00 06/26/20 09:35 DC 06/25/20 21:02 Insulin Detemir (Levemir Insulin) 12 units QHS NV 06/26/20 21:00 06/27/20 07:18 DC 06/26/20 20:23 Insulin Detemir (Le[facility]mir Insulin) [facility] 09:00 07/10/20 08:19 Insulin Detemir (Levemir Insulin) 20 units QHS NV 06/27/20 21:00 06/27/20 12:20 DC Insulin Detemir (Levemir Insulin) 30 units QHS NV 07/05/20 21:00 07/09/20 21:25 Insulin Detemir (Levemir Insulin) 32 units QHS NV 06/27/20 21:00 07/01/20 08:31 DC 06/30/20 21:19 Insulin Detemir (Levemir Insulin) 40 units QHS NV 07/01/20 21:00 07/05/20 10:16 DC 07/04/20 21:36 Insulin Human Lispro (HumaLOG INSULIN) SEE PROTOCOL TABLE AC NV 07/04/20 12:00 07/10/20 08:20 Insulin Human Lispro (HumaLOG INSULIN) SEE PROTOCOL TABLE Q6H NV 06/23/20 18:00 07/04/20 11:07 DC 07/04/20 05:59 Insulin Human Lispro (HumaLOG INSULIN) SEE PROTOCOL TABLE QHS NV 07/04/20 21:00 07/09/20 21:24 Iron 100 mg/ Sodium Chloride 105 ml @ 105 mls/hr Q24H IV 07/01/20 12:00 07/06/20 11:59 DC 07/05/20 12:34 Labetalol HCl (Normodyne, Trandate) 300 mg BID PEG 06/23/20 21:00 07/10/20 08:27 Lidocaine (Lidoderm Patch) 1 patch DAILY TD 06/29/20 13:35 07/10/20 08:31 Lidocaine/ Diphenhydr/Alum/ Mg/Simeth (Magic Mouthwash) 5ml QID SSP 06/23/20 21:00 07/10/20 08:26 Metoclopramide HCl (Reglan Liquid) 5 mg Q6H PEG 06/26/20 12:00 06/28/20 12:28 DC 06/28/20 12:01 Metoclopramide HCl (Reglan Liquid) 10 mg Q6H PEG 06/24/20 00:00 06/26/20 09:35 DC 06/26/20 05:50 Modafinil (Provigil) 100 mg BID@0600,1400 PEG 06/24/20 06:00 07/10/20 06:22 Non-Formulary Medication ( See Comment Field Below ) REMOVE LIDODERM PATCH DAILY@21 XX 06/29/20 21:00 07/09/20 21:25 Omeprazole (First-Omeprazole ORAL SUSPENSION) 40 mg DAILY PEG 07/08/20 09:00 07/10/20 08:25 Pantoprazole Sodium (Protonix) 40 mg DAILY IV 07/03/20 10:00 07/07/20 15:23 DC 07/07/20 08:07 Piperacillin Sod/ Tazobactam Sod 4.5 gm/Dextrose 50 ml @ 50 mls/hr Q6H IV 06/29/20 15:00 07/04/20 23:00 DC 07/04/20 21:29 Saliva Substitute (Mouthkote) 2 sprays QID MT 07/05/20 13:00 07/10/20 08:31 Senna (Senokot) 1 tab QHS PEG 06/23/20 21:00 06/29/20 14:44 DC 06/28/20 21:19 Sodium Chloride ([place] Nasal [place]) 2 spray TID NA 07/03/20 21:00 07/10/20 08:26 Thiamine HCl (VITAMIN B1 INJection) 100 mg DAILY IM 06/24/20 09:00 07/10/20 08:26 Valsartan (Diovan) 320 mg DAILY PEG 06/24/20 09:00 07/10/20 08:22 RICKY MCDONOUGH MD Jul 10, 2020 10:18
[2020-07-10] MEDS ORDERED: VARIBAR PUDDING 40% w/v 230ML TUBE As Ordered ONE (10:20)
[2020-07-10] MEDS ORDERED: E-Z-PAQUE 96% w/w SUSP 176GM BTL As Ordered ONE (10:20)
[2020-07-10] MEDS ORDERED: VARIBAR NECTAR 40% w/v 240ML SUSP BTL As Ordered ONE (10:20)
[2020-07-10] MEDS ORDERED: BARIUM SULFATE 700 MG TABLET (E-Z-DISK) As Ordered ONE (10:20)
--- NOTE | 2020-07-10 18:42 | REP ---
INDICATION: dysphagia. COMPARISON: None. TECHNIQUE: The procedure was performed by Tari Haley [facility], under the direct supervision of Dr. Juarez. The procedure was performed with Hailee Norris from speech pathology present. 5 ml aliquots of honey thick, nectar thick and applesauce consistency barium was administered. FINDINGS: No aspiration or penetration was visualized. The detailed report of this examination will be provided by speech pathology. IMPRESSION: No aspiration or penetration was visualized, a detailed report will be provided by speech pathology. 1.2 minutes of fluoroscopy time was utilized for this procedure. Some fluoroscopic images are performed with last image hold technology. These images require no additional radiation <Electronically signed by Tari Haley > 07/10/20 1251 <Electronically signed by Chadwick Juarez > 07/10/20 [id number]
[2020-07-10 20:00] VITALS: BP 138/77
[2020-07-10] MEDS: **NOTE PATIENT COMMENT** MISC XX SCH (21:00)
[2020-07-10] MEDS: ATORVASTATIN 20 MG TAB PEG SCH (21:57)
[2020-07-11] MEDS: REMEDY PHYTOPLEX Z-GUARD PASTE 113GM TUBE (FROM STOREROOM PRODUCT) TOP SCH ×12 (01:46→22:42)
[2020-07-11 06:00] VITALS: BP 155/81
[2020-07-11] MEDS: MODAFINIL 100 MG TABLET PEG SCH ×2 (06:00→13:29)
[2020-07-11] MEDS: IPRATROPIUM 0.5MG/ALBUTEROL 2.5MG INH SOL UD 3ML (DUONEB) NEB SCH ×3 (07:06→19:30)
[2020-07-11] MEDS: HumaLOG INSULIN (NovoLOG) PER UNIT SC SCH ×4 (09:30→20:27)
[2020-07-11] MEDS: THIAMINE 200MG/2ML VIAL (J3411 PER 100MG) IM SCH (09:30)
[2020-07-11] MEDS: LEVEMIR (INSULIN DETEMIR) 1 UNITS/0.01ML SC SCH ×2 (09:30→20:27)
[2020-07-11] MEDS: LIDOCAINE 5% (LIDODERM) PATCH TD SCH (09:31)
[2020-07-11] MEDS: FERROUS SULFATE 300MG/5ML UDC LIQUID PEG SCH (09:31)
[2020-07-11] MEDS: ENOXAPARIN 40MG/0.4ML SYRINGE (J1650 PER 10MG) SC SCH (09:31)
[2020-07-11] MEDS: OMEPRAZOLE SUSPENSION 20MG 10ML ORAL SYRINGE PEG SCH (09:31)
[2020-07-11] MEDS: ACETAMINOPHEN 325 MG/10.15 ML UDC GT SCH ×3 (09:32→20:26)
[2020-07-11] MEDS: ASPIRIN 81 MG CHEW TABLET PEG SCH (09:32)
[2020-07-11] MEDS: AMANTADINE 100MG/10ML SYRUP UDC PEG SCH ×2 (09:32→20:26)
[2020-07-11] MEDS: guaiFENesin SYRUP 200 MG/10 ML UDC PEG SCH ×4 (09:32→20:26)
[2020-07-11] MEDS: ESCITALOPRAM OXALATE 10 MG TAB (LEXAPRO) PEG SCH (09:33)
[2020-07-11] MEDS: MAGIC MOUTHWASH SUSPENSION BTL SSP SCH ×4 (09:34→20:30)
[2020-07-11] MEDS: SALIVA SUBSTITUTE(MOUTHKOTE) BTL MT SCH ×4 (09:34→20:30)
[2020-07-11] MEDS: SODIUM CHLORIDE NASAL 0.65% SPRAY BTL (OCEAN) SCH ×3 (09:34→20:29)
[2020-07-11] MEDS: LABETALOL 100MG TAB PEG SCH ×2 (09:40→20:29)
[2020-07-11] MEDS: cloNIDine 0.1MG TABLET GT SCH ×2 (09:40→20:29)
[2020-07-11] MEDS: VALSARTAN 80 MG TAB (DIOVAN) PEG SCH (09:41)
[2020-07-11 14:00] VITALS: BP 185/85
[2020-07-11 20:00] VITALS: BP 175/83
[2020-07-11] MEDS: ATORVASTATIN 20 MG TAB PEG SCH (20:26)
[2020-07-11] MEDS: **NOTE PATIENT COMMENT** MISC XX SCH (20:31)
[2020-07-12] MEDS: REMEDY PHYTOPLEX Z-GUARD PASTE 113GM TUBE (FROM STOREROOM PRODUCT) TOP SCH ×12 (01:14→22:30)
[2020-07-12 06:00] VITALS: BP 151/68
[2020-07-12] MEDS: MODAFINIL 100 MG TABLET PEG SCH ×2 (06:10→13:35)
[2020-07-12] MEDS: IPRATROPIUM 0.5MG/ALBUTEROL 2.5MG INH SOL UD 3ML (DUONEB) NEB SCH ×3 (07:21→20:30)
[2020-07-12] MEDS: LIDOCAINE 5% (LIDODERM) PATCH TD SCH (08:19)
[2020-07-12] MEDS: THIAMINE 200MG/2ML VIAL (J3411 PER 100MG) IM SCH (08:20)
[2020-07-12] MEDS: OMEPRAZOLE SUSPENSION 20MG 10ML ORAL SYRINGE PEG SCH (08:20)
[2020-07-12] MEDS: FERROUS SULFATE 300MG/5ML UDC LIQUID PEG SCH (08:20)
[2020-07-12] MEDS: ENOXAPARIN 40MG/0.4ML SYRINGE (J1650 PER 10MG) SC SCH (08:20)
[2020-07-12] MEDS: AMANTADINE 100MG/10ML SYRUP UDC PEG SCH ×2 (08:21→21:10)
[2020-07-12] MEDS: guaiFENesin SYRUP 200 MG/10 ML UDC PEG SCH ×4 (08:21→21:09)
[2020-07-12] MEDS: ACETAMINOPHEN 325 MG/10.15 ML UDC GT SCH ×3 (08:21→21:09)
[2020-07-12] MEDS: cloNIDine 0.1MG TABLET GT SCH ×2 (08:22→21:12)
[2020-07-12] MEDS: LABETALOL 100MG TAB PEG SCH ×2 (08:22→21:12)
[2020-07-12] MEDS: ASPIRIN 81 MG CHEW TABLET PEG SCH (08:22)
[2020-07-12 08:23] LABS: BASO % 0.2 % (0.0-1.0); EOS # 0.5 10^3/uL (0.0-0.5); EOS % 5.5 % (0.0-3.0); HEMATOCRIT 29.7 % (42.0-52.0); HEMOGLOBIN 8.9 g/dl (13.5-17.5); LYMPH % 11.6 % (24.0-44.0); MEAN CORPUSCULAR HEMOGLOBIN 25.5 pg (27.0-33.0); MEAN CORPUSCULAR VOLUME 85.1 fl (80.0-96.0); MONO # 0.5 10^3/uL (0.0-0.8); NEUTROPHILS # 6.3 10^3/uL (1.5-8.5); NEUTROPHILS % 76.2 % (36.0-66.0); PLATELET COUNT, AUTOMATED 326 10^3/uL (150-450); RED BLOOD COUNT 3.49 10^6/uL (4.30-6.10); WHITE BLOOD COUNT 8.3 10^3/uL (4.0-10.0)
[2020-07-12] MEDS: ESCITALOPRAM OXALATE 10 MG TAB (LEXAPRO) PEG SCH (08:23)
[2020-07-12] MEDS: MAGIC MOUTHWASH SUSPENSION BTL SSP SCH ×4 (08:23→21:12)
[2020-07-12] MEDS: SALIVA SUBSTITUTE(MOUTHKOTE) BTL MT SCH ×4 (08:23→21:12)
[2020-07-12] MEDS: VALSARTAN 80 MG TAB (DIOVAN) PEG SCH (08:23)
[2020-07-12] MEDS: SODIUM CHLORIDE NASAL 0.65% SPRAY BTL (OCEAN) SCH ×3 (08:23→21:13)
[2020-07-12] MEDS: HumaLOG INSULIN (NovoLOG) PER UNIT SC SCH ×4 (08:24→21:00)
[2020-07-12] MEDS: LEVEMIR (INSULIN DETEMIR) 1 UNITS/0.01ML SC SCH ×2 (08:25→21:10)
[2020-07-12 08:47] LABS: BLOOD UREA NITROGEN 18 MG/DL (7-18); CALCIUM LEVEL 8.7 MG/DL (8.8-10.2); CARBON DIOXIDE LEVEL 29 MEQ/L (21-32); CHLORIDE LEVEL 99 MEQ/L (98-107); CREATININE FOR GFR 0.55 MG/DL (0.70-1.30); GLOMERULAR FILTRATION RATE > 60.0 (>42); GLUCOSE, FASTING 187 MG/DL (70-100); POTASSIUM SERUM 4.1 MEQ/L (3.5-5.1); SODIUM LEVEL 136 MEQ/L (136-145)
[2020-07-12 14:00] VITALS: BP 168/72
[2020-07-12 20:00] VITALS: BP 159/78
[2020-07-12] MEDS: ATORVASTATIN 20 MG TAB PEG SCH (21:11)
[2020-07-12] MEDS: **NOTE PATIENT COMMENT** MISC XX SCH (21:13)
[2020-07-13] MEDS: REMEDY PHYTOPLEX Z-GUARD PASTE 113GM TUBE (FROM STOREROOM PRODUCT) TOP SCH ×12 (00:51→22:20)
[2020-07-13 06:00] VITALS: BP 160/90
[2020-07-13] MEDS: MODAFINIL 100 MG TABLET PEG SCH ×2 (06:43→14:48)
[2020-07-13] MEDS: IPRATROPIUM 0.5MG/ALBUTEROL 2.5MG INH SOL UD 3ML (DUONEB) NEB SCH ×3 (07:15→19:22)
[2020-07-13] MEDS: ASPIRIN 81 MG CHEW TABLET PEG SCH (08:11)
[2020-07-13] MEDS: VALSARTAN 80 MG TAB (DIOVAN) PEG SCH (08:11)
[2020-07-13] MEDS: HumaLOG INSULIN (NovoLOG) PER UNIT SC SCH ×4 (08:11→21:00)
[2020-07-13] MEDS: ESCITALOPRAM OXALATE 10 MG TAB (LEXAPRO) PEG SCH (08:11)
[2020-07-13] MEDS: FERROUS SULFATE 300MG/5ML UDC LIQUID PEG SCH (08:12)
[2020-07-13] MEDS: LABETALOL 100MG TAB PEG SCH ×2 (08:12→21:27)
[2020-07-13] MEDS: guaiFENesin SYRUP 200 MG/10 ML UDC PEG SCH ×4 (08:12→21:20)
[2020-07-13] MEDS: ACETAMINOPHEN 325 MG/10.15 ML UDC GT SCH ×3 (08:12→21:21)
[2020-07-13] MEDS: AMANTADINE 100MG/10ML SYRUP UDC PEG SCH ×2 (08:13→21:20)
[2020-07-13] MEDS: MAGIC MOUTHWASH SUSPENSION BTL SSP SCH ×4 (08:13→21:28)
[2020-07-13] MEDS: cloNIDine 0.1MG TABLET GT SCH ×2 (08:13→21:26)
[2020-07-13] MEDS: THIAMINE 200MG/2ML VIAL (J3411 PER 100MG) IM SCH (08:13)
[2020-07-13] MEDS: LIDOCAINE 5% (LIDODERM) PATCH TD SCH (08:14)
[2020-07-13] MEDS: SODIUM CHLORIDE NASAL 0.65% SPRAY BTL (OCEAN) SCH ×3 (08:14→21:27)
[2020-07-13] MEDS: ENOXAPARIN 40MG/0.4ML SYRINGE (J1650 PER 10MG) SC SCH (08:14)
[2020-07-13] MEDS: SALIVA SUBSTITUTE(MOUTHKOTE) BTL MT SCH ×4 (08:15→21:28)
[2020-07-13] MEDS: LEVEMIR (INSULIN DETEMIR) 1 UNITS/0.01ML SC SCH ×2 (08:15→21:25)
[2020-07-13] MEDS: OMEPRAZOLE SUSPENSION 20MG 10ML ORAL SYRINGE PEG SCH (08:15)
--- NOTE | 2020-07-13 09:58 | IPNPDOC ---
PM&R Progress Note DATE OF SERVICE: Jul 11, 2020 Log Brander Progress Note Subjective: Patient seen in his room lying in bed, able to state his 's name, read physician name tag, and follow commands. REVIEW OF SYSTEMS: The following is a completed review of systems and has been reviewed. Difficult to assess due to patient unable to respond EARS, NOSE, & THROAT: + dysphagia PULMONARY: denies cough GASTROINTESTINAL: +peg GENITOURINARY: +incontinence MUSCULOSKELETAL: generalized weakness NEUROLOGICAL:+ left sided paresis SKIN: +sacral ulcers PHYSICAL EXAMINATION: VITAL SIGNS: Please see below. GENERAL: NAD, sitting up in chair, alert HEENT: PERRL. Clear conjunctiva, +left sided facial droop CARDIOVASCULAR: Regular rate and rhythm. No murmurs, rubs, or gallops LUNGS: clear to auscultation bilaterally. No wheezes. No rhonchi, breathing comfortably ABDOMEN: Soft, nontender, slightly distended. no guarding, Positive bowel sounds. Normal active bowel sounds, +PEG NEUROLOGICAL: responds inconsistently to commands, A&O x0, ranchos level 3 EXTREMITIES: 5/5 RUE, spontaneous motion in both RLE and LLE, flaccid LUE SKIN: sacral ulcers, right frontal incision healed ASSESSMENT:74-year-old M with past medical history of HTn, HLD who presents status post stroke with hemorrhagic conversion PLAN: 1. rehab- pt/ot advance mobility and ADLs, strengthen/stretch/maintain ROM all 4limbs, starting to tolerate being upright more and beginning to participate in therapy from a cognitive standpoint -BLENDING LINE ATTENDANT for cog and swallow eval-oral care, Modified Barium Swallow ordered for today 2. 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 s/p EVD placement and removal 06-10-20, c/u presenting as severe non-traumatic brain injury patient with a [place] Score of about 5 will benefit from c ontinued therapy, c/u ASA and statin -encephalopathy improving, c/u amantadine and provigil for neurostimulation- reglan discontinued- cognition and level of alertness continues to improve -monitor for seizures -patient with left sided paresis due to stroke and RLE weakness in setting of severe lumbar stenosis- tx with therapy -daily thiamine -c/u lexapro to help with motor recovery 3. Cardiac- hx of HTN c/u labetalol, amlodipine, Diovan, will increase clonidine to 0.2mg BID for elevated BPs- medicine consulted to assist in overall management -ECHO at [facility] 06-11-20 showing grade 2 diastolic CHF 4. Resp- s/p treatment for klebsiella PNA with hypoxic respiratory failure at [facility], restarted on IV zosyn on 06-29-20 due to increased work of breathing and fever, f/u CT 07-01-20 showing no definite infiltrate, however did show bilat discoid atelectasis, has finished abx, c/u to monitor for infection- c/u duonebs, guaifenesin -suspect sleep apnea, c/u nocturnal 02- goal 88-92% to avoid increasing apneic episodes 5. GI- NPO with minimal feeds with BLENDING LINE ATTENDANT, patient tolerating PEG feeds, now off reglan, switched to bolus feeds- tolerating -c/u zofran prn for nausea -pepcid for ppx -FOBT negative -KUB 06-29-20 WNL 6. DVT ppx- dopplers negative for dvt, c/u lovenox 7. SKin- turn q2,heel floats, zinc oxide-corn starch to sacrum q2h 8. - not retaining, however incontinent, but Urine negative for infection 9. Renal- consulted for fluid management in setting of CHF, to monitor kidney function, and assist with iron deficiency anemia- intervention appreciated, renal signed 9. Endo- newly dx DM, c/u insulin adjustments for hyperglycemia 10. heme- iron deficiency anemia s/p venofer per renal and 1 unit prbc 07-02-20, FOBT negative, c/u to monitor 10. Pain- tylenol changed to standing with lidoderm patch to right shoulder- 11. Dispo- TBD Allergies Coded Allergies: No Known Allergies (Unverified , 06/23/20) Vital Signs Vital Signs Date Time Temp Pulse Resp B/P (MAP) Pulse Ox O2 Delivery O2 Flow Rate FiO2 07/13/20 06:00 96.7 71 18 160/90 (113) 96 Room Air Laboratory Data Labs 24H Laboratory Tests 2 07/12/20 11:27: Bedside Glucose (Misc Panel) 267H 07/12/20 16:32: Bedside Glucose (Misc Panel) 225H 07/12/20 20:20: Bedside Glucose (Misc Panel) 239H 07/13/20 05:46: Bedside Glucose (Misc Panel) 202H Current Medications Current Medications Current Medications Medications (Trade) Dose Ordered Sig/Andi Route PRN Reason Start Time Stop Time Status Last Admin Dose Admin Acetaminophen (Tylenol Suspension) 650 mg Q8HP PRN PEG fever 07/09/20 17:45 Acetaminophen (Tylenol Suspension) 650 mg TID GT 06/29/20 16:00 07/13/20 08:12 Acetaminophen (Tylenol Tab) 650 mg Q4HP PRN PEG fever/MILD PAIN (PS 1-4) 06/23/20 13:55 06/29/20 13:35 DC Acetaminophen (Tylenol Tab) 650 mg Q8HP PRN PEG fever 06/29/20 13:35 07/09/20 17:43 DC Albuterol/ Ipratropium (Duoneb (Ipr 0.5mg/Alb 2.5mg)) 3 ml RTID NEB 06/23/20 20:00 07/13/20 07:15 Amantadine HCl (Symmetrel Syrup) 100 mg BID PEG 06/23/20 21:00 07/13/20 08:13 Amlodipine Besylate (Norvasc) 5 mg DAILY PEG 06/24/20 09:00 07/08/20 08:39 DC 07/08/20 08:23 Amlodipine Besylate (Norvasc) 10 mg DAILY PEG 07/09/20 09:00 07/13/20 08:13 Aspirin (Aspirin Chewable) 81 mg DAILY PEG 06/24/20 09:00 07/13/20 08:11 Atorvastatin Calcium (Lipitor) 80 mg QHS PEG 06/23/20 21:00 07/12/20 21:11 Bisacodyl (Dulcolax Suppository) 10 mg DAILYPRN PRN IN CONSTIPATION 06/23/20 13:55 06/29/20 11:02 Clonidine HCl (Catapres) 0.1 mg BID GT 06/23/20 21:00 07/05/20 10:16 DC 07/05/20 07:57 Clonidine HCl (Catapres) 0.2 mg BID GT 07/05/20 21:00 07/13/20 08:13 Dextrose (Dextrose 50%) 25 ml ASDIRECTED PRN IV SEE LABEL COMMENTS 07/04/20 11:05 Dextrose (Dextrose 50%) 25 ml ASDIRECTED PRN IV SEE LABEL COMMENTS 06/23/20 13:55 07/04/20 11:07 DC Enoxaparin Sodium (Lovenox) 40 mg DAILY SC 06/24/20 09:00 07/13/20 08:14 Escitalopram Oxalate (Lexapro) 10 mg DAILY PEG 07/04/20 09:00 07/13/20 08:11 Famotidine (Pepcid) 40 mg BID PEG 06/23/20 21:00 07/03/20 10:00 DC 07/03/20 09:44 Ferrous Sulfate (Ferrous Sulfate) 300 mg BID PEG 06/27/20 09:00 07/01/20 09:25 DC 07/01/20 08:47 Ferrous Sulfate (Ferrous Sulfate) 300 mg DAILY PEG 07/02/20 09:00 07/13/20 08:12 Glucagon (Glucagon) 1 mg ASDIRECTED PRN SC SEE LABEL COMMENTS 07/04/20 11:05 Glucagon (Glucagon) 1 mg ASDIRECTED PRN SC SEE LABEL COMMENTS 06/23/20 13:55 07/04/20 11:07 DC Glucose (Glucose) 16 GM ASDIRECTED PRN PO SEE LABEL COMMENTS 07/04/20 11:05 Glucose (Glucose) 16 GM ASDIRECTED PRN PO SEE LABEL COMMENTS 06/23/20 13:55 07/04/20 11:07 DC Guaifenesin (Robitussin) 10 ml QID PEG 06/23/20 21:00 07/13/20 08:12 Home Med (Med Rec Complete!) ASDIRECTED XX 06/23/20 19:15 06/23/20 19:14 DC Insulin Detemir (Levemir Insulin) 10 units DAILY SC 06/29/20 09:00 07/01/20 09:59 DC 06/30/20 08:14 Insulin Detemir (Levemir Insulin) 10 units QHS SC 06/23/20 21:00 06/26/20 09:35 DC 06/25/20 21:02 Insulin Detemir (Levemir Insulin) 12 units QHS SC 06/26/20 21:00 06/27/20 07:18 DC 06/26/20 20:23 Insulin Detemir (Levemir Insulin) 13 units QAM SC 07/01/20 09:00 07/12/20 12:38 DC 07/12/20 08:25 Insulin Detemir (Levemir Insulin) 18 units QAM ID 07/13/20 09:00 07/13/20 08:15 Insulin Detemir (Levemir Insulin) 20 units QHS ID 06/27/20 21:00 06/27/20 12:20 DC Insulin Detemir (Levemir Insulin) 30 units QHS ID 07/05/20 21:00 07/12/20 21:10 Insulin Detemir (Levemir Insulin) 32 units QHS ID 06/27/20 21:00 07/01/20 08:31 DC 06/30/20 21:19 Insulin Detemir (Levemir Insulin) [facility] 07/01/20 21:00 07/05/20 10:16 DC 07/04/20 21:36 Insulin Human Lispro (HumaLOG INSULIN) SEE PROTOCOL TABLE AC ID 07/04/20 12:00 07/13/20 08:11 Insulin Human Lispro (HumaLOG INSULIN) SEE PROTOCOL TABLE Q6H ID 06/23/20 18:00 07/04/20 11:07 DC 07/04/20 05:59 Insulin Human Lispro (HumaLOG INSULIN) SEE PROTOCOL TABLE QHS ID 07/04/20 21:00 07/09/20 21:24 Iron 100 mg/ Sodium Chloride 105 ml @ 105 mls/hr Q24H IV 07/01/20 12:00 07/06/20 11:59 DC 07/05/20 12:34 Labetalol HCl (Normodyne, Trandate) 300 mg BID PEG 06/23/20 21:00 07/13/20 08:12 Lidocaine (Lidoderm Patch) 1 patch DAILY TD 06/29/20 13:35 07/13/20 08:14 Lidocaine/ Diphenhydr/Alum/ Mg/Simeth (Magic Mouthwash) 5ml QID SSP 06/23/20 21:00 07/13/20 08:13 Metoclopramide HCl (Reglan Liquid) 5 mg Q6H PEG 06/26/20 12:00 06/28/20 12:28 DC 06/28/20 12:01 Metoclopramide HCl (Reglan Liquid) 10 mg Q6H PEG 06/24/20 00:00 06/26/20 09:35 DC 06/26/20 05:50 Modafinil (Provigil) 100 mg BID@0600,1400 PEG 06/24/20 06:00 07/13/20 06:43 Non-Formulary Medication ( See Comment Field Below ) REMOVE LIDODERM PATCH DAILY@21 XX 06/29/20 21:00 07/12/20 21:13 Omeprazole (First-Omeprazole ORAL SUSPENSION) 40 mg DAILY PEG 07/08/20 09:00 07/13/20 08:15 Pantoprazole Sodium (Protonix) 40 mg DAILY IV 07/03/20 10:00 07/07/20 15:23 DC 07/07/20 08:07 Piperacillin Sod/ Tazobactam Sod 4.5 gm/Dextrose 50 ml @ 50 mls/hr Q6H IV 06/29/20 15:00 07/04/20 23:00 DC 07/04/20 21:29 Saliva Substitute (Mouthkote) 2 sprays QID MT 07/05/20 13:00 07/13/20 08:15 Senna (Senokot) 1 tab QHS PEG 06/23/20 21:00 06/29/20 14:44 DC 06/28/20 21:19 Sodium Chloride ([place] Nasal [place]) 2 spray TID NA 07/03/20 21:00 07/13/20 08:14 Thiamine HCl (VITAMIN B1 INJection) 100 mg DAILY IM 06/24/20 09:00 07/13/20 08:13 Valsartan (Diovan) 320 mg DAILY PEG 06/24/20 09:00 07/13/20 08:11 RICKY MCDONOUGH MD Jul 13, 2020 09:58
--- NOTE | 2020-07-13 10:00 | IPNPDOC ---
PM&R Progress Note DATE OF SERVICE: Jul 12, 2020 Atmospheric Physicist Progress Note Subjective: Patient seen in his room, denies having pain, was able to active elbow flexors with tactile and verbal cueing. REVIEW OF SYSTEMS: The following is a completed review of systems and has been reviewed. Difficult to assess due to patient unable to respond EARS, NOSE, & THROAT: + dysphagia PULMONARY: denies cough GASTROINTESTINAL: +peg GENITOURINARY: +incontinence MUSCULOSKELETAL: generalized weakness NEUROLOGICAL:+ left sided paresis SKIN: +sacral ulcers PHYSICAL EXAMINATION: VITAL SIGNS: Please see below. GENERAL: NAD, sitting up in chair, alert HEENT: PERRL. Clear conjunctiva, +left sided facial droop CARDIOVASCULAR: Regular rate and rhythm. No murmurs, rubs, or gallops LUNGS: clear to auscultation bilaterally. No wheezes. No rhonchi, breathing comfortably ABDOMEN: Soft, nontender, slightly distended. no guarding, Positive bowel sounds. Normal active bowel sounds, +PEG NEUROLOGICAL: responds inconsistently to commands, A&O x0, ranch[place] level 3 EXTREMITIES: 5/5 RUE, spontaneous motion in both RLE and LLE, flaccid LUE SKIN: sacral ulcers, right frontal incision healed ASSESSMENT:74-year-old M with past medical history of HTn, HLD who presents status post stroke with hemorrhagic conversion PLAN: 1. rehab- pt/ot advance mobility and ADLs, strengthen/stretch/maintain ROM all 4limbs, starting to tolerate being upright more and beginning to participate in therapy from a cognitive standpoint -BANKRUPTCY MANAGER for cog and swallow eval-oral care, Modified Barium Swallow ordered for today 2. 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 Cardiac- hx of HTN c/u labetalol, amlodipine, Diovan, will increase clonidine to 0.2mg BID for elevated BPs- medicine consulted to assist in overall management -ECHO at [facility] 06-11-20 showing grade 2 diastolic CHF 4. Resp- s/p treatment for klebsiella PNA with hypoxic respiratory failure at [facility], restarted on IV zosyn on 06-29-20 due to increased work of breathing and fever, f/u CT 07-01-20 showing no definite infiltrate, however did show bilat discoid atelectasis, has finished abx, c/u to monitor for infection- c/u duonebs, guaifenesin -suspect sleep apnea, c/u nocturnal 02- goal 88-92% to avoid increasing apneic episodes 5. GI- NPO with minimal feeds with BANKRUPTCY MANAGER, patient tolerating PEG feeds, now off reglan, switched to bolus feeds- tolerating -c/u zofran prn for nausea -pepcid for ppx -FOBT negative -KUB 06-29-20 WNL 6. DVT ppx- dopplers negative for dvt, c/u lovenox 7. SKin- turn q2,heel floats, zinc oxide-corn starch to sacrum q2h 8. - not retaining, however incontinent, but Urine negative for infection 9. Renal- consulted for fluid management in setting of CHF, to monitor kidney function, and assist with iron deficiency anemia- intervention appreciated, renal signed 9. Endo- newly dx DM, c/u insulin adjustments for hyperglycemia 10. heme- iron deficiency anemia s/p venofer per renal and 1 unit prbc 07-02-20, FOBT negative, c/u to monitor 10. Pain- tylenol changed to standing with lidoderm patch to right shoulder- 11. Dispo- TBD Allergies Coded Allergies: No Known Allergies (Unverified , 06/23/20) Vital Signs Vital Signs Date Time Temp Pulse Resp B/P (MAP) Pulse Ox O2 Delivery O2 Flow Rate FiO2 07/13/20 06:00 96.7 71 18 160/90 (113) 96 Room Air Laboratory Data Labs 24H Laboratory Tests 2 07/12/20 11:27: Bedside Glucose (Misc Panel) 267H 07/12/20 16:32: Bedside Glucose (Misc Panel) 225H 07/12/20 20:20: Bedside Glucose (Misc Panel) 239H 07/13/20 05:46: Bedside Glucose (Misc Panel) 202H Current Medications Current Medications Current Medications Medications (Trade) Dose Ordered Sig/Andi Route PRN Reason Start Time Stop Time Status Last Admin Dose Admin Acetaminophen (Tylenol Suspension) 650 mg Q8HP PRN PEG fever 07/09/20 17:45 Acetaminophen (Tylenol Suspension) 650 mg TID GT 06/29/20 16:00 07/13/20 08:12 Acetaminophen (Tylenol Tab) 650 mg Q4HP PRN PEG fever/MILD PAIN (PS 1-4) 06/23/20 13:55 06/29/20 13:35 DC Acetaminophen (Tylenol Tab) 650 mg Q8HP PRN PEG fever 06/29/20 13:35 07/09/20 17:43 DC Albuterol/ Ipratropium (Duoneb (Ipr 0.5mg/Alb 2.5mg)) 3 ml RTID NEB 06/23/20 20:00 07/13/20 07:15 Amantadine HCl (Symmetrel Syrup) 100 mg BID PEG 06/23/20 21:00 07/13/20 08:13 Amlodipine Besylate (Norvasc) 5 mg DAILY PEG 06/24/20 09:00 07/08/20 08:39 DC 07/08/20 08:23 Amlodipine Besylate (Norvasc) 10 mg DAILY PEG 07/09/20 09:00 07/13/20 08:13 Aspirin (Aspirin Chewable) 81 mg DAILY PEG 06/24/20 09:00 07/13/20 08:11 Atorvastatin Calcium (Lipitor) 80 mg QHS PEG 06/23/20 21:00 07/12/20 21:11 Bisacodyl (Dulcolax Suppository) 10 mg DAILYPRN PRN [place] CONSTIPATION 06/23/20 13:55 06/29/20 11:02 Clonidine HCl (Catapres) 0.1 mg BID GT 06/23/20 21:00 07/05/20 10:16 DC 07/05/20 07:57 Clonidine HCl (Catapres) 0.2 mg BID GT 07/05/20 21:00 07/13/20 08:13 Dextrose (Dextrose 50%) 25 ml ASDIRECTED PRN IV SEE LABEL COMMENTS 07/04/20 11:05 Dextrose (Dextrose 50%) 25 ml ASDIRECTED PRN IV SEE LABEL COMMENTS 06/23/20 13:55 07/04/20 11:07 DC Enoxaparin Sodium (Lovenox) 40 mg DAILY SC 06/24/20 09:00 07/13/20 08:14 Escitalopram Oxalate (Lexapro) 10 mg DAILY PEG 07/04/20 09:00 07/13/20 08:11 Famotidine (Pepcid) 40 mg BID PEG 06/23/20 21:00 07/03/20 10:00 DC 07/03/20 09:44 Ferrous Sulfate (Ferrous Sulfate) 300 mg BID PEG 06/27/20 09:00 07/01/20 09:25 DC 07/01/20 08:47 Ferrous Sulfate (Ferrous Sulfate) 300 mg DAILY PEG 07/02/20 09:00 07/13/20 08:12 Glucagon (Glucagon) 1 mg ASDIRECTED PRN SC SEE LABEL COMMENTS 07/04/20 11:05 Glucagon (Glucagon) 1 mg ASDIRECTED PRN SC SEE LABEL COMMENTS 06/23/20 13:55 07/04/20 11:07 DC Glucose (Glucose) 16 GM ASDIRECTED PRN PO SEE LABEL COMMENTS 07/04/20 11:05 Glucose (Glucose) 16 GM ASDIRECTED PRN PO SEE LABEL COMMENTS 06/23/20 13:55 07/04/20 11:07 DC Guaifenesin (Robitussin) 10 ml QID PEG 06/23/20 21:00 07/13/20 08:12 Home Med (Med Rec Complete!) ASDIRECTED XX 06/23/20 19:15 06/23/20 19:14 DC Insulin Detemir (Levemir Insulin) 10 units DAILY SC 06/29/20 09:00 07/01/20 09:59 DC 06/30/20 08:14 Insulin Detemir (Levemir Insulin) 10 units QHS SC 06/23/20 21:00 06/26/20 09:35 DC 06/25/20 21:02 Insulin Detemir (Levemir Insulin) 12 units QHS SC 06/26/20 21:00 06/27/20 07:18 DC 06/26/20 20:23 Insulin Detemir (Levemir Insulin) 13 units QAM SC 07/01/20 09:00 07/12/20 12:38 DC 07/12/20 08:25 Insulin Detemir (Levemir Insulin) 18 units QA SC 07/13/20 09:00 07/13/20 08:15 Insulin Detemir (Levemir Insulin) 20 units QHS MA 06/27/20 21:00 06/27/20 12:20 DC Insulin Detemir (Levemir Insulin) 30 units QHS MA 07/05/20 21:00 07/12/20 21:10 Insulin Detemir (Levemir Insulin) 32 units QHS MA 06/27/20 21:00 07/01/20 08:31 DC 06/30/20 21:19 Insulin Detemir (Levemir Insulin) 40 units QHS MA 07/01/20 21:00 07/05/20 10:16 DC 07/04/20 21:36 Insulin Human Lispro (HumaLOG INSULIN) SEE PROTOCOL TABLE AC MA 07/04/20 12:00 07/13/20 08:11 Insulin Human Lispro (HumaLOG INSULIN) SEE PROTOCOL TABLE Q6H MA 06/23/20 18:00 07/04/20 11:07 DC 07/04/20 05:59 Insulin Human Lispro (HumaLOG INSULIN) SEE PROTOCOL TABLE QHS MA 07/04/20 21:00 07/09/20 21:24 Iron 100 mg/ Sodium Chloride 105 ml @ 105 mls/hr Q24H IV 07/01/20 12:00 07/06/20 11:59 DC 07/05/20 12:34 Labetalol HCl (Normodyne, Trandate) 300 mg BID PEG 06/23/20 21:00 07/13/20 08:12 Lidocaine (Lidoderm Patch) 1 patch DAILY TD 06/29/20 13:35 07/13/20 08:14 Lidocaine/ Diphenhydr/Alum/ Mg/Simeth (Magic Mouthwash) 5ml QID SSP 06/23/20 21:00 07/13/20 08:13 Metoclopramide HCl (Reglan Liquid) 5 mg Q6H PEG 06/26/20 12:00 06/28/20 12:28 DC 06/28/20 12:01 Metoclopramide HCl (Reglan Liquid) 10 mg Q6H PEG 06/24/20 00:00 06/26/20 09:35 DC 06/26/20 05:50 Modafinil (Provigil) 100 mg BID@0600,1400 PEG 06/24/20 06:00 07/13/20 06:43 Non-Formulary Medication ( See Comment Field Below ) REMOVE LIDODERM PATCH DAILY@21 XX 06/29/20 21:00 07/12/20 21:13 Omeprazole (First-Omeprazole ORAL SUSPENSION) 40 mg DAILY PEG 07/08/20 09:00 07/13/20 08:15 Pantoprazole Sodium (Protonix) 40 mg DAILY IV 07/03/20 10:00 07/07/20 15:23 DC 07/07/20 08:07 Piperacillin Sod/ Tazobactam Sod 4.5 gm/Dextrose 50 ml @ 50 mls/hr Q6H IV 06/29/20 15:00 07/04/20 23:00 DC 07/04/20 21:29 Saliva Substitute (Mouthkote) 2 sprays QID MT 07/05/20 13:00 07/13/20 08:15 Senna (Senokot) 1 tab QHS PEG 06/23/20 21:00 06/29/20 14:44 DC 06/28/20 21:19 Sodium Chloride ([place] Nasal [place]) 2 spray TID NA 07/03/20 21:00 07/13/20 08:14 Thiamine HCl (VITAMIN B1 INJection) 100 mg DAILY IM 06/24/20 09:00 07/13/20 08:13 Valsartan (Diovan) 320 mg DAILY PEG 06/24/20 09:00 07/13/20 08:11 RICKY MCDONOUGH MD Jul 13, 2020 10:00
--- NOTE | 2020-07-13 12:41 | IPNPDOC ---
PM&R Progress Note DATE OF SERVICE: Jul 13, 2020 [employer] Operations Craftsman Progress Note Subjective: Patient seen in his room with his bedside awake and alert. REVIEW OF SYSTEMS: The following is a completed review of systems and has been reviewed. Difficult to assess due to patient unable to respond EARS, NOSE, & THROAT: + dysphagia PULMONARY: denies cough GASTROINTESTINAL: +peg GENITOURINARY: +incontinence MUSCULOSKELETAL: generalized weakness NEUROLOGICAL:+ left sided paresis SKIN: +sacral ulcers PHYSICAL EXAMINATION: VITAL SIGNS: Please see below. GENERAL: NAD, sitting up in chair, alert HEENT: PERRL. Clear conjunctiva, +left sided facial droop CARDIOVASCULAR: Regular rate and rhythm. No murmurs, rubs, or gallops LUNGS: clear to auscultation bilaterally. No wheezes. No rhonchi, breathing comfortably ABDOMEN: Soft, nontender, slightly distended. no guarding, Positive bowel sounds. Normal active bowel sounds, +PEG NEUROLOGICAL: responds to command, able to state his name, read from a nametag EXTREMITIES: grossly 5/5 RUE and RLE, +spontaneous movement LLE, trace in LUE SKIN: sacral ulcers, right frontal incision healed ASSESSMENT:74-year-old M with past medical history of HTn, HLD who presents status post stroke with hemorrhagic conversion PLAN: 1. rehab- pt/ot advance mobility and ADLs, strengthen/stretch/maintain ROM all 4limbs, starting to tolerate being upright more and beginning to participate in therapy from a cognitive standpoint -TRANSPLANT NURSE PRACTITIONER for cog and swallow eval-oral care s/p MBS, c/u NPO, feeds ok with TRANSPLANT NURSE PRACTITIONER 2. 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 Cardiac- hx of HTN c/u labetalol, amlodipine, Diovan, increased clonidine to 0.2mg BID for elevated BPs- medicine consulted to assist in overall management -ECHO at [facility] 06-11-20 showing grade 2 diastolic CHF 4. Resp- s/p treatment for klebsiella PNA with hypoxic respiratory failure at [facility], restarted on IV zosyn on 06-29-20 due to increased work of breathing and fever, f/u CT 07-01-20 showing no definite infiltrate, however did show bilat discoid atelectasis, has finished abx, c/u to monitor for infection- c/u duonebs, guaifenesin -suspect sleep apnea, c/u nocturnal 02- goal 88-92% to avoid increasing apneic episodes 5. GI- NPO with minimal feeds with TRANSPLANT NURSE PRACTITIONER, patient tolerating PEG feeds, now off reglan, switched to bolus feeds- tolerating -c/u zofran prn for nausea -pepcid for ppx -FOBT negative -KUB 06-29-20 WNL 6. DVT ppx- dopplers negative for dvt, c/u lovenox 7. SKin- turn q2,heel floats, zinc oxide-corn starch to sacrum q2h 8. - not retaining, however incontinent, but Urine negative for infection 9. Renal- consulted for fluid management in setting of CHF, to monitor kidney function, and assist with iron deficiency anemia- intervention appreciated, renal signed 9. Endo- newly dx DM, c/u insulin adjustments for hyperglycemia 10. heme- iron deficiency anemia s/p venofer per renal and 1 unit prbc 07-02-20, FOBT negative, c/u to monitor 10. Pain- tylenol changed to standing with lidoderm patch to right shoulder- 11. Dispo- TBD Allergies Coded Allergies: No Known Allergies (Unverified , 06/23/20) Vital Signs Vital Signs Date Time Temp Pulse Resp B/P (MAP) Pulse Ox O2 Delivery O2 Flow Rate FiO2 07/13/20 06:00 96.7 71 18 160/90 (113) 96 Room Air Laboratory Data Labs 24H Laboratory Tests 2 07/12/20 16:32: Bedside Glucose (Misc Panel) 225H 07/12/20 20:20: Bedside Glucose (Misc Panel) 239H 07/13/20 05:46: Bedside Glucose (Misc Panel) 202H 07/13/20 11:29: Bedside Glucose (Misc Panel) 253H Current Medications Current Medications Current Medications Medications (Trade) Dose Ordered Sig/Andi Route PRN Reason Start Time Stop Time Status Last Admin Dose Admin Acetaminophen (Tylenol Suspension) 650 mg Q8HP PRN PEG fever 07/09/20 17:45 Acetaminophen (Tylenol Suspension) 650 mg TID GT 06/29/20 16:00 07/13/20 08:12 Acetaminophen (Tylenol Tab) 650 mg Q4HP PRN PEG fever/MILD PAIN (PS 1-4) 06/23/20 13:55 06/29/20 13:35 DC Acetaminophen (Tylenol Tab) 650 mg Q8HP PRN PEG fever 06/29/20 13:35 07/09/20 17:43 DC Albuterol/ Ipratropium (Duoneb (Ipr 0.5mg/Alb 2.5mg)) 3 ml RTID NEB 06/23/20 20:00 07/13/20 07:15 Amantadine HCl (Symmetrel Syrup) 100 mg BID PEG 06/23/20 21:00 07/13/20 08:13 Amlodipine Besylate (Norvasc) 5 mg DAILY PEG 06/24/20 09:00 07/08/20 08:39 DC 07/08/20 08:23 Amlodipine Besylate (Norvasc) 10 mg DAILY PEG 07/09/20 09:00 07/13/20 08:13 Aspirin (Aspirin Chewable) 81 mg DAILY PEG 06/24/20 09:00 07/13/20 08:11 Atorvastatin Calcium (Lipitor) 80 mg QHS PEG 06/23/20 21:00 07/12/20 21:11 Bisacodyl (Dulcolax Suppository) 10 mg DAILYPRN PRN [place] CONSTIPATION 06/23/20 13:55 06/29/20 11:02 Clonidine HCl (Catapres) 0.1 mg BID GT 06/23/20 21:00 07/05/20 10:16 DC 07/05/20 07:57 Clonidine HCl (Catapres) 0.2 mg BID GT 07/05/20 21:00 07/13/20 08:13 Dextrose (Dextrose 50%) 25 ml ASDIRECTED PRN IV SEE LABEL COMMENTS 07/04/20 11:05 Dextrose (Dextrose 50%) 25 ml ASDIRECTED PRN IV SEE LABEL COMMENTS 06/23/20 13:55 07/04/20 11:07 DC Enoxaparin Sodium (Lovenox) 40 mg DAILY SC 06/24/20 09:00 07/13/20 08:14 Escitalopram Oxalate (Lexapro) 10 mg DAILY PEG 07/04/20 09:00 07/13/20 08:11 Famotidine (Pepcid) 40 mg BID PEG 06/23/20 21:00 07/03/20 10:00 DC 07/03/20 09:44 Ferrous Sulfate (Ferrous Sulfate) 300 mg BID PEG 06/27/20 09:00 07/01/20 09:25 DC 07/01/20 08:47 Ferrous Sulfate (Ferrous Sulfate) 300 mg DAILY PEG 07/02/20 09:00 07/13/20 08:12 Glucagon (Glucagon) 1 mg ASDIRECTED PRN SC SEE LABEL COMMENTS 07/04/20 11:05 Glucagon (Glucagon) 1 mg ASDIRECTED PRN SC SEE LABEL COMMENTS 06/23/20 13:55 07/04/20 11:07 DC Glucose (Glucose) 16 GM ASDIRECTED PRN PO SEE LABEL COMMENTS 07/04/20 11:05 Glucose (Glucose) 16 GM ASDIRECTED PRN PO SEE LABEL COMMENTS 06/23/20 13:55 07/04/20 11:07 DC Guaifenesin (Robitussin) 10 ml QID PEG 06/23/20 21:00 07/13/20 08:12 Home Med (Med Rec Complete!) ASDIRECTED XX 06/23/20 19:15 06/23/20 19:14 DC Insulin Detemir (Levemir Insulin) 10 units DAILY SC 06/29/20 09:00 07/01/20 09:59 DC 06/30/20 08:14 Insulin Detemir (Levemir Insulin) 10 units QHS SC 06/23/20 21:00 06/26/20 09:35 DC 06/25/20 21:02 Insulin Detemir (Levemir Insulin) 12 units QHS SC 06/26/20 21:00 06/27/20 07:18 DC 06/26/20 20:23 Insulin Detemir (Levemir Insulin) 13 units QAM SC 07/01/20 09:00 07/12/20 12:38 DC 07/12/20 08:25 Insulin Detemir ([facility]) [facility] 07/[facility]/20 09:00 07/13/20 08:15 Insulin Detemir (Levemir Insulin) 20 units QHS DC 06/27/20 21:00 06/27/20 12:20 DC Insulin Detemir (Levemir Insulin) 30 units QHS DC 07/05/20 21:00 07/13/20 09:53 DC 07/12/20 21:10 Insulin Detemir (Levemir Insulin) 32 units QHS DC 06/27/20 21:00 07/01/20 08:31 DC 06/30/20 21:19 Insulin Detemir (Levemir Insulin) 34 units QHS DC 07/13/20 21:00 Insulin Detemir (Levemir Insulin) 40 units QHS DC 07/01/20 21:00 07/05/20 10:16 DC 07/04/20 21:36 Insulin Human Lispro (HumaLOG INSULIN) SEE PROTOCOL TABLE AC DC 07/04/20 12:00 07/13/20 08:11 Insulin Human Lispro (HumaLOG INSULIN) SEE PROTOCOL TABLE Q6H DC 06/23/20 18:00 07/04/20 11:07 DC 07/04/20 05:59 Insulin Human Lispro (HumaLOG INSULIN) SEE PROTOCOL TABLE QHS DC 07/04/20 21:00 07/09/20 21:24 Iron 100 mg/ Sodium Chloride 105 ml @ 105 mls/hr Q24H IV 07/01/20 12:00 07/06/20 11:59 DC 07/05/20 12:34 Labetalol HCl (Normodyne, Trandate) 300 mg BID PEG 06/23/20 21:00 07/13/20 08:12 Lidocaine (Lidoderm Patch) 1 patch DAILY TD 06/29/20 13:35 07/13/20 08:14 Lidocaine/ Diphenhydr/Alum/ Mg/Simeth (Magic Mouthwash) 5ml QID SSP 06/23/20 21:00 07/13/20 08:13 Metoclopramide HCl (Reglan Liquid) 5 mg Q6H PEG 06/26/20 12:00 06/28/20 12:28 DC 06/28/20 12:01 Metoclopramide HCl (Reglan Liquid) 10 mg Q6H PEG 06/24/20 00:00 06/26/20 09:35 DC 06/26/20 05:50 Metoprolol Tartrate (Lopressor) 25 mg Q6H PO 07/13/20 12:00 Modafinil (Provigil) 100 mg BID@0600,1400 PEG 06/24/20 06:00 07/13/20 06:43 Non-Formulary Medication ( See Comment Field Below ) REMOVE LIDODERM PATCH DAILY@ XX 06/29/20 21:00 07/12/20 21:13 Omeprazole (First-Omeprazole ORAL SUSPENSION) 40 mg DAILY PEG 07/08/20 09:00 07/13/20 08:15 Pantoprazole Sodium (Protonix) 40 mg DAILY IV 07/03/20 10:00 07/07/20 15:23 DC 07/07/20 08:07 Piperacillin Sod/ Tazobactam Sod 4.5 gm/Dextrose 50 ml @ 50 mls/hr Q6H IV 06/29/20 15:00 07/04/20 23:00 DC 07/04/20 21:29 Saliva Substitute (Mouthkote) 2 sprays QID MT 07/05/20 13:00 07/13/20 08:15 Senna (Senokot) 1 tab QHS PEG 06/23/20 21:00 06/29/20 14:44 DC 06/28/20 21:19 Sodium Chloride ([place] Nasal [place]) 2 spray TID NA 07/03/20 21:00 07/13/20 08:14 Thiamine HCl (VITAMIN B1 INJection) 100 mg DAILY IM 06/24/20 09:00 07/13/20 08:13 Valsartan (Diovan) 320 mg DAILY PEG 06/24/20 09:00 07/13/20 08:11 RICKY MCDONOUGH MD Jul 13, 2020 12:41
[2020-07-13] MEDS: METOPROLOL TART 25 MG TABLET PO SCH ×2 (12:56→17:06)
[2020-07-13 13:04] VITALS: BP 142/65
[2020-07-13 13:46] VITALS: BP 159/72
[2020-07-13] MEDS: SIMETHICONE 80MG CHEW TAB PEG SCH ×2 (17:02→21:26)
[2020-07-13 21:00] VITALS: BP 145/71
[2020-07-13] MEDS: ATORVASTATIN 20 MG TAB PEG SCH (21:27)
[2020-07-13] MEDS: **NOTE PATIENT COMMENT** MISC XX SCH (21:28)
[2020-07-14] MEDS: METOPROLOL TART 25 MG TABLET PO SCH ×4 (00:23→17:17)
[2020-07-14] MEDS: REMEDY PHYTOPLEX Z-GUARD PASTE 113GM TUBE (FROM STOREROOM PRODUCT) TOP SCH ×12 (00:23→23:03)
[2020-07-14 05:58] VITALS: BP 156/74
[2020-07-14] MEDS: MODAFINIL 100 MG TABLET PEG SCH ×2 (06:19→12:34)
[2020-07-14] MEDS: IPRATROPIUM 0.5MG/ALBUTEROL 2.5MG INH SOL UD 3ML (DUONEB) NEB SCH ×3 (07:37→19:35)
[2020-07-14 07:41] LABS: BASO % 0.2 % (0.0-1.0); EOS # 0.5 10^3/uL (0.0-0.5); EOS % 5.5 % (0.0-3.0); HEMATOCRIT 29.1 % (42.0-52.0); HEMOGLOBIN 8.9 g/dl (13.5-17.5); LYMPH % 11.9 % (24.0-44.0); MEAN CORPUSCULAR HEMOGLOBIN 25.7 pg (27.0-33.0); MEAN CORPUSCULAR HGB CONC 30.6 g/dl (32.0-36.5); MEAN CORPUSCULAR VOLUME 84.1 fl (80.0-96.0); MONO # 0.5 10^3/uL (0.0-0.8); MONO % 6.2 % (2.0-8.0); NEUTROPHILS # 6.4 10^3/uL (1.5-8.5); NEUTROPHILS % 75.8 % (36.0-66.0); PLATELET COUNT, AUTOMATED 305 10^3/uL (150-450); RED BLOOD COUNT 3.46 10^6/uL (4.30-6.10); WHITE BLOOD COUNT 8.4 10^3/uL (4.0-10.0)
[2020-07-14] MEDS: HumaLOG INSULIN (NovoLOG) PER UNIT SC SCH ×4 (07:53→21:00)
[2020-07-14 07:55] LABS: BLOOD UREA NITROGEN 17 MG/DL (7-18); CALCIUM LEVEL 8.8 MG/DL (8.8-10.2); CARBON DIOXIDE LEVEL 29 MEQ/L (21-32); CHLORIDE LEVEL 100 MEQ/L (98-107); CREATININE FOR GFR 0.53 MG/DL (0.70-1.30); GLOMERULAR FILTRATION RATE > 60.0 (>42); GLUCOSE, FASTING 181 MG/DL (70-100); POTASSIUM SERUM 4.1 MEQ/L (3.5-5.1); SODIUM LEVEL 136 MEQ/L (136-145)
[2020-07-14] MEDS: LIDOCAINE 5% (LIDODERM) PATCH TD SCH (07:55)
[2020-07-14] MEDS: THIAMINE 200MG/2ML VIAL (J3411 PER 100MG) IM SCH (07:56)
[2020-07-14] MEDS: MAGIC MOUTHWASH SUSPENSION BTL SSP SCH ×4 (07:56→21:11)
[2020-07-14] MEDS: AMANTADINE 100MG/10ML SYRUP UDC PEG SCH ×2 (07:56→21:10)
[2020-07-14] MEDS: FERROUS SULFATE 300MG/5ML UDC LIQUID PEG SCH (07:57)
[2020-07-14] MEDS: ACETAMINOPHEN 325 MG/10.15 ML UDC GT SCH ×3 (07:57→21:10)
[2020-07-14] MEDS: ENOXAPARIN 40MG/0.4ML SYRINGE (J1650 PER 10MG) SC SCH (07:58)
[2020-07-14] MEDS: guaiFENesin SYRUP 200 MG/10 ML UDC PEG SCH ×4 (07:58→21:10)
[2020-07-14] MEDS: ASPIRIN 81 MG CHEW TABLET PEG SCH (07:58)
[2020-07-14] MEDS: VALSARTAN 80 MG TAB (DIOVAN) PEG SCH (07:59)
[2020-07-14] MEDS: cloNIDine 0.1MG TABLET GT SCH ×2 (07:59→21:13)
[2020-07-14] MEDS: SALIVA SUBSTITUTE(MOUTHKOTE) BTL MT SCH ×4 (08:00→21:11)
[2020-07-14] MEDS: LABETALOL 100MG TAB PEG SCH ×2 (08:00→21:12)
[2020-07-14] MEDS: SIMETHICONE 80MG CHEW TAB PEG SCH ×3 (08:00→21:11)
[2020-07-14] MEDS: ESCITALOPRAM OXALATE 10 MG TAB (LEXAPRO) PEG SCH (08:00)
[2020-07-14] MEDS: SODIUM CHLORIDE NASAL 0.65% SPRAY BTL (OCEAN) SCH ×3 (08:01→21:12)
[2020-07-14] MEDS: OMEPRAZOLE SUSPENSION 20MG 10ML ORAL SYRINGE PEG SCH (08:15)
[2020-07-14] MEDS: LEVEMIR (INSULIN DETEMIR) 1 UNITS/0.01ML SC SCH ×2 (08:15→21:11)
[2020-07-14] MEDS ORDERED: OXYMETAZOLINE 0.05% NASAL SPRAY (AFRIN) PRN (08:40)
--- NOTE | 2020-07-14 08:42 | IPNPDOC ---
PM&R Progress Note DATE OF SERVICE: Jul 14, 2020 Ged Teacher Progress Note Subjective: Patient seen in his room able to give peace sign, thumbs up, and high five, minimally verbal. REVIEW OF SYSTEMS: The following is a completed review of systems and has been reviewed. Difficult to assess due to patient unable to respond EARS, NOSE, & THROAT: + dysphagia PULMONARY: denies cough GASTROINTESTINAL: +peg GENITOURINARY: +incontinence MUSCULOSKELETAL: generalized weakness NEUROLOGICAL:+ left sided paresis SKIN: +sacral ulcers PHYSICAL EXAMINATION: VITAL SIGNS: Please see below. GENERAL: NAD, sitting up in chair, alert HEENT: PERRL. Clear conjunctiva, +left sided facial droop CARDIOVASCULAR: Regular rate and rhythm. No murmurs, rubs, or gallops LUNGS: clear to auscultation bilaterally. No wheezes. No rhonchi, breathing comfortably ABDOMEN: Soft, nontender, slightly distended. no guarding, Positive bowel sounds. Normal active bowel sounds, +PEG NEUROLOGICAL: responds to command, able to state his name, read from a nametag EXTREMITIES: grossly 5/5 RUE and RLE, +spontaneous movement LLE, trace in LUE SKIN: sacral ulcers, right frontal incision healed ASSESSMENT:74-year-old M with past medical history of HTn, HLD who presents status post stroke with hemorrhagic conversion PLAN: 1. rehab- pt/ot advance mobility and ADLs, strengthen/stretch/maintain ROM all 4limbs, starting to tolerate being upright more and beginning to participate in therapy from a cognitive standpoint -ORTHOTICS PROSTHETICS ASSISTANT for cog and swallow eval-oral care s/p MBS, c/u NPO, feeds ok with ORTHOTICS PROSTHETICS ASSISTANT 2. 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 Cardiac- hx of HTN c/u labetalol, amlodipine, Diovan, increased clonidine to 0.2mg BID for elevated BPs- medicine consulted to assist in overall management -ECHO at [facility] 06-11-20 showing grade 2 diastolic CHF 4. Resp- s/p treatment for klebsiella PNA with hypoxic respiratory failure at [facility], restarted on IV zosyn on 06-29-20 due to increased work of breathing and fever, f/u CT 07-01-20 showing no definite infiltrate, however did show bilat discoid atelectasis, has finished abx, c/u to monitor for infection- c/u duonebs, guaifenesin -suspect sleep apnea, c/u nocturnal 02- goal 88-92% to avoid increasing apneic episodes 5. GI- NPO with minimal feeds with ORTHOTICS PROSTHETICS ASSISTANT, patient tolerating PEG feeds, now off reglan, switched to bolus feeds- tolerating -c/u zofran prn for nausea -pepcid for ppx -FOBT negative -KUB 06-29-20 WNL 6. DVT ppx- dopplers negative for dvt, c/u lovenox 7. SKin- turn q2,heel floats, zinc oxide-corn starch to sacrum q2h 8. - not retaining, however incontinent, but Urine negative for infection 9. Renal- consulted for fluid management in setting of CHF, to monitor kidney function, and assist with iron deficiency anemia- intervention appreciated, renal signed 9. Endo- newly dx DM, c/u insulin adjustments for hyperglycemia 10. heme- iron deficiency anemia s/p venofer per renal and 1 unit prbc 07-02-20, FOBT negative, c/u to monitor 10. Pain- tylenol changed to standing with lidoderm patch to right shoulder- 11. Dispo- TBD Allergies Coded Allergies: No Known Allergies (Unverified , 06/23/20) Vital Signs Vital Signs Date Time Temp Pulse Resp B/P (MAP) Pulse Ox O2 Delivery O2 Flow Rate FiO2 07/14/20 06:19 75 156/74 07/14/20 05:58 97.7 18 98 Room Air Laboratory Data CBC/BMP Laboratory Tests 07/14/20 06:58 Labs 24H Laboratory Tests 2 07/13/20 11:29: Bedside Glucose (Misc Panel) 253H 07/13/20 16:32: Bedside Glucose (Misc Panel) 238H 07/13/20 21:23: Bedside Glucose (Misc Panel) 218H 07/14/20 06:46: Bedside Glucose (Misc Panel) 177H 07/14/20 06:58: Immature Granulocyte % (Auto) 0.4, Neutrophils (%) (Auto) 75.8H, Lymphocytes (%) (Auto) 11.9L, Monocytes (%) (Auto) 6.2, Eosinophils (%) (Auto) 5.5H, Basophils (%) (Auto) 0.2, Neutrophils # (Auto) 6.4, Lymphocytes # (Auto) 1.0L, Monocytes # (Auto) 0.5, Eosinophils # (Auto) 0.5, Basophils # (Auto) 0.0, Nucleated Red Blood Cells % (auto) 0.0, Anion Gap 7L, Glomerular Filtration Rate > 60.0, Calc ium Level 8.8 Current Medications Current Medications Current Medications Medications (Trade) Dose Ordered Sig/Andi Route PRN Reason Start Time Stop Time Status Last Admin Dose Admin Acetaminophen (Tylenol Suspension) 650 mg Q8HP PRN PEG fever 07/09/20 17:45 Acetaminophen (Tylenol Suspension) 650 mg TID GT 06/29/20 16:00 07/13/20 21:21 Acetaminophen (Tylenol Tab) 650 mg Q4HP PRN PEG fever/MILD PAIN (PS 1-4) 06/23/20 13:55 06/29/20 13:35 DC Acetaminophen (Tylenol Tab) 650 mg Q8HP PRN PEG fever 06/29/20 13:35 07/09/20 17:43 DC Albuterol/ Ipratropium (Duoneb (Ipr 0.5mg/Alb 2.5mg)) 3 ml RTID NEB 06/23/20 20:00 07/14/20 07:37 Amantadine HCl (Symmetrel Syrup) 100 mg BID PEG 06/23/20 21:00 07/13/20 21:20 Amlodipine Besylate (Norvasc) 5 mg DAILY PEG 06/24/20 09:00 07/08/20 08:39 DC 07/08/20 08:23 Amlodipine Besylate (Norvasc) 10 mg DAILY PEG 07/09/20 09:00 07/13/20 08:13 Aspirin (Aspirin Chewable) 81 mg DAILY PEG 06/24/20 09:00 07/13/20 08:11 Atorvastatin Calcium (Lipitor) 80 mg QHS PEG 06/23/20 21:00 07/13/20 21:27 Bisacodyl (Dulcolax Suppository) 10 mg DAILYPRN PRN [place] CONSTIPATION 06/23/20 13:55 06/29/20 11:02 Clonidine HCl (Catapres) 0.1 mg BID GT 06/23/20 21:00 07/05/20 10:16 DC 07/05/20 07:57 Clonidine HCl (Catapres) 0.2 mg BID GT 07/05/20 21:00 07/13/20 21:26 Dextrose (Dextrose 50%) 25 ml ASDIRECTED PRN IV SEE LABEL COMMENTS 07/04/20 11:05 Dextrose (Dextrose 50%) 25 ml ASDIRECTED PRN IV SEE LABEL COMMENTS 06/23/20 13:55 07/04/20 11:07 DC Enoxaparin Sodium (Lovenox) 40 mg DAILY SC 06/24/20 09:00 07/13/20 08:14 Escitalopram Oxalate (Lexapro) 10 mg DAILY PEG 07/04/20 09:00 07/13/20 08:11 Famotidine (Pepcid) 40 mg BID PEG 06/23/20 21:00 07/03/20 10:00 DC 07/03/20 09:44 Ferrous Sulfate (Ferrous Sulfate) 300 mg BID PEG 06/27/20 09:00 07/01/20 09:25 DC 07/01/20 08:47 Ferrous Sulfate (Ferrous Sulfate) 300 mg DAILY PEG 07/02/20 09:00 07/13/20 08:12 Glucagon (Glucagon) 1 mg ASDIRECTED PRN SC SEE LABEL COMMENTS 07/04/20 11:05 Glucagon (Glucagon) 1 mg ASDIRECTED PRN SC SEE LABEL COMMENTS 06/23/20 13:55 07/04/20 11:07 DC Glucose (Glucose) 16 GM ASDIRECTED PRN PO SEE LABEL COMMENTS 07/04/20 11:05 Glucose (Glucose) 16 GM ASDIRECTED PRN PO SEE LABEL COMMENTS 06/23/20 13:55 07/04/20 11:07 DC Guaifenesin (Robitussin) 10 ml QID PEG 06/23/20 21:00 07/13/20 21:20 Home Med (Med Rec Complete!) ASDIRECTED XX 06/23/20 19:15 06/23/20 19:14 DC Insulin Detemir (Levemir Insulin) 10 units DAILY AL 06/29/20 09:00 07/01/20 09:59 DC 06/30/20 08:14 Insulin Detemir (Levemir Insulin) 10 units QHS AL 06/23/20 21:00 06/26/20 09:35 DC 06/25/20 21:02 Insulin Detemir (Levemir Insulin) 12 units QHS AL 06/26/20 21:00 06/27/20 07:18 DC 06/26/20 20:23 Insulin Detemir (Levemir Insulin) 13 units QAM AL 07/01/20 09:00 07/12/20 12:38 DC 07/12/20 08:25 Insulin Detemir (Levemir Insulin) 18 units QAM AL 07/13/20 09:00 07/13/20 08:15 Insulin Detemir (Levemir Insulin) 20 units QHS AL 06/27/20 21:00 06/27/20 12:20 DC Insulin Detemir (Levemir Insulin) 30 units QHS AL 07/05/20 21:00 07/13/20 09:53 DC 07/12/20 21:10 Insulin Detemir (Levemir Insulin) 32 units QHS AL 06/27/20 21:00 07/01/20 08:31 DC 06/30/20 21:19 Insulin Detemir (Levemir Insulin) 34 units QHS AL 07/13/20 21:00 07/13/20 21:25 Insulin Detemir (Levemir Insulin) 40 units QHS AL 07/01/20 21:00 07/05/20 10:16 DC 07/04/20 21:36 Insulin Human Lispro (HumaLOG INSULIN) SEE PROTOCOL TABLE AC AL 07/04/20 12:00 07/13/20 17:01 Insulin Human Lispro (HumaLOG INSULIN) SEE PROTOCOL TABLE Q6H AL 06/23/20 18:00 07/04/20 11:07 DC 07/04/20 05:59 Insulin Human Lispro (HumaLOG INSULIN) SEE PROTOCOL TABLE QHS AL 07/04/20 21:00 07/09/20 21:24 Iron 100 mg/ Sodium Chloride 105 ml @ 105 mls/hr Q24H IV 07/01/20 12:00 07/06/20 11:59 DC 07/05/20 12:34 Labetalol HCl (Normodyne, Trandate) 300 mg BID PEG 06/23/20 21:00 07/13/20 21:27 Lidocaine (Lidoderm Patch) 1 patch DAILY TD 06/29/20 13:35 07/13/20 08:14 Lidocaine/ Diphenhydr/Alum/ Mg/Simeth (Magic Mouthwash) 5ml QID SSP 06/23/20 21:00 07/13/20 21:28 Metoclopramide HCl (Reglan Liquid) 5 mg Q6H PEG 06/26/20 12:00 06/28/20 12:28 DC 06/28/20 12:01 Metoclopramide HCl (Reglan Liquid) 10 mg Q6H PEG 06/24/20 00:00 06/26/20 09:35 DC 06/26/20 05:50 Metoprolol Tartrate (Lopressor) 25 mg Q6H PO 07/13/20 12:00 07/14/20 06:19 Modafinil (Provigil) 100 mg BID@0600,1400 PEG 06/24/20 06:00 07/14/20 06:19 Non-Formulary Medication ( See Comment Field Below ) REMOVE LIDODERM PATCH DAILY@21 XX 06/29/20 21:00 07/13/20 21:28 Omeprazole (First-Omeprazole ORAL SUSPENSION) 40 mg DAILY PEG 07/08/20 09:00 07/13/20 08:15 Oxymetazoline HCl (Afrin) 2 spray ASDIRECTED PRN NA SEE LABEL COMMENTS 07/14/20 08:40 Pantoprazole Sodium (Protonix) 40 mg DAILY IV 07/03/20 10:00 07/07/20 15:23 DC 07/07/20 08:07 Piperacillin Sod/ Tazobactam Sod 4.5 gm/Dextrose 50 ml @ 50 mls/hr Q6H IV 06/29/20 15:00 07/04/20 23:00 DC 07/04/20 21:29 Saliva Substitute (Mouthkote) 2 sprays QID MT 07/05/20 13:00 07/13/20 21:28 Senna (Senokot) 1 tab QHS PEG 06/23/20 21:00 06/29/20 14:44 DC 06/28/20 21:19 Simethicone (Mylicon) 80 mg TID PEG 07/13/20 16:00 07/13/20 21:26 Sodium Chloride (Walker Nasal [place]) 2 spray TID NA 07/03/20 21:00 07/13/20 21:27 Thiamine HCl (VITAMIN B1 INJection) 100 mg DAILY IM 06/24/20 09:00 07/13/20 08:13 Valsartan (Diovan) 320 mg DAILY PEG 06/24/20 09:00 07/13/20 08:11 RICKY MCDONOUGH MD Jul 14, 2020 08:42
[2020-07-14 14:00] VITALS: BP 186/85
[2020-07-14 15:00] VITALS: BP 155/72
[2020-07-14 20:00] VITALS: BP 161/74
[2020-07-14] MEDS: ATORVASTATIN 20 MG TAB PEG SCH (21:10)
[2020-07-14] MEDS: **NOTE PATIENT COMMENT** MISC XX SCH (21:12)
[2020-07-15] MEDS: METOPROLOL TART 25 MG TABLET PO SCH ×4 (00:51→18:06)
[2020-07-15] MEDS: REMEDY PHYTOPLEX Z-GUARD PASTE 113GM TUBE (FROM STOREROOM PRODUCT) TOP SCH ×11 (00:51→20:55)
[2020-07-15 06:00] VITALS: BP 155/75
[2020-07-15] MEDS: MODAFINIL 100 MG TABLET PEG SCH ×2 (06:23→13:36)
[2020-07-15] MEDS: IPRATROPIUM 0.5MG/ALBUTEROL 2.5MG INH SOL UD 3ML (DUONEB) NEB SCH ×3 (07:18→19:31)
[2020-07-15] MEDS: HumaLOG INSULIN (NovoLOG) PER UNIT SC SCH ×4 (08:11→21:00)
[2020-07-15] MEDS: THIAMINE 200MG/2ML VIAL (J3411 PER 100MG) IM SCH (08:11)
[2020-07-15] MEDS: VALSARTAN 80 MG TAB (DIOVAN) PEG SCH (08:11)
[2020-07-15] MEDS: AMANTADINE 100MG/10ML SYRUP UDC PEG SCH ×2 (08:11→20:55)
[2020-07-15] MEDS: ACETAMINOPHEN 325 MG/10.15 ML UDC GT SCH ×3 (08:11→20:56)
[2020-07-15] MEDS: FERROUS SULFATE 300MG/5ML UDC LIQUID PEG SCH (08:11)
[2020-07-15] MEDS: SIMETHICONE 80MG CHEW TAB PEG SCH ×3 (08:12→20:56)
[2020-07-15] MEDS: ENOXAPARIN 40MG/0.4ML SYRINGE (J1650 PER 10MG) SC SCH (08:12)
[2020-07-15] MEDS: guaiFENesin SYRUP 200 MG/10 ML UDC PEG SCH ×4 (08:12→20:55)
[2020-07-15] MEDS: ASPIRIN 81 MG CHEW TABLET PEG SCH (08:12)
[2020-07-15] MEDS: cloNIDine 0.1MG TABLET GT SCH ×2 (08:12→21:01)
[2020-07-15] MEDS: MAGIC MOUTHWASH SUSPENSION BTL SSP SCH ×4 (08:13→20:56)
[2020-07-15] MEDS: LABETALOL 100MG TAB PEG SCH ×2 (08:14→20:58)
[2020-07-15] MEDS: ESCITALOPRAM OXALATE 10 MG TAB (LEXAPRO) PEG SCH (08:15)
[2020-07-15] MEDS: OMEPRAZOLE SUSPENSION 20MG 10ML ORAL SYRINGE PEG SCH (08:15)
[2020-07-15] MEDS: SALIVA SUBSTITUTE(MOUTHKOTE) BTL MT SCH ×4 (08:15→20:56)
[2020-07-15] MEDS: SODIUM CHLORIDE NASAL 0.65% SPRAY BTL (OCEAN) SCH ×3 (08:16→20:59)
[2020-07-15] MEDS: LEVEMIR (INSULIN DETEMIR) 1 UNITS/0.01ML SC SCH ×2 (08:16→20:59)
[2020-07-15] MEDS: LIDOCAINE 5% (LIDODERM) PATCH TD SCH (08:17)
[2020-07-15 11:47] VITALS: BP 146/67
[2020-07-15 14:00] VITALS: BP 147/65
[2020-07-15 18:05] VITALS: BP 146/69
[2020-07-15 20:00] VITALS: BP 161/72
[2020-07-15] MEDS: ATORVASTATIN 20 MG TAB PEG SCH (20:56)
[2020-07-15] MEDS: **NOTE PATIENT COMMENT** MISC XX SCH (21:00)
[2020-07-16] MEDS: METOPROLOL TART 25 MG TABLET PO SCH ×4 (00:49→18:10)
[2020-07-16] MEDS: REMEDY PHYTOPLEX Z-GUARD PASTE 113GM TUBE (FROM STOREROOM PRODUCT) TOP SCH ×12 (00:49→22:47)
[2020-07-16 05:33] VITALS: BP 140/58
[2020-07-16] MEDS: MODAFINIL 100 MG TABLET PEG SCH ×2 (06:05→13:34)
[2020-07-16] MEDS: IPRATROPIUM 0.5MG/ALBUTEROL 2.5MG INH SOL UD 3ML (DUONEB) NEB SCH ×3 (07:04→21:15)
[2020-07-16] MEDS: ACETAMINOPHEN 325 MG/10.15 ML UDC GT SCH ×3 (08:10→20:33)
[2020-07-16] MEDS: LEVEMIR (INSULIN DETEMIR) 1 UNITS/0.01ML SC SCH ×2 (08:10→20:39)
[2020-07-16] MEDS: LIDOCAINE 5% (LIDODERM) PATCH TD SCH (08:11)
[2020-07-16] MEDS: HumaLOG INSULIN (NovoLOG) PER UNIT SC SCH ×4 (08:11→20:36)
[2020-07-16] MEDS: LABETALOL 100MG TAB PEG SCH ×2 (08:11→20:32)
[2020-07-16] MEDS: guaiFENesin SYRUP 200 MG/10 ML UDC PEG SCH ×4 (08:12→20:31)
[2020-07-16] MEDS: AMANTADINE 100MG/10ML SYRUP UDC PEG SCH ×2 (08:12→20:31)
[2020-07-16] MEDS: ESCITALOPRAM OXALATE 10 MG TAB (LEXAPRO) PEG SCH (08:12)
[2020-07-16] MEDS: ASPIRIN 81 MG CHEW TABLET PEG SCH (08:12)
[2020-07-16] MEDS: SIMETHICONE 80MG CHEW TAB PEG SCH ×3 (08:12→20:30)
[2020-07-16] MEDS: VALSARTAN 80 MG TAB (DIOVAN) PEG SCH (08:12)
[2020-07-16] MEDS: FERROUS SULFATE 300MG/5ML UDC LIQUID PEG SCH (08:12)
[2020-07-16] MEDS: cloNIDine 0.1MG TABLET GT SCH ×2 (08:12→20:32)
[2020-07-16] MEDS: OMEPRAZOLE SUSPENSION 20MG 10ML ORAL SYRINGE PEG SCH (08:13)
[2020-07-16] MEDS: THIAMINE 200MG/2ML VIAL (J3411 PER 100MG) IM SCH (08:13)
[2020-07-16] MEDS: SALIVA SUBSTITUTE(MOUTHKOTE) BTL MT SCH ×4 (08:13→20:33)
[2020-07-16] MEDS: ENOXAPARIN 40MG/0.4ML SYRINGE (J1650 PER 10MG) SC SCH (08:13)
[2020-07-16] MEDS: SODIUM CHLORIDE NASAL 0.65% SPRAY BTL (OCEAN) SCH ×3 (08:13→20:33)
[2020-07-16] MEDS: MAGIC MOUTHWASH SUSPENSION BTL SSP SCH ×4 (08:14→20:32)
[2020-07-16 12:32] VITALS: BP 140/68
[2020-07-16 14:00] VITALS: BP 150/81
[2020-07-16 18:09] VITALS: BP 157/70
[2020-07-16 20:00] VITALS: BP 159/77
[2020-07-16] MEDS: ATORVASTATIN 20 MG TAB PEG SCH (20:30)
[2020-07-16] MEDS: **NOTE PATIENT COMMENT** MISC XX SCH (20:34)
[2020-07-17] MEDS: METOPROLOL TART 25 MG TABLET PO SCH (00:09)
[2020-07-17] MEDS: REMEDY PHYTOPLEX Z-GUARD PASTE 113GM TUBE (FROM STOREROOM PRODUCT) TOP SCH ×12 (00:10→23:35)
--- NOTE | 2020-07-17 05:32 | IPNPDOC ---
Text Note Date of Service The patient was seen on 07/17/20. NOTE I was informed by the patient's RN that his peg tube was dislodged while they were repositioning him. At the time of my face to face visit the pt was asleep but arousable w vocal stimul, admitted to having some abdominal pain but declined pain meds. The skin where the tube previously was was red with a deep puncture. There was a minimal amount of blood. #dislodged peg tube Plan: f/u CT abd/pelvis to r/o acute process such as peritonitis / pending results of scan will decide on next steps / will ask the day time team to consult IR to replace the tube VS,Fishbone, I+O VS, Fishbone, I+O Vital Signs Date Time Temp Pulse Resp B/P (MAP) Pulse Ox O2 Delivery O2 Flow Rate FiO2 07/17/20 00:09 72 143/70 07/16/20 20:00 97.5 18 95 Room Air I&O- Last 24 Hours up to 6 AM 07/17/20 06:00 Intake Total 2280 ml Balance 2280 ml YOUNG CARDOZA MD Jul 17, 2020 05:32
[2020-07-17 05:46] VITALS: BP 143/65
[2020-07-17] MEDS: MODAFINIL 100 MG TABLET PEG SCH ×2 (06:00→16:46)
[2020-07-17] MEDS ORDERED: ISOVUE-370 76% 100ML VIAL As Ordered ONE (06:20)
[2020-07-17 06:33] LABS: BASO % 0.1 % (0.0-1.0); EOS # 0.5 10^3/uL (0.0-0.5); EOS % 5.8 % (0.0-3.0); HEMATOCRIT 30.7 % (42.0-52.0); HEMOGLOBIN 9.4 g/dl (13.5-17.5); LYMPH # 1.1 10^3/uL (1.5-5.0); LYMPH % 12.3 % (24.0-44.0); MEAN CORPUSCULAR HEMOGLOBIN 25.2 pg (27.0-33.0); MEAN CORPUSCULAR HGB CONC 30.6 g/dl (32.0-36.5); MEAN CORPUSCULAR VOLUME 82.3 fl (80.0-96.0); MONO # 0.5 10^3/uL (0.0-0.8); MONO % 5.8 % (2.0-8.0); NEUTROPHILS # 6.6 10^3/uL (1.5-8.5); NEUTROPHILS % 75.5 % (36.0-66.0); PLATELET COUNT, AUTOMATED 280 10^3/uL (150-450); RED BLOOD COUNT 3.73 10^6/uL (4.30-6.10); WHITE BLOOD COUNT 8.7 10^3/uL (4.0-10.0)
[2020-07-17 06:50] LABS: BLOOD UREA NITROGEN 16 MG/DL (7-18); CARBON DIOXIDE LEVEL 29 MEQ/L (21-32); CHLORIDE LEVEL 101 MEQ/L (98-107); CREATININE FOR GFR 0.47 MG/DL (0.70-1.30); GLOMERULAR FILTRATION RATE > 60.0 (>42); GLUCOSE, FASTING 124 MG/DL (70-100); POTASSIUM SERUM 3.8 MEQ/L (3.5-5.1); SODIUM LEVEL 138 MEQ/L (136-145)
--- NOTE | 2020-07-17 07:08 | REPVR ---
PROCEDURE INFORMATION: Exam: CT Abdomen And Pelvis With Contrast Exam date and time: 07/17/2020 6:33 AM Age: 74 years old Clinical indication: Abdominal pain; Additional info: Dislodged peg tube TECHNIQUE: Imaging protocol: Computed tomography of the abdomen and pelvis with contrast. Radiation optimization: All CT scans at this facility use at least one of these dose optimization techniques: automated exposure control; mA and/or kV adjustment per patient size (includes targeted exams where dose is matched to clinical indication); or iterative reconstruction. Contrast material: ISO 370; Contrast volume: 100 ml; Contrast route: INTRAVENOUS (IV); COMPARISON: CR Abdomen,Flat Plate KUB 2020-06-29 14:20 FINDINGS: Tubes, catheters and devices: Residual tract extending into the gastric body compatible with recently dislodged gastrostomy tube. Liver: Normal. No mass. Gallbladder and bile ducts: Normal. No calcified stones. No ductal dilation. Pancreas: Pancreas atrophy. Spleen: Normal. No splenomegaly. Adrenal glands: Normal. No mass. Kidneys and ureters: Benign 3 cm unchanged right renal cyst. Stomach and bowel: Unremarkable. No obstruction. No mucosal thickening. Appendix: No evidence of appendicitis. Intraperitoneal space: No free air or leak. Vasculature: Splenic artery calcifications. Mild to moderate aortic and iliac artery atherosclerotic calcification. Lymph nodes: Unremarkable. No enlarged lymph nodes. Urinary bladder: Unremarkable as visualized. Reproductive: Prostatic treatment seeds. Bones/joints: Moderate severe lower lumbar spondylosis. Unilateral right L5 spondylolysis. Soft tissues: Unremarkable. IMPRESSION: Residual tract extending into the gastric body compatible with recently dislodged gastrostomy tube. No free air or leak. Electronically signed by: Immanuel Tomas On 07/17/2020 07:08:26 AM
[2020-07-17] MEDS: HumaLOG INSULIN (NovoLOG) PER UNIT SC SCH ×4 (07:30→20:41)
[2020-07-17] MEDS: IPRATROPIUM 0.5MG/ALBUTEROL 2.5MG INH SOL UD 3ML (DUONEB) NEB SCH ×3 (07:46→20:11)
[2020-07-17] MEDS: LEVEMIR (INSULIN DETEMIR) 1 UNITS/0.01ML SC SCH ×2 (09:00→20:50)
[2020-07-17] MEDS: LABETALOL 100MG TAB PEG SCH ×2 (09:00→20:40)
[2020-07-17] MEDS: SODIUM CHLORIDE NASAL 0.65% SPRAY BTL (OCEAN) SCH ×3 (09:00→20:42)
[2020-07-17] MEDS: ENOXAPARIN 40MG/0.4ML SYRINGE (J1650 PER 10MG) SC SCH (09:00)
[2020-07-17] MEDS ORDERED: cloNIDine HCL 0.1 MG/24 HR PATCH TOP SCH (09:00)
[2020-07-17] MEDS: ACETAMINOPHEN 325 MG/10.15 ML UDC GT SCH ×3 (09:00→20:39)
[2020-07-17] MEDS: SIMETHICONE 80MG CHEW TAB PEG SCH ×3 (09:00→20:40)
[2020-07-17] MEDS: guaiFENesin SYRUP 200 MG/10 ML UDC PEG SCH ×4 (09:00→20:39)
[2020-07-17] MEDS: AMANTADINE 100MG/10ML SYRUP UDC PEG SCH ×2 (09:00→20:39)
[2020-07-17 11:00] VITALS: BP 195/92
--- NOTE | 2020-07-17 11:43 | CR.PDOC ---
General Surgery Consultation Date of Consultation 07/17/20 History and Physical CONSULT REPORT FOR: Dr. Ugarte (hospitalist service) REASON FOR CONSULTATION: Dislodged gastrostomy feeding tube HISTORY OF PRESENT ILLNESS: Patient is a 74-year-old male here for acute rehabilitation after suffering from stroke since 06/23/2020. He still remains dependent on his gastrostomy for feeding. This was placed couple days prior to him going to our rehabilitation area from [facility]. Earliest morning while being turned the feeding tube came out and he needs a feeding tube replaced as he continues to be dependent on this for nutrition and for taking off his medications. PAST MEDICAL HISTORY: 1. hypertension 2. Coronary artery disease status post CABG 3. Hyperlipidemia 4. Chronic diastolic congestive heart failure 5. Recent CVA with right ICA occlusion. 6. Recent aspiration pneumonia 7. Acute renal failure 8. PEG tube placement on 06/22/2020 9. Obstructive sleep apnea not on CPAP ALLERGIES: Please see below. HOME MEDICATIONS: Please see below. REVIEW OF SYSTEMS: Since being here in the hospital he has made some improvements, continues to have left-sided paresis. He is working with physical therapy and occupational therapy. No acute infections. He has a sacral decubiti ulcer. He still has dysphagia. He does not have any chronic cough. He is PEG tube was working and he has been dependent on this for feeding and for medications. He still has generalized weakness and left-sided paresis. reports that he also has sleep apnea but he does not use or tolerate the CPAP machine PHYSICAL EXAMINATION Patient seen sitting up on a wheelchair. He does track with his eyes but not so verbal. He nods yes or shakes no appropriately. Denies any abdominal pain. He is awake seems to be well enough oriented. Short thick neck with no obvious jugular venous distention. Lung sounds are clear to auscultation bilaterally Regular heart rate and rhythm Moderately obese, very protuberant abdomen. Prior PEG tube exit site at the skin noted over the left upper quadrant area covered with a dry foam. Exit site is quite small with a tract barely open. No erythema no bleeding. ANCILLARIES: LABORATORY DATA: Please see below. IMAGING STUDIES: CT abdomen and pelvis Shows still a visible tract in the abdominal wall. Abdominal wall looks a couple inches thick. IMPRESSION AND PLAN Given patient's body habitus, LV hard to put back the strap ostomy tube at the bedside. He does have a thick pannus at that area. I will bring him to the endoscopy suite to do an upper endoscopy in either used to prior gastrostomy site appeared remains open and we can dilate it further or use another site if the tract has closed. Consent was obtained from his . Vital Signs Vital Signs Date Time Temp Pulse Resp B/P (MAP) Pulse Ox O2 Delivery O2 Flow Rate FiO2 07/17/20 05:46 97.9 74 18 143/65 (91) 92 Room Air I&Os I&O- Last 24 Hours up to 6 AM 07/17/20 05:59 Intake Total 2820 ml Balance 2820 ml Laboratory Data Labs 24H Laboratory Tests 2 07/16/20 12:23: Bedside Glucose (Misc Panel) 201H 07/16/20 16:40: Bedside Glucose (Misc Panel) 239H 07/16/20 20:26: Bedside Glucose (Misc Panel) 172H 07/17/20 06:05: Immature Granulocyte % (Auto) 0.5, Neutrophils (%) (Auto) 75.5H, Lymphocytes (%) (Auto) 12.3L, Monocytes (%) (Auto) 5.8, Eosinophils (%) (Auto) 5.8H, Basophils (%) (Auto) 0.1, Neutrophils # (Auto) 6.6, Lymphocytes # (Auto) 1.1L, Monocytes # (Auto) 0.5, Eosinophils # (Auto) 0.5, Basophils # (Auto) 0.0, Nucleated Red Blood Cells % (auto) 0.0, Anion Gap 8, Glomerular Filtration Rate > 60.0, Calcium Level 9.0 07/17/20 11:14: CBC/BMP Laboratory Tests 07/17/20 06:05 Home Medications Scheduled Amantadine HCl (Amantadine) 100 Mg Tablet, 100 MG PO BID, (Reported) GIVEN A SLOUTION AT [facility] Amlodipine Besylate (Amlodipine Besylate) 10 Mg Tablet, 10 MG PO DAILY, (Reported) Aspirin (Aspirin) 81 Mg Tab.chew, 81 MG PO DAILY, (Reported) Atorvastatin Calcium (Atorvastatin Calcium) 80 Mg Tablet, 80 MG PO QHS, (Reported) Clonidine HCl (Clonidine HCl) 0.1 Mg Tablet, 0.1 MG PEG BID, (Reported) Docusate Sodium (Docusate Sodium) 50 Mg/5 Ml Liquid, 10 ML PO BID, (Reported) Enoxaparin Sodium (Lovenox) 40 Mg/0.4 Ml Syringe, 40 MG SC DAILY, (Reported) Insulin Glargine,Hum.rec.anlog (Lantus Solostar) 100 Unit/1 Ml Insuln.pen, 32 UNITS SC QHS, (Reported) Labetalol HCl (Labetalol HCl) 300 Mg Tablet, 300 MG PO BID, (Reported) Modafinil (Modafinil) 100 Mg Tablet, 100 MG PO BID, (Reported) 0600, 1400 Pantoprazole Sodium (Protonix IV) 40 Mg Vial, 40 MG IV BID, (Reported) Polyethylene Glycol 3350 (Polyethylene Glycol 3350) 17 Gm Powd.pack, 17 GM PO DAILY, (Reported) Sennosides (Senna) 8.8 Mg/5 Ml Syrup, 10 ML PO QHS, (Reported) Tamsulosin HCl (Flomax) 0.4 Mg Capsule, 0.4 MG PO BID, (Reported) once daily 1/2 hour following the same meal each day Thiamine HCl (Thiamine HCl) 100 Mg Tablet, 100 MG PO DAILY, (Reported) GIVEN AN INJECTION AT [facility] Valsartan (Valsartan) 320 Mg Tablet, 320 MG PO DAILY, (Reported) Allergies Coded Allergies: No Known Allergies (Unverified , 06/23/20) CHERRY DARDEN MD Jul 17, 2020 11:43
[2020-07-17] MEDS: LIDOCAINE 5% (LIDODERM) PATCH TD SCH (11:59)
[2020-07-17] MEDS ORDERED: NITROGLYCERIN 2% OINT 1 GM *U/D* PKT TOP ONE (12:00)
[2020-07-17] MEDS: SALIVA SUBSTITUTE(MOUTHKOTE) BTL MT SCH ×4 (12:00→20:49)
[2020-07-17] MEDS: MAGIC MOUTHWASH SUSPENSION BTL SSP SCH ×4 (12:01→20:41)
[2020-07-17] MEDS ORDERED: AMPICILLIN SOD/SULBACTAM SOD 3 GM in D5W MINI-BAG PLUS 100 ML IV ONE (13:00)
[2020-07-17 14:00] VITALS: BP 185/88
[2020-07-17] MEDS ORDERED: LIDOCAINE 2% 100MG/5ML SDV (FOR ANES.) As Ordered ONE (14:18)
[2020-07-17] MEDS ORDERED: fentaNYL 100 MCG/2 ML INJECTION (J3010) As Ordered ONE (14:19)
[2020-07-17] MEDS ORDERED: propofoL 500 MG/50 ML VIAL As Ordered ONE (14:19)
[2020-07-17 16:20] VITALS: BP 155/74
[2020-07-17] MEDS: ASPIRIN 81 MG CHEW TABLET PEG SCH (16:44)
[2020-07-17] MEDS: VALSARTAN 80 MG TAB (DIOVAN) PEG SCH (16:45)
[2020-07-17] MEDS: THIAMINE 200MG/2ML VIAL (J3411 PER 100MG) IM SCH (16:46)
[2020-07-17] MEDS: ESCITALOPRAM OXALATE 10 MG TAB (LEXAPRO) PEG SCH (16:47)
[2020-07-17] MEDS: FERROUS SULFATE 300MG/5ML UDC LIQUID PEG SCH (16:47)
[2020-07-17] MEDS: OMEPRAZOLE SUSPENSION 20MG 10ML ORAL SYRINGE PEG SCH (16:48)
--- NOTE | 2020-07-17 19:17 | IPNPDOC ---
Subjective Date Seen The patient was seen on 07/17/20. Subjective Chief Complaint/HPI Mr. Patterson is a 74 year old male who was transferred here from [facility] for CVA, hemorrhagic conversion, and obstructive hydrocephalus in May 2020 and placed a PEG tube. Overnight, the PEG tube was dislodged and removed. I saw the patient with in the room. Patient was slow to speech, but not in pain. I used nitropaste to control his blood pressure and General surgery, Dr. Ronquillo was consulted. He took the patient down to the OR to place PEG tube. Okay for meds after placement. Will have to wait to start tube feeds tomorrow. Objective Physical Examination General Exam: Positive: Cooperative Chest Exam: Positive: Clear to auscultation Heart Exam: Positive: Rate Normal, Regular Rhythm Abdomen Exam: Positive: Normal bowel sounds, Other (Obese, there was a patch over the PEG site on the left) Neuro Exam: Negative: Normal Speech Psych Exam: Positive: Mental status NL Assessment /Plan Assessment Mr. Patterson is a 74 year old male who was transferred here from [facility] for CVA, hemorrhagic conversion, and obstructive hydrocephalus in May 2020 and placed a PEG tube. Patient is here for rehab. On 07/16/2020 evening to morning nanny 07/17/2020 PEG tube was dislodged. Consulted general surgery, Dr. Ronquillo, who placed the PEG tube today on 07/17/2020. Plan/VTE VTE Prophylaxis Ordered?: Yes Plan 1. Dysphagia -PEG tube dislodged and new PEG placed on 07/17/2020 -Okay for medications today. Would likely need 24 hours before starting tube feeds 2. Hypertension -Blood pressure responded to nitropaste. Can consider Imdur in the future to help control blood pressure -Otherwise, will discontinue clonidine and Lopressor -Continue labetalol, valsartan, and amlodipine -PRN hydralazine 3. Diabetes mellitus -Controlled -Continue Levemir and sliding scale insulin 4. CVA -Continue aspirin and statin -Amantadine and provigil per PMR 5. DVT ppx -Lovenox VS, I&O, 24H, Fishbone Vital Signs/I&O Vital Signs Date Time Temp Pulse Resp B/P (MAP) Pulse Ox O2 Delivery O2 Flow Rate FiO2 07/17/20 16:45 155/74 07/17/20 16:20 97.8 85 20 97 Room Air I&O- Last 24 Hours up to 6 AM 07/17/20 06:00 Intake Total 2280 ml Balance 2280 ml Laboratory Data 24H LABS Laboratory Tests 2 07/16/20 20:26: Bedside Glucose (Misc Panel) 172H 07/17/20 06:05: Immature Granulocyte % (Auto) 0.5, Neutrophils (%) (Auto) 75.5H, Lymphocytes (%) (Auto) 12.3L, Monocytes (%) (Auto) 5.8, Eosinophils (%) (Auto) 5.8H, Basophils (%) (Auto) 0.1, Neutrophils # (Auto) 6.6, Lymphocytes # (Auto) 1.1L, Monocytes # (Auto) 0.5, Eosinophils # (Auto) 0.5, Basophils # (Auto) 0.0, Nucleated Red Blood Cells % (auto) 0.0, Anion Gap 8, Glomerular Filtration Rate > 60.0, Calcium Level 9.0 07/17/20 11:14: Coronavirus (COVID-19)(PCR) NEGATIVE 07/17/20 11:44: Bedside Glucose (Misc Panel) 144H 07/17/20 16:51: Bedside Glucose (Misc Panel) 151H CBC/BMP Laboratory Tests 07/17/20 06:05 SHANI BOND 29, 2021 19:17
[2020-07-17 20:17] VITALS: BP 136/62
[2020-07-17] MEDS: ATORVASTATIN 20 MG TAB PEG SCH (20:40)
[2020-07-17] MEDS: **NOTE PATIENT COMMENT** MISC XX SCH (20:42)
[2020-07-18] MEDS: REMEDY PHYTOPLEX Z-GUARD PASTE 113GM TUBE (FROM STOREROOM PRODUCT) TOP SCH ×12 (01:17→22:35)
[2020-07-18] MEDS: MODAFINIL 100 MG TABLET PEG SCH ×2 (05:07→13:36)
[2020-07-18 05:31] VITALS: BP 166/76
[2020-07-18] MEDS: IPRATROPIUM 0.5MG/ALBUTEROL 2.5MG INH SOL UD 3ML (DUONEB) NEB SCH ×3 (07:51→19:26)
[2020-07-18] MEDS: guaiFENesin SYRUP 200 MG/10 ML UDC PEG SCH ×4 (08:38→20:33)
[2020-07-18] MEDS: AMANTADINE 100MG/10ML SYRUP UDC PEG SCH ×2 (08:38→20:33)
[2020-07-18] MEDS: FERROUS SULFATE 300MG/5ML UDC LIQUID PEG SCH (08:38)
[2020-07-18] MEDS: ACETAMINOPHEN 325 MG/10.15 ML UDC GT SCH ×3 (08:38→20:33)
[2020-07-18] MEDS: OMEPRAZOLE SUSPENSION 20MG 10ML ORAL SYRINGE PEG SCH (08:39)
[2020-07-18] MEDS: THIAMINE 200MG/2ML VIAL (J3411 PER 100MG) IM SCH (08:39)
[2020-07-18] MEDS: LEVEMIR (INSULIN DETEMIR) 1 UNITS/0.01ML SC SCH ×2 (08:42→20:35)
[2020-07-18] MEDS: HumaLOG INSULIN (NovoLOG) PER UNIT SC SCH ×4 (08:44→20:35)
[2020-07-18] MEDS: ESCITALOPRAM OXALATE 10 MG TAB (LEXAPRO) PEG SCH (08:45)
[2020-07-18 08:46] LABS: HEMATOCRIT 30.8 % (42.0-52.0); HEMOGLOBIN 9.5 g/dl (13.5-17.5); MEAN CORPUSCULAR HEMOGLOBIN 25.7 pg (27.0-33.0); MEAN CORPUSCULAR HGB CONC 30.8 g/dl (32.0-36.5); MEAN CORPUSCULAR VOLUME 83.2 fl (80.0-96.0); PLATELET COUNT, AUTOMATED 242 10^3/uL (150-450); WHITE BLOOD COUNT 8.5 10^3/uL (4.0-10.0)
[2020-07-18] MEDS: VALSARTAN 80 MG TAB (DIOVAN) PEG SCH (08:46)
[2020-07-18] MEDS: ASPIRIN 81 MG CHEW TABLET PEG SCH (08:46)
[2020-07-18] MEDS: SIMETHICONE 80MG CHEW TAB PEG SCH ×3 (08:46→20:32)
[2020-07-18] MEDS: LABETALOL 100MG TAB PEG SCH ×2 (08:47→20:33)
[2020-07-18] MEDS: ENOXAPARIN 40MG/0.4ML SYRINGE (J1650 PER 10MG) SC SCH (08:47)
[2020-07-18] MEDS: SALIVA SUBSTITUTE(MOUTHKOTE) BTL MT SCH ×4 (08:48→20:34)
[2020-07-18] MEDS: SODIUM CHLORIDE NASAL 0.65% SPRAY BTL (OCEAN) SCH ×3 (08:48→20:33)
[2020-07-18] MEDS: MAGIC MOUTHWASH SUSPENSION BTL SSP SCH ×4 (08:48→20:34)
[2020-07-18] MEDS: LIDOCAINE 5% (LIDODERM) PATCH TD SCH (08:49)
[2020-07-18 09:02] LABS: BLOOD UREA NITROGEN 14 MG/DL (7-18); CALCIUM LEVEL 9.1 MG/DL (8.8-10.2); CARBON DIOXIDE LEVEL 29 MEQ/L (21-32); CHLORIDE LEVEL 100 MEQ/L (98-107); CREATININE FOR GFR 0.51 MG/DL (0.70-1.30); GLOMERULAR FILTRATION RATE > 60.0 (>42); GLUCOSE, FASTING 193 MG/DL (70-100); POTASSIUM SERUM 3.7 MEQ/L (3.5-5.1); SODIUM LEVEL 135 MEQ/L (136-145)
[2020-07-18 14:00] VITALS: BP 141/69
--- NOTE | 2020-07-18 17:00 | REP ---
INDICATION: r/o new infiltrate. COMPARISON: 07/01/2020 CT and 06/29/2020 two-view chest TECHNIQUE: Noncontrast CT with coronal and sagittal reconstructions provided. FINDINGS: Lung solorio are of marginally adequate the degree of inflation there is some linear and dependent atelectatic changes in the lower lung zones left greater than right. Some increase in the left deep sulcus compared to the previous study representing consolidative atelectasis or small infiltrate. Respiratory motion artifact is again seen limiting evaluation for ground-glass densities. Some subsegmental atelectatic change in the inferior lingular segment again noted the anterior lung base this abuts the prominent epicardial fat pad and the anterior left diaphragm no definite pulmonary nodules or parenchymal masses. No pleural plaque or calcification and no pneumothorax. Heart shows some mild enlargement without pericardial thickening or effusion calcifications in clips from coronary revascularization again seen along with median sternotomy wires. There is atherosclerotic calcification of the aorta without aneurysm. There is no pathologic sized adenopathy in the prevascular space, AP window precarinal or subcarinal region. There is 11.6 mm right paratracheal node on image 29 but has fatty replacement suggesting a benign node. There is no axillary or supraclavicular mass. Central pulmonary arteries in the mediastinum hilar region are enlarged suggesting some degree of pulmonary artery hypertension. This is presumably on the basis of some COPD. Descending thoracic aorta with calcifications but no aneurysm. There are degenerative changes with marginal osteophytes seen throughout the thoracic spine without compression deformity. Sternotomy is healed. Healed right midclavicular fracture with remodeling. Medial clavicles bilaterally were otherwise unremarkable. Visualized ribs show no evidence of acute fracture. Those portions of scapulae and humeral heads included are without acute finding. Upper abdomen shows that portion of liver and spleen without acute finding. The calcifications of the abdominal aorta, splenic artery and a gastric PEG feeding tube seen in the left upper quadrant as on the previous study a portion of pancreas included was unremarkable. Adrenal glands unchanged. Gallbladder with limited evaluation with only partial visualization. IMPRESSION: 1. Some increase in deep sulcus left lower lobe atelectasis or small consolidative pneumonia developing with bibasilar lower lobe compressive atelectatic changes and no definite effusion. Respiratory motion blur limits evaluation for ground-glass opacity. There remains some focal atelectatic change in the inferior lingular segment. No dense consolidation with air bronchograms. No other lung changes from the previous study. 2. Cardiomegaly with the some coronary artery calcifications mediastinal surgical clips and healed sternotomy. 3. Calcified aorta without aneurysm. Next central pulmonary arteries prominent suggesting pulmonary artery hypertension. Gallbladder seen only partially with limited evaluation. That portion of pancreas grossly unremarkable. Adrenal glands intact. Upper poles kidneys unchanged. No hiatal hernia. <Electronically signed by Fabio Wray > 07/18/20 [id number]
[2020-07-18 20:00] VITALS: BP 182/85
[2020-07-18] MEDS: ATORVASTATIN 20 MG TAB PEG SCH (20:32)
[2020-07-18] MEDS: PIPERACILLIN/TAZOBACTAM SOD 4.5 GM in D5W MINI-BAG PLUS 50 ML IV SCH (20:36)
[2020-07-18] MEDS: **NOTE PATIENT COMMENT** MISC XX SCH (20:36)
[2020-07-18 23:30] VITALS: BP 144/64
[2020-07-19] MEDS: REMEDY PHYTOPLEX Z-GUARD PASTE 113GM TUBE (FROM STOREROOM PRODUCT) TOP SCH ×12 (01:06→23:08)
[2020-07-19] MEDS: PIPERACILLIN/TAZOBACTAM SOD 4.5 GM in D5W MINI-BAG PLUS 50 ML IV SCH ×4 (02:00→20:43)
[2020-07-19 06:00] VITALS: BP 172/81
[2020-07-19] MEDS: MODAFINIL 100 MG TABLET PEG SCH ×2 (06:07→13:59)
[2020-07-19] MEDS: **hydrALAZINE HCL** 25 MG TAB PEG PRN (06:10)
[2020-07-19 07:32] LABS: HEMATOCRIT 30.4 % (42.0-52.0); HEMOGLOBIN 9.5 g/dl (13.5-17.5); MEAN CORPUSCULAR HEMOGLOBIN 25.9 pg (27.0-33.0); MEAN CORPUSCULAR HGB CONC 31.3 g/dl (32.0-36.5); MEAN CORPUSCULAR VOLUME 82.8 fl (80.0-96.0); PLATELET COUNT, AUTOMATED 237 10^3/uL (150-450); RED BLOOD COUNT 3.67 10^6/uL (4.30-6.10); WHITE BLOOD COUNT 8.8 10^3/uL (4.0-10.0)
[2020-07-19] MEDS: IPRATROPIUM 0.5MG/ALBUTEROL 2.5MG INH SOL UD 3ML (DUONEB) NEB SCH ×3 (07:32→19:55)
[2020-07-19 07:56] LABS: BLOOD UREA NITROGEN 15 MG/DL (7-18); CARBON DIOXIDE LEVEL 28 MEQ/L (21-32); CHLORIDE LEVEL 100 MEQ/L (98-107); CREATININE FOR GFR 0.55 MG/DL (0.70-1.30); GLOMERULAR FILTRATION RATE > 60.0 (>42); GLUCOSE, FASTING 207 MG/DL (70-100); POTASSIUM SERUM 3.4 MEQ/L (3.5-5.1); SODIUM LEVEL 135 MEQ/L (136-145)
[2020-07-19] MEDS: LEVEMIR (INSULIN DETEMIR) 1 UNITS/0.01ML SC SCH ×2 (08:33→20:39)
[2020-07-19] MEDS: HumaLOG INSULIN (NovoLOG) PER UNIT SC SCH ×4 (08:34→20:39)
[2020-07-19] MEDS: ENOXAPARIN 40MG/0.4ML SYRINGE (J1650 PER 10MG) SC SCH (08:35)
[2020-07-19] MEDS: guaiFENesin SYRUP 200 MG/10 ML UDC PEG SCH ×4 (08:36→20:38)
[2020-07-19] MEDS: MAGIC MOUTHWASH SUSPENSION BTL SSP SCH ×4 (08:36→20:38)
[2020-07-19] MEDS: AMANTADINE 100MG/10ML SYRUP UDC PEG SCH ×2 (08:36→20:38)
[2020-07-19] MEDS: FERROUS SULFATE 300MG/5ML UDC LIQUID PEG SCH (08:36)
[2020-07-19] MEDS: THIAMINE 200MG/2ML VIAL (J3411 PER 100MG) IM SCH (08:36)
[2020-07-19] MEDS: SALIVA SUBSTITUTE(MOUTHKOTE) BTL MT SCH ×4 (08:37→20:38)
[2020-07-19] MEDS: ACETAMINOPHEN 325 MG/10.15 ML UDC GT SCH ×3 (08:37→20:38)
[2020-07-19] MEDS: LIDOCAINE 5% (LIDODERM) PATCH TD SCH (08:38)
[2020-07-19] MEDS: SODIUM CHLORIDE NASAL 0.65% SPRAY BTL (OCEAN) SCH ×3 (08:38→20:38)
[2020-07-19] MEDS: OMEPRAZOLE SUSPENSION 20MG 10ML ORAL SYRINGE PEG SCH (08:39)
[2020-07-19] MEDS: LABETALOL 100MG TAB PEG SCH ×2 (08:40→20:41)
[2020-07-19] MEDS: VALSARTAN 80 MG TAB (DIOVAN) PEG SCH (08:40)
[2020-07-19] MEDS: SIMETHICONE 80MG CHEW TAB PEG SCH ×3 (08:40→20:40)
[2020-07-19] MEDS: ASPIRIN 81 MG CHEW TABLET PEG SCH (08:41)
[2020-07-19] MEDS: ESCITALOPRAM OXALATE 10 MG TAB (LEXAPRO) PEG SCH (08:41)
[2020-07-19 14:00] VITALS: BP 142/63
--- NOTE | 2020-07-19 15:25 | IPNPDOC ---
PM&R Progress Note DATE OF SERVICE: Jul 19, 2020 Human Resources Benefits Coordinator Progress Note Subjective: Patient seen in his room with eyes open, appearing tired. Per nursing staff he had a good day in therapy and seemed more alert, however complaining of burning pain in feet. REVIEW OF SYSTEMS: The following is a completed review of systems and has been reviewed. Difficult to assess due to patient unable to respond EARS, NOSE, & THROAT: + dysphagia PULMONARY: denies cough GASTROINTESTINAL: +peg GENITOURINARY: +incontinence MUSCULOSKELETAL: generalized weakness NEUROLOGICAL:+ left sided paresis SKIN: +sacral ulcers PHYSICAL EXAMINATION: VITAL SIGNS: Please see below. GENERAL: NAD, sitting up in chair, alert HEENT: PERRL. Clear conjunctiva, +left sided facial droop CARDIOVASCULAR: Regular rate and rhythm. No murmurs, rubs, or gallops LUNGS: clear to auscultation bilaterally. No wheezes. No rhonchi, breathing comfortably ABDOMEN: Soft, nontender, slightly distended. no guarding, Positive bowel sounds. Normal active bowel sounds, +PEG NEUROLOGICAL: responds to command, able to state his name, read from a nametag EXTREMITIES: grossly 5/5 RUE and RLE, +spontaneous movement LLE, trace in LUE SKIN: sacral ulcers, right frontal incision healed ASSESSMENT:74-year-old M with past medical history of HTn, HLD who presents status post stroke with hemorrhagic conversion PLAN: 1. rehab- pt/ot advance mobility and ADLs, strengthen/stretch/maintain ROM all 4limbs, starting to tolerate being upright more and beginning to participate in therapy from a cognitive standpoint -CIRCULATION CLERK for cog and swallow eval-oral care s/p MBS, c/u NPO, feeds ok with CIRCULATION CLERK 2. 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 Cardiac- hx of HTN c/u labetalol, amlodipine, Diovan, clonidine for elevated BPs- medicine consulted to assist in overall management -ECHO at [facility] 06-11-20 showing grade 2 diastolic CHF 4. Resp- s/p treatment for klebsiella PNA with hypoxic respiratory failure at [facility], restarted on IV zosyn on 06-29-20 due to increased work of breathing and fever, f/u CT 07-01-20 showing no definite infiltrate, however did show bilat discoid atelectasis, had finished abx, however patient more lethargic over the weekend requiring more [address] chest 07-18-20 showing new left sided infiltrate, restarted ZOsyn for recurrent aspiration PNA, today per staff patient more alert and less lethargic, c/u duonebs, guaifenesin, HOB elevated order in since admission to reduce aspiration risk -suspect sleep apnea, c/u nocturnal 02- goal 88-92% to avoid increasing apneic episodes 5. GI- NPO with minimal feeds with CIRCULATION CLERK, PEG dislodged s.p EGD replacement per general surgery 07-17-20, patient tolerating PEG feeds -c/u zofran prn for nausea -pepcid for ppx, Simethicone -FOBT negative 6. DVT ppx- dopplers negative for dvt, c/u lovenox 7. SKin- turn q2,heel floats, zinc oxide-corn starch to sacrum q2h- sacral ulcers healing 8. - not retaining, however incontinent, but Urine negative for infection 9. Renal- consulted for fluid management in setting of CHF, to monitor kidney function, and assist with iron deficiency anemia- intervention appreciated, renal signed 9. Endo- newly dx DM, c/u insulin adjustments for hyperglycemia 10. heme- iron deficiency anemia s/p venofer per renal and 1 unit prbc 07-02-20, FOBT negative, c/u to monitor 10. Pain- tylenol changed to standing with lidoderm patch to right shoulder- -will start gabapentin for neuropathy 11. Dispo- TBD Allergies Coded Allergies: No Known Allergies (Unverified , 06/23/20) Vital Signs Vital Signs Date Time Temp Pulse Resp B/P (MAP) Pulse Ox O2 Delivery O2 Flow Rate FiO2 07/19/20 14:00 97.8 89 20 142/63 (89) 92 Room Air 07/18/20 14:00 2.0 Laboratory Data CBC/BMP Laboratory Tests 07/19/20 06:58 Labs 24H Laboratory Tests 2 07/18/20 16:16: Bedside Glucose (Misc Panel) 203H 07/18/20 17:27: Urine Color YELLOW, Urine Appearance CLEAR, Urine pH 7.0, Urine Specific [place] 1.008, Urine Protein NEGATIVE, Urine Glucose (UA) NEGATIVE, Urine Ketones NEGATIVE, Urine Blood 1+H, Urine Nitrite NEGATIVE, Urine Bilirubin NEGATIVE, Urine Urobilinogen 0.2, Urine Leukocyte Esterase NEGATIVE, Urine WBC (Auto) 0, Urine RBC (Auto) 2, Urine Hyaline Casts (Auto) 0, Urine Bacteria (Auto) NEGATIVE, Urine Squamous Epithelial Cells 0, Urine Sperm (Auto) 07/18/20 19:29: Bedside Glucose (Misc Panel) 191H 07/19/20 05:45: Bedside Glucose (Misc Panel) 162H 07/19/20 06:58: Nucleated Red Blood Cells % (auto) 0.0, Anion Gap 7L, Glomerular Filtration Rate > 60.0, Calcium Level 9.0 07/19/20 11:27: Bedside Glucose (Misc Panel) 237H Current Medications Current Medications Current Medications Medications (Trade) Dose Ordered Sig/Andi Route PRN Reason Start Time Stop Time Status Last Admin Dose Admin Acetaminophen (Tylenol Suspension) 650 mg Q8HP PRN PEG fever 07/09/20 17:45 07/18/20 13:52 Acetaminophen (Tylenol Suspension) 650 mg TID GT 06/29/20 16:00 07/19/20 08:37 Acetaminophen (Tylenol Tab) 650 mg Q4HP PRN PEG fever/MILD PAIN (PS 1-4) 06/23/20 13:55 06/29/20 13:35 DC Acetaminophen (Tylenol Tab) 650 mg Q8HP PRN PEG fever 06/29/20 13:35 07/09/20 17:43 DC Albuterol/ Ipratropium (Duoneb (Ipr 0.5mg/Alb 2.5mg)) 3 ml RTID NEB 06/23/20 20:00 07/19/20 13:17 Amantadine HCl (Symmetrel Syrup) 100 mg BID PEG 06/23/20 21:00 07/19/20 08:36 Amlodipine Besylate (Norvasc) 5 mg DAILY PEG 06/24/20 09:00 07/08/20 08:39 DC 07/08/20 08:23 Amlodipine Besylate (Norvasc) 10 mg DAILY PEG 07/09/20 09:00 07/19/20 08:41 Aspirin (Aspirin Chewable) 81 mg DAILY PEG 06/24/20 09:00 07/19/20 08:41 Atorvastatin Calcium (Lipitor) 80 mg QHS PEG 06/23/20 21:00 07/18/20 20:32 Bisacodyl (Dulcolax Suppository) 10 mg DAILYPRN PRN [place] CONSTIPATION 06/23/20 13:55 06/29/20 11:02 Clonidine HCl (Catapres) 0.1 mg BID GT 06/23/20 21:00 07/05/20 10:16 DC 07/05/20 07:57 Clonidine HCl (Catapres) 0.2 mg BID GT 07/05/20 21:00 Hold 07/16/20 20:32 Clonidine HCl (Stvfsmwy-Tcx-5) 1 ea Mo@[facility] 07/17/20 09:00 07/17/20 11:42 DC Dextrose (Dextrose 50%) 25 ml ASDIRECTED PRN IV SEE LABEL COMMENTS 07/04/20 11:05 Dextrose (Dextrose 50%) 25 ml ASDIRECTED PRN IV SEE LABEL COMMENTS 06/23/20 13:55 07/04/20 11:07 DC Enoxaparin Sodium (Lovenox) 40 mg DAILY SC 06/24/20 09:00 07/19/20 08:35 Escitalopram Oxalate (Lexapro) 10 mg DAILY PEG 07/04/20 09:00 07/19/20 08:41 Famotidine (Pepcid) 40 mg BID PEG 06/23/20 21:00 07/03/20 10:00 DC 07/03/20 09:44 Ferrous Sulfate (Ferrous Sulfate) 300 mg BID PEG 06/27/20 09:00 07/01/20 09:25 DC 07/01/20 08:47 Ferrous Sulfate (Ferrous Sulfate) 300 mg DAILY PEG 07/02/20 09:00 07/19/20 08:36 Glucagon (Glucagon) 1 mg ASDIRECTED PRN SC SEE LABEL COMMENTS 07/04/20 11:05 Glucagon (Glucagon) 1 mg ASDIRECTED PRN SC SEE LABEL COMMENTS 06/23/20 13:55 07/04/20 11:07 DC Glucose (Glucose) 16 GM ASDIRECTED PRN PO SEE LABEL COMMENTS 07/04/20 11:05 Glucose (Glucose) 16 GM ASDIRECTED PRN PO SEE LABEL COMMENTS 06/23/20 13:55 07/04/20 11:07 DC Guaifenesin (Robitussin) 10 ml QID PEG 06/23/20 21:00 07/19/20 12:07 Home Med (Med Rec Complete!) ASDIRECTED XX 06/23/20 19:15 06/23/20 19:14 DC Hydralazine HCl (Apresoline) 25 mg Q6HP PRN PEG SBP>170 07/17/20 17:15 07/19/20 06:10 Insulin Detemir (Levemir Insulin) 10 units DAILY SC 06/29/20 09:00 07/01/20 09:59 DC 06/30/20 08:14 Insulin Detemir (Levemir Insulin) 10 units QHS SC 06/23/20 21:00 06/26/20 09:35 DC 06/25/20 21:02 Insulin Detemir (Levemir Insulin) 12 units QHS SC 06/26/20 21:00 06/27/20 07:18 DC 06/26/20 20:23 Insulin Detemir (Levemir Insulin) 13 units QAM SC 07/01/20 09:00 07/12/20 12:38 DC 07/12/20 08:25 Insulin Detemir (Levemir Insulin) 18 units QAM SC 07/13/20 09:00 07/19/20 08:33 Insulin Detemir (Levemir Insulin) 20 units QHS SC 06/27/20 21:00 06/27/20 12:20 DC Insulin Detemir (Levemir Insulin) 30 units QHS SC 07/05/20 21:00 07/13/20 09:53 DC 07/12/20 21:10 Insulin Detemir (Levemir Insulin) 32 units QHS SC 06/27/20 21:00 07/01/20 08:31 DC 06/30/20 21:19 Insulin Detemir (Levemir Insulin) 34 units QHS SC 07/13/20 21:00 07/18/20 20:35 Insulin Detemir (Levemir Insulin) 40 units QHS SC 07/01/20 21:00 07/05/20 10:16 DC 07/04/20 21:36 Insulin Human Lispro (HumaLOG INSULIN) SEE PROTOCOL TABLE AC SC 07/04/20 12:00 07/19/20 12:04 Insulin Human Lispro (HumaLOG INSULIN) SEE PROTOCOL TABLE Q6H SC 06/23/20 18:00 07/04/20 11:07 DC 07/04/20 05:59 Insulin Human Lispro (HumaLOG INSULIN) SEE PROTOCOL TABLE QHS SC 07/04/20 21:00 07/09/20 21:24 Iron 100 mg/ Sodium Chloride 105 ml @ 105 mls/hr Q24H IV 07/01/20 12:00 07/06/20 11:59 DC 07/05/20 12:34 Labetalol HCl (Normodyne, Trandate) 300 mg BID PEG 06/23/20 21:00 07/19/20 08:40 Lidocaine (Lidoderm Patch) 1 patch DAILY TD 06/29/20 13:35 07/19/20 08:38 Lidocaine/ Diphenhydr/Alum/ Mg/Simeth (Magic Mouthwash) 5ml QID SSP 06/23/20 21:00 07/19/20 12:05 Metoclopramide HCl (Reglan Liquid) 5 mg Q6H PEG 06/26/20 12:00 06/28/20 12:28 DC 06/28/20 12:01 Metoclopramide HCl (Reglan Liquid) 10 mg Q6H PEG 06/24/20 00:00 06/26/20 09:35 DC 06/26/20 05:50 Metoprolol Tartrate (Lopressor) 25 mg Q6H PO 07/13/20 12:00 Hold 07/17/20 00:09 Modafinil (Provigil) 100 mg BID@0600,1400 PEG 06/24/20 06:00 07/19/20 13:59 Non-Formulary Medication ( See Comment Field Below ) REMOVE LIDODERM PATCH DAILY@21 XX 06/29/20 21:00 07/18/20 20:36 Omeprazole (First-Omeprazole ORAL SUSPENSION) 40 mg DAILY PEG 07/08/20 09:00 07/19/20 08:39 Oxymetazoline HCl (Afrin) 2 spray ASDIRECTED PRN NA SEE LABEL COMMENTS 07/14/20 08:40 Pantoprazole Sodium (Protonix) 40 mg DAILY IV 07/03/20 10:00 07/07/20 15:23 DC 07/07/20 08:07 Piperacillin Sod/ Tazobactam Sod 4.5 gm/Dextrose 50 ml @ 50 mls/hr Q6H IV 06/29/20 15:00 07/04/20 23:00 DC 07/04/20 21:29 Piperacillin Sod/ Tazobactam Sod 4.5 gm/Dextrose 50 ml @ 50 mls/hr Q6H IV 07/18/20 20:00 07/19/20 14:00 Saliva Substitute (Mouthkote) 2 sprays QID MT 07/05/20 13:00 07/19/20 12:04 Senna (Senokot) 1 tab QHS PEG 06/23/20 21:00 06/29/20 14:44 DC 06/28/20 21:19 Simethicone (Mylicon) 80 mg TID PEG 07/13/20 16:00 07/19/20 08:40 Sodium Chloride ([place] Nasal [place]) 2 spray TID NA 07/03/20 21:00 07/19/20 08:38 Thiamine HCl (VITAMIN B1 INJection) 100 mg DAILY IM 06/24/20 09:00 07/19/20 08:36 Valsartan (Diovan) 320 mg DAILY PEG 06/24/20 09:00 07/19/20 08:40 RICKY MCDONOUGH MD Jul 19, 2020 15:25
[2020-07-19] MEDS ORDERED: POTASSIUM CHLORIDE 10% LIQ 20 MEQ/15 ML UDC GT ONE (15:30)
[2020-07-19] MEDS: cloNIDine 0.1MG TABLET GT SCH ×2 (16:17→20:42)
[2020-07-19] MEDS: GABAPENTIN 100 MG CAP PEG SCH ×2 (16:17→20:40)
[2020-07-19 20:00] VITALS: BP 162/73
[2020-07-19] MEDS: **NOTE PATIENT COMMENT** MISC XX SCH (20:39)
[2020-07-19] MEDS: ATORVASTATIN 20 MG TAB PEG SCH (20:40)
[2020-07-19] MEDS: METOPROLOL TART 25 MG TABLET GT SCH (20:41)
[2020-07-19 23:23] LABS: CLOSTRIDIUM DIFFICILE PCR NEGATIVE (NEGATIVE)
[2020-07-20] MEDS: REMEDY PHYTOPLEX Z-GUARD PASTE 113GM TUBE (FROM STOREROOM PRODUCT) TOP SCH ×12 (00:49→23:13)
[2020-07-20] MEDS: PIPERACILLIN/TAZOBACTAM SOD 4.5 GM in D5W MINI-BAG PLUS 50 ML IV SCH ×4 (01:59→20:35)
[2020-07-20 05:16] VITALS: BP 142/80
[2020-07-20] MEDS: MODAFINIL 100 MG TABLET PEG SCH ×2 (05:43→13:33)
[2020-07-20 07:02] LABS: HEMATOCRIT 30.9 % (42.0-52.0); HEMOGLOBIN 9.3 g/dl (13.5-17.5); MEAN CORPUSCULAR HEMOGLOBIN 25.4 pg (27.0-33.0); MEAN CORPUSCULAR HGB CONC 30.1 g/dl (32.0-36.5); MEAN CORPUSCULAR VOLUME 84.4 fl (80.0-96.0); PLATELET COUNT, AUTOMATED 207 10^3/uL (150-450); RED BLOOD COUNT 3.66 10^6/uL (4.30-6.10); WHITE BLOOD COUNT 6.9 10^3/uL (4.0-10.0)
[2020-07-20 07:31] LABS: BLOOD UREA NITROGEN 16 MG/DL (7-18); CALCIUM LEVEL 8.3 MG/DL (8.8-10.2); CARBON DIOXIDE LEVEL 30 MEQ/L (21-32); CHLORIDE LEVEL 102 MEQ/L (98-107); CREATININE FOR GFR 0.53 MG/DL (0.70-1.30); GLOMERULAR FILTRATION RATE > 60.0 (>42); GLUCOSE, FASTING 194 MG/DL (70-100); POTASSIUM SERUM 3.7 MEQ/L (3.5-5.1); SODIUM LEVEL 137 MEQ/L (136-145)
[2020-07-20] MEDS: IPRATROPIUM 0.5MG/ALBUTEROL 2.5MG INH SOL UD 3ML (DUONEB) NEB SCH ×3 (07:33→19:47)
[2020-07-20] MEDS: MAGIC MOUTHWASH SUSPENSION BTL SSP SCH ×4 (08:35→20:35)
[2020-07-20] MEDS: guaiFENesin SYRUP 200 MG/10 ML UDC PEG SCH ×4 (08:36→20:37)
[2020-07-20] MEDS: GABAPENTIN 100 MG CAP PEG SCH ×3 (08:36→20:39)
[2020-07-20] MEDS: FERROUS SULFATE 300MG/5ML UDC LIQUID PEG SCH (08:36)
[2020-07-20] MEDS: AMANTADINE 100MG/10ML SYRUP UDC PEG SCH ×2 (08:36→20:37)
[2020-07-20] MEDS: ENOXAPARIN 40MG/0.4ML SYRINGE (J1650 PER 10MG) SC SCH (08:37)
[2020-07-20] MEDS: OMEPRAZOLE SUSPENSION 20MG 10ML ORAL SYRINGE PEG SCH (08:37)
[2020-07-20] MEDS: SODIUM CHLORIDE NASAL 0.65% SPRAY BTL (OCEAN) SCH ×3 (08:37→20:35)
[2020-07-20] MEDS: HumaLOG INSULIN (NovoLOG) PER UNIT SC SCH ×4 (08:38→20:36)
[2020-07-20] MEDS: LIDOCAINE 5% (LIDODERM) PATCH TD SCH (08:38)
[2020-07-20] MEDS: LABETALOL 100MG TAB PEG SCH ×2 (08:39→20:38)
[2020-07-20] MEDS: METOPROLOL TART 25 MG TABLET GT SCH ×2 (08:40→20:39)
[2020-07-20] MEDS: ASPIRIN 81 MG CHEW TABLET PEG SCH (08:40)
[2020-07-20] MEDS: cloNIDine 0.1MG TABLET GT SCH ×3 (08:40→20:39)
[2020-07-20] MEDS: VALSARTAN 80 MG TAB (DIOVAN) PEG SCH (08:40)
[2020-07-20] MEDS: ESCITALOPRAM OXALATE 10 MG TAB (LEXAPRO) PEG SCH (08:40)
[2020-07-20] MEDS: SALIVA SUBSTITUTE(MOUTHKOTE) BTL MT SCH ×4 (08:41→20:35)
[2020-07-20] MEDS: LEVEMIR (INSULIN DETEMIR) 1 UNITS/0.01ML SC SCH ×2 (08:48→20:36)
[2020-07-20] MEDS: ACETAMINOPHEN 325 MG/10.15 ML UDC GT SCH ×3 (08:48→20:38)
[2020-07-20] MEDS: SIMETHICONE 80MG CHEW TAB PEG SCH ×3 (08:48→20:39)
--- NOTE | 2020-07-20 11:31 | IPNPDOC ---
PM&R Progress Note DATE OF SERVICE: Jul 20, 2020 [facility] Progress Note Subjective: Patient seen in his room with his , appearing comfortable, tired, but reported to have had a good day in therapy. REVIEW OF SYSTEMS: The following is a completed review of systems and has been reviewed. Difficult to assess due to patient unable to respond EARS, NOSE, & THROAT: + dysphagia PULMONARY: denies cough GASTROINTESTINAL: +peg GENITOURINARY: +incontinence MUSCULOSKELETAL: generalized weakness NEUROLOGICAL:+ left sided paresis SKIN: +sacral ulcers PHYSICAL EXAMINATION: VITAL SIGNS: Please see below. GENERAL: NAD, sitting up in chair, alert HEENT: PERRL. Clear conjunctiva, +left sided facial droop CARDIOVASCULAR: Regular rate and rhythm. No murmurs, rubs, or gallops LUNGS: clear to auscultation bilaterally. No wheezes. No rhonchi, breathing comfortably ABDOMEN: Soft, nontender, slightly distended. no guarding, Positive bowel sounds. Normal active bowel sounds, +PEG NEUROLOGICAL: responds to command, able to state his name, read from a name-tag EXTREMITIES: grossly 5/5 RUE and RLE, +spontaneous movement LLE, trace in LUE SKIN: sacral ulcers, right frontal incision healed ASSESSMENT:74-year-old M with past medical history of HTn, HLD who presents status post stroke with hemorrhagic conversion PLAN: 1. rehab- pt/ot advance mobility and ADLs, strengthen/stretch/maintain ROM all 4limbs, starting to tolerate being upright more and beginning to participate in therapy from a cognitive standpoint -CENTRAL SUPPLY SUPERVISOR for cog and swallow eval-oral care s/p MBS, c/u NPO, feeds ok with CENTRAL SUPPLY SUPERVISOR 2. 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 Cardiac- hx of HTN c/u labetalol, amlodipine, Diovan, clonidine for elevated BPs- medicine consulted to assist in overall management -ECHO at [facility] 06-11-20 showing grade 2 diastolic CHF 4. Resp- s/p treatment for klebsiella PNA with hypoxic respiratory failure at [facility], restarted on IV zosyn on 06-29-20 due to increased work of breathing and fever, f/u CT 07-01-20 showing no definite infiltrate, however did show bilat discoid atelectasis, had finished abx, however patient more lethargic over the weekend requiring more [address] chest 07-18-20 showing new left sided infiltrate, restarted ZOsyn for recurrent aspiration PNA, patient c/u to be more alert and less lethargic, c/u duonebs, guaifenesin, HOB elevated order in since admission to reduce aspiration risk -suspect sleep apnea, c/u nocturnal 02- goal 88-92% to avoid increasing apneic episodes 5. GI- NPO with minimal feeds with CENTRAL SUPPLY SUPERVISOR, PEG dislodged s/p EGD replacement per general surgery 07-17-20, patient tolerating PEG feeds -pepcid for ppx, Simethicone -FOBT negative 6. DVT ppx- dopplers negative for dvt, c/u lovenox 7. SKin- turn q2,heel floats, zinc oxide-corn starch to sacrum q2h- sacral ulcers healing 8. - not retaining, however incontinent, but Urine negative for infection 9. Renal- consulted for fluid management in setting of CHF, to monitor kidney function, and assist with iron deficiency anemia- intervention appreciated, renal signed 9. Endo- newly dx DM, c/u insulin adjustments for hyperglycemia 10. heme- iron deficiency anemia s/p venofer per renal and 1 unit prbc 07-02-20, FOBT negative, c/u to monitor 10. Pain- tylenol changed to standing with lidoderm patch to right shoulder- -c/u gabapentin for neuropathy 11. Dispo- TBD Allergies Coded Allergies: No Known Allergies (Unverified , 06/23/20) Vital Signs Vital Signs Date Time Temp Pulse Resp B/P (MAP) Pulse Ox O2 Delivery O2 Flow Rate FiO2 07/20/20 08:40 70 142/80 07/20/20 05:16 97.1 19 95 Room Air 07/18/20 14:00 2.0 Laboratory Data CBC/BMP Laboratory Tests 07/20/20 06:52 Labs 24H Laboratory Tests 2 07/19/20 17:00: Bedside Glucose (Misc Panel) 226H 07/19/20 19:45: Bedside Glucose (Misc Panel) 217H 07/19/20 22:32: Clostridium difficile [id number] PRESUMPTIVE NEGATIVE, Clostridium difficile Toxin (PCR) NEGATIVE 07/20/20 04:40: Bedside Glucose (Misc Panel) 159H 07/20/20 06:52: Nucleated Red Blood Cells % (auto) 0.0, Anion Gap 5L, Glomerular Filtration Rate > 60.0, Calcium Level 8.3L Current Medications Current Medications Current Medications Medications (Trade) Dose Ordered Sig/Andi Route PRN Reason Start Time Stop Time Status Last Admin Dose Admin Acetaminophen (Tylenol Suspension) 650 mg Q8HP PRN PEG fever 07/09/20 17:45 07/18/20 13:52 Acetaminophen (Tylenol Suspension) 650 mg TID GT 06/29/20 16:00 07/20/20 08:48 Acetaminophen (Tylenol Tab) 650 mg Q4HP PRN PEG fever/MILD PAIN (PS 1-4) 06/23/20 13:55 06/29/20 13:35 DC Acetaminophen (Tylenol Tab) 650 mg Q8HP PRN PEG fever 06/29/20 13:35 07/09/20 17:43 DC Albuterol/ Ipratropium (Duoneb (Ipr 0.5mg/Alb 2.5mg)) 3 ml RTID NEB 06/23/20 20:00 07/20/20 07:33 Amantadine HCl (Symmetrel Syrup) 100 mg BID PEG 06/23/20 21:00 07/20/20 08:36 Amlodipine Besylate (Norvasc) 5 mg DAILY PEG 06/24/20 09:00 07/08/20 08:39 DC 07/08/20 08:23 Amlodipine Besylate (Norvasc) 10 mg DAILY PEG 07/09/20 09:00 07/20/20 08:39 Aspirin (Aspirin Chewable) 81 mg DAILY PEG 06/24/20 09:00 07/20/20 08:40 Atorvastatin Calcium (Lipitor) 80 mg QHS PEG 06/23/20 21:00 07/19/20 20:40 Bisacodyl (Dulcolax Suppository) 10 mg DAILYPRN PRN [place] CONSTIPATION 06/23/20 13:55 06/29/20 11:02 Clonidine HCl (Catapres) 0.1 mg BID GT 06/23/20 21:00 07/05/20 10:16 DC 07/05/20 07:57 Clonidine HCl (Catapres) 0.1 mg TID GT 07/19/20 16:00 07/20/20 08:40 Clonidine HCl (Catapres) 0.2 mg BID GT 07/05/20 21:00 07/19/20 15:25 DC 07/16/20 20:32 Clonidine HCl ([id number]-[id number]-3) 1 ea Mo@09 [facility] 07/17/20 09:00 07/17/20 11:42 DC Dextrose (Dextrose 50%) 25 ml ASDIRECTED PRN IV SEE LABEL COMMENTS 07/04/20 11:05 Dextrose (Dextrose 50%) 25 ml ASDIRECTED PRN IV SEE LABEL COMMENTS 06/23/20 13:55 07/04/20 11:07 DC Enoxaparin Sodium (Lovenox) 40 mg DAILY SC 06/24/20 09:00 07/20/20 08:37 Escitalopram Oxalate (Lexapro) 10 mg DAILY PEG 07/04/20 09:00 07/20/20 08:40 Famotidine (Pepcid) 40 mg BID PEG 06/23/20 21:00 07/03/20 10:00 DC 07/03/20 09:44 Ferrous Sulfate (Ferrous Sulfate) 300 mg BID PEG 06/27/20 09:00 07/01/20 09:25 DC 07/01/20 08:47 Ferrous Sulfate (Ferrous Sulfate) 300 mg DAILY PEG 07/02/20 09:00 07/20/20 08:36 Gabapentin (Neurontin) 200 mg TID PEG 07/19/20 16:00 07/20/20 08:36 Glucagon (Glucagon) 1 mg ASDIRECTED PRN SC SEE LABEL COMMENTS 07/04/20 11:05 Glucagon (Glucagon) 1 mg ASDIRECTED PRN SC SEE LABEL COMMENTS 06/23/20 13:55 07/04/20 11:07 DC Glucose (Glucose) 16 GM ASDIRECTED PRN PO SEE LABEL COMMENTS 07/04/20 11:05 Glucose (Glucose) 16 GM ASDIRECTED PRN PO SEE LABEL COMMENTS 06/23/20 13:55 07/04/20 11:07 DC Guaifenesin (Robitussin) 10 ml QID PEG 06/23/20 21:00 07/20/20 08:36 Home Med (Med Rec Complete!) ASDIRECTED XX 06/23/20 19:15 06/23/20 19:14 DC Hydralazine HCl (Apresoline) 25 mg Q6HP PRN PEG SBP>170 07/17/20 17:15 07/19/20 06:10 Insulin Detemir (Levemir Insulin) 10 units DAILY SC 06/29/20 09:00 07/01/20 09:59 DC 06/30/20 08:14 Insulin Detemir (Levemir Insulin) 10 units QHS SC 06/23/20 21:00 06/26/20 09:35 DC 06/25/20 21:02 Insulin Detemir (Levemir Insulin) 12 units QHS SC 06/26/20 21:00 06/27/20 07:18 DC 06/26/20 20:23 Insulin Detemir (Levemir Insulin) 13 units QAM SC 07/01/20 09:00 07/12/20 12:38 DC 07/12/20 08:25 Insulin Detemir (Levemir Insulin) 18 units QAM SC 07/13/20 09:00 07/20/20 08:48 Insulin Detemir (Levemir Insulin) 20 units QHS SC 06/27/20 21:00 06/27/20 12:20 DC Insulin Detemir (Levemir Insulin) 30 units QHS SC 07/05/20 21:00 07/13/20 09:53 DC 07/12/20 21:10 Insulin Detemir (Levemir Insulin) 32 units QHS SC 06/27/20 21:00 07/01/20 08:31 DC 06/30/20 21:19 Insulin Detemir (Levemir Insulin) 34 units QHS SC 07/13/20 21:00 07/19/20 20:39 Insulin Detemir (Levemir Insulin) 40 units QHS SC 07/01/20 21:00 07/05/20 10:16 DC 07/04/20 21:36 Insulin Human Lispro (HumaLOG INSULIN) SEE PROTOCOL TABLE AC SC 07/04/20 12:00 07/20/20 08:38 Insulin Human Lispro (HumaLOG INSULIN) SEE PROTOCOL TABLE Q6H SC 06/23/20 18:00 07/04/20 11:07 DC 07/04/20 05:59 Insulin Human Lispro (HumaLOG INSULIN) SEE PROTOCOL TABLE QHS SC 07/04/20 21:00 07/09/20 21:24 Iron 100 mg/ Sodium Chloride 105 ml @ 105 mls/hr Q24H IV 07/01/20 12:00 07/06/20 11:59 DC 07/05/20 12:34 Labetalol HCl (Normodyne, Trandate) 300 mg BID PEG 06/23/20 21:00 07/20/20 08:39 Lidocaine (Lidoderm Patch) 1 patch DAILY TD 06/29/20 13:35 07/20/20 08:38 Lidocaine/ Diphenhydr/Alum/ Mg/Simeth (Magic Mouthwash) 5ml QID SSP 06/23/20 21:00 07/20/20 08:35 Metoclopramide HCl (Reglan Liquid) 5 mg Q6H PEG 06/26/20 12:00 06/28/20 12:28 DC 06/28/20 12:01 Metoclopramide HCl (Reglan Liquid) 10 mg Q6H PEG 06/24/20 00:00 06/26/20 09:35 DC 06/26/20 05:50 Metoprolol Tartrate (Lopressor) 25 mg BID GT 07/19/20 21:00 07/20/20 08:40 Metoprolol Tartrate (Lopressor) 25 mg Q6H PO 07/13/20 12:00 07/19/20 15:25 DC 07/17/20 00:09 Modafinil (Provigil) 100 mg BID@0600,1400 PEG 06/24/20 06:00 07/20/20 05:43 Non-Formulary Medication ( See Comment Field Below ) REMOVE LIDODERM PATCH DAILY@21 XX 06/29/20 21:00 07/19/20 20:39 Omeprazole (First-Omeprazole ORAL SUSPENSION) 40 mg DAILY PEG 07/08/20 09:00 07/20/20 08:37 Oxymetazoline HCl (Afrin) 2 spray ASDIRECTED PRN NA SEE LABEL COMMENTS 07/14/20 08:40 Pantoprazole Sodium (Protonix) 40 mg DAILY IV 07/03/20 10:00 07/07/20 15:23 DC 07/07/20 08:07 Patient Own Medication (Patient'S Own Med) 1 ea ASDIRECTED XX 07/19/20 15:35 UNV Piperacillin Sod/ Tazobactam Sod 4.5 gm/Dextrose 50 ml @ 50 mls/hr Q6H IV 06/29/20 15:00 07/04/20 23:00 DC 07/04/20 21:29 Piperacillin Sod/ Tazobactam Sod 4.5 gm/Dextrose 50 ml @ 50 mls/hr Q6H IV 07/18/20 20:00 07/20/20 08:35 Saliva Substitute (Mouthkote) 2 sprays QID MT 07/05/20 13:00 07/20/20 08:41 Senna (Senokot) 1 tab QHS PEG 06/23/20 21:00 06/29/20 14:44 DC 06/28/20 21:19 Simethicone (Mylicon) 80 mg TID PEG 07/13/20 16:00 07/20/20 08:48 Sodium Chloride ([place] Nasal [place]) 2 spray TID NA 07/03/20 21:00 07/20/20 08:37 Thiamine HCl (VITAMIN B1 INJection) 100 mg DAILY IM 06/24/20 09:00 07/19/20 15:28 DC 07/19/20 08:36 Valsartan (Diovan) 320 mg DAILY PEG 06/24/20 09:00 07/20/20 08:40 RICKY MCDONOUGH MD Jul 20, 2020 11:31
[2020-07-20] MEDS: THIAMINE 100 MG TAB NG SCH (12:15)
[2020-07-20 13:43] VITALS: BP 162/70
[2020-07-20] MEDS: METAMUCIL (PSYLLIUM) PACKET PEG SCH (15:18)
[2020-07-20 20:00] VITALS: BP 164/77
[2020-07-20] MEDS: ATORVASTATIN 20 MG TAB PEG SCH (20:37)
[2020-07-20] MEDS: BACLOFEN 5MG PER 1/2 TABLET PEG SCH (20:39)
[2020-07-20] MEDS: VICKS VAPOR RUB TOP SCH (20:40)
[2020-07-20] MEDS: **NOTE PATIENT COMMENT** MISC XX SCH (20:40)
[2020-07-21] MEDS: REMEDY PHYTOPLEX Z-GUARD PASTE 113GM TUBE (FROM STOREROOM PRODUCT) TOP SCH ×11 (00:43→22:35)
[2020-07-21] MEDS: PIPERACILLIN/TAZOBACTAM SOD 4.5 GM in D5W MINI-BAG PLUS 50 ML IV SCH ×4 (02:48→20:42)
[2020-07-21 06:00] VITALS: BP 171/79
[2020-07-21] MEDS: MODAFINIL 100 MG TABLET PEG SCH ×2 (06:12→13:55)
[2020-07-21] MEDS: **hydrALAZINE HCL** 25 MG TAB PEG PRN (06:12)
[2020-07-21] MEDS: IPRATROPIUM 0.5MG/ALBUTEROL 2.5MG INH SOL UD 3ML (DUONEB) NEB SCH ×3 (07:04→20:19)
[2020-07-21 07:34] LABS: BASO % 0.4 % (0.0-1.0); EOS # 0.5 10^3/uL (0.0-0.5); EOS % 6.3 % (0.0-3.0); HEMATOCRIT 31.7 % (42.0-52.0); HEMOGLOBIN 9.6 g/dl (13.5-17.5); LYMPH # 0.9 10^3/uL (1.5-5.0); LYMPH % 10.2 % (24.0-44.0); MEAN CORPUSCULAR HEMOGLOBIN 25.3 pg (27.0-33.0); MEAN CORPUSCULAR HGB CONC 30.3 g/dl (32.0-36.5); MEAN CORPUSCULAR VOLUME 83.6 fl (80.0-96.0); MONO # 0.4 10^3/uL (0.0-0.8); MONO % 5.3 % (2.0-8.0); NEUTROPHILS # 6.4 10^3/uL (1.5-8.5); NEUTROPHILS % 77.4 % (36.0-66.0); PLATELET COUNT, AUTOMATED 210 10^3/uL (150-450); RED BLOOD COUNT 3.79 10^6/uL (4.30-6.10); WHITE BLOOD COUNT 8.3 10^3/uL (4.0-10.0)
[2020-07-21 07:59] LABS: BLOOD UREA NITROGEN 13 MG/DL (7-18); CALCIUM LEVEL 8.4 MG/DL (8.8-10.2); CARBON DIOXIDE LEVEL 30 MEQ/L (21-32); CHLORIDE LEVEL 100 MEQ/L (98-107); GLOMERULAR FILTRATION RATE > 60.0 (>42); GLUCOSE, FASTING 211 MG/DL (70-100); POTASSIUM SERUM 3.6 MEQ/L (3.5-5.1); SODIUM LEVEL 136 MEQ/L (136-145)
[2020-07-21] MEDS: LEVEMIR (INSULIN DETEMIR) 1 UNITS/0.01ML SC SCH ×2 (08:22→20:46)
[2020-07-21] MEDS: HumaLOG INSULIN (NovoLOG) PER UNIT SC SCH ×4 (08:22→20:46)
--- NOTE | 2020-07-21 08:27 | IPNPDOC ---
PM&R Progress Note DATE OF SERVICE: Jul 21, 2020 [employer] Progress Note Subjective: Patient reporting he has no pain and or discomfort with sitting. REVIEW OF SYSTEMS: The following is a completed review of systems and has been reviewed. Difficult to assess due to patient unable to respond EARS, NOSE, & THROAT: + dysphagia PULMONARY: denies cough GASTROINTESTINAL: +peg GENITOURINARY: +incontinence MUSCULOSKELETAL: generalized weakness NEUROLOGICAL:+ left sided paresis SKIN: +sacral ulcers PHYSICAL EXAMINATION: VITAL SIGNS: Please see below. GENERAL: NAD, sitting up in chair, alert HEENT: PERRL. Clear conjunctiva, +left sided facial droop CARDIOVASCULAR: Regular rate and rhythm. No murmurs, rubs, or gallops LUNGS: clear to auscultation bilaterally. No wheezes. No rhonchi, breathing comfortably ABDOMEN: Soft, nontender, slightly distended. no guarding, Positive bowel sounds. Normal active bowel sounds, +PEG NEUROLOGICAL: responds to command, able to state his name, read from a name-tag EXTREMITIES: grossly 5/5 RUE and RLE, +spontaneous movement LLE, trace in LUE SKIN: sacral ulcers (healing) right frontal incision healed ASSESSMENT:74-year-old M with past medical history of HTn, HLD who presents status post stroke with hemorrhagic conversion PLAN: 1. rehab- pt/ot advance mobility and ADLs, strengthen/stretch/maintain ROM all 4limbs, starting to tolerate being upright more and beginning to participate in therapy from a cognitive standpoint -CHEF KITCHEN MANAGER for cog and swallow eval-oral care s/p MBS, c/u NPO, feeds ok with CHEF KITCHEN MANAGER 2. 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 Cardiac- hx of HTN c/u labetalol, amlodipine, Diovan, clonidine for elevated BPs- medicine consulted to assist in overall management -ECHO at [facility] 06-11-20 showing grade 2 diastolic CHF 4. Resp- s/p treatment for klebsiella PNA with hypoxic respiratory failure at [facility], restarted on IV zosyn on 06-29-20 due to increased work of breathing and fever, f/u CT 07-01-20 showing no definite infiltrate, however did show bilat discoid atelectasis, had finished abx, however patient more lethargic over the weekend requiring more [address] chest 07-18-20 showing new left sided infiltrate, restarted ZOsyn for recurrent aspiration PNA, patient c/u to be more alert and less lethargic, c/u duonebs, guaifenesin, HOB elevated order in since admission to reduce aspiration risk -suspect sleep apnea, c/u nocturnal 02- goal 88-92% to avoid increasing apneic episodes 5. GI- NPO with minimal feeds with CHEF KITCHEN MANAGER, PEG dislodged s/p EGD replacement per general surgery 07-17-20, patient tolerating PEG feeds -pepcid for ppx, Simethicone -FOBT negative -preparation H suppositories ordered for hemorrhoids 6. DVT ppx- dopplers negative for dvt, c/u lovenox 7. SKin- turn q2,heel floats, zinc oxide-corn starch to sacrum q2h- sacral ulcers healing 8. - not retaining, however incontinent, but Urine negative for infection 9. Renal- consulted for fluid management in setting of CHF, to monitor kidney function, and assist with iron deficiency anemia- intervention appreciated, renal signed 9. Endo- newly dx DM, c/u insulin adjustments for hyperglycemia 10. heme- iron deficiency anemia s/p venofer per renal and 1 unit prbc 07-02-20, FOBT negative, c/u to monitor 10. Pain- tylenol changed to standing with lidoderm patch to right shoulder- -c/u gabapentin for neuropathy 11. Dispo- TBD Allergies Coded Allergies: No Known Allergies (Unverified , 06/23/20) Vital Signs Vital Signs Date Time Temp Pulse Resp B/P (MAP) Pulse Ox O2 Delivery O2 Flow Rate FiO2 07/21/20 06:12 171/79 07/21/20 06:00 97.2 74 18 96 07/20/20 20:00 Room Air 07/20/20 13:43 93.0 Laboratory Data CBC/BMP Laboratory Tests 07/21/20 07:19 Labs 24H Laboratory Tests 2 07/20/20 11:52: Bedside Glucose (Misc Panel) 313H 07/20/20 16:42: Bedside Glucose (Misc Panel) 297H 07/20/20 19:57: Bedside Glucose (Misc Panel) 239H 07/21/20 06:01: Bedside Glucose (Misc Panel) 138H 07/21/20 07:19: Immature Granulocyte % (Auto) 0.4, Neutrophils (%) (Auto) 77.4H, Lymphocytes (%) (Auto) 10.2L, Monocytes (%) (Auto) 5.3, Eosinophils (%) (Auto) 6.3H, Basophils (%) (Auto) 0.4, Neutrophils # (Auto) 6.4, Lymphocytes # (Auto) 0.9L, Monocytes # (Auto) 0.4, Eosinophils # (Auto) 0.5, Basophils # (Auto) 0.0, Nucleated Red Blood Cells % (auto) 0.0, Anion Gap 6L, Glomerular Filtration Rate > 60.0, Calcium Level 8.4L Current Medications Current Medications Current Medications Medications (Trade) Dose Ordered Sig/Andi Route PRN Reason Start Time Stop Time Status Last Admin Dose Admin Acetaminophen (Tylenol Suspension) 650 mg Q8HP PRN PEG fever 07/09/20 17:45 07/18/20 13:52 Acetaminophen (Tylenol Suspension) 650 mg TID GT 06/29/20 16:00 07/20/20 20:38 Acetaminophen (Tylenol Tab) 650 mg Q4HP PRN PEG fever/MILD PAIN (PS 1-4) 06/23/20 13:55 06/29/20 13:35 DC Acetaminophen (Tylenol Tab) 650 mg Q8HP PRN PEG fever 06/29/20 13:35 07/09/20 17:43 DC Albuterol/ Ipratropium (Duoneb (Ipr 0.5mg/Alb 2.5mg)) 3 ml RTID NEB 06/23/20 20:00 07/21/20 07:04 Amantadine HCl (Symmetrel Syrup) 100 mg BID PEG 06/23/20 21:00 07/20/20 20:37 Amlodipine Besylate (Norvasc) 5 mg DAILY PEG 06/24/20 09:00 07/08/20 08:39 DC 07/08/20 08:23 Amlodipine Besylate (Norvasc) 10 mg DAILY PEG 07/09/20 09:00 07/20/20 08:39 Aspirin (Aspirin Chewable) 81 mg DAILY PEG 06/24/20 09:00 07/20/20 08:40 Atorvastatin Calcium (Lipitor) 80 mg QHS PEG 06/23/20 21:00 07/20/20 20:37 Baclofen (Lioresal) 5 mg BID PEG 07/20/20 21:00 07/20/20 20:39 Bisacodyl (Dulcolax Suppository) 10 mg DAILYPRN PRN [place] CONSTIPATION 06/23/20 13:55 06/29/20 11:02 Clonidine HCl (Catapres) 0.1 mg BID GT 06/23/20 21:00 07/05/20 10:16 DC 07/05/20 07:57 Clonidine HCl (Catapres) 0.1 mg TID GT 07/19/20 16:00 07/20/20 20:39 Clonidine HCl (Catapres) 0.2 mg BID GT 07/05/20 21:00 07/19/20 15:25 DC 07/16/20 20:32 Clonidine HCl (Plujvxxs-Utw-3) 1 ea Mo@[facility] 07/17/20 09:00 07/17/20 11:42 DC Dextrose (Dextrose 50%) 25 ml ASDIRECTED PRN IV SEE LABEL COMMENTS 07/04/20 11:05 Dextrose (Dextrose 50%) 25 ml ASDIRECTED PRN IV SEE LABEL COMMENTS 06/23/20 13:55 07/04/20 11:07 DC Enoxaparin Sodium (Lovenox) 40 mg DAILY SC 06/24/20 09:00 07/20/20 08:37 Escitalopram Oxalate (Lexapro) 10 mg DAILY PEG 07/04/20 09:00 07/20/20 11:29 DC 07/20/20 08:40 Escitalopram Oxalate (Lexapro) 20 mg DAILY PEG 07/21/20 09:00 Famotidine (Pepcid) 40 mg BID PEG 06/23/20 21:00 07/03/20 10:00 DC 07/03/20 09:44 Ferrous Sulfate (Ferrous Sulfate) 300 mg BID PEG 06/27/20 09:00 07/01/20 09:25 DC 07/01/20 08:47 Ferrous Sulfate (Ferrous Sulfate) 300 mg DAILY PEG 07/02/20 09:00 07/20/20 08:36 Gabapentin (Neurontin) 200 mg TID PEG 07/19/20 16:00 07/20/20 20:39 Glucagon (Glucagon) 1 mg ASDIRECTED PRN SC SEE LABEL COMMENTS 07/04/20 11:05 Glucagon (Glucagon) 1 mg ASDIRECTED PRN SC SEE LABEL COMMENTS 06/23/20 13:55 07/04/20 11:07 DC Glucose (Glucose) 16 GM ASDIRECTED PRN PO SEE LABEL COMMENTS 07/04/20 11:05 Glucose (Glucose) 16 GM ASDIRECTED PRN PO SEE LABEL COMMENTS 06/23/20 13:55 07/04/20 11:07 DC Guaifenesin (Robitussin) 10 ml QID PEG 06/23/20 21:00 07/20/20 20:37 Home Med (Med Rec Complete!) ASDIRECTED XX 06/23/20 19:15 06/23/20 19:14 DC Hydralazine HCl (Apresoline) 25 mg Q6HP PRN PEG SBP>170 07/17/20 17:15 07/21/20 06:12 Insulin Detemir (Levemir Insulin) 10 units DAILY SC 06/29/20 09:00 07/01/20 09:59 DC 06/30/20 08:14 Insulin Detemir (Levemir Insulin) 10 units QHS SC 06/23/20 21:00 06/26/20 09:35 DC 06/25/20 21:02 Insulin Detemir (Levemir Insulin) 12 units QHS SC 06/26/20 21:00 06/27/20 07:18 DC 06/26/20 20:23 Insulin Detemir (Levemir Insulin) 13 units QAM SC 07/01/20 09:00 07/12/20 12:38 DC 07/12/20 08:25 Insulin Detemir (Levemir Insulin) 18 units QAM SC 07/13/20 09:00 07/21/20 08:22 Insulin Detemir (Levemir Insulin) 20 units QHS LA 06/27/20 21:00 06/27/20 12:20 DC Insulin Detemir (Levemir Insulin) 30 units QHS LA 07/05/20 21:00 07/13/20 09:53 DC 07/12/20 21:10 Insulin Detemir (Levemir Insulin) 32 units QHS LA 06/27/20 21:00 07/01/20 08:31 DC 06/30/20 21:19 Insulin Detemir (Levemir Insulin) 34 units QHS LA 07/13/20 21:00 07/20/20 20:36 Insulin Detemir (Levemir Insulin) 40 units QHS LA 07/01/20 21:00 07/05/20 10:16 DC 07/04/20 21:36 Insulin Human Lispro (HumaLOG INSULIN) SEE PROTOCOL TABLE AC LA 07/04/20 12:00 07/21/20 08:22 Insulin Human Lispro (HumaLOG INSULIN) SEE PROTOCOL TABLE Q6H LA 06/23/20 18:00 07/04/20 11:07 DC 07/04/20 05:59 Insulin Human Lispro (HumaLOG INSULIN) SEE PROTOCOL TABLE QHS LA 07/04/20 21:00 07/09/20 21:24 Iron 100 mg/ Sodium Chloride 105 ml @ 105 mls/hr Q24H IV 07/01/20 12:00 07/06/20 11:59 DC 07/05/20 12:34 Labetalol HCl (Normodyne, Trandate) 300 mg BID PEG 06/23/20 21:00 07/20/20 20:38 Lidocaine (Lidoderm Patch) 1 patch DAILY TD 06/29/20 13:35 07/20/20 08:38 Lidocaine/ Diphenhydr/Alum/ Mg/Simeth (Magic Mouthwash) 5ml QID SSP 06/23/20 21:00 07/20/20 20:35 Metoclopramide HCl (Reglan Liquid) 5 mg Q6H PEG 06/26/20 12:00 06/28/20 12:28 DC 06/28/20 12:01 Metoclopramide HCl (Reglan Liquid) 10 mg Q6H PEG 06/24/20 00:00 06/26/20 09:35 DC 06/26/20 05:50 Metoprolol Tartrate (Lopressor) 25 mg BID GT 07/19/20 21:00 07/20/20 20:39 Metoprolol Tartrate (Lopressor) 25 mg Q6H PO 07/13/20 12:00 07/19/20 15:25 DC 07/17/20 00:09 Modafinil (Provigil) 100 mg BID@0600,1400 PEG 06/24/20 06:00 07/21/20 06:12 Non-Formulary Medication ( See Comment Field Below ) REMOVE LIDODERM PATCH DAILY@21 XX 06/29/20 21:00 07/20/20 20:40 Omeprazole (First-Omeprazole ORAL SUSPENSION) 40 mg DAILY PEG 07/08/20 09:00 07/20/20 08:37 Oxymetazoline HCl (Afrin) 2 spray ASDIRECTED PRN NA SEE LABEL COMMENTS 07/14/20 08:40 Pantoprazole Sodium (Protonix) 40 mg DAILY IV 07/03/20 10:00 07/07/20 15:23 DC 07/07/20 08:07 Patient Own Medication (Patient'S Own Med) RUB TO NOSE QHS TOP 07/20/20 21:00 07/20/20 20:40 Piperacillin Sod/ Tazobactam Sod 4.5 gm/Dextrose 50 ml @ 50 mls/hr Q6H IV 06/29/20 15:00 07/04/20 23:00 DC 07/04/20 21:29 Piperacillin Sod/ Tazobactam Sod 4.5 gm/Dextrose 50 ml @ 50 mls/hr Q6H IV 07/18/20 20:00 07/21/20 08:23 Psyllium Hydrophilic Mucilloid (Metamucil) 1 pkt DAILY PEG 07/20/20 15:00 07/20/20 15:18 Saliva Substitute (Mouthkote) 2 sprays QID MT 07/05/20 13:00 07/20/20 20:35 Senna (Senokot) 1 tab QHS PEG 06/23/20 21:00 06/29/20 14:44 DC 06/28/20 21:19 Simethicone (Mylicon) 80 mg TID PEG 07/13/20 16:00 07/20/20 20:39 Sodium Chloride ([place] Nasal [place]) 2 spray TID NA 07/03/20 21:00 07/20/20 20:35 Thiamine HCl (Thiamine HCl) 100 mg DAILY NG 07/20/20 09:00 07/20/20 12:15 Thiamine HCl (VITAMIN B1 INJection) 100 mg DAILY IM 06/24/20 09:00 07/19/20 15:28 DC 07/19/20 08:36 Valsartan (Diovan) 320 mg DAILY PEG 06/24/20 09:00 07/20/20 08:40 RICKY MCDONOUGH MD Jul 21, 2020 08:27
[2020-07-21] MEDS: PREPARATION H SUPP (HEMORRHOID) PR SCH ×2 (09:00→20:43)
[2020-07-21] MEDS: FERROUS SULFATE 300MG/5ML UDC LIQUID PEG SCH (09:23)
[2020-07-21] MEDS: AMANTADINE 100MG/10ML SYRUP UDC PEG SCH ×2 (09:23→20:45)
[2020-07-21] MEDS: guaiFENesin SYRUP 200 MG/10 ML UDC PEG SCH ×4 (09:23→20:45)
[2020-07-21] MEDS: OMEPRAZOLE SUSPENSION 20MG 10ML ORAL SYRINGE PEG SCH (09:23)
[2020-07-21] MEDS: ACETAMINOPHEN 325 MG/10.15 ML UDC GT SCH ×3 (09:23→20:44)
[2020-07-21] MEDS: ENOXAPARIN 40MG/0.4ML SYRINGE (J1650 PER 10MG) SC SCH (09:24)
[2020-07-21] MEDS: SIMETHICONE 80MG CHEW TAB PEG SCH ×3 (09:24→21:52)
[2020-07-21] MEDS: METAMUCIL (PSYLLIUM) PACKET PEG SCH (09:24)
[2020-07-21] MEDS: cloNIDine 0.1MG TABLET GT SCH ×3 (09:24→20:42)
[2020-07-21] MEDS: ASPIRIN 81 MG CHEW TABLET PEG SCH (09:25)
[2020-07-21] MEDS: SALIVA SUBSTITUTE(MOUTHKOTE) BTL MT SCH ×4 (09:25→20:50)
[2020-07-21] MEDS: THIAMINE 100 MG TAB NG SCH (09:25)
[2020-07-21] MEDS: GABAPENTIN 100 MG CAP PEG SCH ×3 (09:25→20:43)
[2020-07-21] MEDS: METOPROLOL TART 25 MG TABLET GT SCH ×2 (09:25→20:44)
[2020-07-21] MEDS: VALSARTAN 80 MG TAB (DIOVAN) PEG SCH (09:26)
[2020-07-21] MEDS: LIDOCAINE 5% (LIDODERM) PATCH TD SCH (09:27)
[2020-07-21] MEDS: MAGIC MOUTHWASH SUSPENSION BTL SSP SCH ×4 (09:27→21:52)
[2020-07-21] MEDS: LABETALOL 100MG TAB PEG SCH ×2 (09:27→20:45)
[2020-07-21] MEDS: SODIUM CHLORIDE NASAL 0.65% SPRAY BTL (OCEAN) SCH ×3 (09:27→20:49)
[2020-07-21] MEDS: ESCITALOPRAM OXALATE 10 MG TAB (LEXAPRO) PEG SCH (09:28)
[2020-07-21] MEDS: BACLOFEN 5MG PER 1/2 TABLET PEG SCH ×2 (09:29→20:42)
[2020-07-21 14:00] VITALS: BP 134/66
[2020-07-21 20:10] VITALS: BP 160/80
[2020-07-21] MEDS: ATORVASTATIN 20 MG TAB PEG SCH (20:43)
[2020-07-21] MEDS: VICKS VAPOR RUB TOP SCH (20:47)
[2020-07-21] MEDS: **NOTE PATIENT COMMENT** MISC XX SCH (20:48)
[2020-07-22] MEDS: REMEDY PHYTOPLEX Z-GUARD PASTE 113GM TUBE (FROM STOREROOM PRODUCT) TOP SCH ×11 (00:31→21:31)
[2020-07-22] MEDS: PIPERACILLIN/TAZOBACTAM SOD 4.5 GM in D5W MINI-BAG PLUS 50 ML IV SCH ×4 (01:42→21:30)
[2020-07-22 06:04] VITALS: BP 155/80
[2020-07-22] MEDS: MODAFINIL 100 MG TABLET PEG SCH ×2 (06:04→15:36)
[2020-07-22] MEDS: IPRATROPIUM 0.5MG/ALBUTEROL 2.5MG INH SOL UD 3ML (DUONEB) NEB SCH ×3 (07:26→20:11)
[2020-07-22] MEDS: FERROUS SULFATE 300MG/5ML UDC LIQUID PEG SCH (08:16)
[2020-07-22] MEDS: LIDOCAINE 5% (LIDODERM) PATCH TD SCH (08:16)
[2020-07-22] MEDS: AMANTADINE 100MG/10ML SYRUP UDC PEG SCH ×2 (08:16→21:32)
[2020-07-22] MEDS: ACETAMINOPHEN 325 MG/10.15 ML UDC GT SCH ×3 (08:16→21:31)
[2020-07-22] MEDS: SIMETHICONE 80MG CHEW TAB PEG SCH ×3 (08:17→21:34)
[2020-07-22] MEDS: guaiFENesin SYRUP 200 MG/10 ML UDC PEG SCH ×4 (08:17→21:31)
[2020-07-22] MEDS: GABAPENTIN 100 MG CAP PEG SCH ×3 (08:17→21:34)
[2020-07-22] MEDS: ENOXAPARIN 40MG/0.4ML SYRINGE (J1650 PER 10MG) SC SCH (08:17)
[2020-07-22] MEDS: OMEPRAZOLE SUSPENSION 20MG 10ML ORAL SYRINGE PEG SCH (08:17)
[2020-07-22] MEDS: VALSARTAN 80 MG TAB (DIOVAN) PEG SCH (08:18)
[2020-07-22] MEDS: LABETALOL 100MG TAB PEG SCH ×2 (08:18→21:33)
[2020-07-22] MEDS: ASPIRIN 81 MG CHEW TABLET PEG SCH (08:18)
[2020-07-22] MEDS: ESCITALOPRAM OXALATE 10 MG TAB (LEXAPRO) PEG SCH (08:18)
[2020-07-22] MEDS: BACLOFEN 5MG PER 1/2 TABLET PEG SCH ×2 (08:18→21:33)
[2020-07-22] MEDS: PREPARATION H SUPP (HEMORRHOID) PR SCH ×2 (08:19→21:34)
[2020-07-22] MEDS: METAMUCIL (PSYLLIUM) PACKET PEG SCH (08:19)
[2020-07-22] MEDS: THIAMINE 100 MG TAB NG SCH (08:19)
[2020-07-22] MEDS: METOPROLOL TART 25 MG TABLET GT SCH ×2 (08:19→21:34)
[2020-07-22] MEDS: cloNIDine 0.1MG TABLET GT SCH ×3 (08:19→21:34)
[2020-07-22] MEDS: MAGIC MOUTHWASH SUSPENSION BTL SSP SCH ×4 (08:20→21:32)
[2020-07-22] MEDS: HumaLOG INSULIN (NovoLOG) PER UNIT SC SCH ×4 (08:20→21:00)
[2020-07-22] MEDS: LEVEMIR (INSULIN DETEMIR) 1 UNITS/0.01ML SC SCH ×2 (08:20→21:32)
[2020-07-22] MEDS: SALIVA SUBSTITUTE(MOUTHKOTE) BTL MT SCH ×4 (08:21→21:31)
[2020-07-22] MEDS: SODIUM CHLORIDE NASAL 0.65% SPRAY BTL (OCEAN) SCH ×3 (08:21→21:37)
[2020-07-22] MEDS: **hydrALAZINE HCL** 25 MG TAB PEG SCH ×2 (12:00→18:00)
[2020-07-22 14:00] VITALS: BP 125/61
[2020-07-22 20:00] VITALS: BP 151/67
[2020-07-22] MEDS: ATORVASTATIN 20 MG TAB PEG SCH (21:35)
[2020-07-22] MEDS: VICKS VAPOR RUB TOP SCH (21:36)
[2020-07-22] MEDS: **NOTE PATIENT COMMENT** MISC XX SCH (21:36)
[2020-07-23] MEDS: **hydrALAZINE HCL** 25 MG TAB PEG SCH ×5 (00:30→23:23)
[2020-07-23] MEDS: REMEDY PHYTOPLEX Z-GUARD PASTE 113GM TUBE (FROM STOREROOM PRODUCT) TOP SCH ×13 (00:30→23:21)
[2020-07-23] MEDS: PIPERACILLIN/TAZOBACTAM SOD 4.5 GM in D5W MINI-BAG PLUS 50 ML IV SCH ×4 (02:48→19:38)
[2020-07-23] MEDS: MODAFINIL 100 MG TABLET PEG SCH ×2 (05:44→14:24)
[2020-07-23 06:05] VITALS: BP 152/78
[2020-07-23] MEDS: IPRATROPIUM 0.5MG/ALBUTEROL 2.5MG INH SOL UD 3ML (DUONEB) NEB SCH ×3 (07:31→20:14)
[2020-07-23] MEDS: ACETAMINOPHEN 325 MG/10.15 ML UDC GT SCH ×3 (08:32→21:41)
[2020-07-23] MEDS: FERROUS SULFATE 300MG/5ML UDC LIQUID PEG SCH (08:32)
[2020-07-23] MEDS: AMANTADINE 100MG/10ML SYRUP UDC PEG SCH ×2 (08:32→21:41)
[2020-07-23] MEDS: ASPIRIN 81 MG CHEW TABLET PEG SCH (08:33)
[2020-07-23] MEDS: LIDOCAINE 5% (LIDODERM) PATCH TD SCH (08:33)
[2020-07-23] MEDS: GABAPENTIN 100 MG CAP PEG SCH ×3 (08:33→21:42)
[2020-07-23] MEDS: PREPARATION H SUPP (HEMORRHOID) PR SCH ×2 (08:33→21:41)
[2020-07-23] MEDS: THIAMINE 100 MG TAB NG SCH (08:33)
[2020-07-23] MEDS: HumaLOG INSULIN (NovoLOG) PER UNIT SC SCH ×4 (08:34→21:45)
[2020-07-23] MEDS: ENOXAPARIN 40MG/0.4ML SYRINGE (J1650 PER 10MG) SC SCH (08:36)
[2020-07-23] MEDS: VALSARTAN 80 MG TAB (DIOVAN) PEG SCH (08:36)
[2020-07-23] MEDS: guaiFENesin SYRUP 200 MG/10 ML UDC PEG SCH ×4 (08:36→21:41)
[2020-07-23] MEDS: cloNIDine 0.1MG TABLET GT SCH ×3 (08:37→21:42)
[2020-07-23] MEDS: SIMETHICONE 80MG CHEW TAB PEG SCH ×3 (08:37→21:43)
[2020-07-23] MEDS: BACLOFEN 5MG PER 1/2 TABLET PEG SCH ×2 (08:37→21:42)
[2020-07-23] MEDS: OMEPRAZOLE SUSPENSION 20MG 10ML ORAL SYRINGE PEG SCH (08:37)
[2020-07-23] MEDS: LABETALOL 100MG TAB PEG SCH ×2 (08:37→21:45)
[2020-07-23] MEDS: METOPROLOL TART 25 MG TABLET GT SCH ×2 (08:37→21:43)
[2020-07-23] MEDS: ESCITALOPRAM OXALATE 10 MG TAB (LEXAPRO) PEG SCH (08:38)
[2020-07-23] MEDS: METAMUCIL (PSYLLIUM) PACKET PEG SCH (08:38)
[2020-07-23] MEDS: LEVEMIR (INSULIN DETEMIR) 1 UNITS/0.01ML SC SCH ×2 (08:39→21:44)
[2020-07-23] MEDS: MAGIC MOUTHWASH SUSPENSION BTL SSP SCH ×4 (08:39→21:39)
[2020-07-23] MEDS: SODIUM CHLORIDE NASAL 0.65% SPRAY BTL (OCEAN) SCH ×3 (08:39→21:39)
[2020-07-23] MEDS: SALIVA SUBSTITUTE(MOUTHKOTE) BTL MT SCH ×4 (08:39→21:39)
[2020-07-23 14:00] VITALS: BP 156/74
[2020-07-23 20:00] VITALS: BP 167/77
[2020-07-23] MEDS: VICKS VAPOR RUB TOP SCH (21:40)
[2020-07-23] MEDS: **NOTE PATIENT COMMENT** MISC XX SCH (21:40)
[2020-07-23] MEDS: ATORVASTATIN 20 MG TAB PEG SCH (21:43)
[2020-07-24] MEDS: REMEDY PHYTOPLEX Z-GUARD PASTE 113GM TUBE (FROM STOREROOM PRODUCT) TOP SCH ×12 (01:13→23:07)
[2020-07-24] MEDS: PIPERACILLIN/TAZOBACTAM SOD 4.5 GM in D5W MINI-BAG PLUS 50 ML IV SCH ×4 (01:25→20:51)
[2020-07-24 05:48] VITALS: BP 160/77
[2020-07-24] MEDS: MODAFINIL 100 MG TABLET PEG SCH ×2 (05:49→14:30)
[2020-07-24] MEDS: **hydrALAZINE HCL** 25 MG TAB PEG SCH ×3 (05:49→17:40)
[2020-07-24] MEDS: IPRATROPIUM 0.5MG/ALBUTEROL 2.5MG INH SOL UD 3ML (DUONEB) NEB SCH ×3 (07:00→19:51)
[2020-07-24 07:50] LABS: BASO % 0.3 % (0.0-1.0); EOS # 0.4 10^3/uL (0.0-0.5); EOS % 5.9 % (0.0-3.0); HEMATOCRIT 33.2 % (42.0-52.0); HEMOGLOBIN 10.1 g/dl (13.5-17.5); LYMPH % 13.6 % (24.0-44.0); MEAN CORPUSCULAR HEMOGLOBIN 25.3 pg (27.0-33.0); MEAN CORPUSCULAR HGB CONC 30.4 g/dl (32.0-36.5); MEAN CORPUSCULAR VOLUME 83.2 fl (80.0-96.0); MONO # 0.4 10^3/uL (0.0-0.8); MONO % 5.8 % (2.0-8.0); NEUTROPHILS # 5.5 10^3/uL (1.5-8.5); NEUTROPHILS % 73.9 % (36.0-66.0); PLATELET COUNT, AUTOMATED 191 10^3/uL (150-450); RED BLOOD COUNT 3.99 10^6/uL (4.30-6.10); WHITE BLOOD COUNT 7.4 10^3/uL (4.0-10.0)
[2020-07-24 08:09] LABS: BLOOD UREA NITROGEN 13 MG/DL (7-18); CALCIUM LEVEL 9.3 MG/DL (8.8-10.2); CARBON DIOXIDE LEVEL 30 MEQ/L (21-32); CHLORIDE LEVEL 101 MEQ/L (98-107); CREATININE FOR GFR 0.51 MG/DL (0.70-1.30); GLOMERULAR FILTRATION RATE > 60.0 (>42); GLUCOSE, FASTING 190 MG/DL (70-100); POTASSIUM SERUM 3.6 MEQ/L (3.5-5.1); SODIUM LEVEL 136 MEQ/L (136-145)
[2020-07-24] MEDS: AMANTADINE 100MG/10ML SYRUP UDC PEG SCH ×2 (08:29→20:57)
[2020-07-24] MEDS: LEVEMIR (INSULIN DETEMIR) 1 UNITS/0.01ML SC SCH ×2 (08:29→20:55)
[2020-07-24] MEDS: HumaLOG INSULIN (NovoLOG) PER UNIT SC SCH ×4 (08:30→20:55)
[2020-07-24] MEDS: METAMUCIL (PSYLLIUM) PACKET PEG SCH (08:31)
[2020-07-24] MEDS: VALSARTAN 80 MG TAB (DIOVAN) PEG SCH (08:34)
[2020-07-24] MEDS: OMEPRAZOLE SUSPENSION 20MG 10ML ORAL SYRINGE PEG SCH (08:35)
[2020-07-24] MEDS: guaiFENesin SYRUP 200 MG/10 ML UDC PEG SCH ×4 (08:35→20:57)
[2020-07-24] MEDS: FERROUS SULFATE 300MG/5ML UDC LIQUID PEG SCH (08:35)
[2020-07-24] MEDS: ENOXAPARIN 40MG/0.4ML SYRINGE (J1650 PER 10MG) SC SCH (08:36)
[2020-07-24] MEDS: ACETAMINOPHEN 325 MG/10.15 ML UDC GT SCH ×4 (08:36→20:57)
[2020-07-24] MEDS: THIAMINE 100 MG TAB NG SCH (08:36)
[2020-07-24] MEDS: SIMETHICONE 80MG CHEW TAB PEG SCH ×3 (08:36→20:58)
[2020-07-24] MEDS: ESCITALOPRAM OXALATE 10 MG TAB (LEXAPRO) PEG SCH (08:37)
[2020-07-24] MEDS: ASPIRIN 81 MG CHEW TABLET PEG SCH (08:37)
[2020-07-24] MEDS: LABETALOL 100MG TAB PEG SCH ×2 (08:37→20:57)
[2020-07-24] MEDS: cloNIDine 0.1MG TABLET GT SCH ×3 (08:37→20:59)
[2020-07-24] MEDS: GABAPENTIN 100 MG CAP PEG SCH ×3 (08:37→20:58)
[2020-07-24] MEDS: SODIUM CHLORIDE NASAL 0.65% SPRAY BTL (OCEAN) SCH ×3 (08:38→20:59)
[2020-07-24] MEDS: SALIVA SUBSTITUTE(MOUTHKOTE) BTL MT SCH ×4 (08:38→20:59)
[2020-07-24] MEDS: BACLOFEN 5MG PER 1/2 TABLET PEG SCH ×2 (08:38→20:58)
[2020-07-24] MEDS: METOPROLOL TART 25 MG TABLET GT SCH ×2 (08:38→20:58)
[2020-07-24] MEDS: MAGIC MOUTHWASH SUSPENSION BTL SSP SCH ×4 (08:38→21:00)
[2020-07-24] MEDS: PREPARATION H SUPP (HEMORRHOID) PR SCH ×2 (08:39→20:52)
[2020-07-24] MEDS: LIDOCAINE 5% (LIDODERM) PATCH TD SCH (08:39)
[2020-07-24 14:00] VITALS: BP 135/63
[2020-07-24 20:00] VITALS: BP 166/76
[2020-07-24] MEDS: ATORVASTATIN 20 MG TAB PEG SCH (20:58)
[2020-07-24] MEDS: VICKS VAPOR RUB TOP SCH (20:59)
[2020-07-24] MEDS: **NOTE PATIENT COMMENT** MISC XX SCH (21:00)
[2020-07-25] MEDS: REMEDY PHYTOPLEX Z-GUARD PASTE 113GM TUBE (FROM STOREROOM PRODUCT) TOP SCH ×13 (00:10→23:43)
[2020-07-25] MEDS: PIPERACILLIN/TAZOBACTAM SOD 4.5 GM in D5W MINI-BAG PLUS 50 ML IV SCH ×4 (01:45→20:46)
[2020-07-25 05:23] VITALS: BP 169/76
[2020-07-25] MEDS: **hydrALAZINE HCL** 25 MG TAB PEG SCH ×5 (05:53→23:51)
[2020-07-25] MEDS: MODAFINIL 100 MG TABLET PEG SCH ×2 (05:53→14:53)
[2020-07-25] MEDS: IPRATROPIUM 0.5MG/ALBUTEROL 2.5MG INH SOL UD 3ML (DUONEB) NEB SCH ×3 (07:09→20:39)
--- NOTE | 2020-07-25 08:05 | IPNPDOC ---
PM&R Progress Note DATE OF SERVICE: Jul 25, 2020 [employer] Progress Note Subjective: Patient seen in his room with in the early afternoon, appearing groggy, but comfortable. stating she was concerned that in the afternoons he doesn't seem to remember her name, but in the mornings he continues to be more alert. REVIEW OF SYSTEMS: The following is a completed review of systems and has been reviewed. Difficult to assess due to patient unable to respond EARS, NOSE, & THROAT: + dysphagia PULMONARY: denies cough GASTROINTESTINAL: +peg GENITOURINARY: +incontinence MUSCULOSKELETAL: generalized weakness NEUROLOGICAL:+ left sided paresis SKIN: +sacral ulcers PHYSICAL EXAMINATION: VITAL SIGNS: Please see below. GENERAL: NAD, sitting up in chair, alert HEENT: PERRL. Clear conjunctiva, +left sided facial droop CARDIOVASCULAR: Regular rate and rhythm. No murmurs, rubs, or gallops LUNGS: clear to auscultation bilaterally. No wheezes. No rhonchi, breathing comfortably ABDOMEN: Soft, nontender, slightly distended. no guarding, Positive bowel so unds. Normal active bowel sounds, +PEG NEUROLOGICAL: waxing and waning levels of alertness, LLE knee flexion tone EXTREMITIES: grossly 5/5 RUE and RLE, +spontaneous movement LLE, trace in LUE SKIN: sacral ulcers (healing) right frontal incision healed ASSESSMENT:74-year-old M with past medical history of HTn, HLD who presents status post stroke with hemorrhagic conversion PLAN: 1. 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 s/p EVD placement and removal 06-10-20, c/u presenting as severe non-traumatic brain injury patient with a [place] Score of about 5 will benefit from co ntinued therapy, c/u ASA and statin -encephalopathy improving, c/u amantadine and provigil for neurostimulation- reglan discontinued- cognition and level of alertness continues to improve -monitor for seizures -patient with left sided paresis due to stroke and RLE weakness in setting of severe lumbar stenosis- tx with therapy -daily thiamine -c/u lexapro increased to 20mg daily to help with motor recovery and mood -will increase current baclofen dosing to assist with developing LLE tone 3. Cardiac- hx of HTN c/u labetalol, amlodipine, Diovan, clonidine for elevated BPs- medicine consulted to assist in overall management -ECHO at [facility] 06-11-20 showing grade 2 diastolic CHF 4. Resp- s/p treatment for klebsiella PNA with hypoxic respiratory failure at [facility], restarted on IV zosyn on 06-29-20 due to increased work of breathing and fever, f/u CT 07-01-20 showing no definite infiltrate, however did show bilat discoid atelectasis, had finished abx, however patient more lethargic over the weekend requiring more [address] chest 07-18-20 showing new left sided infiltrate, restarted ZOsyn for recurrent aspiration PNA and will transition to po Augementin tomorrow, patient c/u to be more alert and less lethargic, c/u duonebs, guaifenesin, HOB elevated order in since admission to reduce aspiration risk -suspect sleep apnea, c/u nocturnal 02- goal 88-92% to avoid increasing apneic episodes 5. GI- NPO with minimal feeds with HE[employer]IP[employer]UMBING SUPERVISOR, PEG dislodged s/p EGD replacement per general surgery 07-17-20, patient tolerating PEG feeds -pepcid for ppx, Simethicone -FOBT negative -preparation H suppositories ordered for hemorrhoids 6. DVT ppx- dopplers negative for dvt, c/u lovenox 7. SKin- turn q2,heel floats, zinc oxide-corn starch to sacrum q2h- sacral ulcers healing 8. - not retaining, however incontinent, but Urine negative for infection 9. Renal- consulted for fluid management in setting of CHF, to monitor kidney function, and assist with iron deficiency anemia- intervention appreciated, renal signed 9. Endo- newly dx DM, c/u insulin adjustments for hyperglycemia 10. heme- iron deficiency anemia s/p venofer per renal and 1 unit prbc 07-02-20, FOBT negative, c/u to monitor 10. Pain- tylenol changed to standing with lidoderm patch to right shoulder-will add liodoerm patch to low back -c/u gabapentin for neuropathy 11. Dispo- TBD Allergies Coded Allergies: No Known Allergies (Unverified , 06/23/20) Vital Signs Vital Signs Date Time Temp Pulse Resp B/P (MAP) Pulse Ox O2 Delivery O2 Flow Rate FiO2 07/25/20 05:53 169/76 07/25/20 05:23 97.8 76 18 94 Room Air 07/20/20 13:43 93.0 Laboratory Data Labs 24H Laboratory Tests 2 07/24/20 11:38: Bedside Glucose (Misc Panel) 224H 07/24/20 16:45: Bedside Glucose (Misc Panel) 191H 07/24/20 19:59: Bedside Glucose (Misc Panel) 228H 07/25/20 05:04: Bedside Glucose (Misc Panel) 158H Current Medications Current Medications Current Medications Medications (Trade) Dose Ordered Sig/Andi Route PRN Reason Start Time Stop Time Status Last Admin Dose Admin Acetaminophen (Tylenol Suspension) 650 mg Q8HP PRN PEG fever 07/09/20 17:45 07/18/20 13:52 Acetaminophen (Tylenol Suspension) 650 mg TID GT 06/29/20 16:00 07/24/20 20:57 Acetaminophen (Tylenol Tab) 650 mg Q4HP PRN PEG fever/MILD PAIN (PS 1-4) 06/23/20 13:55 06/29/20 13:35 DC Acetaminophen (Tylenol Tab) 650 mg Q8HP PRN PEG fever 06/29/20 13:35 07/09/20 17:43 DC Albuterol/ Ipratropium (Duoneb (Ipr 0.5mg/Alb 2.5mg)) 3 ml RTID NEB 06/23/20 20:00 07/25/20 07:09 Amantadine HCl (Symmetrel Syrup) 100 mg BID PEG 06/23/20 21:00 07/24/20 20:57 Amlodipine Besylate (Norvasc) 5 mg DAILY PEG 06/24/20 09:00 07/08/20 08:39 DC 07/08/20 08:23 Amlodipine Besylate (Norvasc) 10 mg DAILY PEG 07/09/20 09:00 07/24/20 08:37 Aspirin (Aspirin Chewable) 81 mg DAILY PEG 06/24/20 09:00 07/24/20 08:37 Atorvastatin Calcium (Lipitor) 80 mg QHS PEG 06/23/20 21:00 07/24/20 20:58 Baclofen (Lioresal) 5 mg BID PEG 07/20/20 21:00 07/24/20 20:58 Bisacodyl (Dulcolax Suppository) 10 mg DAILYPRN PRN ID CONSTIPATION 06/23/20 13:55 06/29/20 11:02 Clonidine HCl (Catapres) 0.1 mg BID GT 06/23/20 21:00 07/05/20 10:16 DC 07/05/20 07:57 Clonidine HCl (Catapres) 0.1 mg TID GT 07/19/20 16:00 07/24/20 20:59 Clonidine HCl (Catapres) 0.2 mg BID GT 07/05/20 21:00 07/19/20 15:25 DC 07/16/20 20:32 Clonidine HCl (Tcmlfeaz-Vvl-3) 1 ea Mo@09 [facility] 07/17/20 09:00 07/17/20 11:42 DC Dextrose (Dextrose 50%) 25 ml ASDIRECTED PRN IV SEE LABEL COMMENTS 07/04/20 11:05 Dextrose (Dextrose 50%) 25 ml ASDIRECTED PRN IV SEE LABEL COMMENTS 06/23/20 13:55 07/04/20 11:07 DC Enoxaparin Sodium (Lovenox) 40 mg DAILY SC 06/24/20 09:00 07/24/20 08:36 Escitalopram Oxalate (Lexapro) 10 mg DAILY PEG 07/04/20 09:00 07/20/20 11:29 DC 07/20/20 08:40 Escitalopram Oxalate (Lexapro) 20 mg DAILY PEG 07/21/20 09:00 07/24/20 08:37 Famotidine (Pepcid) 40 mg BID PEG 06/23/20 21:00 07/03/20 10:00 DC 07/03/20 09:44 Ferrous Sulfate (Ferrous Sulfate) 300 mg BID PEG 06/27/20 09:00 07/01/20 09:25 DC 07/01/20 08:47 Ferrous Sulfate (Ferrous Sulfate) 300 mg DAILY PEG 07/02/20 09:00 07/24/20 08:35 Gabapentin (Neurontin) 200 mg TID PEG 07/19/20 16:00 07/24/20 20:58 Glucagon (Glucagon) 1 mg ASDIRECTED PRN SC SEE LABEL COMMENTS 07/04/20 11:05 Glucagon (Glucagon) 1 mg ASDIRECTED PRN SC SEE LABEL COMMENTS 06/23/20 13:55 07/04/20 11:07 DC Glucose (Glucose) 16 GM ASDIRECTED PRN PO SEE LABEL COMMENTS 07/04/20 11:05 Glucose (Glucose) 16 GM ASDIRECTED PRN PO SEE LABEL COMMENTS 06/23/20 13:55 07/04/20 11:07 DC Guaifenesin (Robitussin) 10 ml QID PEG 06/23/20 21:00 07/24/20 20:57 Home Med (Med Rec Complete!) ASDIRECTED XX 06/23/20 19:15 06/23/20 19:14 DC Hydralazine HCl (Apresoline) 25 mg Q6H PEG 07/22/20 12:00 07/25/20 05:53 Hydralazine HCl (Apresoline) 25 mg Q6HP PRN PEG SBP>170 07/17/20 17:15 07/22/20 10:20 DC 07/21/20 06:12 Insulin Detemir (Levemir Insulin) 10 units DAILY SC 06/29/20 09:00 07/01/20 09:59 DC 06/30/20 08:14 Insulin Detemir (Levemir Insulin) 10 units QHS SC 06/23/20 21:00 06/26/20 09:35 DC 06/25/20 21:02 Insulin Detemir (Levemir Insulin) 12 units QHS SC 06/26/20 21:00 06/27/20 07:18 DC 06/26/20 20:23 Insulin Detemir (Levemir Insulin) 13 units QAM SC 07/01/20 09:00 07/12/20 12:38 DC 07/12/20 08:25 Insulin Detemir (Levemir Insulin) 18 units QAM SC 07/13/20 09:00 07/24/20 08:29 Insulin Detemir (Levemir Insulin) 20 units QHS SC 06/27/20 21:00 06/27/20 12:20 DC Insulin Detemir (Levemir Insulin) 30 units QHS SC 07/05/20 21:00 07/13/20 09:53 DC 07/12/20 21:10 Insulin Detemir (Levemir Insulin) 32 units QHS VA 06/27/20 21:00 07/01/20 08:31 DC 06/30/20 21:19 Insulin Detemir (Levemir Insulin) 34 units QHS VA 07/13/20 21:00 07/24/20 20:55 Insulin Detemir (Levemir Insulin) 40 units QHS VA 07/01/20 21:00 07/05/20 10:16 DC 07/04/20 21:36 Insulin Human Lispro (HumaLOG INSULIN) SEE PROTOCOL TABLE AC VA 07/04/20 12:00 07/24/20 17:40 Insulin Human Lispro (HumaLOG INSULIN) SEE PROTOCOL TABLE Q6H VA 06/23/20 18:00 07/04/20 11:07 DC 07/04/20 05:59 Insulin Human Lispro (HumaLOG INSULIN) [facility] 07/04/20 21:00 07/23/20 21:45 Iron 100 mg/ Sodium Chloride 105 ml @ 105 mls/hr Q24H IV 07/01/20 12:00 07/06/20 11:59 DC 07/05/20 12:34 Labetalol HCl (Normodyne, Trandate) 300 mg BID PEG 06/23/20 21:00 07/24/20 20:57 Lidocaine (Lidoderm Patch) 1 patch DAILY TD 06/29/20 13:35 07/24/20 08:39 Lidocaine/ Diphenhydr/Alum/ Mg/Simeth (Magic Mouthwash) 5ml QID SSP 06/23/20 21:00 07/24/20 21:00 Metoclopramide HCl (Reglan Liquid) 5 mg Q6H PEG 06/26/20 12:00 06/28/20 12:28 DC 06/28/20 12:01 Metoclopramide HCl (Reglan Liquid) 10 mg Q6H PEG 06/24/20 00:00 06/26/20 09:35 DC 06/26/20 05:50 Metoprolol Tartrate (Lopressor) 25 mg BID GT 07/19/20 21:00 07/24/20 20:58 Metoprolol Tartrate (Lopressor) 25 mg Q6H PO 07/13/20 12:00 07/19/20 15:25 DC 07/17/20 00:09 Miscellaneous (Unresolved Clarification Entry) SEE LABEL COMMENTS DAILY XX 07/23/20 09:00 07/23/20 19:09 DC Modafinil (Provigil) 100 mg BID@0600,1400 PEG 06/24/20 06:00 07/25/20 05:53 Non-Formulary Medication ( See Comment Field Below ) REMOVE LIDODERM PATCH DAILY@ XX 06/29/20 21:00 07/23/20 21:40 Omeprazole (First-Omeprazole ORAL SUSPENSION) 40 mg DAILY PEG 07/08/20 09:00 07/24/20 08:35 Oxymetazoline HCl (Afrin) 2 spray ASDIRECTED PRN NA SEE LABEL COMMENTS 07/14/20 08:40 Pantoprazole Sodium (Protonix) 40 mg DAILY IV 07/03/20 10:00 07/07/20 15:23 DC 07/07/20 08:07 Patient Own Medication (Patient'S Own Med) RUB TO NOSE QHS TOP 07/20/20 21:00 07/24/20 20:59 Phenylephrine HCl (Preparation H Supp) 1 sup BID ID 07/21/20 09:00 07/24/20 20:52 Piperacillin Sod/ Tazobactam Sod 4.5 gm/Dextrose 50 ml @ 50 mls/hr Q6H IV 06/29/20 15:00 07/04/20 23:00 DC 07/04/20 21:29 Piperacillin Sod/ Tazobactam Sod 4.5 gm/Dextrose 50 ml @ 50 mls/hr Q6H IV 07/18/20 20:00 07/25/20 01:45 Psyllium Hydrophilic Mucilloid (Metamucil) 1 pkt DAILY PEG 07/20/20 15:00 07/24/20 08:31 Saliva Substitute (Mouthkote) 2 sprays QID MT 07/05/20 13:00 07/24/20 20:59 Senna (Senokot) 1 tab QHS PEG 06/23/20 21:00 06/29/20 14:44 DC 06/28/20 21:19 Simethicone (Mylicon) 80 mg TID PEG 07/13/20 16:00 07/24/20 20:58 Sodium Chloride ([place] Nasal Leoti) 2 spray TID NA 07/03/20 21:00 07/24/20 20:59 Thiamine HCl (Thiamine HCl) 100 mg DAILY NG 07/20/20 09:00 07/24/20 08:36 Thiamine HCl (VITAMIN B1 INJection) 100 mg DAILY IM 06/24/20 09:00 07/19/20 15:28 DC 07/19/20 08:36 Valsartan (Diovan) 320 mg DAILY PEG 06/24/20 09:00 07/24/20 08:34 RICKY MCDONOUGH MD Jul 25, 2020 08:05
[2020-07-25] MEDS: HumaLOG INSULIN (NovoLOG) PER UNIT SC SCH ×4 (08:27→20:49)
[2020-07-25] MEDS: LEVEMIR (INSULIN DETEMIR) 1 UNITS/0.01ML SC SCH ×2 (08:27→20:46)
[2020-07-25] MEDS: FERROUS SULFATE 300MG/5ML UDC LIQUID PEG SCH (08:28)
[2020-07-25] MEDS: ACETAMINOPHEN 325 MG/10.15 ML UDC GT SCH ×3 (08:28→20:48)
[2020-07-25] MEDS: LIDOCAINE 5% (LIDODERM) PATCH TD SCH (08:28)
[2020-07-25] MEDS: AMANTADINE 100MG/10ML SYRUP UDC PEG SCH ×2 (08:28→20:48)
[2020-07-25] MEDS: OMEPRAZOLE SUSPENSION 20MG 10ML ORAL SYRINGE PEG SCH (08:29)
[2020-07-25] MEDS: METAMUCIL (PSYLLIUM) PACKET PEG SCH (08:29)
[2020-07-25] MEDS: guaiFENesin SYRUP 200 MG/10 ML UDC PEG SCH ×4 (08:29→20:48)
[2020-07-25] MEDS: THIAMINE 100 MG TAB NG SCH (08:29)
[2020-07-25] MEDS: SIMETHICONE 80MG CHEW TAB PEG SCH ×3 (08:29→20:47)
[2020-07-25] MEDS: PREPARATION H SUPP (HEMORRHOID) PR SCH ×2 (08:29→20:48)
[2020-07-25] MEDS: ENOXAPARIN 40MG/0.4ML SYRINGE (J1650 PER 10MG) SC SCH (08:29)
[2020-07-25] MEDS: ASPIRIN 81 MG CHEW TABLET PEG SCH (08:29)
[2020-07-25] MEDS: METOPROLOL TART 25 MG TABLET GT SCH ×2 (08:30→20:48)
[2020-07-25] MEDS: ESCITALOPRAM OXALATE 10 MG TAB (LEXAPRO) PEG SCH (08:30)
[2020-07-25] MEDS: GABAPENTIN 100 MG CAP PEG SCH ×3 (08:30→20:47)
[2020-07-25] MEDS: VALSARTAN 80 MG TAB (DIOVAN) PEG SCH (08:31)
[2020-07-25] MEDS: BACLOFEN 5MG PER 1/2 TABLET PEG SCH ×2 (08:31→20:47)
[2020-07-25] MEDS: LABETALOL 100MG TAB PEG SCH ×2 (08:31→20:47)
[2020-07-25] MEDS: cloNIDine 0.1MG TABLET GT SCH ×3 (08:32→20:48)
[2020-07-25] MEDS: SALIVA SUBSTITUTE(MOUTHKOTE) BTL MT SCH ×4 (08:32→20:49)
[2020-07-25] MEDS: SODIUM CHLORIDE NASAL 0.65% SPRAY BTL (OCEAN) SCH ×3 (08:32→20:49)
[2020-07-25] MEDS: MAGIC MOUTHWASH SUSPENSION BTL SSP SCH ×4 (08:33→20:49)
[2020-07-25 14:00] VITALS: BP 135/65
[2020-07-25 20:00] VITALS: BP 161/74
[2020-07-25] MEDS: ATORVASTATIN 20 MG TAB PEG SCH (20:47)
[2020-07-25] MEDS: VICKS VAPOR RUB TOP SCH (20:49)
[2020-07-25] MEDS: **NOTE PATIENT COMMENT** MISC XX SCH (20:49)
[2020-07-25] MEDS ORDERED: **hydrALAZINE HCL** 25 MG TAB As Ordered ONE (23:51)
[2020-07-26] MEDS: REMEDY PHYTOPLEX Z-GUARD PASTE 113GM TUBE (FROM STOREROOM PRODUCT) TOP SCH ×11 (04:22→23:20)
[2020-07-26] MEDS: **hydrALAZINE HCL** 25 MG TAB PEG SCH ×4 (05:46→23:20)
[2020-07-26] MEDS: MODAFINIL 100 MG TABLET PEG SCH ×2 (05:47→13:02)
[2020-07-26 06:00] VITALS: BP 152/71
[2020-07-26] MEDS: IPRATROPIUM 0.5MG/ALBUTEROL 2.5MG INH SOL UD 3ML (DUONEB) NEB SCH ×3 (07:21→20:14)
[2020-07-26 08:24] LABS: BASO % 0.3 % (0.0-1.0); EOS # 0.5 10^3/uL (0.0-0.5); HEMATOCRIT 31.8 % (42.0-52.0); HEMOGLOBIN 9.6 g/dl (13.5-17.5); LYMPH # 0.8 10^3/uL (1.5-5.0); LYMPH % 10.6 % (24.0-44.0); MEAN CORPUSCULAR HEMOGLOBIN 25.5 pg (27.0-33.0); MEAN CORPUSCULAR HGB CONC 30.2 g/dl (32.0-36.5); MEAN CORPUSCULAR VOLUME 84.4 fl (80.0-96.0); MONO # 0.4 10^3/uL (0.0-0.8); MONO % 5.6 % (2.0-8.0); NEUTROPHILS # 5.8 10^3/uL (1.5-8.5); PLATELET COUNT, AUTOMATED 184 10^3/uL (150-450); RED BLOOD COUNT 3.77 10^6/uL (4.30-6.10); WHITE BLOOD COUNT 7.5 10^3/uL (4.0-10.0)
[2020-07-26] MEDS: ACETAMINOPHEN 325 MG/10.15 ML UDC GT SCH ×3 (08:34→23:21)
[2020-07-26] MEDS: ASPIRIN 81 MG CHEW TABLET PEG SCH (08:35)
[2020-07-26] MEDS: METAMUCIL (PSYLLIUM) PACKET PEG SCH (08:35)
[2020-07-26] MEDS: BACLOFEN 5MG PER 1/2 TABLET PEG SCH ×3 (08:35→23:19)
[2020-07-26] MEDS: GABAPENTIN 100 MG CAP PEG SCH ×3 (08:35→23:20)
[2020-07-26] MEDS: AUGMENTIN 875 MG TAB PEG SCH ×2 (08:36→23:27)
[2020-07-26] MEDS: SIMETHICONE 80MG CHEW TAB PEG SCH ×3 (08:36→23:28)
[2020-07-26] MEDS: VALSARTAN 80 MG TAB (DIOVAN) PEG SCH (08:44)
[2020-07-26] MEDS: LABETALOL 100MG TAB PEG SCH ×2 (08:45→23:19)
[2020-07-26] MEDS: cloNIDine 0.1MG TABLET GT SCH ×3 (08:46→23:30)
[2020-07-26] MEDS: ESCITALOPRAM OXALATE 10 MG TAB (LEXAPRO) PEG SCH (08:46)
[2020-07-26] MEDS: THIAMINE 100 MG TAB NG SCH (08:46)
[2020-07-26] MEDS: OMEPRAZOLE SUSPENSION 20MG 10ML ORAL SYRINGE PEG SCH (08:47)
[2020-07-26] MEDS: PREPARATION H SUPP (HEMORRHOID) PR SCH ×2 (08:47→23:28)
[2020-07-26] MEDS: guaiFENesin SYRUP 200 MG/10 ML UDC PEG SCH ×4 (08:47→23:22)
[2020-07-26] MEDS: FERROUS SULFATE 300MG/5ML UDC LIQUID PEG SCH (08:47)
[2020-07-26] MEDS: ENOXAPARIN 40MG/0.4ML SYRINGE (J1650 PER 10MG) SC SCH (08:48)
[2020-07-26] MEDS: LIDOCAINE 5% (LIDODERM) PATCH TD SCH ×2 (08:48→11:36)
[2020-07-26] MEDS: HumaLOG INSULIN (NovoLOG) PER UNIT SC SCH ×4 (08:49→23:26)
[2020-07-26] MEDS: LEVEMIR (INSULIN DETEMIR) 1 UNITS/0.01ML SC SCH ×2 (08:49→23:26)
[2020-07-26] MEDS: METOPROLOL TART 25 MG TABLET GT SCH ×2 (08:50→23:19)
[2020-07-26] MEDS: AMANTADINE 100MG/10ML SYRUP UDC PEG SCH ×2 (08:52→23:21)
[2020-07-26 08:53] LABS: BLOOD UREA NITROGEN 17 MG/DL (7-18); CARBON DIOXIDE LEVEL 30 MEQ/L (21-32); CHLORIDE LEVEL 101 MEQ/L (98-107); CREATININE FOR GFR 0.51 MG/DL (0.70-1.30); GLOMERULAR FILTRATION RATE > 60.0 (>42); GLUCOSE, FASTING 225 MG/DL (70-100); POTASSIUM SERUM 3.7 MEQ/L (3.5-5.1); SODIUM LEVEL 137 MEQ/L (136-145)
[2020-07-26] MEDS: SODIUM CHLORIDE NASAL 0.65% SPRAY BTL (OCEAN) SCH ×3 (11:34→23:23)
[2020-07-26] MEDS: MAGIC MOUTHWASH SUSPENSION BTL SSP SCH ×4 (11:35→23:23)
[2020-07-26] MEDS: SALIVA SUBSTITUTE(MOUTHKOTE) BTL MT SCH ×4 (11:35→23:23)
--- NOTE | 2020-07-26 11:46 | IPNPDOC ---
PM&R Progress Note DATE OF SERVICE: Jul 26, 2020 [employer] Progress Note Subjective: Patient seen in his room, able to assist with turning himself to the side in bed, smiling at his . REVIEW OF SYSTEMS: The following is a completed review of systems and has been reviewed. Difficult to assess due to patient unable to respond EARS, NOSE, & THROAT: + dysphagia PULMONARY: denies cough GASTROINTESTINAL: +peg GENITOURINARY: +incontinence MUSCULOSKELETAL: generalized weakness NEUROLOGICAL:+ left sided paresis SKIN: +sacral ulcers PHYSICAL EXAMINATION: VITAL SIGNS: Please see below. GENERAL: NAD, sitting up in chair, alert HEENT: PERRL. Clear conjunctiva, +left sided facial droop CARDIOVASCULAR: Regular rate and rhythm. No murmurs, rubs, or gallops LUNGS: clear to auscultation bilaterally. No wheezes. No rhonchi, breathing comfortably ABDOMEN: Soft, nontender, slightly distended. no guarding, Positive bowel sounds. Normal active bowel sounds, +PEG NEUROLOGICAL: waxing and waning levels of alertness, LLE knee flexion tone EXTREMITIES: grossly 5/5 RUE and RLE, +spontaneous movement LLE, trace in LUE SKIN: sacral ulcers (healing) right frontal incision healed ASSESSMENT:74-year-old M with past medical history of HTn, HLD who presents status post stroke with hemorrhagic conversion PLAN: 1. 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 s/p EVD placement and removal 06-10-20, c/u presenting as severe non-traumatic brain injury patient with a [place] Score of about 5 will benefit from continued therapy, c/u ASA and statin -encephalopathy improving, c/u amantadine and provigil for neurostimulation- reglan discontinued- cognition and level of alertness continues to improve -monitor for seizures -patient with left sided paresis due to stroke and RLE weakness in setting of severe lumbar stenosis- tx with therapy -daily thiamine -c/u lexapro increased to 20mg daily to help with motor recovery and mood -increasing current baclofen dosing to assist with developing LLE tone 3. Cardiac- hx of HTN c/u labetalol, amlodipine, Diovan, clonidine for elevated BPs- medicine consulted to assist in overall management -ECHO at [facility] 06-11-20 showing grade 2 diastolic CHF 4. Resp- s/p treatment for klebsiella PNA with hypoxic respiratory failure at [facility], restarted on IV zosyn on 06-29-20 due to increased work of breathing and fever, f/u CT 07-01-20 showing no definite infiltrate, however did show bilat discoid atelectasis, had finished abx, however patient more lethargic over the weekend requiring more [address] chest 07-18-20 showing new left sided infiltrate, restarted ZOsyn for recurrent aspiration PNA and will transition to po Augementin tomorrow, patient c/u to be more alert and less lethargic, c/u duonebs, guaifenesin, HOB elevated order in since admission to reduce aspiration risk -suspect sleep apnea, c/u nocturnal 02- goal 88-92% to avoid increasing apneic episodes 5. GI- NPO with minimal feeds with MANUFACTURING WEAVER, PEG dislodged s/p EGD replacement per general surgery 07-17-20, patient tolerating PEG feeds -pepcid for ppx, Simethicone -FOBT negative -preparation H suppositories ordered for hemorrhoids 6. DVT ppx- dopplers negative for dvt, c/u lovenox 7. SKin- turn q2,heel floats, zinc oxide-corn starch to sacrum q2h- sacral ulcers healing 8. - not retaining, however incontinent, but Urine negative for infection 9. Renal- consulted for fluid management in setting of CHF, to monitor kidney function, and assist with iron deficiency anemia- intervention appreciated, renal signed 9. Endo- newly dx DM, c/u insulin adjustments for hyperglycemia 10. heme- iron deficiency anemia s/p venofer per renal and 1 unit prbc 07-02-20, FOBT negative, c/u to monitor 10. Pain- tylenol changed to standing, liododerm patch to low back -c/u gabapentin for neuropathy 11. Dispo- TBD Allergies Coded Allergies: No Known Allergies (Unverified , 06/23/20) Vital Signs Vital Signs Date Time Temp Pulse Resp B/P (MAP) Pulse Ox O2 Delivery O2 Flow Rate FiO2 07/26/20 08:50 80 172/78 07/26/20 06:00 97.5 18 94 Room Air 07/20/20 13:43 93.0 Laboratory Data CBC/BMP Laboratory Tests 07/26/20 07:17 Labs 24H Laboratory Tests 2 07/25/20 16:32: Bedside Glucose (Misc Panel) 222H 07/25/20 19:20: Bedside Glucose (Misc Panel) 226H 07/26/20 05:05: Bedside Glucose (Misc Panel) 145H 07/26/20 07:17: Immature Granulocyte % (Auto) 0.5, Neutrophils (%) (Auto) 77.0H, Lymphocytes (%) (Auto) 10.6L, Monocytes (%) (Auto) 5.6, Eosinophils (%) (Auto) 6.0H, Basophils (%) (Auto) 0.3, Neutrophils # (Auto) 5.8, Lymphocytes # (Auto) 0.8L, Monocytes # (Auto) 0.4, Eosinophils # (Auto) 0.5, Basophils # (Auto) 0.0, Nucleated Red Blood Cells % (auto) 0.0, Anion Gap 6L, Glomerular Filtration Rate > 60.0, Calcium Level 9.0 Current Medications Current Medications Current Medications Medications (Trade) Dose Ordered Sig/Andi Route PRN Reason Start Time Stop Time Status Last Admin Dose Admin Acetaminophen (Tylenol Suspension) 650 mg Q8HP PRN PEG fever 07/09/20 17:45 07/18/20 13:52 Acetaminophen (Tylenol Suspension) 650 mg TID GT 06/29/20 16:00 07/26/20 08:34 Acetaminophen (Tylenol Tab) 650 mg Q4HP PRN PEG fever/MILD PAIN (PS 1-4) 06/23/20 13:55 06/29/20 13:35 DC Acetaminophen (Tylenol Tab) 650 mg Q8HP PRN PEG fever 06/29/20 13:35 07/09/20 17:43 DC Albuterol/ Ipratropium (Duoneb (Ipr 0.5mg/Alb 2.5mg)) 3 ml RTID NEB 06/23/20 20:00 07/26/20 07:21 Amantadine HCl (Symmetrel Syrup) 100 mg BID PEG 06/23/20 21:00 07/26/20 08:52 Amlodipine Besylate (Norvasc) 5 mg DAILY PEG 06/24/20 09:00 07/08/20 08:39 DC 07/08/20 08:23 Amlodipine Besylate (Norvasc) 10 mg DAILY PEG 07/09/20 09:00 07/26/20 08:46 Amoxicillin/ Clavulanate Potassium (Augmentin) 875 mg BID PEG 07/26/20 09:00 07/28/20 21:01 07/26/20 08:36 Aspirin (Aspirin Chewable) 81 mg DAILY PEG 06/24/20 09:00 07/26/20 08:35 Atorvastatin Calcium (Lipitor) 80 mg QHS PEG 06/23/20 21:00 07/25/20 20:47 Baclofen (Lioresal) 5 mg BID PEG 07/20/20 21:00 07/26/20 10:48 DC 07/26/20 08:35 Baclofen (Lioresal) 10 mg TID PEG 07/26/20 16:00 Bisacodyl (Dulcolax Suppository) 10 mg DAILYPRN PRN HI CONSTIPATION 06/23/20 13:55 06/29/20 11:02 Clonidine HCl (Catapres) 0.1 mg BID GT 06/23/20 21:00 07/05/20 10:16 DC 07/05/20 07:57 Clonidine HCl (Catapres) 0.1 mg TID GT 07/19/20 16:00 07/26/20 08:46 Clonidine HCl (Catapres) 0.2 mg BID GT 07/05/20 21:00 07/19/20 15:25 DC 07/16/20 20:32 Clonidine HCl (Qspjxokk-Nzu-6) 1 ea Mo@09 [facility] 07/17/20 09:00 07/17/20 11:42 DC Dextrose (Dextrose 50%) 25 ml ASDIRECTED PRN IV SEE LABEL COMMENTS 07/04/20 11:05 Dextrose (Dextrose 50%) 25 ml ASDIRECTED PRN IV SEE LABEL COMMENTS 06/23/20 13:55 07/04/20 11:07 DC Enoxaparin Sodium (Lovenox) 40 mg DAILY SC 06/24/20 09:00 07/26/20 08:48 Escitalopram Oxalate (Lexapro) 10 mg DAILY PEG 07/04/20 09:00 07/20/20 11:29 DC 07/20/20 08:40 Escitalopram Oxalate (Lexapro) 20 mg DAILY PEG 07/21/20 09:00 07/26/20 08:46 Famotidine (Pepcid) 40 mg BID PEG 06/23/20 21:00 07/03/20 10:00 DC 07/03/20 09:44 Ferrous Sulfate (Ferrous Sulfate) 300 mg BID PEG 06/27/20 09:00 07/01/20 09:25 DC 07/01/20 08:47 Ferrous Sulfate (Ferrous Sulfate) 300 mg DAILY PEG 07/02/20 09:00 07/26/20 08:47 Gabapentin (Neurontin) 200 mg TID PEG 07/19/20 16:00 07/26/20 08:35 Glucagon (Glucagon) 1 mg ASDIRECTED PRN SC SEE LABEL COMMENTS 07/04/20 11:05 Glucagon (Glucagon) 1 mg ASDIRECTED PRN SC SEE LABEL COMMENTS 06/23/20 13:55 07/04/20 11:07 DC Glucose (Glucose) 16 GM ASDIRECTED PRN PO SEE LABEL COMMENTS 07/04/20 11:05 Glucose (Glucose) 16 GM ASDIRECTED PRN PO SEE LABEL COMMENTS 06/23/20 13:55 07/04/20 11:07 DC Guaifenesin (Robitussin) 10 ml QID PEG 06/23/20 21:00 07/26/20 08:47 Home Med (Med Rec Complete!) ASDIRECTED XX 06/23/20 19:15 06/23/20 19:14 DC Hydralazine HCl (Apresoline) 25 mg Q6H PEG 07/22/20 12:00 07/26/20 05:46 Hydralazine HCl (Apresoline) 25 mg Q6HP PRN PEG SBP>170 07/17/20 17:15 07/22/20 10:20 DC 07/21/20 06:12 Insulin Detemir (Levemir Insulin) 10 units DAILY SC 06/29/20 09:00 07/01/20 09:59 DC 06/30/20 08:14 Insulin Detemir (Levemir Insulin) 10 units QHS SC 06/23/20 21:00 06/26/20 09:35 DC 06/25/20 21:02 Insulin Detemir (Levemir Insulin) 12 units QHS IN 06/26/20 21:00 06/27/20 07:18 DC 06/26/20 20:23 Insulin Detemir (Levemir Insulin) 13 units QAM IN 07/01/20 09:00 07/12/20 12:38 DC 07/12/20 08:25 Insulin Detemir (Levemir Insulin) 18 units QAM SC 07/13/20 09:00 07/26/20 08:49 Insulin Detemir (Levemir Insulin) 20 units QHS IN 06/27/20 21:00 06/27/20 12:20 DC Insulin Detemir (Levemir Insulin) 30 units QHS IN 07/05/20 21:00 07/13/20 09:53 DC 07/12/20 21:10 Insulin Detemir (Levemir Insulin) 32 units QHS IN 06/27/20 21:00 07/01/20 08:31 DC 06/30/20 21:19 Insulin Detemir (Levemir Insulin) 34 units QHS IN 07/13/20 21:00 07/25/20 20:46 Insulin Detemir (Levemir Insulin) 40 units QHS IN 07/01/20 21:00 07/05/20 10:16 DC 07/04/20 21:36 Insulin Human Lispro (HumaLOG INSULIN) SEE PROTOCOL TABLE AC SC 07/04/20 12:00 07/26/20 08:49 Insulin Human Lispro (HumaLOG INSULIN) SEE PROTOCOL TABLE Q6H IN 06/23/20 18:00 07/04/20 11:07 DC 07/04/20 05:59 Insulin Human Lispro (HumaLOG INSULIN) SEE PROTOCOL TABLE QHS SC 07/04/20 21:00 07/23/20 21:45 Iron 100 mg/ Sodium Chloride 105 ml @ 105 mls/hr Q24H IV 07/01/20 12:00 07/06/20 11:59 DC 07/05/20 12:34 Labetalol HCl (Normodyne, Trandate) 300 mg BID PEG 06/23/20 21:00 07/26/20 08:45 Lidocaine (Lidoderm Patch) 1 patch DAILY TD 06/29/20 13:35 07/26/20 10:48 DC 07/26/20 08:48 Lidocaine (Lidoderm Patch) 2 patch DAILY TD 07/26/20 10:45 07/26/20 11:36 Lidocaine/ Diphenhydr/Alum/ Mg/Simeth (Magic Mouthwash) 5ml QID SSP 06/23/20 21:00 07/26/20 11:35 Metoclopramide HCl (Reglan Liquid) 5 mg Q6H PEG 06/26/20 12:00 06/28/20 12:28 DC 06/28/20 12:01 Metoclopramide HCl (Reglan Liquid) 10 mg Q6H PEG 06/24/20 00:00 06/26/20 09:35 DC 06/26/20 05:50 Metoprolol Tartrate (Lopressor) 25 mg BID GT 07/19/20 21:00 07/26/20 08:50 Metoprolol Tartrate (Lopressor) 25 mg Q6H PO 07/13/20 12:00 07/19/20 15:25 DC 07/17/20 00:09 Miscellaneous (Unresolved Clarification Entry) SEE LABEL COMMENTS DAILY XX 07/23/20 09:00 07/23/20 19:09 DC Modafinil (Provigil) 100 mg BID@0600,1400 PEG 06/24/20 06:00 07/26/20 05:47 Non-Formulary Medication ( See Comment Field Below ) REMOVE LIDODERM PATCH DAILY@21 XX 06/29/20 21:00 07/26/20 10:48 DC 07/25/20 20:49 Non-Formulary Medication ( See Comment Field Below ) REMOVE LIDODERM PATCH DAILY@21 XX 07/26/20 21:00 Omeprazole (First-Omeprazole ORAL SUSPENSION) 40 mg DAILY PEG 07/08/20 09:00 07/26/20 08:47 Oxymetazoline HCl (Afrin) 2 spray ASDIRECTED PRN NA SEE LABEL COMMENTS 07/14/20 08:40 Pantoprazole Sodium (Protonix) 40 mg DAILY IV 07/03/20 10:00 07/07/20 15:23 DC 07/07/20 08:07 Patient Own Medication (Patient'S Own Med) RUB TO NOSE QHS TOP 07/20/20 21:00 07/25/20 20:49 Phenylephrine HCl (Preparation H Supp) 1 sup BID HI 07/21/20 09:00 07/26/20 08:47 Piperacillin Sod/ Tazobactam Sod 4.5 gm/Dextrose 50 ml @ 50 mls/hr Q6H IV 06/29/20 15:00 07/04/20 23:00 DC 07/04/20 21:29 Piperacillin Sod/ Tazobactam Sod 4.5 gm/Dextrose 50 ml @ 50 mls/hr Q6H IV 07/18/20 20:00 07/25/20 23:00 DC 07/25/20 20:46 Psyllium Hydrophilic Mucilloid (Metamucil) 1 pkt DAILY PEG 07/20/20 15:00 07/26/20 08:35 Saliva Substitute (Mouthkote) 2 sprays QID MT 07/05/20 13:00 07/26/20 11:35 Senna (Senokot) 1 tab QHS PEG 06/23/20 21:00 06/29/20 14:44 DC 06/28/20 21:19 Simethicone (Mylicon) 80 mg TID PEG 07/13/20 16:00 07/26/20 08:36 Sodium Chloride ([place] Nasal [place]) 2 spray TID NA 07/03/20 21:00 07/26/20 11:34 Thiamine HCl (Thiamine HCl) 100 mg DAILY NG 07/20/20 09:00 07/26/20 08:46 Thiamine HCl (VITAMIN B1 INJection) 100 mg DAILY IM 06/24/20 09:00 07/19/20 15:28 DC 07/19/20 08:36 Valsartan (Diovan) 320 mg DAILY PEG 06/24/20 09:00 07/26/20 08:44 RICKY MCDONOUGH MD Jul 26, 2020 11:46
[2020-07-26 14:00] VITALS: BP 160/86
[2020-07-26 17:30] VITALS: BP 168/82
[2020-07-26 21:30] VITALS: BP 158/84
[2020-07-26] MEDS: ATORVASTATIN 20 MG TAB PEG SCH (23:21)
[2020-07-26] MEDS: VICKS VAPOR RUB TOP SCH (23:25)
[2020-07-26] MEDS: **NOTE PATIENT COMMENT** MISC XX SCH (23:25)
[2020-07-27] MEDS: REMEDY PHYTOPLEX Z-GUARD PASTE 113GM TUBE (FROM STOREROOM PRODUCT) TOP SCH ×12 (01:48→21:28)
[2020-07-27] MEDS: **hydrALAZINE HCL** 25 MG TAB PEG SCH ×3 (06:00→17:55)
[2020-07-27 06:04] VITALS: BP 139/65
[2020-07-27] MEDS: MODAFINIL 100 MG TABLET PEG SCH ×2 (06:07→14:21)
[2020-07-27] MEDS: IPRATROPIUM 0.5MG/ALBUTEROL 2.5MG INH SOL UD 3ML (DUONEB) NEB SCH ×3 (07:00→20:41)
[2020-07-27] MEDS: LIDOCAINE 5% (LIDODERM) PATCH TD SCH (09:19)
[2020-07-27] MEDS: HumaLOG INSULIN (NovoLOG) PER UNIT SC SCH ×4 (09:20→21:00)
[2020-07-27] MEDS: PREPARATION H SUPP (HEMORRHOID) PR SCH ×2 (09:20→21:25)
[2020-07-27] MEDS: VALSARTAN 80 MG TAB (DIOVAN) PEG SCH (09:21)
[2020-07-27] MEDS: ASPIRIN 81 MG CHEW TABLET PEG SCH (09:21)
[2020-07-27] MEDS: ACETAMINOPHEN 325 MG/10.15 ML UDC GT SCH ×3 (09:22→21:25)
[2020-07-27] MEDS: guaiFENesin SYRUP 200 MG/10 ML UDC PEG SCH ×4 (09:22→21:25)
[2020-07-27] MEDS: cloNIDine 0.1MG TABLET GT SCH ×3 (09:22→21:24)
[2020-07-27] MEDS: AMANTADINE 100MG/10ML SYRUP UDC PEG SCH ×2 (09:22→21:25)
[2020-07-27] MEDS: FERROUS SULFATE 300MG/5ML UDC LIQUID PEG SCH (09:22)
[2020-07-27] MEDS: ENOXAPARIN 40MG/0.4ML SYRINGE (J1650 PER 10MG) SC SCH (09:22)
[2020-07-27] MEDS: OMEPRAZOLE SUSPENSION 20MG 10ML ORAL SYRINGE PEG SCH (09:23)
[2020-07-27] MEDS: METOPROLOL TART 25 MG TABLET GT SCH ×2 (09:23→21:25)
[2020-07-27] MEDS: GABAPENTIN 100 MG CAP PEG SCH ×3 (09:23→21:25)
[2020-07-27] MEDS: THIAMINE 100 MG TAB NG SCH (09:23)
[2020-07-27] MEDS: BACLOFEN 5MG PER 1/2 TABLET PEG SCH ×3 (09:23→21:24)
[2020-07-27] MEDS: AUGMENTIN 875 MG TAB PEG SCH ×2 (09:23→21:41)
[2020-07-27] MEDS: SIMETHICONE 80MG CHEW TAB PEG SCH ×3 (09:24→21:23)
[2020-07-27] MEDS: METAMUCIL (PSYLLIUM) PACKET PEG SCH (09:24)
[2020-07-27] MEDS: LABETALOL 100MG TAB PEG SCH ×2 (09:24→21:23)
[2020-07-27] MEDS: ESCITALOPRAM OXALATE 10 MG TAB (LEXAPRO) PEG SCH (09:24)
[2020-07-27] MEDS: MAGIC MOUTHWASH SUSPENSION BTL SSP SCH ×4 (09:25→21:27)
[2020-07-27] MEDS: LEVEMIR (INSULIN DETEMIR) 1 UNITS/0.01ML SC SCH ×2 (09:25→21:26)
[2020-07-27] MEDS: SALIVA SUBSTITUTE(MOUTHKOTE) BTL MT SCH ×4 (09:25→21:27)
[2020-07-27] MEDS: SODIUM CHLORIDE NASAL 0.65% SPRAY BTL (OCEAN) SCH ×3 (09:25→21:27)
--- NOTE | 2020-07-27 10:09 | IPNPDOC ---
PM&R Progress Note DATE OF SERVICE: Jul 27, 2020 Research Aide Progress Note Subjective: Patient seen in OT with present, reporting patient has been more alert and participatory for the last 2 days. expressing concern that he has been coughing at about 4 pm every day and wonders if he might be aspirating on his saliva. REVIEW OF SYSTEMS: The following is a completed review of systems and has been reviewed. Difficult to assess due to patient unable to respond EARS, NOSE, & THROAT: + dysphagia PULMONARY: denies cough GASTROINTESTINAL: +peg GENITOURINARY: +incontinence MUSCULOSKELETAL: generalized weakness NEUROLOGICAL:+ left sided paresis SKIN: +sacral ulcers PHYSICAL EXAMINATION: VITAL SIGNS: Please see below. GENERAL: NAD, sitting up in chair, alert HEENT: PERRL. Clear conjunctiva, +left sided facial droop CARDIOVASCULAR: Regular rate and rhythm. No murmurs, rubs, or gallops LUNGS: clear to auscultation bilaterally. No wheezes. No rhonchi, breathing comfortably ABDOMEN: Soft, nontender, slightly distended. no guarding, Positive bowel sounds. Normal active bowel sounds, +PEG NEUROLOGICAL: waxing and waning levels of alertness, LLE knee flexion tone (resolved) EXTREMITIES: grossly 5/5 RUE and RLE, +spontaneous movement LLE, trace in LUE SKIN: sacral ulcers (healing) right frontal incision healed ASSESSMENT:74-year-old M with past medical history of HTn, HLD who presents status post stroke with hemorrhagic conversion PLAN: 1. rehab- pt/ot advance mobility and ADLs, strengthen/stretch/maintain ROM all 4limbs, starting to tolerate being upright more and continues to participate in therapy from a cognitive standpoint -GLOVE BRUSHER for cog and swallow eval-oral care, repeat MBS today, c/u NPO, feeds ok with GLOVE BRUSHER 2. 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 s/p EVD placement and removal 06-10-20, c/u presenting as severe non-traumatic brain injury patient with a [place] Score of about 5 will benefit from continued therapy, c/u ASA and statin -encephalopathy improving, c/u amantadine and provigil for neurostimulation- reglan discontinued- cognition and level of alertness continues to improve -monitor for seizures -patient with left sided paresis due to stroke and RLE weakness in setting of severe lumbar stenosis- tx with therapy -daily thiamine -c/u lexapro increased to 20mg daily to help with motor recovery and mood -increasing current baclofen dosing to assist with developing LLE tone 3. Cardiac- hx of HTN c/u labetalol, amlodipine, Diovan, clonidine for elevated BPs- medicine consulted to assist in overall management -ECHO at [facility] 06-11-20 showing grade 2 diastolic CHF 4. Resp- s/p treatment for klebsiella PNA with hypoxic respiratory failure at [facility], restarted on IV zosyn on 06-29-20 due to increased work of breathing and fever, f/u CT 07-01-20 showing no definite infiltrate, however did show bilat discoid atelectasis, had finished abx, became more lethargic and needing [address] chest 07-18-20 showing new left sided infiltrate, s/p ZOsyn for recurrent aspiration PNA now on po Augementin patient c/u to be more alert and less lethargic, c/u duonebs, guaifenesin, HOB elevated, will order f/u CXR today to monitor progression on PNA, patient clinically appearing better -suspect sleep apnea, c/u nocturnal 02- goal 88-92% to avoid increasing apneic episodes 5. GI- NPO with minimal feeds with GLOVE BRUSHER, PEG dislodged s/p EGD replacement per general surgery 07-17-20, patient tolerating PEG feeds -pepcid for ppx, Simethicone -FOBT negative -preparation H suppositories ordered for hemorrhoids 6. DVT ppx- dopplers negative for dvt, c/u lovenox 7. SKin- turn q2,heel floats, zinc oxide-corn starch to sacrum q2h- sacral ulcers healing 8. - not retaining, however incontinent, but Urine negative for infection 9. Renal- consulted for fluid management in setting of CHF, to monitor kidney function, and assist with iron deficiency anemia- intervention appreciated, renal signed 9. Endo- newly dx DM, c/u insulin adjustments for hyperglycemia 10. heme- iron deficiency anemia s/p venofer per renal and 1 unit prbc 07-02-20, FOBT negative, c/u to monitor 10. Pain- tylenol changed to standing, liododerm patch to low back -c/u gabapentin for neuropathy 11. Dispo- TBD Allergies Coded Allergies: No Known Allergies (Unverified , 06/23/20) Vital Signs Vital Signs Date Time Temp Pulse Resp B/P (MAP) Pulse Ox O2 Delivery O2 Flow Rate FiO2 07/27/20 09:21 142/71 07/27/20 06:04 98.0 69 18 94 Room Air Laboratory Data Labs 24H Laboratory Tests 2 07/26/20 11:46: Bedside Glucose (Misc Panel) 184H 07/26/20 16:45: Bedside Glucose (Misc Panel) 216H 07/26/20 22:31: Bedside Glucose (Misc Panel) 266H 07/27/20 05:49: Bedside Glucose (Misc Panel) 151H Current Medications Current Medications Current Medications Medications (Trade) Dose Ordered Sig/Andi Route PRN Reason Start Time Stop Time Status Last Admin Dose Admin Acetaminophen (Tylenol Suspension) 650 mg Q8HP PRN PEG fever 07/09/20 17:45 07/18/20 13:52 Acetaminophen (Tylenol Suspension) 650 mg TID GT 06/29/20 16:00 07/27/20 09:22 Acetaminophen (Tylenol Tab) 650 mg Q4HP PRN PEG fever/MILD PAIN (PS 1-4) 06/23/20 13:55 06/29/20 13:35 DC Acetaminophen (Tylenol Tab) 650 mg Q8HP PRN PEG fever 06/29/20 13:35 07/09/20 17:43 DC Albuterol/ Ipratropium (Duoneb (Ipr 0.5mg/Alb 2.5mg)) 3 ml RTID NEB 06/23/20 20:00 07/27/20 07:00 Amantadine HCl (Symmetrel Syrup) 100 mg BID PEG 06/23/20 21:00 07/27/20 09:22 Amlodipine Besylate (Norvasc) 5 mg DAILY PEG 06/24/20 09:00 07/08/20 08:39 DC 07/08/20 08:23 Amlodipine Besylate (Norvasc) 10 mg DAILY PEG 07/09/20 09:00 07/27/20 09:24 Amoxicillin/ Clavulanate Potassium (Augmentin) 875 mg BID PEG 07/26/20 09:00 07/28/20 21:01 07/27/20 09:23 Aspirin (Aspirin Chewable) 81 mg DAILY PEG 06/24/20 09:00 07/27/20 09:21 Atorvastatin Calcium (Lipitor) 80 mg QHS PEG 06/23/20 21:00 07/26/20 23:21 Baclofen (Lioresal) 5 mg BID PEG 07/20/20 21:00 07/26/20 10:48 DC 07/26/20 08:35 Baclofen (Lioresal) 10 mg TID PEG 07/26/20 16:00 07/27/20 09:23 Bisacodyl (Dulcolax Suppository) 10 mg DAILYPRN PRN [place] CONSTIPATION 06/23/20 13:55 06/29/20 11:02 Clonidine HCl (Catapres) 0.1 mg BID GT 06/23/20 21:00 07/05/20 10:16 DC 07/05/20 07:57 Clonidine HCl (Catapres) 0.1 mg TID GT 07/19/20 16:00 07/27/20 09:22 Clonidine HCl (Catapres) 0.2 mg BID GT 07/05/20 21:00 07/19/20 15:25 DC 07/16/20 20:32 Clonidine HCl ([id number]) 1 ea Mo@[facility] 07/17/20 09:00 07/17/20 11:42 DC Dextrose (Dextrose 50%) 25 ml ASDIRECTED PRN IV SEE LABEL COMMENTS 07/04/20 11:05 Dextrose (Dextrose 50%) 25 ml ASDIRECTED PRN IV SEE LABEL COMMENTS 06/23/20 13:55 07/04/20 11:07 DC Enoxaparin Sodium (Lovenox) 40 mg DAILY SC 06/24/20 09:00 07/27/20 09:22 Escitalopram Oxalate (Lexapro) 10 mg DAILY PEG 07/04/20 09:00 07/20/20 11:29 DC 07/20/20 08:40 Escitalopram Oxalate (Lexapro) 20 mg DAILY PEG 07/21/20 09:00 07/27/20 09:24 Famotidine (Pepcid) 40 mg BID PEG 06/23/20 21:00 07/03/20 10:00 DC 07/03/20 09:44 Ferrous Sulfate (Ferrous Sulfate) 300 mg BID PEG 06/27/20 09:00 07/01/20 09:25 DC 07/01/20 08:47 Ferrous Sulfate (Ferrous Sulfate) 300 mg DAILY PEG 07/02/20 09:00 07/27/20 09:22 Gabapentin (Neurontin) 200 mg TID PEG 07/19/20 16:00 07/27/20 09:23 Glucagon (Glucagon) 1 mg ASDIRECTED PRN SC SEE LABEL COMMENTS 07/04/20 11:05 Glucagon (Glucagon) 1 mg ASDIRECTED PRN SC SEE LABEL COMMENTS 06/23/20 13:55 07/04/20 11:07 DC Glucose (Glucose) 16 GM ASDIRECTED PRN PO SEE LABEL COMMENTS 07/04/20 11:05 Glucose (Glucose) 16 GM ASDIRECTED PRN PO SEE LABEL COMMENTS 06/23/20 13:55 07/04/20 11:07 DC Guaifenesin (Robitussin) 10 ml QID PEG 06/23/20 21:00 07/27/20 09:22 Home Med (Med Rec Complete!) ASDIRECTED XX 06/23/20 19:15 06/23/20 19:14 DC Hydralazine HCl (Apresoline) 25 mg Q6H PEG 07/22/20 12:00 07/26/20 23:20 Hydralazine HCl (Apresoline) 25 mg Q6HP PRN PEG SBP>170 07/17/20 17:15 07/22/20 10:20 DC 07/21/20 06:12 Insulin Detemir (Levemir Insulin) 10 units DAILY SC 06/29/20 09:00 07/01/20 09:59 DC 06/30/20 08:14 Insulin Detemir (Levemir Insulin) 10 units QHS SC 06/23/20 21:00 06/26/20 09:35 DC 06/25/20 21:02 Insulin Detemir (Levemir Insulin) 12 units QHS SC 06/26/20 21:00 06/27/20 07:18 DC 06/26/20 20:23 Insulin Detemir (Levemir Insulin) 13 units QAM SC 07/01/20 09:00 07/12/20 12:38 DC 07/12/20 08:25 Insulin Detemir (Levemir Insulin) 18 units QAM SC 07/13/20 09:00 07/27/20 09:25 Insulin Detemir (Levemir Insulin) 20 units QHS SC 06/27/20 21:00 06/27/20 12:20 DC Insulin Detemir (Levemir Insulin) 30 units QHS SC 07/05/20 21:00 07/13/20 09:53 DC 07/12/20 21:10 Insulin Detemir (Levemir Insulin) 32 units QHS SC 06/27/20 21:00 07/01/20 08:31 DC 06/30/20 21:19 Insulin Detemir (Levemir Insulin) 34 units QHS SC 07/13/20 21:00 07/26/20 23:26 Insulin Detemir (Levemir Insulin) 40 units QHS SC 07/01/20 21:00 07/05/20 10:16 DC 07/04/20 21:36 Insulin Human Lispro (HumaLOG INSULIN) SEE PROTOCOL TABLE AC SC 07/04/20 12:00 07/27/20 09:20 Insulin Human Lispro (HumaLOG INSULIN) SEE PROTOCOL TABLE Q6H SC 06/23/20 18:00 07/04/20 11:07 DC 07/04/20 05:59 Insulin Human Lispro (HumaLOG INSULIN) SEE PROTOCOL TABLE QHS SC 07/04/20 21:00 07/26/20 23:26 Iron 100 mg/ Sodium Chloride 105 ml @ 105 mls/hr Q24H IV 07/01/20 12:00 07/06/20 11:59 DC 07/05/20 12:34 Labetalol HCl (Normodyne, Trandate) 300 mg BID PEG 06/23/20 21:00 07/27/20 09:24 Lidocaine (Lidoderm Patch) 1 patch DAILY TD 06/29/20 13:35 07/26/20 10:48 DC 07/26/20 08:48 Lidocaine (Lidoderm Patch) 2 patch DAILY TD 07/26/20 10:45 07/27/20 09:19 Lidocaine/ Diphenhydr/Alum/ Mg/Simeth (Magic Mouthwash) 5ml QID SSP 06/23/20 21:00 07/27/20 09:25 Metoclopramide HCl (Reglan Liquid) 5 mg Q6H PEG 06/26/20 12:00 06/28/20 12:28 DC 06/28/20 12:01 Metoclopramide HCl (Reglan Liquid) 10 mg Q6H PEG 06/24/20 00:00 06/26/20 09:35 DC 06/26/20 05:50 Metoprolol Tartrate (Lopressor) 25 mg BID GT 07/19/20 21:00 07/27/20 09:23 Metoprolol Tartrate (Lopressor) 25 mg Q6H PO 07/13/20 12:00 07/19/20 15:25 DC 07/17/20 00:09 Miscellaneous (Unresolved Clarification Entry) SEE LABEL COMMENTS DAILY XX 07/23/20 09:00 07/23/20 19:09 DC Modafinil (Provigil) 100 mg BID@0600,1400 PEG 06/24/20 06:00 07/27/20 06:07 Non-Formulary Medication ( See Comment Field Below ) REMOVE LIDODERM PATCH DAILY@21 XX 06/29/20 21:00 07/26/20 10:48 DC 07/25/20 20:49 Non-Formulary Medication ( See Comment Field Below ) REMOVE LIDODERM PATCH DAILY@21 XX 07/26/20 21:00 07/26/20 23:25 Omeprazole (First-Omeprazole ORAL SUSPENSION) 40 mg DAILY PEG 07/08/20 09:00 07/27/20 09:23 Oxymetazoline HCl (Afrin) 2 spray ASDIRECTED PRN NA SEE LABEL COMMENTS 07/14/20 08:40 Pantoprazole Sodium (Protonix) 40 mg DAILY IV 07/03/20 10:00 07/07/20 15:23 DC 07/07/20 08:07 Patient Own Medication (Patient'S Own Med) RUB TO NOSE QHS TOP 07/20/20 21:00 07/26/20 23:25 Phenylephrine HCl (Preparation H Supp) 1 sup BID W[place] 07/21/20 09:00 07/27/20 09:20 Piperacillin Sod/ Tazobactam Sod 4.5 gm/Dextrose 50 ml @ 50 mls/hr Q6H IV 06/29/20 15:00 07/04/20 23:00 DC 07/04/20 21:29 Piperacillin Sod/ Tazobactam Sod 4.5 gm/Dextrose 50 ml @ 50 mls/hr Q6H IV 07/18/20 20:00 07/25/20 23:00 DC 07/25/20 20:46 Psyllium Hydrophilic Mucilloid (Metamucil) 1 pkt DAILY PEG 07/20/20 15:00 07/27/20 09:24 Saliva Substitute (Mouthkote) 2 sprays QID MT 07/05/20 13:00 07/27/20 09:25 Senna (Senokot) 1 tab QHS PEG 06/23/20 21:00 06/29/20 14:44 DC 06/28/20 21:19 Simethicone (Mylicon) 80 mg TID PEG 07/13/20 16:00 07/27/20 09:24 Sodium Chloride ([place] Nasal [place]) 2 spray TID NA 07/03/20 21:00 07/27/20 09:25 Thiamine HCl (Thiamine HCl) 100 mg DAILY NG 07/20/20 09:00 07/27/20 09:23 Thiamine HCl (VITAMIN B1 INJection) 100 mg DAILY IM 06/24/20 09:00 07/19/20 15:28 DC 07/19/20 08:36 Valsartan (Diovan) 320 mg DAILY PEG 06/24/20 09:00 07/27/20 09:21 RICKY MCDONOUGH MD Jul 27, 2020 10:09
[2020-07-27] MEDS ORDERED: VARIBAR PUDDING 40% w/v 230ML TUBE ONE (13:11)
[2020-07-27] MEDS ORDERED: VARIBAR NECTAR 40% w/v 240ML SUSP BTL ONE (13:11)
[2020-07-27] MEDS ORDERED: E-Z-PAQUE 96% w/w SUSP 176GM BTL ONE (13:11)
--- NOTE | 2020-07-27 13:49 | REP ---
INDICATION: recent PNA, monitor for progression COMPARISON: 06/29/2020. TECHNIQUE: PA/Lateral FINDINGS: Lungs: No new infiltrate is seen. Heart: The heart is mildly enlarged. Mediastinum: Mediastinal silhouette unremarkable. Multiple sternal wires are present. Bones and soft tissues: There are mild degenerative changes of the spine without compression deformity. There is an old healed right clavicular fracture. IMPRESSION: No acute pulmonary disease. Mild cardiomegaly. <Electronically signed by Chadwick Juarez > 07/27/20 [id number]
[2020-07-27 14:00] VITALS: BP 142/79
--- NOTE | 2020-07-27 17:06 | REP ---
INDICATION: dysphagia. COMPARISON: None. TECHNIQUE: The procedure was performed by NI Whitlock, under the direct supervision of Dr. Juarez. The procedure was performed with Hailee Norris from speech pathology present. 5 ml aliquots of thin, pudding, applesauce, nectar, and honey thick consistency barium was administered. FINDINGS: No aspiration or penetration was visualized. The detailed report of this examination will be provided by speech pathology. IMPRESSION: Unremarkable modified barium swallow, a detailed report will be provided by speech pathology. 2.7 minutes of fluoroscopy time was utilized for this procedure. Some fluoroscopic images are performed with last image hold technology. These images require no additional radiation <Electronically signed by Trai Haley > 07/27/20 1526 <Electronically signed by Chadwick Juarez > 07/27/20 1704
[2020-07-27 20:15] VITALS: BP 149/69
[2020-07-27] MEDS: ATORVASTATIN 20 MG TAB PEG SCH (21:24)
[2020-07-27] MEDS: VICKS VAPOR RUB TOP SCH (21:27)
[2020-07-27] MEDS: **NOTE PATIENT COMMENT** MISC XX SCH (21:28)
[2020-07-28] MEDS: REMEDY PHYTOPLEX Z-GUARD PASTE 113GM TUBE (FROM STOREROOM PRODUCT) TOP SCH ×11 (00:19→21:24)
[2020-07-28] MEDS: **hydrALAZINE HCL** 25 MG TAB PEG SCH ×4 (00:19→17:46)
[2020-07-28] MEDS: MODAFINIL 100 MG TABLET PEG SCH ×2 (05:40→13:24)
[2020-07-28 06:27] VITALS: BP 153/73
[2020-07-28] MEDS: IPRATROPIUM 0.5MG/ALBUTEROL 2.5MG INH SOL UD 3ML (DUONEB) NEB SCH ×3 (07:31→20:29)
[2020-07-28 08:11] LABS: BASO % 0.3 % (0.0-1.0); EOS # 0.5 10^3/uL (0.0-0.5); EOS % 5.5 % (0.0-3.0); HEMATOCRIT 33.3 % (42.0-52.0); HEMOGLOBIN 9.9 g/dl (13.5-17.5); LYMPH # 0.8 10^3/uL (1.5-5.0); LYMPH % 9.2 % (24.0-44.0); MEAN CORPUSCULAR HEMOGLOBIN 25.1 pg (27.0-33.0); MEAN CORPUSCULAR HGB CONC 29.7 g/dl (32.0-36.5); MEAN CORPUSCULAR VOLUME 84.5 fl (80.0-96.0); MONO # 0.4 10^3/uL (0.0-0.8); MONO % 4.6 % (2.0-8.0); NEUTROPHILS # 7.1 10^3/uL (1.5-8.5); NEUTROPHILS % 79.8 % (36.0-66.0); PLATELET COUNT, AUTOMATED 184 10^3/uL (150-450); RED BLOOD COUNT 3.94 10^6/uL (4.30-6.10); WHITE BLOOD COUNT 8.9 10^3/uL (4.0-10.0)
[2020-07-28] MEDS: HumaLOG INSULIN (NovoLOG) PER UNIT SC SCH ×4 (08:21→21:00)
[2020-07-28] MEDS: LEVEMIR (INSULIN DETEMIR) 1 UNITS/0.01ML SC SCH ×2 (08:22→21:29)
[2020-07-28] MEDS: OMEPRAZOLE SUSPENSION 20MG 10ML ORAL SYRINGE PEG SCH (08:24)
[2020-07-28] MEDS: FERROUS SULFATE 300MG/5ML UDC LIQUID PEG SCH (08:25)
[2020-07-28] MEDS: ENOXAPARIN 40MG/0.4ML SYRINGE (J1650 PER 10MG) SC SCH (08:25)
[2020-07-28] MEDS: guaiFENesin SYRUP 200 MG/10 ML UDC PEG SCH ×4 (08:25→21:27)
[2020-07-28] MEDS: METAMUCIL (PSYLLIUM) PACKET PEG SCH (08:25)
[2020-07-28] MEDS: AMANTADINE 100MG/10ML SYRUP UDC PEG SCH ×2 (08:25→21:27)
[2020-07-28] MEDS: ACETAMINOPHEN 325 MG/10.15 ML UDC GT SCH ×3 (08:25→21:27)
[2020-07-28] MEDS: SIMETHICONE 80MG CHEW TAB PEG SCH ×3 (08:26→21:26)
[2020-07-28] MEDS: LIDOCAINE 5% (LIDODERM) PATCH TD SCH (08:26)
[2020-07-28] MEDS: THIAMINE 100 MG TAB NG SCH (08:26)
[2020-07-28] MEDS: VALSARTAN 80 MG TAB (DIOVAN) PEG SCH (08:27)
[2020-07-28] MEDS: ASPIRIN 81 MG CHEW TABLET PEG SCH (08:27)
[2020-07-28] MEDS: BACLOFEN 5MG PER 1/2 TABLET PEG SCH ×3 (08:27→21:25)
[2020-07-28] MEDS: METOPROLOL TART 25 MG TABLET GT SCH ×2 (08:28→21:26)
[2020-07-28] MEDS: ESCITALOPRAM OXALATE 10 MG TAB (LEXAPRO) PEG SCH (08:28)
[2020-07-28] MEDS: cloNIDine 0.1MG TABLET GT SCH ×3 (08:28→21:26)
[2020-07-28] MEDS: GABAPENTIN 100 MG CAP PEG SCH ×3 (08:29→21:26)
[2020-07-28] MEDS: LABETALOL 100MG TAB PEG SCH ×2 (08:29→21:25)
[2020-07-28] MEDS: SODIUM CHLORIDE NASAL 0.65% SPRAY BTL (OCEAN) SCH ×3 (08:30→21:28)
[2020-07-28] MEDS: SALIVA SUBSTITUTE(MOUTHKOTE) BTL MT SCH ×4 (08:30→21:27)
[2020-07-28] MEDS: MAGIC MOUTHWASH SUSPENSION BTL SSP SCH ×4 (08:30→21:28)
[2020-07-28 08:31] LABS: BLOOD UREA NITROGEN 17 MG/DL (7-18); CARBON DIOXIDE LEVEL 28 MEQ/L (21-32); CHLORIDE LEVEL 101 MEQ/L (98-107); CREATININE FOR GFR 0.47 MG/DL (0.70-1.30); GLOMERULAR FILTRATION RATE > 60.0 (>42); GLUCOSE, FASTING 199 MG/DL (70-100); POTASSIUM SERUM 3.8 MEQ/L (3.5-5.1); SODIUM LEVEL 137 MEQ/L (136-145)
[2020-07-28] MEDS: PREPARATION H SUPP (HEMORRHOID) PR SCH ×2 (11:11→21:27)
[2020-07-28] MEDS: AUGMENTIN 875 MG TAB PEG SCH ×2 (13:23→21:26)
[2020-07-28 14:00] VITALS: BP 165/74
--- NOTE | 2020-07-28 14:30 | IPNPDOC ---
PM&R Progress Note DATE OF SERVICE: Jul 28, 2020 [employer] Progress Note Subjective: Patient seen in his room comfortable, able to help roll himself to the side. No distress. REVIEW OF SYSTEMS: The following is a completed review of systems and has been reviewed. Difficult to assess due to patient unable to respond EARS, NOSE, & THROAT: + dysphagia PULMONARY: denies cough GASTROINTESTINAL: +peg GENITOURINARY: +incontinence MUSCULOSKELETAL: generalized weakness NEUROLOGICAL:+ left sided paresis SKIN: +sacral ulcers PHYSICAL EXAMINATION: VITAL SIGNS: Please see below. GENERAL: NAD, sitting up in chair, alert HEENT: PERRL. Clear conjunctiva, +left sided facial droop CARDIOVASCULAR: Regular rate and rhythm. No murmurs, rubs, or gallops LUNGS: clear to auscultation bilaterally. No wheezes. No rhonchi, breathing comfortably ABDOMEN: Soft, nontender, slightly distended. no guarding, Positive bowel sounds. Normal active bowel sounds, +PEG NEUROLOGICAL: waxing and waning levels of alertness, LLE knee flexion tone (resolved) EXTREMITIES: grossly 5/5 RUE and RLE, +spontaneous movement LLE, trace in LUE SKIN: sacral ulcers (healing) right frontal incision healed ASSESSMENT:74-year-old M with past medical history of HTn, HLD who presents status post stroke with hemorrhagic conversion PLAN: 1. rehab- pt/ot advance mobility and ADLs, strengthen/stretch/maintain ROM all 4limbs, starting to tolerate being upright more and continues to participate in therapy from a cognitive standpoint -LOTTER[employer] CLERK for cog and swallow eval-oral care, repeat MBS today, c/u NPO, feeds ok with [employer]TER[employer]ERK 2. 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 s/p EVD placement and removal 06-10-20, c/u presenting as severe non-traumatic brain injury patient with a [place] Score of about 5 will benefit from continued therapy, c/u ASA and statin -encephalopathy improving, c/u amantadine and provigil for neurostimulation- reglan discontinued- cognition and level of alertness continues to improve -monitor for seizures -patient with left sided paresis due to stroke and RLE weakness in setting of severe lumbar stenosis- tx with therapy -daily thiamine -c/u lexapro increased to 20mg daily to help with motor recovery and mood -increasing current baclofen dosing to assist with developing LLE tone 3. Cardiac- hx of HTN c/u labetalol, amlodipine, Diovan, clonidine for elevated BPs- medicine consulted to assist in overall management -ECHO at [facility] 06-11-20 showing grade 2 diastolic CHF 4. Resp- s/p treatment for klebsiella PNA with hypoxic respiratory failure at [facility], restarted on IV zosyn on 06-29-20 due to increased work of breathing and fever, f/u CT 07-01-20 showing no definite infiltrate, however did show bilat discoid atelectasis, had finished abx, became more lethargic and needing [address] chest 07-18-20 showing new left sided infiltrate, s/p ZOsyn for recurrent aspiration PNA and s/p Augementin patient c/u to be more alert and less lethargic, c/u duonebs, guaifenesin, HOB elevated -CXR 07-27-20 no new infiltrate, patient clinically appearing better -suspect sleep apnea, c/u nocturnal 02- goal 88-92% to avoid increasing apneic episodes 5. GI- NPO with minimal feeds with [employer]TERY CLERK, PEG dislodged s/p EGD replacement per general surgery 07-17-20, patient tolerating PEG feeds -pepcid for ppx, Simethicone -FOBT negative -preparation H suppositories ordered for hemorrhoids 6. DVT ppx- dopplers negative for dvt, c/u lovenox 7. SKin- turn q2,heel floats, zinc oxide-corn starch to sacrum q2h- sacral ulcers healing 8. - not retaining, however incontinent, but Urine negative for infection 9. Renal- consulted for fluid management in setting of CHF, to monitor kidney f unction, and assist with iron deficiency anemia- intervention appreciated, renal signed 9. Endo- newly dx DM, c/u insulin adjustments for hyperglycemia 10. heme- iron deficiency anemia s/p venofer per renal and 1 unit prbc 07-02-20, FOBT negative, c/u to monitor 10. Pain- tylenol changed to standing, liododerm patch to low back -c/u gabapentin for neuropathy- pain improving 11. Dispo- awaiting bed at [facility] Allergies Coded Allergies: No Known Allergies (Unverified , 06/23/20) Vital Signs Vital Signs Date Time Temp Pulse Resp B/P (MAP) Pulse Ox O2 Delivery O2 Flow Rate FiO2 07/28/20 14:00 97.0 69 18 165/74 (104) 95 Room Air Laboratory Data CBC/BMP Laboratory Tests 07/28/20 07:00 Labs 24H Laboratory Tests 2 07/27/20 16:24: Bedside Glucose (Misc Panel) 128H 07/27/20 19:54: Bedside Glucose (Misc Panel) 220H 07/28/20 06:03: Bedside Glucose (Misc Panel) 157H 07/28/20 07:00: Immature Granulocyte % (Auto) 0.6, Neutrophils (%) (Auto) 79.8H, Lymphocytes (%) (Auto) 9.2L, Monocytes (%) (Auto) 4.6, Eosinophils (%) (Auto) 5.5H, Basophils (%) (Auto) 0.3, Neutrophils # (Auto) 7.1, Lymphocytes # (Auto) 0.8L, Monocytes # (Auto) 0.4, Eosinophils # (Auto) 0.5, Basophils # (Auto) 0.0, Nucleated Red Bloo d Cells % (auto) 0.0, Anion Gap 8, Glomerular Filtration Rate > 60.0, Calcium Level 9.0 07/28/20 11:16: Bedside Glucose (Misc Panel) 166H Current Medications Current Medications Current Medications Medications (Trade) Dose Ordered Sig/Andi Route PRN Reason Start Time Stop Time Status Last Admin Dose Admin Acetaminophen (Tylenol Suspension) 650 mg Q8HP PRN PEG fever 07/09/20 17:45 07/18/20 13:52 Acetaminophen (Tylenol Suspension) 650 mg TID GT 06/29/20 16:00 07/28/20 08:25 Acetaminophen (Tylenol Tab) 650 mg Q4HP PRN PEG fever/MILD PAIN (PS 1-4) 06/23/20 13:55 06/29/20 13:35 DC Acetaminophen (Tylenol Tab) 650 mg Q8HP PRN PEG fever 06/29/20 13:35 07/09/20 17:43 DC Albuterol/ Ipratropium (Duoneb (Ipr 0.5mg/Alb 2.5mg)) 3 ml RTID NEB 06/23/20 20:00 07/28/20 07:31 Amantadine HCl (Symmetrel Syrup) 100 mg BID PEG 06/23/20 21:00 07/28/20 08:25 Amlodipine Besylate (Norvasc) 5 mg DAILY PEG 06/24/20 09:00 07/08/20 08:39 DC 07/08/20 08:23 Amlodipine Besylate (Norvasc) 10 mg DAILY PEG 07/09/20 09:00 07/28/20 08:27 Amoxicillin/ Clavulanate Potassium (Augmentin) 875 mg BID PEG 07/26/20 09:00 07/28/20 21:01 07/28/20 13:23 Aspirin (Aspirin Chewable) 81 mg DAILY PEG 06/24/20 09:00 07/28/20 08:27 Atorvastatin Calcium (Lipitor) 80 mg QHS PEG 06/23/20 21:00 07/27/20 21:24 Baclofen (Lioresal) 5 mg BID PEG 07/20/20 21:00 07/26/20 10:48 DC 07/26/20 08:35 Baclofen (Lioresal) 10 mg TID PEG 07/26/20 16:00 07/28/20 08:27 Bisacodyl (Dulcolax Suppository) 10 mg DAILYPRN PRN ND CONSTIPATION 06/23/20 13:55 06/29/20 11:02 Clonidine HCl (Catapres) 0.1 mg BID GT 06/23/20 21:00 07/05/20 10:16 DC 07/05/20 07:57 Clonidine HCl (Catapres) 0.1 mg TID GT 07/19/20 16:00 07/28/20 08:28 Clonidine HCl (Catapres) 0.2 mg BID GT 07/05/20 21:00 07/19/20 15:25 DC 07/16/20 20:32 Clonidine HCl (Dgiqrsgz-Chz-9) 1 ea Mo@09 TOP 07/17/20 09:00 07/17/20 11:42 DC Dextrose (Dextrose 50%) 25 ml ASDIRECTED PRN IV SEE LABEL COMMENTS 07/04/20 11:05 Dextrose (Dextrose 50%) 25 ml ASDIRECTED PRN IV SEE LABEL COMMENTS 06/23/20 13:55 07/04/20 11:07 DC Enoxaparin Sodium (Lovenox) 40 mg DAILY SC 06/24/20 09:00 07/28/20 08:25 Escitalopram Oxalate (Lexapro) 10 mg DAILY PEG 07/04/20 09:00 07/20/20 11:29 DC 07/20/20 08:40 Escitalopram Oxalate (Lexapro) 20 mg DAILY PEG 07/21/20 09:00 07/28/20 08:28 Famotidine (Pepcid) 40 mg BID PEG 06/23/20 21:00 07/03/20 10:00 DC 07/03/20 09:44 Ferrous Sulfate (Ferrous Sulfate) 300 mg BID PEG 06/27/20 09:00 07/01/20 09:25 DC 07/01/20 08:47 Ferrous Sulfate (Ferrous Sulfate) 300 mg DAILY PEG 07/02/20 09:00 07/28/20 08:25 Gabapentin (Neurontin) 200 mg TID PEG 07/19/20 16:00 07/28/20 08:29 Glucagon (Glucagon) 1 mg ASDIRECTED PRN SC SEE LABEL COMMENTS 07/04/20 11:05 Glucagon (Glucagon) 1 mg ASDIRECTED PRN SC SEE LABEL COMMENTS 06/23/20 13:55 07/04/20 11:07 DC Glucose (Glucose) 16 GM ASDIRECTED PRN PO SEE LABEL COMMENTS 07/04/20 11:05 Glucose (Glucose) 16 GM ASDIRECTED PRN PO SEE LABEL COMMENTS 06/23/20 13:55 07/04/20 11:07 DC Guaifenesin (Robitussin) 10 ml QID PEG 06/23/20 21:00 07/28/20 13:31 Home Med (Med Rec Complete!) ASDIRECTED XX 06/23/20 19:15 06/23/20 19:14 DC Hydralazine HCl (Apresoline) 25 mg Q6H PEG 07/22/20 12:00 07/28/20 13:30 Hydralazine HCl (Apresoline) 25 mg Q6HP PRN PEG SBP>170 07/17/20 17:15 07/22/20 10:20 DC 07/21/20 06:12 Insulin Detemir (Levemir Insulin) 10 units DAILY SC 06/29/20 09:00 07/01/20 09:59 DC 06/30/20 08:14 Insulin Detemir (Levemir Insulin) 10 units QHS TN 06/23/20 21:00 06/26/20 09:35 DC 06/25/20 21:02 Insulin Detemir (Levemir Insulin) 12 units QHS TN 06/26/20 21:00 06/27/20 07:18 DC 06/26/20 20:23 Insulin Detemir (Levemir Insulin) [facility] [place] [facility] 09:00 07/12/20 12:38 DC 07/12/20 08:25 Insulin Detemir (Levemir Insulin) [facility] [place] 07/13/20 09:00 07/28/20 08:22 Insulin Detemir (Levemir Insulin) 20 units QHS TN 06/27/20 21:00 06/27/20 12:20 [facility] 21:00 07/13/20 09:53 DC 07/12/20 21:10 [facility] 06/[facility] 21:00 07/01/20 08:31 DC 06/30/20 21:19 Insulin Detemir (Levemir Insulin) 34 units QHS TN 07/13/20 21:00 07/27/20 21:26 [facility] 21:00 07/05/20 10:16 DC 07/04/20 21:36 Insulin Human Lispro (HumaLOG INSULIN) SEE PROTOCOL TABLE AC TN 07/04/20 12:00 07/28/20 13:18 Insulin Human Lispro (HumaLOG INSULIN) SEE PROTOCOL TABLE Q6H TN 06/23/20 18:00 07/04/20 11:07 DC 07/04/20 05:59 Insulin Human Lispro (HumaLOG INSULIN) SEE PROTOCOL TABLE QHS TN 07/04/20 21:00 07/26/20 23:26 Iron 100 mg/ Sodium Chloride 105 ml @ 105 mls/hr Q24H IV 07/01/20 12:00 07/06/20 11:59 DC 07/05/20 12:34 Labetalol HCl (Normodyne, Trandate) 300 mg BID PEG 06/23/20 21:00 07/28/20 08:29 Lidocaine (Lidoderm Patch) 1 patch DAILY TD 06/29/20 13:35 07/26/20 10:48 DC 07/26/20 08:48 Lidocaine (Lidoderm Patch) 2 patch DAILY TD 07/26/20 10:45 07/28/20 08:26 Lidocaine/ Diphenhydr/Alum/ Mg/Simeth (Magic Mouthwash) 5ml QID SSP 06/23/20 21:00 07/28/20 13:24 Metoclopramide HCl (Reglan Liquid) 5 mg Q6H PEG 06/26/20 12:00 06/28/20 12:28 DC 06/28/20 12:01 Metoclopramide HCl (Reglan Liquid) 10 mg Q6H PEG 06/24/20 00:00 06/26/20 09:35 DC 06/26/20 05:50 Metoprolol Tartrate (Lopressor) 25 mg BID GT 07/19/20 21:00 07/28/20 08:28 Metoprolol Tartrate (Lopressor) 25 mg Q6H PO 07/13/20 12:00 07/19/20 15:25 DC 07/17/20 00:09 Miscellaneous (Unresolved Clarification Entry) SEE LABEL COMMENTS DAILY XX 07/23/20 09:00 07/23/20 19:09 DC Modafinil (Provigil) 100 mg BID@0600,1400 PEG 06/24/20 06:00 07/28/20 13:24 Non-Formulary Medication ( See Comment Field Below ) REMOVE LIDODERM PATCH DAILY@21 XX 06/29/20 21:00 07/26/20 10:48 DC 07/25/20 20:49 Non-Formulary Medication ( See Comment Field Below ) REMOVE LIDODERM PATCH DAILY@21 XX 07/26/20 21:00 07/27/20 21:28 Omeprazole (First-Omeprazole ORAL SUSPENSION) 40 mg DAILY PEG 07/08/20 09:00 07/28/20 08:24 Oxymetazoline HCl (Afrin) 2 spray ASDIRECTED PRN NA SEE LABEL COMMENTS 07/14/20 08:40 Pantoprazole Sodium (Protonix) 40 mg DAILY IV 07/03/20 10:00 07/07/20 15:23 DC 07/07/20 08:07 Patient Own Medication (Patient'S Own Med) RUB TO NOSE QHS TOP 07/20/20 21:00 07/27/20 21:27 Phenylephrine HCl (Preparation H Supp) 1 sup BID ND 07/21/20 09:00 07/28/20 11:11 Piperacillin Sod/ Tazobactam Sod 4.5 gm/Dextrose 50 ml @ 50 mls/hr Q6H IV 06/29/20 15:00 07/04/20 23:00 DC 07/04/20 21:29 Piperacillin Sod/ Tazobactam Sod 4.5 gm/Dextrose 50 ml @ 50 mls/hr Q6H IV 07/18/20 20:00 07/25/20 23:00 DC 07/25/20 20:46 Psyllium Hydrophilic Mucilloid (Metamucil) 1 pkt DAILY PEG 07/20/20 15:00 07/28/20 08:25 Saliva Substitute (Mouthkote) 2 sprays QID MT 07/05/20 13:00 07/28/20 13:31 Senna (Senokot) 1 tab QHS PEG 06/23/20 21:00 06/29/20 14:44 DC 06/28/20 21:19 Simethicone (Mylicon) 80 mg TID PEG 07/13/20 16:00 07/28/20 08:26 Sodium Chloride (Swift Nasal Satin) 2 spray TID NA 07/03/20 21:00 07/28/20 08:30 Thiamine HCl (Thiamine HCl) 100 mg DAILY NG 07/20/20 09:00 07/28/20 08:26 Thiamine HCl (VITAMIN B1 INJection) 100 mg DAILY IM 06/24/20 09:00 07/19/20 15:28 DC 07/19/20 08:36 Valsartan (Diovan) 320 mg DAILY PEG 06/24/20 09:00 07/28/20 08:27 RICKY MCDONOUGH MD Jul 28, 2020 14:30
[2020-07-28] MEDS: **NOTE PATIENT COMMENT** MISC XX SCH (21:00)
[2020-07-28] MEDS: ATORVASTATIN 20 MG TAB PEG SCH (21:27)
[2020-07-28] MEDS: VICKS VAPOR RUB TOP SCH (21:29)
[2020-07-29] MEDS: REMEDY PHYTOPLEX Z-GUARD PASTE 113GM TUBE (FROM STOREROOM PRODUCT) TOP SCH ×12 (00:32→21:26)
[2020-07-29] MEDS: **hydrALAZINE HCL** 25 MG TAB PEG SCH ×4 (00:32→17:38)
[2020-07-29 05:13] VITALS: BP 153/72
[2020-07-29] MEDS: MODAFINIL 100 MG TABLET PEG SCH ×2 (05:45→12:54)
[2020-07-29] MEDS: IPRATROPIUM 0.5MG/ALBUTEROL 2.5MG INH SOL UD 3ML (DUONEB) NEB SCH ×3 (07:18→19:51)
[2020-07-29] MEDS: guaiFENesin SYRUP 200 MG/10 ML UDC PEG SCH ×4 (09:26→21:40)
[2020-07-29] MEDS: ACETAMINOPHEN 325 MG/10.15 ML UDC GT SCH ×3 (09:29→21:40)
[2020-07-29] MEDS: FERROUS SULFATE 300MG/5ML UDC LIQUID PEG SCH (09:30)
[2020-07-29] MEDS: OMEPRAZOLE SUSPENSION 20MG 10ML ORAL SYRINGE PEG SCH (09:30)
[2020-07-29] MEDS: LEVEMIR (INSULIN DETEMIR) 1 UNITS/0.01ML SC SCH ×2 (09:32→21:42)
[2020-07-29] MEDS: THIAMINE 100 MG TAB NG SCH (09:34)
[2020-07-29] MEDS: VALSARTAN 80 MG TAB (DIOVAN) PEG SCH (09:34)
[2020-07-29] MEDS: METOPROLOL TART 25 MG TABLET GT SCH ×2 (09:35→21:41)
[2020-07-29] MEDS: ATORVASTATIN 20 MG TAB PEG SCH (09:35)
[2020-07-29] MEDS: LABETALOL 100MG TAB PEG SCH ×2 (09:36→21:39)
[2020-07-29] MEDS: cloNIDine 0.1MG TABLET GT SCH ×3 (09:36→21:41)
[2020-07-29] MEDS: HumaLOG INSULIN (NovoLOG) PER UNIT SC SCH ×4 (09:39→21:00)
[2020-07-29] MEDS: AMANTADINE 100MG/10ML SYRUP UDC PEG SCH ×2 (09:42→21:40)
[2020-07-29] MEDS: SIMETHICONE 80MG CHEW TAB PEG SCH ×3 (09:45→21:41)
[2020-07-29] MEDS: ESCITALOPRAM OXALATE 10 MG TAB (LEXAPRO) PEG SCH (09:45)
[2020-07-29] MEDS: GABAPENTIN 100 MG CAP PEG SCH ×3 (09:45→21:41)
[2020-07-29] MEDS: METAMUCIL (PSYLLIUM) PACKET PEG SCH (09:46)
[2020-07-29] MEDS: ENOXAPARIN 40MG/0.4ML SYRINGE (J1650 PER 10MG) SC SCH (09:46)
[2020-07-29] MEDS: BACLOFEN 5MG PER 1/2 TABLET PEG SCH ×3 (09:46→21:39)
[2020-07-29] MEDS: MAGIC MOUTHWASH SUSPENSION BTL SSP SCH ×4 (09:47→21:40)
[2020-07-29] MEDS: PREPARATION H SUPP (HEMORRHOID) PR SCH ×2 (09:47→21:40)
[2020-07-29] MEDS: SODIUM CHLORIDE NASAL 0.65% SPRAY BTL (OCEAN) SCH ×3 (09:48→21:40)
[2020-07-29] MEDS: LIDOCAINE 5% (LIDODERM) PATCH TD SCH (09:49)
[2020-07-29] MEDS: ASPIRIN 81 MG CHEW TABLET PEG SCH (09:51)
[2020-07-29] MEDS: SALIVA SUBSTITUTE(MOUTHKOTE) BTL MT SCH ×4 (09:52→21:40)
[2020-07-29 14:00] VITALS: BP 170/77
[2020-07-29] MEDS ORDERED: **hydrALAZINE** 10 MG TAB PEG ONE (17:00)
[2020-07-29 20:00] VITALS: BP 127/72
[2020-07-29] MEDS: **NOTE PATIENT COMMENT** MISC XX SCH (21:00)
[2020-07-29] MEDS: VICKS VAPOR RUB TOP SCH (21:43)
[2020-07-30] MEDS: REMEDY PHYTOPLEX Z-GUARD PASTE 113GM TUBE (FROM STOREROOM PRODUCT) TOP SCH ×14 (00:09→23:55)
[2020-07-30] MEDS: **hydrALAZINE HCL** 25 MG TAB PEG SCH ×5 (00:10→23:58)
[2020-07-30 05:14] VITALS: BP 149/66
[2020-07-30] MEDS: MODAFINIL 100 MG TABLET PEG SCH ×2 (06:13→13:30)
[2020-07-30] MEDS: IPRATROPIUM 0.5MG/ALBUTEROL 2.5MG INH SOL UD 3ML (DUONEB) NEB SCH ×3 (07:20→20:34)
[2020-07-30] MEDS: LIDOCAINE 5% (LIDODERM) PATCH TD SCH (09:00)
[2020-07-30] MEDS: HumaLOG INSULIN (NovoLOG) PER UNIT SC SCH ×4 (09:30→21:00)
[2020-07-30] MEDS: guaiFENesin SYRUP 200 MG/10 ML UDC PEG SCH ×4 (09:31→21:40)
[2020-07-30] MEDS: FERROUS SULFATE 300MG/5ML UDC LIQUID PEG SCH (09:31)
[2020-07-30] MEDS: AMANTADINE 100MG/10ML SYRUP UDC PEG SCH ×2 (09:31→21:40)
[2020-07-30] MEDS: OMEPRAZOLE SUSPENSION 20MG 10ML ORAL SYRINGE PEG SCH (09:33)
[2020-07-30] MEDS: ENOXAPARIN 40MG/0.4ML SYRINGE (J1650 PER 10MG) SC SCH (09:33)
[2020-07-30] MEDS: ACETAMINOPHEN 325 MG/10.15 ML UDC GT SCH ×3 (09:33→21:43)
[2020-07-30] MEDS: SIMETHICONE 80MG CHEW TAB PEG SCH ×3 (09:45→21:43)
[2020-07-30] MEDS: ASPIRIN 81 MG CHEW TABLET PEG SCH (09:45)
[2020-07-30] MEDS: ESCITALOPRAM OXALATE 10 MG TAB (LEXAPRO) PEG SCH (09:46)
[2020-07-30] MEDS: GABAPENTIN 100 MG CAP PEG SCH ×3 (09:46→21:45)
[2020-07-30] MEDS: BACLOFEN 5MG PER 1/2 TABLET PEG SCH ×3 (09:47→21:45)
[2020-07-30] MEDS: METOPROLOL TART 25 MG TABLET GT SCH ×2 (09:47→21:45)
[2020-07-30] MEDS: THIAMINE 100 MG TAB NG SCH (09:47)
[2020-07-30] MEDS: PREPARATION H SUPP (HEMORRHOID) PR SCH ×2 (09:48→21:45)
[2020-07-30] MEDS: cloNIDine 0.1MG TABLET GT SCH ×3 (09:48→21:45)
[2020-07-30] MEDS: LABETALOL 100MG TAB PEG SCH ×2 (09:49→21:44)
[2020-07-30] MEDS: METAMUCIL (PSYLLIUM) PACKET PEG SCH (09:49)
[2020-07-30] MEDS: SODIUM CHLORIDE NASAL 0.65% SPRAY BTL (OCEAN) SCH ×3 (09:49→21:39)
[2020-07-30] MEDS: SALIVA SUBSTITUTE(MOUTHKOTE) BTL MT SCH ×4 (09:50→21:39)
[2020-07-30] MEDS: MAGIC MOUTHWASH SUSPENSION BTL SSP SCH ×4 (09:50→21:40)
[2020-07-30] MEDS: VALSARTAN 80 MG TAB (DIOVAN) PEG SCH (09:50)
[2020-07-30] MEDS: LEVEMIR (INSULIN DETEMIR) 1 UNITS/0.01ML SC SCH ×2 (09:51→21:46)
[2020-07-30 14:00] VITALS: BP 134/62
[2020-07-30 20:10] VITALS: BP 150/74
[2020-07-30] MEDS: **NOTE PATIENT COMMENT** MISC XX SCH (21:00)
[2020-07-30] MEDS: VICKS VAPOR RUB TOP SCH (21:39)
[2020-07-30] MEDS: ATORVASTATIN 20 MG TAB PEG SCH (21:44)
[2020-07-31] MEDS: REMEDY PHYTOPLEX Z-GUARD PASTE 113GM TUBE (FROM STOREROOM PRODUCT) TOP SCH ×11 (02:23→22:25)
[2020-07-31 05:56] VITALS: BP 159/84
[2020-07-31] MEDS: **hydrALAZINE HCL** 25 MG TAB PEG SCH ×3 (06:11→18:29)
[2020-07-31] MEDS: MODAFINIL 100 MG TABLET PEG SCH ×2 (06:13→13:16)
[2020-07-31] MEDS ORDERED: ACET325S6 GT (07:09)
[2020-07-31] MEDS ORDERED: FERR5MLUD PEG (07:10)
[2020-07-31] MEDS ORDERED: IPRA0.00 NEB (07:10)
[2020-07-31] MEDS ORDERED: MAGICMW SSP (07:10)
[2020-07-31] MEDS ORDERED: LOVE1INJ SC (07:10)
[2020-07-31] MEDS ORDERED: ATOR1TAB21 PEG (07:10)
[2020-07-31] MEDS ORDERED: GUAI100S51 PEG (07:10)
[2020-07-31] MEDS ORDERED: ASPI81CH8 PEG (07:10)
[2020-07-31] MEDS ORDERED: META1POW PEG (07:10)
[2020-07-31] MEDS ORDERED: Omeprazole Suspension PEG (07:10)
[2020-07-31] MEDS ORDERED: MI-A80CH PEG (07:10)
[2020-07-31] MEDS ORDERED: LABE100T4 PEG (07:10)
[2020-07-31] MEDS ORDERED: INSUDET SC ×2 (07:10)
[2020-07-31] MEDS ORDERED: HYDR25TA PEG (07:10)
[2020-07-31] MEDS ORDERED: AMLO1TAB25 PEG (07:10)
[2020-07-31] MEDS ORDERED: DIOV80TA3 PEG (07:10)
[2020-07-31] MEDS ORDERED: LIDO5TD TD (07:10)
[2020-07-31] MEDS ORDERED: LEXA1TAB PEG (07:10)
[2020-07-31] MEDS ORDERED: INSUHUMDS SC ×2 (07:10)
[2020-07-31] MEDS ORDERED: THIA100TA NG (07:10)
[2020-07-31] MEDS ORDERED: CLONI1TA GT (07:10)
[2020-07-31] MEDS ORDERED: BACL10TA2 PEG (07:10)
[2020-07-31] MEDS ORDERED: Sodium Chloride Nasal Spray (07:10)
[2020-07-31] MEDS ORDERED: METO1TAB87 GT (07:10)
[2020-07-31] MEDS ORDERED: AMANTADINE PEG (07:10)
[2020-07-31] MEDS ORDERED: MODA100T13 PEG (07:10)
[2020-07-31] MEDS ORDERED: Zinc Oxide/Petrolatum,White TOP (07:10)
[2020-07-31] MEDS ORDERED: GABA-1171 PEG (07:10)
[2020-07-31] MEDS: IPRATROPIUM 0.5MG/ALBUTEROL 2.5MG INH SOL UD 3ML (DUONEB) NEB SCH ×3 (07:11→20:36)
[2020-07-31] MEDS: HumaLOG INSULIN (NovoLOG) PER UNIT SC SCH ×4 (08:35→21:09)
[2020-07-31] MEDS: PREPARATION H SUPP (HEMORRHOID) PR SCH ×2 (08:36→21:09)
[2020-07-31] MEDS: LIDOCAINE 5% (LIDODERM) PATCH TD SCH (08:36)
[2020-07-31] MEDS: OMEPRAZOLE SUSPENSION 20MG 10ML ORAL SYRINGE PEG SCH (08:37)
[2020-07-31] MEDS: guaiFENesin SYRUP 200 MG/10 ML UDC PEG SCH ×4 (08:37→21:08)
[2020-07-31] MEDS: AMANTADINE 100MG/10ML SYRUP UDC PEG SCH ×2 (08:37→21:08)
[2020-07-31] MEDS: FERROUS SULFATE 300MG/5ML UDC LIQUID PEG SCH (08:37)
[2020-07-31] MEDS: ACETAMINOPHEN 325 MG/10.15 ML UDC GT SCH ×3 (08:37→21:08)
[2020-07-31] MEDS: ENOXAPARIN 40MG/0.4ML SYRINGE (J1650 PER 10MG) SC SCH (08:38)
[2020-07-31] MEDS: BACLOFEN 5MG PER 1/2 TABLET PEG SCH ×3 (08:38→21:10)
[2020-07-31] MEDS: THIAMINE 100 MG TAB NG SCH (08:38)
[2020-07-31] MEDS: ASPIRIN 81 MG CHEW TABLET PEG SCH (08:38)
[2020-07-31] MEDS: GABAPENTIN 100 MG CAP PEG SCH ×3 (08:38→21:11)
[2020-07-31] MEDS: cloNIDine 0.1MG TABLET GT SCH ×3 (08:39→21:09)
[2020-07-31] MEDS: METOPROLOL TART 25 MG TABLET GT SCH ×2 (08:39→21:11)
[2020-07-31] MEDS: METAMUCIL (PSYLLIUM) PACKET PEG SCH (08:40)
[2020-07-31] MEDS: SIMETHICONE 80MG CHEW TAB PEG SCH ×3 (08:40→21:09)
[2020-07-31] MEDS: SALIVA SUBSTITUTE(MOUTHKOTE) BTL MT SCH ×4 (08:40→21:07)
[2020-07-31] MEDS: LABETALOL 100MG TAB PEG SCH ×2 (08:40→21:10)
[2020-07-31] MEDS: ESCITALOPRAM OXALATE 10 MG TAB (LEXAPRO) PEG SCH (08:40)
[2020-07-31] MEDS: SODIUM CHLORIDE NASAL 0.65% SPRAY BTL (OCEAN) SCH ×3 (08:41→21:07)
[2020-07-31] MEDS: VALSARTAN 80 MG TAB (DIOVAN) PEG SCH (08:42)
[2020-07-31] MEDS: MAGIC MOUTHWASH SUSPENSION BTL SSP SCH ×4 (08:42→21:07)
[2020-07-31] MEDS: LEVEMIR (INSULIN DETEMIR) 1 UNITS/0.01ML SC SCH ×2 (08:43→21:08)
--- NOTE | 2020-07-31 13:43 | IPNPDOC ---
PM&R Progress Note DATE OF SERVICE: Jul 31, 2020 [employer] Progress Note Subjective: Patient seen in his room comfortable, bedside, no new issues, patient continuing to make modest gains in therapy REVIEW OF SYSTEMS: The following is a completed review of systems and has been reviewed. Difficult to assess due to patient unable to respond EARS, NOSE, & THROAT: + dysphagia PULMONARY: denies cough GASTROINTESTINAL: +peg GENITOURINARY: +incontinence MUSCULOSKELETAL: generalized weakness NEUROLOGICAL:+ left sided paresis SKIN: +sacral ulcers PHYSICAL EXAMINATION: VITAL SIGNS: Please see below. GENERAL: NAD, sitting up in chair, alert HEENT: PERRL. Clear conjunctiva, +left sided facial droop CARDIOVASCULAR: Regular rate and rhythm. No murmurs, rubs, or gallops LUNGS: clear to auscultation bilaterally. No wheezes. No rhonchi, breathing comfortably ABDOMEN: Soft, nontender, slightly distended. no guarding, Positive bowel sounds. Normal active bowel sounds, +PEG NEUROLOGICAL: waxing and waning levels of alertness, LLE knee flexion tone (reso lved) EXTREMITIES: grossly 5/5 RUE and RLE, +spontaneous movement LLE, trace in LUE SKIN: sacral ulcers (healing) right frontal incision healed ASSESSMENT:74-year-old M with past medical history of HTn, HLD who presents status post stroke with hemorrhagic conversion PLAN: 1. rehab- pt/ot advance mobility and ADLs, strengthen/stretch/maintain ROM all 4limbs, starting to tolerate being upright more and continues to participate in therapy from a cognitive standpoint -FORGESMITH for cog and swallow eval-oral care, repeat MBS today, c/u NPO, feeds ok with FORGESMITH 2. 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 s/p EVD placement and removal 06-10-20, c/u presenting as severe non-traumatic brain injury patient with a [place] Score of about 5 will benefit from continued therapy, c/u ASA and statin -encephalopathy improving, c/u amantadine and provigil for neurostimulation- reglan discontinued- cognition and level of alertness continues to improve -monitor for seizures -patient with left sided paresis due to stroke and RLE weakness in setting of severe lumbar stenosis- tx with therapy -daily thiamine -c/u lexapro increased to 20mg daily to help with motor recovery and mood -increasing current baclofen dosing to assist with developing LLE tone 3. Cardiac- hx of HTN c/u labetalol, amlodipine, Diovan, clonidine for elevated BPs- medicine consulted to assist in overall management -ECHO at [facility] 06-11-20 showing grade 2 diastolic CHF 4. Resp- s/p treatment for klebsiella PNA with hypoxic respiratory failure at [facility], restarted on IV zosyn on 06-29-20 due to increased work of breathing and fever, f/u CT 07-01-20 showing no definite infiltrate, however did show bilat discoid atelectasis, had finished abx, became more lethargic and needing [address] chest 07-18-20 showing new left sided infiltrate, s/p ZOsyn for recurrent aspiration PNA and s/p Augementin patient c/u to be more alert and less lethargic, c/u duonebs, guaifenesin, HOB elevated -CXR 07-27-20 no new infiltrate, patient clinically appearing better -suspect sleep apnea, c/u nocturnal 02- goal 88-92% to avoid increasing apneic episodes 5. GI- NPO with minimal feeds with FORGESMITH, PEG dislodged s/p EGD replacement per general surgery 07-17-20, patient tolerating PEG feeds -pepcid for ppx, Simethicone -FOBT negative -preparation H suppositories ordered for hemorrhoids 6. DVT ppx- dopplers negative for dvt, c/u lovenox 7. SKin- turn q2,heel floats, zinc oxide-corn starch to sacrum q2h- sacral ulcers healing 8. - not retaining, however incontinent, but Urine negative for infection 9. Renal- consulted for fluid management in setting of CHF, to monitor kidney function, and assist with iron deficiency anemia- intervention appreciated, renal signed 9. Endo- newly dx DM, c/u insulin adjustments for hyperglycemia 10. heme- iron deficiency anemia s/p venofer per renal and 1 unit prbc 07-02-20, FOBT negative, c/u to monitor 10. Pain- tylenol changed to standing, liododerm patch to low back -c/u gabapentin for neuropathy- pain improving 11. Dispo- awaiting bed at [facility] Allergies Coded Allergies: No Known Allergies (Unverified , 06/23/20) Vital Signs Vital Signs Date Time Temp Pulse Resp B/P (MAP) Pulse Ox O2 Delivery O2 Flow Rate FiO2 07/31/20 12:00 139/67 07/31/20 05:56 97.0 80 18 93 Room Air Laboratory Data Labs 24H Laboratory Tests 2 07/30/20 16:25: Bedside Glucose (Misc Panel) 106 07/30/20 20:13: Bedside Glucose (Misc Panel) 178H 07/31/20 06:11: Bedside Glucose (Misc Panel) 149H 07/31/20 08:34: Coronavirus (COVID-19)(PCR) NEGATIVE 07/31/20 11:21: Bedside Glucose (Misc Panel) 195H Current Medications Current Medications Current Medications Medications (Trade) Dose Ordered Sig/Andi Route PRN Reason Start Time Stop Time Status Last Admin Dose Admin Acetaminophen (Tylenol Suspension) 650 mg Q8HP PRN PEG fever 07/09/20 17:45 07/18/20 13:52 Acetaminophen (Tylenol Suspension) 650 mg TID GT 06/29/20 16:00 07/31/20 08:37 Acetaminophen (Tylenol Tab) 650 mg Q4HP PRN PEG fever/MILD PAIN (PS 1-4) 06/23/20 13:55 06/29/20 13:35 DC Acetaminophen (Tylenol Tab) 650 mg Q8HP PRN PEG fever 06/29/20 13:35 07/09/20 17:43 DC Albuterol/ Ipratropium (Duoneb (Ipr 0.5mg/Alb 2.5mg)) 3 ml RTID NEB 06/23/20 20:00 07/31/20 13:13 Amantadine HCl (Symmetrel Syrup) 100 mg BID PEG 06/23/20 21:00 07/31/20 08:37 Amlodipine Besylate (Norvasc) 5 mg DAILY PEG 06/24/20 09:00 07/08/20 08:39 DC 07/08/20 08:23 Amlodipine Besylate (Norvasc) 10 mg DAILY PEG 07/09/20 09:00 07/31/20 08:39 Amoxicillin/ Clavulanate Potassium (Augmentin) 875 mg BID PEG 07/26/20 09:00 07/28/20 21:01 DC 07/28/20 21:26 Aspirin (Aspirin Chewable) 81 mg DAILY PEG 06/24/20 09:00 07/31/20 08:38 Atorvastatin Calcium (Lipitor) 80 mg QHS PEG 06/23/20 21:00 07/30/20 21:44 Baclofen (Lioresal) 5 mg BID PEG 07/20/20 21:00 07/26/20 10:48 DC 07/26/20 08:35 Baclofen (Lioresal) 10 mg TID PEG 07/26/20 16:00 07/31/20 08:38 Bisacodyl (Dulcolax Suppository) 10 mg DAILYPRN PRN AR CONSTIPATION 06/23/20 13:55 06/29/20 11:02 Clonidine HCl (Catapres) 0.1 mg BID GT 06/23/20 21:00 07/05/20 10:16 DC 07/05/20 07:57 Clonidine HCl (Catapres) 0.1 mg TID GT 07/19/20 16:00 07/31/20 08:39 Clonidine HCl (Catapres) 0.2 mg BID GT 07/05/20 21:00 07/19/20 15:25 DC 07/16/20 20:32 Clonidine HCl (Pyvpnwyk-Pfe-6) 1 ea Mo@[facility] 07/17/20 09:00 07/17/20 11:42 DC Dextrose (Dextrose 50%) 25 ml ASDIRECTED PRN IV SEE LABEL COMMENTS 07/04/20 11:05 Dextrose (Dextrose 50%) 25 ml ASDIRECTED PRN IV SEE LABEL COMMENTS 06/23/20 13:55 07/04/20 11:07 DC Enoxaparin Sodium (Lovenox) 40 mg DAILY SC 06/24/20 09:00 07/31/20 08:38 Escitalopram Oxalate (Lexapro) 10 mg DAILY PEG 07/04/20 09:00 07/20/20 11:29 DC 07/20/20 08:40 Escitalopram Oxalate (Lexapro) 20 mg DAILY PEG 07/21/20 09:00 07/31/20 08:40 Famotidine (Pepcid) 40 mg BID PEG 06/23/20 21:00 07/03/20 10:00 DC 07/03/20 09:44 Ferrous Sulfate (Ferrous Sulfate) 300 mg BID PEG 06/27/20 09:00 07/01/20 09:25 DC 07/01/20 08:47 Ferrous Sulfate (Ferrous Sulfate) 300 mg DAILY PEG 07/02/20 09:00 07/31/20 08:37 Gabapentin (Neurontin) 200 mg TID PEG 07/19/20 16:00 07/31/20 08:38 Glucagon (Glucagon) 1 mg ASDIRECTED PRN SC SEE LABEL COMMENTS 07/04/20 11:05 Glucagon (Glucagon) 1 mg ASDIRECTED PRN SC SEE LABEL COMMENTS 06/23/20 13:55 07/04/20 11:07 DC Glucose (Glucose) 16 GM ASDIRECTED PRN PO SEE LABEL COMMENTS 07/04/20 11:05 Glucose (Glucose) 16 GM ASDIRECTED PRN PO SEE LABEL COMMENTS 06/23/20 13:55 07/04/20 11:07 DC Guaifenesin (Robitussin) 10 ml QID PEG 06/23/20 21:00 07/31/20 13:16 Home Med (Med Rec Complete!) ASDIRECTED XX 06/23/20 19:15 06/23/20 19:14 DC Hydralazine HCl (Apresoline) 25 mg Q6H PEG 07/22/20 12:00 07/29/20 19:59 DC 07/29/20 17:38 Hydralazine HCl (Apresoline) 25 mg Q6HP PRN PEG SBP>170 07/17/20 17:15 07/22/20 10:20 DC 07/21/20 06:12 Hydralazine HCl (Apresoline) 50 mg Q6H PEG 07/30/20 00:00 07/31/20 06:11 Insulin Detemir (Levemir Insulin) 10 units DAILY SC 06/29/20 09:00 07/01/20 09:59 DC 06/30/20 08:14 Insulin Detemir (Levemir Insulin) 10 units QHS SC 06/23/20 21:00 06/26/20 09:35 DC 06/25/20 21:02 Insulin Detemir (Levemir Insulin) 12 units QHS SC 06/26/20 21:00 06/27/20 07:18 DC 06/26/20 20:23 Insulin Detemir (Levemir Insulin) 13 units QAM SC 07/01/20 09:00 07/12/20 12:38 DC 07/12/20 08:25 Insulin Detemir (Levemir Insulin) 18 units QAM MN 07/13/20 09:00 07/31/20 08:43 Insulin Detemir (Levemir Insulin) 20 units QHS MN 06/27/20 21:00 06/27/20 12:20 DC Insulin Detemir (Levemir Insulin) 30 units QHS MN 07/05/20 21:00 07/13/20 09:53 DC 07/12/20 21:10 Insulin Detemir (Levemir Insulin) 32 units QHS MN 06/27/20 21:00 07/01/20 08:31 DC 06/30/20 21:19 Insulin Detemir (Levemir Insulin) 34 units QHS MN 07/13/20 21:00 07/30/20 21:46 Insulin Detemir (Levemir Insulin) 40 units QHS MN 07/01/20 21:00 07/05/20 10:16 DC 07/04/20 21:36 Insulin Human Lispro (HumaLOG INSULIN) SEE PROTOCOL TABLE AC MN 07/04/20 12:00 07/31/20 13:16 Insulin Human Lispro (HumaLOG INSULIN) SEE PROTOCOL TABLE Q6H MN 06/23/20 18:00 07/04/20 11:07 DC 07/04/20 05:59 Insulin Human Lispro (HumaLOG INSULIN) SEE PROTOCOL TABLE QHS MN 07/04/20 21:00 07/26/20 23:26 Iron 100 mg/ Sodium Chloride 105 ml @ 105 mls/hr Q24H IV 07/01/20 12:00 07/06/20 11:59 DC 07/05/20 12:34 Labetalol HCl (Normodyne, Trandate) 300 mg BID PEG 06/23/20 21:00 07/31/20 08:40 Lidocaine (Lidoderm Patch) 1 patch DAILY TD 06/29/20 13:35 07/26/20 10:48 DC 07/26/20 08:48 Lidocaine (Lidoderm Patch) 2 patch DAILY TD 07/26/20 10:45 07/31/20 08:36 Lidocaine/ Diphenhydr/Alum/ Mg/Simeth (Magic Mouthwash) 5ml QID SSP 06/23/20 21:00 07/31/20 13:19 Metoclopramide HCl (Reglan Liquid) 5 mg Q6H PEG 06/26/20 12:00 06/28/20 12:28 DC 06/28/20 12:01 Metoclopramide HCl (Reglan Liquid) 10 mg Q6H PEG 06/24/20 00:00 06/26/20 09:35 DC 06/26/20 05:50 Metoprolol Tartrate (Lopressor) 25 mg BID GT 07/19/20 21:00 07/29/20 19:59 DC 07/29/20 09:35 Metoprolol Tartrate (Lopressor) 25 mg Q6H PO 07/13/20 12:00 07/19/20 15:25 DC 07/17/20 00:09 Metoprolol Tartrate (Lopressor) 50 mg BID GT 07/29/20 21:00 07/31/20 08:39 Miscellaneous (Unresolved Clarification Entry) SEE LABEL COMMENTS DAILY XX 07/23/20 09:00 07/23/20 19:09 DC Modafinil (Provigil) 100 mg BID@0600,1400 PEG 06/24/20 06:00 07/31/20 13:16 Non-Formulary Medication ( See Comment Field Below ) REMOVE LIDODERM PATCH DAILY@21 XX 06/29/20 21:00 07/26/20 10:48 DC 07/25/20 20:49 Non-Formulary Medication ( See Comment Field Below ) REMOVE LIDODERM PATCH DAILY@21 XX 07/26/20 21:00 07/27/20 21:28 Omeprazole (First-Omeprazole ORAL SUSPENSION) 40 mg DAILY PEG 07/08/20 09:00 07/31/20 08:37 Oxymetazoline HCl (Afrin) 2 spray ASDIRECTED PRN NA SEE LABEL COMMENTS 07/14/20 08:40 Pantoprazole Sodium (Protonix) 40 mg DAILY IV 07/03/20 10:00 07/07/20 15:23 DC 07/07/20 08:07 Patient Own Medication (Patient'S Own Med) RUB TO NOSE QHS TOP 07/20/20 21:00 07/30/20 21:39 Phenylephrine HCl (Preparation H Supp) 1 sup BID AR 07/21/20 09:00 07/31/20 08:36 Piperacillin Sod/ Tazobactam Sod 4.5 gm/Dextrose 50 ml @ 50 mls/hr Q6H IV 06/29/20 15:00 07/04/20 23:00 DC 07/04/20 21:29 Piperacillin Sod/ Tazobactam Sod 4.5 gm/Dextrose 50 ml @ 50 mls/hr Q6H IV 07/18/20 20:00 07/25/20 23:00 DC 07/25/20 20:46 Psyllium Hydrophilic Mucilloid (Metamucil) 1 pkt DAILY PEG 07/20/20 15:00 07/31/20 08:40 Saliva Substitute (Mouthkote) 2 sprays QID MT 07/05/20 13:00 07/31/20 13:20 Senna (Senokot) 1 tab QHS PEG 06/23/20 21:00 06/29/20 14:44 DC 06/28/20 21:19 Simethicone (Mylicon) 80 mg TID PEG 07/13/20 16:00 07/31/20 08:40 Sodium Chloride ([place] Nasal [place]) 2 spray TID NA 07/03/20 21:00 07/31/20 08:41 Thiamine HCl (Thiamine HCl) 100 mg DAILY NG 07/20/20 09:00 07/31/20 08:38 Thiamine HCl (VITAMIN B1 INJection) 100 mg DAILY IM 06/24/20 09:00 07/19/20 15:28 DC 07/19/20 08:36 Valsartan (Diovan) 320 mg DAILY PEG 06/24/20 09:00 07/31/20 08:42 RICKY MCDONOUGH MD Jul 31, 2020 13:43
[2020-07-31 14:00] VITALS: BP 136/65
[2020-07-31 20:30] VITALS: BP 162/84
[2020-07-31] MEDS: VICKS VAPOR RUB TOP SCH (21:06)
[2020-07-31] MEDS: ATORVASTATIN 20 MG TAB PEG SCH (21:11)
[2020-07-31] MEDS: **NOTE PATIENT COMMENT** MISC XX SCH (21:11)
[2020-08-01] MEDS: **hydrALAZINE HCL** 25 MG TAB PEG SCH ×3 (00:18→12:00)
[2020-08-01] MEDS: REMEDY PHYTOPLEX Z-GUARD PASTE 113GM TUBE (FROM STOREROOM PRODUCT) TOP SCH ×7 (00:18→12:07)
[2020-08-01] MEDS: MODAFINIL 100 MG TABLET PEG SCH (06:00)
[2020-08-01 06:12] VITALS: BP 152/74
[2020-08-01] MEDS: IPRATROPIUM 0.5MG/ALBUTEROL 2.5MG INH SOL UD 3ML (DUONEB) NEB SCH (07:30)
[2020-08-01] MEDS: HumaLOG INSULIN (NovoLOG) PER UNIT SC SCH ×2 (07:30→12:07)
[2020-08-01] MEDS: ACETAMINOPHEN 325 MG/10.15 ML UDC GT SCH (09:02)
[2020-08-01] MEDS: METAMUCIL (PSYLLIUM) PACKET PEG SCH (09:03)
[2020-08-01] MEDS: guaiFENesin SYRUP 200 MG/10 ML UDC PEG SCH ×2 (09:03→12:07)
[2020-08-01] MEDS: BACLOFEN 5MG PER 1/2 TABLET PEG SCH (09:03)
[2020-08-01] MEDS: SIMETHICONE 80MG CHEW TAB PEG SCH (09:03)
[2020-08-01] MEDS: FERROUS SULFATE 300MG/5ML UDC LIQUID PEG SCH (09:03)
[2020-08-01] MEDS: AMANTADINE 100MG/10ML SYRUP UDC PEG SCH (09:03)
[2020-08-01] MEDS: PREPARATION H SUPP (HEMORRHOID) PR SCH (09:04)
[2020-08-01] MEDS: GABAPENTIN 100 MG CAP PEG SCH (09:04)
[2020-08-01] MEDS: LIDOCAINE 5% (LIDODERM) PATCH TD SCH (09:04)
[2020-08-01] MEDS: ESCITALOPRAM OXALATE 10 MG TAB (LEXAPRO) PEG SCH (09:04)
[2020-08-01] MEDS: cloNIDine 0.1MG TABLET GT SCH (09:04)
[2020-08-01] MEDS: ASPIRIN 81 MG CHEW TABLET PEG SCH (09:04)
[2020-08-01] MEDS: THIAMINE 100 MG TAB NG SCH (09:04)
[2020-08-01] MEDS: METOPROLOL TART 25 MG TABLET GT SCH (09:05)
[2020-08-01] MEDS: VALSARTAN 80 MG TAB (DIOVAN) PEG SCH (09:05)
[2020-08-01] MEDS: OMEPRAZOLE SUSPENSION 20MG 10ML ORAL SYRINGE PEG SCH (09:06)
[2020-08-01] MEDS: ENOXAPARIN 40MG/0.4ML SYRINGE (J1650 PER 10MG) SC SCH (09:06)
[2020-08-01] MEDS: LEVEMIR (INSULIN DETEMIR) 1 UNITS/0.01ML SC SCH (09:06)
[2020-08-01] MEDS: LABETALOL 100MG TAB PEG SCH (09:06)
[2020-08-01] MEDS: MAGIC MOUTHWASH SUSPENSION BTL SSP SCH ×2 (09:07→12:08)
[2020-08-01] MEDS: SODIUM CHLORIDE NASAL 0.65% SPRAY BTL (OCEAN) SCH (09:07)
[2020-08-01] MEDS: SALIVA SUBSTITUTE(MOUTHKOTE) BTL MT SCH ×2 (09:07→12:07)
[2020-08-01 10:44] VITALS: BP 143/74
[2020-08-01 12:00] VITALS: BP 136/67
--- NOTE | 2020-08-28 12:46 | PMRDS ---
NAME: AUGUSTINE GOMEZ [facility] WT ID#: [id number] JOB: [id number] FANNIE: 08/01/2020 ACCT: [id number] DOCTOR: RICKY MCDONOUGH MD PMR DISCHARGE SUMMARY DATE OF ADMISSION: 06/23/2020 DATE OF DISCHARGE: 08/01/2020 CHIEF COMPLAINT/DISCHARGE DIAGNOSIS: Stroke. HISTORY OF PRESENT ILLNESS: This is a 74-year-old man with a past medical history of hypertension, hyperlipidemia, CAD status post CABG, chronic diastolic CHF, right ICA occlusion followed by his cath lab nurse on aspirin and Plavix, presented to [facility] 06/01/2020 with left sided weakness and facial droop with CTA of head showing right ICA occlusion and right M1 occlusion. He was not a candidate for TPA, however was evaluated by neurosurgery and underwent a thrombectomy with T1C1 __ reperfusion on 06/01/2020. Follow-up MRI and CT scan done 06/02/2020 showed hemorrhagic conversion with interventricular hemorrhage extension and obstructive hydrocephalus. His antiplatelet therapy was held, EVD placed with serial CTHs and ultimately removed on 06/10/2020. Follow-up CTH on 06/12/2020 showed "no significant interval change. Stable extent of intraparenchymal hemorrhage and edema involving the right basal ganglia/external capsule, extra-axial blood in the occipital horns of the lateral ventricles. Stable midline shift to the left measures approximately 4 mm at the level of the foramen of Monro. Stable size of ventricular system." He was treated with Keppra for seizure-like activity which was later stopped due to negative findings on EEG. He was treated for hospital acquired pneumonia, aspiration, Klebsiella pneumoniae in the setting of hypoxic respiratory failure and developed acute renal failure with tubular necrosis. He was seen by orthopedics for right leg weakness, deemed to be from severe lumbar stenosis but not deemed operable. He remained NPO per Speech Therapy. Recommendations: Underwent a PEG tube placement on 06/22/2020 without complications. He had significant mobility and ADL impairments and deemed medically appropriate for discharge to ARU on 06/23/2020. PAST MEDICAL HISTORY: As per HPI. HOSPITAL COURSE: Patient was admitted and enrolled in a comprehensive PT/OT, Speech Language Pathology Program. He received 24 hour nursing supervision and weekly team meetings were held to discuss his progress. The patient on initial presentation was extremely somnolent. He was titrated off of Reglan, continued on neuro-stimulants and treated for an aspiration pneumonia. The patient's level of alertness did improve and he was able to tolerate more therapy. He remained NPO and was able to tolerate PEG tube feeds. However, he did have his PEG dislodged and replaced on 07/17/2020. The patient complained of back pain and leg pain which was treated with Gabapentin in addition to Tylenol with overall improvements. He presented to ARU with sacral ulcers that were treated with frequent turns and zinc oxide cream to the backside. The patient's sacral ulcers did improve during his hospital course. He developed another aspiration pneumonia with CT of the chest on 07/18/2020 showing new left sided infiltrate and resumed Zosyn which was eventually transitioned to Augmentin. He made modest gains in therapy, was deemed medically and functionally stable for further rehab at SNF level. DISCHARGE MEDICATIONS: As per instructions. FUNCTIONAL HISTORY: On discharge the patient was max total assist for bed mobility, functional transfers and toileting. Thank you for this referral.
== END 2020-08-01 12:35 | DRG 56 ==
LOC: M PM&R 18:00
PROVIDERS: ADMIT Physical Medicine & Rehabilitation; ATTEND Physical Medicine & Rehabilitation
PROC: 30233N1 Transfusion of Nonautologous Red Blood Cells into Peripheral Vein, Percutaneous Approach (ICD-10-PCS; 2020-07-02)
PROC: 0DH Gastrointestinal System, Insertion (ICD-10-PCS; principal; 2020-07-17)
DX: I69.354 Hemiplegia and hemiparesis following cerebral infarction affecting left non-dominant side (principal); J69.0 Pneumonitis due to inhalation of food and vomit; N17.0 Acute kidney failure with tubular necrosis; J15.0 Pneumonia due to Klebsiella pneumoniae; I50.32 Chronic diastolic (congestive) heart failure; E87.4 Mixed disorder of acid-base balance; G93.40 Encephalopathy, unspecified; J96.11 Chronic respiratory failure with hypoxia; G91.1 Obstructive hydrocephalus; E46 Unspecified protein-calorie malnutrition; I13.0 Hypertensive heart and chronic kidney disease with heart failure and stage 1 through stage 4 chronic kidney disease, or unspecified chronic kidney disease; Z43.1 Encounter for attention to gastrostomy; R53.1 Weakness; L89.152 Pressure ulcer of sacral region, stage 2; I69.391 Dysphagia following cerebral infarction; R13.10 Dysphagia, unspecified; E78.5 Hyperlipidemia, unspecified; R32 Unspecified urinary incontinence; E11.65 Type 2 diabetes mellitus with hyperglycemia; K64.8 Other hemorrhoids; D50.9 Iron deficiency anemia, unspecified; G47.30 Sleep apnea, unspecified; I65.21 Occlusion and stenosis of right carotid artery; M48.061 Spinal stenosis, lumbar region without neurogenic claudication; N18.2 Chronic kidney disease, stage 2 (mild); R53.83 Other fatigue; E11.22 Type 2 diabetes mellitus with diabetic chronic kidney disease; I25.10 Atherosclerotic heart disease of native coronary artery without angina pectoris; E11.40 Type 2 diabetes mellitus with diabetic neuropathy, unspecified; R63.3 Feeding difficulties; M25.511 Pain in right shoulder; Z74.09 Other reduced mobility; Z99.81 Dependence on supplemental oxygen; Z79.82 Long term (current) use of aspirin; Z79.899 Other long term (current) drug therapy; Z95.1 Presence of aortocoronary bypass graft; Z74.1 Need for assistance with personal care; R29.818 Other symptoms and signs involving the nervous system

== ENCOUNTER → 2020-08-03 | Outpatient (REF) ==
[~2020-08-03] MED LIST changes: +ACET325S6 GT; +AMAN100T PO; +AMANTADINE PEG; +AMLO1TAB25 PEG; +AMLO1TAB25 PO; +ASPI81CH33 PO; +ASPI81CH8 PEG; +ATOR1TAB21 PEG; +ATOR80TA59 PO; +BACL10TA2 PEG; +CLON-412 PEG; +CLONI1TA GT; +DIOV80TA3 PEG; +DOCU5LIQ PO; +FERR5MLUD PEG; +FLOM0.4C39 PO; +GABA-1171 PEG; +GUAI100S51 PEG; +HYDR25TA PEG; +INSUDET SC; +INSUHUMDS SC; +IPRA0.00 NEB; -ISOVUE-370 76% 100ML VIAL (Q9967) As Ordered; +LABE100T4 PEG; +LABE300T2 PO; +LANTINJ4 SC; +LEXA1TAB PEG; +LIDO5TD TD; +LOVE1INJ SC; +MAGICMW SSP; +META1POW PEG; +METO1TAB87 GT; +MI-A80CH PEG; +MODA100T13 PEG; +MODA100T13 PO; +Omeprazole Suspension PEG; +POLY17PO18 PO; +PROT40IN4 IV; +SENN8.8S11 PO; +Sodium Chloride Nasal Spray; +THIA100T7 PO; +THIA100TA NG; +VALS1TAB68 PO; +Zinc Oxide/Petrolatum,White TOP
[2020-08-03 09:15] LABS: HEMOGLOBIN 10.8 g/dl (13.5-17.5); MEAN CORPUSCULAR HEMOGLOBIN 25.6 pg (27.0-33.0); MEAN CORPUSCULAR HGB CONC 30.9 g/dl (32.0-36.5); MEAN CORPUSCULAR VOLUME 82.9 fl (80.0-96.0); PLATELET COUNT, AUTOMATED 225 10^3/uL (150-450); RED BLOOD COUNT 4.22 10^6/uL (4.30-6.10); WHITE BLOOD COUNT 8.2 10^3/uL (4.0-10.0)
[2020-08-03 09:48] LABS: BLOOD UREA NITROGEN 15 MG/DL (7-18); CALCIUM LEVEL 9.5 MG/DL (8.8-10.2); CARBON DIOXIDE LEVEL 28 MEQ/L (21-32); CHLORIDE LEVEL 99 MEQ/L (98-107); CREATININE FOR GFR 0.46 MG/DL (0.70-1.30); FERRITIN 191 NG/ML (26-388); GLOMERULAR FILTRATION RATE > 60.0 (>42); GLUCOSE, FASTING 241 MG/DL (70-100); IRON (FE) 42 UG/DL (65-175); PERCENT SATURATION 14.4 % (19.7-50.0); POTASSIUM SERUM 3.8 MEQ/L (3.5-5.1); SODIUM LEVEL 136 MEQ/L (136-145); TOTAL IRON BINDING CAPACITY 292 UG/DL (250-450)
[2020-08-03 13:43] LABS: VITAMIN B12 LEVEL 630 PG/ML (247-911)
== END ==
LOC: SKLAB2 16:07
DX: D64.9 Anemia, unspecified (principal)

== ENCOUNTER 2020-08-04 00:51 | Emergency (ER) | payer MEDICARE, BC ==
[~2020-08-04] VITALS: Ht 180.3 cm; Wt 131.0 kg
[~2020-08-04 00:51] MED LIST changes: -ACET1TAB55 PEG; -AMOX875T2 PO; -ASPI81CH33 PEG; -BENE1POW4 PEG; -CARD4TAB2 PEG; -CLON0.2D6 TOP; -DULC10SU2 PR; -FERR1ELX PEG; -INSU100I28 SC; -LEXA1TAB2 PEG; -LIPI80TA PEG; -LOSA50TA88 PEG; -METO50TA7 PEG; -MILK400S12 PO; -SENN-23 PEG; -THERTAB21 PEG; -TRUL0.5I SC
[2020-08-04 01:36] LABS: BASO % 0.2 % (0.0-1.0); EOS # 0.4 10^3/uL (0.0-0.5); EOS % 2.8 % (0.0-3.0); HEMATOCRIT 36.3 % (42.0-52.0); HEMOGLOBIN 11.5 g/dl (13.5-17.5); MEAN CORPUSCULAR HEMOGLOBIN 25.8 pg (27.0-33.0); MEAN CORPUSCULAR HGB CONC 31.7 g/dl (32.0-36.5); MEAN CORPUSCULAR VOLUME 81.6 fl (80.0-96.0); MONO # 0.7 10^3/uL (0.0-0.8); MONO % 5.4 % (2.0-8.0); NEUTROPHILS # 10.2 10^3/uL (1.5-8.5); NEUTROPHILS % 83.2 % (36.0-66.0); PLATELET COUNT, AUTOMATED 256 10^3/uL (150-450); RED BLOOD COUNT 4.45 10^6/uL (4.30-6.10); WHITE BLOOD COUNT 12.3 10^3/uL (4.0-10.0)
[2020-08-04 02:03] LABS: ALBUMIN 3.1 GM/DL (3.2-5.2); ALT/SGPT 30 U/L (12-78); BILIRUBIN,DIRECT 0.2 MG/DL (0.0-0.2); BILIRUBIN,TOTAL 0.5 MG/DL (0.2-1.0); BLOOD UREA NITROGEN 17 MG/DL (7-18); CALCIUM LEVEL 9.3 MG/DL (8.8-10.2); CARBON DIOXIDE LEVEL 30 MEQ/L (21-32); CHLORIDE LEVEL 98 MEQ/L (98-107); GLOMERULAR FILTRATION RATE > 60.0 (>42); GLUCOSE, FASTING 179 MG/DL (70-100); LIPASE 99 U/L (73-393); POTASSIUM SERUM 4.2 MEQ/L (3.5-5.1); SODIUM LEVEL 135 MEQ/L (136-145); TOTAL PROTEIN 7.3 GM/DL (6.4-8.2)
--- NOTE | 2020-08-04 02:35 | REPVR ---
PROCEDURE INFORMATION: Exam: XR Chest Exam date and time: 08/04/2020 1:57 AM Age: 74 years old Clinical indication: Other: Low grade fever TECHNIQUE: Imaging protocol: XR of the chest. Views: 1 view. COMPARISON: CT Chest without contrast 07/18/2020 3:08 PM FINDINGS: Lungs: There is decreased inflation of the lungs. Poor delineation of the left hemidiaphragm suggesting minimal left base infiltrate or atelectasis. Pleural spaces: Unremarkable. Minimal left pleural effusion is not excluded. No pneumothorax. Heart/Mediastinum: The heart and mediastinum are unchanged. Diaphragm: Mild elevation of the right hemidiaphragm. Bones/joints: Status post sternotomy. IMPRESSION: 1. Question of minimal left base infiltrate or atelectasis. 2. Otherwise stable poor inspiratory chest since 07/18/2020. Electronically signed by: Sanjay Singh On 08/04/2020 02:35:48 AM
[2020-08-04] MEDS ORDERED: ISOVUE-370 76% 100ML VIAL As Ordered ONE (02:44)
--- NOTE | 2020-08-04 03:35 | REPVR ---
PROCEDURE INFORMATION: Exam: CT Abdomen And Pelvis With Contrast Exam date and time: 08/04/2020 2:26 AM Age: 74 years old Clinical indication: Vomiting; Abdominal pain; Generalized; Additional info: Abd pain, vomiting TECHNIQUE: Imaging protocol: Computed tomography of the abdomen and pelvis with contrast. Radiation optimization: All CT scans at this facility use at least one of these dose optimization techniques: automated exposure control; mA and/or kV adjustment per patient size (includes targeted exams where dose is matched to clinical indication); or iterative reconstruction. Contrast material: ISO; Contrast volume: 100 ml; Contrast route: INTRAVENOUS (IV); COMPARISON: CT ABD PELVIS WITH CONTRAST 07/17/2020 6:17 AM FINDINGS: Tubes, catheters and devices: G-tube in the stomach. Lungs: Minimal bibasilar fibro-atelectatic change involving the lower lobes and lingula. Liver: Normal. No mass. Gallbladder and bile ducts: Normal. No calcified stones. No ductal dilation. Pancreas: Normal. No ductal dilation. Spleen: Normal. No splenomegaly. Adrenal glands: Normal. No mass. Kidneys and ureters: Small nonobstructing right renal calculus. There is a right renal cyst measuring 2.5 cm with a Hounsfield measurement of -4 and is redemonstrated since the prior study with little change. Stomach and bowel: Slight wall thickening of the colon from the hepatic flexure to the proximal sigmoid which is increased since the prior study. Appendix: A normal appendix is seen. Intraperitoneal space: Unremarkable. No free air. No significant fluid collection. Vasculature: There is moderate calcification of the abdominal aorta with extension into the iliac arteries. Lymph nodes: Unremarkable. No enlarged lymph nodes. Urinary bladder: Unremarkable as visualized. Reproductive: Brachytherapy seeds within the prostate. Bones/joints: Lower lumbar facet arthropathy with slight anterolisthesis at L4-L5 with degenerative disc changes from L4-S1. Soft tissues: Unremarkable. IMPRESSION: 1. Interval placement of a G-tube into the stomach since 07/17/2020. 2. Question of minimal nonspecific segmental colitis from the hepatic flexure to the proximal sigmoid colon since the prior study. 3. Small nonobstructing right renal calculus. Electronically signed by: Sanjay Singh On 08/04/2020 03:35:34 AM
[2020-08-04] MEDS ORDERED: CIPROFLOXACIN 400 MG in IV 1 EA IV ONE (04:05)
[2020-08-04] MEDS ORDERED: metroNIDAZOLE (FLAGYL) 500MG TABLET PEG ONE (04:05)
[2020-08-04 05:33] VITALS: BP 157/75
== END 2020-08-04 05:41 | disposition home or self-care (01) ==
LOC: M ED 00:51
DX: K52.9 Noninfective gastroenteritis and colitis, unspecified (principal); I10 Essential (primary) hypertension; E11.51 Type 2 diabetes mellitus with diabetic peripheral angiopathy without gangrene; D64.9 Anemia, unspecified; I73.9 Peripheral vascular disease, unspecified; Z95.1 Presence of aortocoronary bypass graft; Z79.899 Other long term (current) drug therapy; Z79.82 Long term (current) use of aspirin; Z79.4 Long term (current) use of insulin
CPT/HCPCS: 36415; 51701; 71045; 74177; 80053; 81001; 83690; 85025; 85027; 87040; 93041; 96365; 99285; J0744; Q9967

== ENCOUNTER → 2020-08-04 | Outpatient (REF) | payer MEDICARE, SELFPAY ==
[~2020-08-04] MED LIST changes: +ACET1TAB55 PEG; +AMOX875T2 PO; +ASPI81CH33 PEG; +BENE1POW4 PEG; +CARD4TAB2 PEG; +CLON0.2D6 TOP; +DULC10SU2 PR; +FERR1ELX PEG; +INSU100I28 SC; +LEXA1TAB2 PEG; +LIPI80TA PEG; +LOSA50TA88 PEG; +METO50TA7 PEG; +MILK400S12 PO; +SENN-23 PEG; +THERTAB21 PEG; +TRUL0.5I SC
[2020-08-04 08:13] LABS: HEMATOCRIT 33.6 % (42.0-52.0); HEMOGLOBIN 10.3 g/dl (13.5-17.5); MEAN CORPUSCULAR HEMOGLOBIN 25.4 pg (27.0-33.0); MEAN CORPUSCULAR HGB CONC 30.7 g/dl (32.0-36.5); PLATELET COUNT, AUTOMATED 222 10^3/uL (150-450); RED BLOOD COUNT 4.05 10^6/uL (4.30-6.10); WHITE BLOOD COUNT 9.8 10^3/uL (4.0-10.0)
[2020-08-04 08:51] LABS: ALBUMIN 2.7 GM/DL (3.2-5.2); ALT/SGPT 26 U/L (12-78); BILIRUBIN,TOTAL 0.5 MG/DL (0.2-1.0); BLOOD UREA NITROGEN 18 MG/DL (7-18); CALCIUM LEVEL 9.2 MG/DL (8.8-10.2); CARBON DIOXIDE LEVEL 29 MEQ/L (21-32); CHLORIDE LEVEL 98 MEQ/L (98-107); CREATININE FOR GFR 0.56 MG/DL (0.70-1.30); GLOMERULAR FILTRATION RATE > 60.0 (>42); GLUCOSE, FASTING 280 MG/DL (70-100); POTASSIUM SERUM 3.9 MEQ/L (3.5-5.1); SODIUM LEVEL 134 MEQ/L (136-145); TOTAL PROTEIN 6.5 GM/DL (6.4-8.2)
== END ==
LOC: SKLAB2 08:00
PROVIDERS: ATTEND Internal Medicine
DX: R41.82 Altered mental status, unspecified (principal)

== ENCOUNTER → 2020-08-09 | Outpatient (REF) | payer BC, MEDICARE, SELFPAY ==
[~2020-08-09] MED LIST changes: +ACET1TAB55 PEG; +AMOX875T2 PO; +ASPI81CH33 PEG; +BENE1POW4 PEG; +CARD4TAB2 PEG; +CLON0.2D6 TOP; +DULC10SU2 PR; +FERR1ELX PEG; +INSU100I28 SC; +LEXA1TAB2 PEG; +LIPI80TA PEG; +LOSA50TA88 PEG; +METO50TA7 PEG; +MILK400S12 PO; +SENN-23 PEG; +THERTAB21 PEG; +TRUL0.5I SC
[2020-08-09 09:30] LABS: HEMATOCRIT 31.6 % (42.0-52.0); HEMOGLOBIN 10.2 g/dl (13.5-17.5); MEAN CORPUSCULAR HEMOGLOBIN 26.3 pg (27.0-33.0); MEAN CORPUSCULAR HGB CONC 32.3 g/dl (32.0-36.5); MEAN CORPUSCULAR VOLUME 81.4 fl (80.0-96.0); PLATELET COUNT, AUTOMATED 228 10^3/uL (150-450); RED BLOOD COUNT 3.88 10^6/uL (4.30-6.10); WHITE BLOOD COUNT 8.9 10^3/uL (4.0-10.0)
[2020-08-09 09:55] LABS: BLOOD UREA NITROGEN 18 MG/DL (7-18); CARBON DIOXIDE LEVEL 30 MEQ/L (21-32); CHLORIDE LEVEL 98 MEQ/L (98-107); CREATININE FOR GFR 0.51 MG/DL (0.70-1.30); GLOMERULAR FILTRATION RATE > 60.0 (>42); GLUCOSE, FASTING 209 MG/DL (70-100); POTASSIUM SERUM 3.4 MEQ/L (3.5-5.1); SODIUM LEVEL 135 MEQ/L (136-145)
--- NOTE | 2020-08-09 15:18 | REP ---
INDICATION: F/U LEFT LOWER LOBE ATELECTASIS COMPARISON: 08/04/2020 TECHNIQUE: PA and lateral. FINDINGS: Examination is limited by technique and underpenetration. Mediastinum and cardiac silhouette are stable with cardiomegaly again suggested. Lung solorio demonstrate chronic appearing changes. No obvious focal consolidation, definite effusion or pneumothorax. Skeletal structures stable. IMPRESSION: Chronic stable appearing changes. No obvious focal consolidation or effusion. <Electronically signed by Jason Elam > 08/09/20 [id number]
== END ==
LOC: SKLAB2 08:00
DX: I25.10 Atherosclerotic heart disease of native coronary artery without angina pectoris (principal); I11.0 Hypertensive heart disease with heart failure; D64.9 Anemia, unspecified

== ENCOUNTER → 2020-08-24 | Outpatient (REF) ==
[2020-08-24 09:10] LABS: HEMATOCRIT 34.3 % (42.0-52.0); HEMOGLOBIN 10.2 g/dl (13.5-17.5); MEAN CORPUSCULAR HEMOGLOBIN 24.6 pg (27.0-33.0); MEAN CORPUSCULAR HGB CONC 29.7 g/dl (32.0-36.5); MEAN CORPUSCULAR VOLUME 82.9 fl (80.0-96.0); PLATELET COUNT, AUTOMATED 196 10^3/uL (150-450); RED BLOOD COUNT 4.14 10^6/uL (4.30-6.10); WHITE BLOOD COUNT 8.3 10^3/uL (4.0-10.0)
[2020-08-24 09:41] LABS: BLOOD UREA NITROGEN 16 MG/DL (7-18); CALCIUM LEVEL 8.9 MG/DL (8.8-10.2); CARBON DIOXIDE LEVEL 28 MEQ/L (21-32); CHLORIDE LEVEL 99 MEQ/L (98-107); CREATININE FOR GFR 0.41 MG/DL (0.70-1.30); GLOMERULAR FILTRATION RATE > 60.0 (>42); GLUCOSE, FASTING 169 MG/DL (70-100); POTASSIUM SERUM 3.5 MEQ/L (3.5-5.1); SODIUM LEVEL 136 MEQ/L (136-145)
--- NOTE | 2020-08-24 17:04 | REP ---
INDICATION: ABDOMINAL PAIN. COMPARISON: Comparison study June 29, 2020.. TECHNIQUE: KUB: Single view. FINDINGS: A feeding gastrostomy tube is again noted. The bowel gas pattern is otherwise normal. There are radiopaque prostate seeds noted in place. Some vascular calcification is observed. Degenerative spondylosis changes are seen in the lumbar spine. Psoas margins are symmetric. No pathologic calcification is seen. IMPRESSION: Status post prostate seed therapy. Feeding G-tube noted. Normal bowel gas pattern. <Electronically signed by Ranjit Medina > 08/24/20 [id number]
== END ==
LOC: SKLAB2 11:24
DX: R10.9 Unspecified abdominal pain (principal); K59.00 Constipation, unspecified; Z93.1 Gastrostomy status

== ENCOUNTER 2020-09-03 07:42 | Inpatient (IN) | payer MEDICARE, BC ==
[~2020-09-03] VITALS: Ht 180.3 cm; Wt 113.8 kg
[~2020-09-03 07:42] MED LIST changes: -ACET1TAB55 PEG; -AMOX875T2 PO; -ASPI81CH33 PEG; -BENE1POW4 PEG; -CARD4TAB2 PEG; -CLON0.2D6 TOP; -DULC10SU2 PR; -FERR1ELX PEG; -INSU100I28 SC; -LEXA1TAB2 PEG; -LIPI80TA PEG; -LOSA50TA88 PEG; -METO50TA7 PEG; -MILK400S12 PO; -SENN-23 PEG; -THERTAB21 PEG; -TRUL0.5I SC
[2020-09-03] MEDS ORDERED: MORPHINE 2 MG/ML 1ML VIAL (J2270) IV PRN (07:50)
[2020-09-03] MEDS ORDERED: NITROGLYCERIN 0.4 MG SUBL TABLET SL PRN (07:50)
[2020-09-03 08:25] LABS: BASO % 0.2 % (0.0-1.0); EOS # 0.5 10^3/uL (0.0-0.5); EOS % 4.6 % (0.0-3.0); HEMATOCRIT 33.1 % (42.0-52.0); HEMOGLOBIN 10.3 g/dl (13.5-17.5); LYMPH # 1.1 10^3/uL (1.5-5.0); LYMPH % 10.9 % (24.0-44.0); MEAN CORPUSCULAR HEMOGLOBIN 24.5 pg (27.0-33.0); MEAN CORPUSCULAR HGB CONC 31.1 g/dl (32.0-36.5); MEAN CORPUSCULAR VOLUME 78.6 fl (80.0-96.0); MONO # 0.5 10^3/uL (0.0-0.8); MONO % 4.9 % (2.0-8.0); NEUTROPHILS # 7.6 10^3/uL (1.5-8.5); NEUTROPHILS % 78.8 % (36.0-66.0); PLATELET COUNT, AUTOMATED 224 10^3/uL (150-450); RED BLOOD COUNT 4.21 10^6/uL (4.30-6.10); WHITE BLOOD COUNT 9.7 10^3/uL (4.0-10.0)
--- NOTE | 2020-09-03 08:27 | REP ---
INDICATION: CHEST PAIN. COMPARISON: 08/09/2020. TECHNIQUE: Single portable AP view of the chest was performed. FINDINGS: There is moderate cardiomegaly. Mild vascular congestion. There is poor ventilation. There is mild left basilar atelectasis/infiltrate. The mediastinal silhouette appears unchanged. Multiple sternal wires are present. There is an old healed right clavicular fracture. IMPRESSION: Moderate cardiomegaly. Mild left base atelectasis/infiltrate. <Electronically signed by Chadwick Juarez > 09/03/20 [id number]
[2020-09-03 08:46] LABS: INR 1.11; PROTHROMBIN TIME 14.5 SECONDS (12.5-14.3)
[2020-09-03 08:47] LABS: PARTIAL THROMBOPLASTIN TIME 30.2 SECONDS (24.2-38.5)
[2020-09-03] MEDS ORDERED: ACET1TAB55 PEG (08:48)
[2020-09-03] MEDS ORDERED: AMLO1TAB25 PEG (08:48)
[2020-09-03] MEDS ORDERED: BENE1POW4 PEG (08:48)
[2020-09-03] MEDS ORDERED: FERR1ELX PEG (08:48)
[2020-09-03] MEDS ORDERED: METO50TA7 PEG (08:48)
[2020-09-03] MEDS ORDERED: MILK400S12 PO (08:48)
[2020-09-03] MEDS ORDERED: TRUL0.5I SC (08:48)
[2020-09-03] MEDS ORDERED: LIPI80TA PEG (08:48)
[2020-09-03] MEDS ORDERED: DULC10SU2 PR (08:48)
[2020-09-03] MEDS ORDERED: INSU100I28 SC (08:48)
[2020-09-03] MEDS ORDERED: LOSA50TA88 PEG (08:48)
[2020-09-03] MEDS ORDERED: CARD4TAB2 PEG (08:48)
[2020-09-03] MEDS ORDERED: THERTAB21 PEG (08:48)
[2020-09-03] MEDS ORDERED: MODA100T13 PEG (08:48)
[2020-09-03] MEDS ORDERED: LEXA1TAB2 PEG (08:48)
[2020-09-03] MEDS ORDERED: INSUHUMDS SC (08:48)
[2020-09-03] MEDS ORDERED: ASPI81CH33 PEG (08:48)
[2020-09-03] MEDS ORDERED: SENN-23 PEG (08:48)
[2020-09-03] MEDS ORDERED: CLON0.2D6 TOP (08:48)
[2020-09-03 08:55] LABS: BLOOD UREA NITROGEN 14 MG/DL (7-18); CALCIUM LEVEL 8.8 MG/DL (8.8-10.2); CARBON DIOXIDE LEVEL 32 MEQ/L (21-32); CHLORIDE LEVEL 99 MEQ/L (98-107); CK-MB VALUE MASS < 1.0 NG/ML (<3.6); CPK CREATINE PHOSPHOKINASE 21 U/L (39-308); CREATININE FOR GFR 0.48 MG/DL (0.70-1.30); GLOMERULAR FILTRATION RATE > 60.0 (>42); GLUCOSE, FASTING 143 MG/DL (70-100); MB/CK RELATIVE INDEX 4.76 (< OR =4); NT-PRO BNP 338 PG/ML (<450); POTASSIUM SERUM 3.6 MEQ/L (3.5-5.1); SODIUM LEVEL 137 MEQ/L (136-145); TROPONIN I < 0.02 NG/ML (< 0.10)
[2020-09-03] MEDS ORDERED: ISOVUE-370 76% 100ML VIAL As Ordered ONE (09:33)
--- NOTE | 2020-09-03 11:12 | REP ---
INDICATION: hypoxia. COMPARISON: 07/18/2020 and 08/04/2020 CT exams. TECHNIQUE: CT angiogram chest performed following the intravenous administration of 100 cc of Isovue 370. Sagittal and coronal reconstruction images are performed. FINDINGS: Lungs: There is diffuse fibro atelectatic change appearing similar to prior studies. Mild dependent patchy opacities posteriorly and inferiorly bilaterally are compatible with mild patchy atelectasis or infiltrate. Mediastinum: No adenopathy. Pulmonary arteries: No evidence of pulmonary embolism, although evaluation is somewhat limited by breathing motion. Renetta: No adenopathy. Axilla: No adenopathy. Pleura: No effusion. Heart: Not enlarged. Thoracic aorta: No aneurysm or dissection. Visualized osseous structures: There are degenerative changes of the spine without compression deformity. IMPRESSION: No CT evidence of pulmonary embolism. There is diffuse fibro atelectatic change appearing similar to prior studies. Mild dependent patchy opacities posteriorly and inferiorly bilaterally are compatible with mild patchy atelectasis or infiltrate. <Electronically signed by Chadwick Juarez > 09/03/20 [id number]
--- NOTE | 2020-09-03 11:24 | REP ---
INDICATION: hypoxia COMPARISON: 08/04/2020. TECHNIQUE: CT Scan of the abdomen and pelvis was performed with intravenous administration of 100 cc of Isovue 370, without oral contrast. Sagittal and coronal reconstruction images are performed. FINDINGS: Liver: Normal Gallbladder: Unremarkable. Spleen: Normal. Adrenals: Normal. Pancreas: There is a 2.4 cm cyst in the head of the pancreas. It is unchanged since the prior exam. There appears to be an adjacent subcentimeter cystic structure more anteromedially along the margin of the pancreatic head and another 1 cm cystic structure more inferiorly and laterally along the margin of the pancreatic head. Kidneys: A right renal cyst is unchanged. Small and large bowel: Unremarkable. G-tube again noted in place. There is no free air or obstruction. Free fluid: None. Abdominal aorta: No aneurysm or dissection. Adenopathy: None. Appendix: Not inflamed. Osseous structures: There are degenerative changes of the spine without compression deformity. Pelvis: Multiple metallic seeds in the prostate diffusely. IMPRESSION: No acute findings. No free air, free fluid or obstruction. Cystic structures seen in the head of the pancreas. These are unchanged dating back to CT exams 07/17/2020 and 08/04/2020. These should be further evaluated with nonemergent dedicated MRI of the pancreas with and without contrast. <Electronically signed by Chadwick Juarez > 09/03/20 [id number]
[2020-09-03] MEDS ORDERED: BISACODYL 10 MG SUPP PR PRN (13:50)
[2020-09-03] MEDS ORDERED: MOM 30ML SUSPENSION UDC PO PRN (13:50)
[2020-09-03] MEDS ORDERED: GLUCOSE 4GM CHEW TABLET PO PRN (13:50)
[2020-09-03] MEDS ORDERED: IPRATROPIUM 0.5MG/ALBUTEROL 2.5MG INH SOL UD 3ML (DUONEB) NEB PRN (13:50)
[2020-09-03] MEDS ORDERED: GLUCAGON INJ 1MG VIAL SC PRN (13:50)
[2020-09-03] MEDS ORDERED: DEXTROSE 50% 50 ML SYRINGE IV PRN (13:50)
[2020-09-03] MEDS: IPRATROPIUM 0.5MG/ALBUTEROL 2.5MG INH SOL UD 3ML (DUONEB) NEB SCH ×2 (14:00→20:33)
[2020-09-03 14:50] VITALS: BP 162/74
[2020-09-03 16:00] VITALS: BP 141/65
[2020-09-03] MEDS: ESCITALOPRAM OXALATE 10 MG TAB (LEXAPRO) PEG SCH (16:26)
[2020-09-03] MEDS: ASPIRIN 81 MG CHEW TABLET PEG SCH (16:26)
[2020-09-03] MEDS: MULTIVITAMINS/MINERALS THERAP 1 TAB PEG SCH (16:26)
[2020-09-03] MEDS: LOSARTAN 50MG TABLET PEG SCH (16:26)
[2020-09-03] MEDS: PIPERACILLIN/TAZOBACTAM SOD 3.375 GM in D5W MINI-BAG PLUS 50 ML IV SCH ×2 (16:26→21:04)
[2020-09-03] MEDS: KCL 20MEQ IN 0.45NS 1000ML 1,000 ML IV SCH (17:04)
--- NOTE | 2020-09-03 18:02 | HPE ---
HISTORY AND PHYSICAL DATE OF ADMISSION: 09/03/2020 ADMITTING DIAGNOSIS: Aspiration pneumonia. HISTORY OF PRESENT ILLNESS: Abram Patterson is a 74-year-old transferred from [facility] and admitted for aspiration pneumonia. His says he has been weak and tired for the last several days, was brought to the Emergency Room where a workup eventually led to a CT of the chest which showed multifocal pneumonia suspicious for aspiration. MEDICAL HISTORY: His recent past history shows a stroke. He had a severe stroke, right internal carotid artery distribution and underwent thrombectomy [facility] complicated by hemorrhagic complications, obstructive hydrocephalus. He had to have a drain put it in for a period of time. He was transferred to [facility] to [facility]. thought he did fantastically there but was disappointed that he seems to have regressed since he went to a retirement. He does have a 50-79% right internal carotid artery stenosis. I do not think he has seen vascular surgery since discharge. Other past history shows type-2 diabetes, hypertension, a sacral decubitus, chronic anemia probable iron deficiency, congestive heart failure with a preserved ejection fraction, peripheral arterial disease, prostate cancer treated with radiation seeds, traumatic chest injury after falling off a roof hospitalized in [place], [place], sleep apnea currently untreated as he missed his sleep workup. SOCIAL HISTORY: No smoking or alcohol. His is very attentive with all of is care. REVIEW OF SYSTEMS: He is aphasic. He indicates he is not having any pain or shortness of breath. MEDICATIONS AT THE CUSTODIAL: 1. Tube feedings (he is taking small amounts of puree diet and his says he only takes a few bites and she thinks he is full from the tube feedings and not hungry). 2. Trulicity 1.5 mg weekly. 3. Ferrous sulfate 220 mg per PEG tube daily. 4. Glargine Insulin 34 units daily. 5. Sliding scale Insulin with coverage. 6. Tylenol as needed. 7. Amlodipine 10 mg daily. 8. Atorvastatin 80 mg daily. 9. Aspirin 81 mg daily. 10. Dulcolax and other bowel care. 11. Clonidine 0.2 mg patch weekly. 12. Cardura 4 mg twice a day. 13. Lexapro 20 mg daily. 14. Losartan 50 mg daily. 15. Milk of Magnesia as needed 30 mL daily as needed. 16. Metoprolol tartrate 50 mg twice a day. 17. Modafinil 50 mg twice a day. 18. Multivitamin. 19. Senna S twice a day. ALLERGIES: None known. PHYSICAL EXAMINATION: VITAL SIGNS: Per flow sheet. GENERAL APPEARANCE: Alert, answers yes or no to questions but otherwise is aphasic. HEENT: Unremarkable. LUNGS: Decreased breath sounds but clear. HEART: Regular rate and rhythm. ABDOMEN: Soft, nontender. No masses. Feeding tube is in place. EXTREMITIES: No clubbing, cyanosis, or edema. Normal strength in the arms and legs. I did not turn him over. Nursing staff says he has approximately a dime-sized sacral decubitus, superficial. LABS: White count 9.7, hemoglobin stable at 10.3, electrolytes unremarkable. CT of the chest showed diffuse fibrotic atelectatic changes, mild dependent patchy opacities consistent with infiltrate. CT of the abdomen and pelvis shows fixed structures head of the pancreas unchanged from 07/17/2020 and 08/04/2020 ____. These bear further workup after discharge. They recommend dedicated MRI of the pancreas with and without contrast. IMPRESSION AND PLAN: 1. Pneumonia, multifocal, probably aspiration. Started on IV Zosyn which he will continue, and nebulized bronchodilator has been ordered. Appropriate diagnostic sputum studies have been ordered. 2. Diabetes on Detemir Insulin 10 units at bedtime. Sliding scale Insulin with coverage has been ordered. 3. Stroke with aphasia and swallowing difficulties. Primarily fed through the PEG tube. He is starting to take more by mouth and has a puree diet. His appetite is poor and his wonders whether this is because of nutritional needs being met through the PEG tube feedings. We will ask Speech Therapy to assess him tomorrow. 4. Hyperlipidemia. Continue statin therapy. 5. Hypertension. Blood pressure is well controlled on current regimen. would like PFS to investigate possibility of his returning to ARU before discharge back to [facility].
[2020-09-03] MEDS: HumaLOG INSULIN (NovoLOG) PER UNIT SC SCH ×2 (18:47→23:51)
[2020-09-03 20:00] VITALS: BP 157/72
[2020-09-03] MEDS ORDERED: PILL CUTTER 1 EACH XX PRN (20:55)
[2020-09-03] MEDS: DOXAZOSIN MESYLATE 4 MG TAB PEG SCH (21:00)
[2020-09-03] MEDS: ENOXAPARIN 40MG/0.4ML SYRINGE (J1650 PER 10MG) SC SCH (21:03)
[2020-09-03] MEDS: SENOKOT S TAB PEG SCH (21:04)
[2020-09-03] MEDS: LEVEMIR (INSULIN DETEMIR) 1 UNITS/0.01ML SC SCH (21:04)
[2020-09-03] MEDS: ATORVASTATIN 20 MG TAB PEG SCH (21:04)
[2020-09-03] MEDS: METOPROLOL TART 50 MG TAB PEG SCH (21:05)
[2020-09-04] VITALS: BP 135/63
[2020-09-04] MEDS: IPRATROPIUM 0.5MG/ALBUTEROL 2.5MG INH SOL UD 3ML (DUONEB) NEB SCH ×4 (02:12→20:15)
[2020-09-04 04:00] VITALS: BP 154/72
[2020-09-04] MEDS: PIPERACILLIN/TAZOBACTAM SOD 3.375 GM in D5W MINI-BAG PLUS 50 ML IV SCH ×4 (04:00→20:45)
[2020-09-04 05:44] LABS: HEMATOCRIT 31.6 % (42.0-52.0); HEMOGLOBIN 9.7 g/dl (13.5-17.5); MEAN CORPUSCULAR HEMOGLOBIN 24.4 pg (27.0-33.0); MEAN CORPUSCULAR HGB CONC 30.7 g/dl (32.0-36.5); MEAN CORPUSCULAR VOLUME 79.4 fl (80.0-96.0); PLATELET COUNT, AUTOMATED 212 10^3/uL (150-450); RED BLOOD COUNT 3.98 10^6/uL (4.30-6.10); WHITE BLOOD COUNT 9.7 10^3/uL (4.0-10.0)
[2020-09-04] MEDS: HumaLOG INSULIN (NovoLOG) PER UNIT SC SCH ×3 (06:00→18:34)
[2020-09-04 06:03] LABS: BLOOD UREA NITROGEN 11 MG/DL (7-18); CALCIUM LEVEL 8.8 MG/DL (8.8-10.2); CARBON DIOXIDE LEVEL 29 MEQ/L (21-32); CHLORIDE LEVEL 101 MEQ/L (98-107); CREATININE FOR GFR 0.42 MG/DL (0.70-1.30); GLOMERULAR FILTRATION RATE > 60.0 (>42); GLUCOSE, FASTING 105 MG/DL (70-100); SODIUM LEVEL 137 MEQ/L (136-145)
[2020-09-04] MEDS: KCL 20MEQ IN 0.45NS 1000ML 1,000 ML IV SCH ×3 (06:36→21:30)
[2020-09-04 08:00] VITALS: BP 143/64
[2020-09-04] MEDS: ASPIRIN 81 MG CHEW TABLET PEG SCH (09:59)
[2020-09-04] MEDS: ESCITALOPRAM OXALATE 10 MG TAB (LEXAPRO) PEG SCH (10:00)
[2020-09-04] MEDS: LOSARTAN 50MG TABLET PEG SCH (10:00)
[2020-09-04] MEDS: MULTIVITAMINS/MINERALS THERAP 1 TAB PEG SCH (10:00)
[2020-09-04] MEDS: METOPROLOL TART 50 MG TAB PEG SCH ×2 (10:01→20:45)
[2020-09-04] MEDS: DOXAZOSIN MESYLATE 4 MG TAB PEG SCH ×2 (10:01→20:45)
[2020-09-04] MEDS: SENOKOT S TAB PEG SCH ×2 (10:01→20:45)
--- NOTE | 2020-09-04 10:14 | IPN ---
PROGRESS NOTE DATE: 09/04/2020 SUBJECTIVE: Abram was seen in the PCU. He was admitted with aspiration pneumonia. He is feeling better, less short of breath. He slept well. He denies any pain with breathing. OBJECTIVE: VITAL SIGNS: Blood pressure is 143/64, pulse is 93 to 97% O2 saturation on 2 liters. GENERAL APPEARANCE: He is verbal, answers questions with short answers. Left hemiparesis as before. LUNGS: Scattered rhonchi. HEART: Regular rate and rhythm. ABDOMEN: Soft, nontender, obese, no masses. EXTREMITIES: Trace peripheral edema. LABORATORY DATA: White count 9.7, hemoglobin 9.7, platelets 212,000. Sodium 137, potassium 4, BUN 11, creatinine 0.4, glucose 105. Blood sugars have been around 150 to 200. IMPRESSION: 1. Aspiration pneumonia, continue IV Zosyn, nebulized bronchodilator. No indications of any atypical bacteria present so he is not being treated with Doxycycline or Macrolide. 2. Diabetes, continue Detemir insulin 10 units at bedtime with sliding scale coverage. 3. Stroke with aphasia. He has a PEG tube. He does take a pureed diet by mouth at home. Speech therapy should be assessing him today. Will advance diet if they feel it is appropriate. 4. Hypertension, blood pressure is well-controlled. 5. Hyperlipidemia. Continue statin therapy. The would like him to go to ARU but he is already a patient at [facility] and apparently that prevents him from another ARU admission. I expect he will be ready to go back to [facility] towards the end of this week.
[2020-09-04] MEDS: MODAFINIL 100 MG TABLET PEG SCH ×2 (11:22→14:53)
[2020-09-04 12:00] VITALS: BP 142/66
--- NOTE | 2020-09-04 13:13 | ECGEPIP ---
[facility] - ED Test Date: 2020-09-03 Pat Name: AUGUSTINE GOMEZ Department: Room: - Gender: Male Parole Hearing Officer: LR : 1945 Requested By: Juan Vega Order Number: [id number] Reading MD: Jacqui Kaufman Measurements Intervals [place] Rate: 93 P: 1 NV: 172 QRS: 51 QRSD: 108 T: -9 QT: 382 QTc: 474 Interpretive Statements Normal sinus rhythm Abnormal QRS-T angle, consider primary T wave abnormality prolonged qtc No prior Electronically Signed on 09-04-2020 13:13:15 EDT by Jacqui Kaufman
[2020-09-04 16:00] VITALS: BP 137/64
[2020-09-04 20:00] VITALS: BP 107/55
--- NOTE | 2020-09-04 20:04 | REP ---
INDICATION: r/o injury. COMPARISON: KUB of 08/24/2020 TECHNIQUE: Attempted AP and frog-lateral views FINDINGS: There is significant rotation on the AP view limiting evaluation of the joint space. Slightly less rotation is seen on the frog-lateral view. There is no evidence of a gross fracture, however, due to the technique a subtle hip fracture cannot be ruled out particularly involving the right-sided rami. IMPRESSION: Limited exam as described above. Consider CT. <Electronically signed by Gibran Morse > 09/04/201999
[2020-09-04] MEDS: LEVEMIR (INSULIN DETEMIR) 1 UNITS/0.01ML SC SCH (20:45)
[2020-09-04] MEDS: ATORVASTATIN 20 MG TAB PEG SCH (20:45)
[2020-09-04] MEDS: ENOXAPARIN 40MG/0.4ML SYRINGE (J1650 PER 10MG) SC SCH (20:46)
[2020-09-05] VITALS: BP 116/57
[2020-09-05] MEDS: IPRATROPIUM 0.5MG/ALBUTEROL 2.5MG INH SOL UD 3ML (DUONEB) NEB SCH ×4 (01:27→19:49)
[2020-09-05 04:00] VITALS: BP 158/72
[2020-09-05] MEDS: PIPERACILLIN/TAZOBACTAM SOD 3.375 GM in D5W MINI-BAG PLUS 50 ML IV SCH ×4 (04:00→21:03)
[2020-09-05 05:47] LABS: HEMATOCRIT 31.6 % (42.0-52.0); HEMOGLOBIN 9.7 g/dl (13.5-17.5); MEAN CORPUSCULAR HEMOGLOBIN 24.4 pg (27.0-33.0); MEAN CORPUSCULAR HGB CONC 30.7 g/dl (32.0-36.5); MEAN CORPUSCULAR VOLUME 79.4 fl (80.0-96.0); PLATELET COUNT, AUTOMATED 199 10^3/uL (150-450); RED BLOOD COUNT 3.98 10^6/uL (4.30-6.10); WHITE BLOOD COUNT 9.4 10^3/uL (4.0-10.0)
[2020-09-05 06:17] LABS: BLOOD UREA NITROGEN 8 MG/DL (7-18); CALCIUM LEVEL 8.8 MG/DL (8.8-10.2); CARBON DIOXIDE LEVEL 29 MEQ/L (21-32); CHLORIDE LEVEL 101 MEQ/L (98-107); CREATININE FOR GFR 0.42 MG/DL (0.70-1.30); GLOMERULAR FILTRATION RATE > 60.0 (>42); GLUCOSE, FASTING 130 MG/DL (70-100); POTASSIUM SERUM 3.7 MEQ/L (3.5-5.1); SODIUM LEVEL 138 MEQ/L (136-145)
[2020-09-05] MEDS: HumaLOG INSULIN (NovoLOG) PER UNIT SC SCH ×4 (06:32→18:00)
[2020-09-05 07:26] VITALS: BP 155/65
[2020-09-05] MEDS: KCL 20MEQ IN 0.45NS 1000ML 1,000 ML IV SCH ×2 (07:59→17:48)
[2020-09-05] MEDS: ASPIRIN 81 MG CHEW TABLET PEG SCH (09:28)
[2020-09-05] MEDS: DOXAZOSIN MESYLATE 4 MG TAB PEG SCH ×2 (09:28→21:04)
[2020-09-05] MEDS: ESCITALOPRAM OXALATE 10 MG TAB (LEXAPRO) PEG SCH (09:28)
[2020-09-05] MEDS: LOSARTAN 50MG TABLET PEG SCH (09:28)
[2020-09-05] MEDS: SENOKOT S TAB PEG SCH ×2 (09:28→21:03)
[2020-09-05] MEDS: METOPROLOL TART 50 MG TAB PEG SCH ×2 (09:29→21:05)
[2020-09-05] MEDS: MODAFINIL 100 MG TABLET PEG SCH ×2 (09:29→16:20)
[2020-09-05] MEDS: MULTIVITAMINS/MINERALS THERAP 1 TAB PEG SCH (09:29)
[2020-09-05 11:45] VITALS: BP 130/59
[2020-09-05] MEDS ORDERED: VARIBAR NECTAR 40% w/v 240ML SUSP BTL As Ordered ONE (12:52)
[2020-09-05] MEDS ORDERED: BARIUM SULFATE 700 MG TABLET (E-Z-DISK) As Ordered ONE (12:52)
[2020-09-05] MEDS ORDERED: E-Z-PAQUE 96% w/w SUSP 176GM BTL As Ordered ONE (12:52)
[2020-09-05] MEDS ORDERED: VARIBAR PUDDING 40% w/v 230ML TUBE As Ordered ONE (12:52)
--- NOTE | 2020-09-05 14:24 | IPNPDOC ---
Subjective Date Seen The patient was seen on 09/05/20. Subjective Chief Complaint/HPI Lying in bed with left hemiparesis, remains npo this am Objective Physical Examination General Exam: Positive: Cooperative Eye Exam: Positive: PERRLA, EOMI; Negative: Sclera icteric ENT Exam: Positive: Mucous membr. moist/pink Neck Exam: Positive: Supple Chest Exam: Positive: Clear to auscultation Heart Exam: Positive: Rate Normal, Normal S1, Normal S2 Abdomen Exam: Positive: Normal bowel sounds Assessment /Plan Assessment # Aspiration pna - continue abx - keep HOB > 30 degrees - awaiting MBS results # hx of CVA with left hemiparesis - on appropriate meds Plan/VTE VTE Prophylaxis Ordered?: Yes VS, I&O, 24H, Fishbone Vital Signs/I&O Vital Signs Date Time Temp Pulse Resp B/P (MAP) Pulse Ox O2 Delivery O2 Flow Rate FiO2 09/05/20 11:45 96.9 81 30 130/59 (82) Nasal Cannula 1.0 09/05/20 07:26 92 I&O- Last 24 Hours up to 6 AM 09/05/20 06:00 Intake Total 2420 ml Balance 2420 ml Laboratory Data 24H LABS Laboratory Tests 2 09/04/20 18:07: Bedside Glucose (Misc Panel) 184H 09/05/20 01:35: Bedside Glucose (Misc Panel) 165H 09/05/20 05:22: Nucleated Red Blood Cells % (auto) 0.0, Anion Gap 8, Glomerular Filtration Rate > 60.0, Calcium Level 8.8 09/05/20 11:57: Bedside Glucose (Misc Panel) 168H CBC/BMP Laboratory Tests 09/05/20 05:22 Microbiology Microbiology 09/03/20 Blood Culture - Preliminary, Resulted No Growth after 48 hours. All Specime... 09/03/20 Respiratory Virus Panel (PCR) (DARREN) - Final, Complete RICCI FOREMAN MD September 05, 2020 14:24
[2020-09-05 15:16] VITALS: BP 156/67
--- NOTE | 2020-09-05 17:02 | REP ---
INDICATION: swallow eval. COMPARISON: None. TECHNIQUE: The procedure was performed by Tari Haley [facility], under the direct supervision of Dr. Juarez. The procedure was performed with Johana Boss from speech pathology present. 5 ml aliquots of thin, applesauce, mixed fruit with pudding base, and nectar thick consistency barium was administered. FINDINGS: No aspiration or penetration was visualized during the exam. The detailed report of this examination will be provided by speech pathology. IMPRESSION: No aspiration or penetration was visualized, a detailed report will be provided by speech pathology. 1.9 minutes of fluoroscopy time was utilized for this procedure. Some fluoroscopic images are performed with last image hold technology. These images require no additional radiation <Electronically signed by Tari Haley > 09/05/20 [id number] <Electronically signed by Chadwick Juarez > 09/05/20 [id number]
[2020-09-05 20:00] VITALS: BP 148/67
[2020-09-05] MEDS: ATORVASTATIN 20 MG TAB PEG SCH (21:03)
[2020-09-05] MEDS: ENOXAPARIN 40MG/0.4ML SYRINGE (J1650 PER 10MG) SC SCH (21:04)
[2020-09-05] MEDS: LEVEMIR (INSULIN DETEMIR) 1 UNITS/0.01ML SC SCH (21:05)
[2020-09-06] VITALS: BP 135/61
[2020-09-06] MEDS: IPRATROPIUM 0.5MG/ALBUTEROL 2.5MG INH SOL UD 3ML (DUONEB) NEB SCH ×4 (01:34→19:13)
[2020-09-06] MEDS: KCL 20MEQ IN 0.45NS 1000ML 1,000 ML IV SCH ×2 (03:30→14:53)
[2020-09-06 04:00] VITALS: BP 135/97
[2020-09-06] MEDS: PIPERACILLIN/TAZOBACTAM SOD 3.375 GM in D5W MINI-BAG PLUS 50 ML IV SCH ×2 (04:00→10:04)
[2020-09-06 05:41] LABS: HEMATOCRIT 30.2 % (42.0-52.0); HEMOGLOBIN 9.2 g/dl (13.5-17.5); MEAN CORPUSCULAR HEMOGLOBIN 24.1 pg (27.0-33.0); MEAN CORPUSCULAR HGB CONC 30.5 g/dl (32.0-36.5); MEAN CORPUSCULAR VOLUME 79.3 fl (80.0-96.0); PLATELET COUNT, AUTOMATED 216 10^3/uL (150-450); RED BLOOD COUNT 3.81 10^6/uL (4.30-6.10); WHITE BLOOD COUNT 9.7 10^3/uL (4.0-10.0)
[2020-09-06 06:07] LABS: BLOOD UREA NITROGEN 9 MG/DL (7-18); CALCIUM LEVEL 8.6 MG/DL (8.8-10.2); CARBON DIOXIDE LEVEL 30 MEQ/L (21-32); CHLORIDE LEVEL 102 MEQ/L (98-107); CREATININE FOR GFR 0.43 MG/DL (0.70-1.30); GLOMERULAR FILTRATION RATE > 60.0 (>42); GLUCOSE, FASTING 110 MG/DL (70-100); POTASSIUM SERUM 3.8 MEQ/L (3.5-5.1); SODIUM LEVEL 138 MEQ/L (136-145)
[2020-09-06] MEDS: HumaLOG INSULIN (NovoLOG) PER UNIT SC SCH ×4 (06:46→17:25)
[2020-09-06 08:00] VITALS: BP 153/71
[2020-09-06] MEDS ORDERED: cloNIDine HCL 0.2 MG/24 HR PATCH TOP SCH (09:00)
[2020-09-06] MEDS: DOXAZOSIN MESYLATE 4 MG TAB PEG SCH ×2 (10:05→20:48)
[2020-09-06] MEDS: ASPIRIN 81 MG CHEW TABLET PEG SCH (10:05)
[2020-09-06] MEDS: SENOKOT S TAB PEG SCH ×2 (10:05→20:47)
[2020-09-06] MEDS: MULTIVITAMINS/MINERALS THERAP 1 TAB PEG SCH (10:06)
[2020-09-06] MEDS: LOSARTAN 50MG TABLET PEG SCH (10:07)
[2020-09-06] MEDS: ESCITALOPRAM OXALATE 10 MG TAB (LEXAPRO) PEG SCH (10:07)
[2020-09-06] MEDS: METOPROLOL TART 50 MG TAB PEG SCH ×2 (10:07→20:48)
[2020-09-06] MEDS: MODAFINIL 100 MG TABLET PEG SCH ×2 (10:07→13:18)
[2020-09-06 12:00] VITALS: BP 106/61
[2020-09-06] MEDS: AMPICILLIN SOD/SULBACTAM SOD 3 GM in D5W MINI-BAG PLUS 100 ML IV SCH ×2 (13:18→20:46)
[2020-09-06 16:00] VITALS: BP 114/62
--- NOTE | 2020-09-06 17:07 | IPNPDOC ---
Subjective Date Seen The patient was seen on 09/06/20. Subjective Chief Complaint/HPI Passed MBS study. Stable this am, denies any complaints Objective Physical Examination General Exam: Positive: Alert, Cooperative Eye Exam: Positive: PERRLA, EOMI; Negative: Sclera icteric ENT Exam: Positive: Mucous membr. moist/pink Neck Exam: Positive: Supple Chest Exam: Positive: Clear to auscultation Heart Exam: Positive: Rate Normal, Normal S1, Normal S2 Abdomen Exam: Positive: Normal bowel sounds Neuro Exam: Positive: Other (left hemiparesis) Assessment /Plan Assessment # Aspiration pna - discontinue zosyn and switch to unasyn, can be changed to augmentin at discharge - keep HOB > 30 degrees - no GI available this week - d/w with Lisa - d/w CM stable for discharge # hx of CVA with left hemiparesis - on appropriate meds Plan/VTE VTE Prophylaxis Ordered?: Yes VS, I&O, 24H, Fishbone Vital Signs/I&O Vital Signs Date Time Temp Pulse Resp B/P (MAP) Pulse Ox O2 Delivery O2 Flow Rate FiO2 09/06/20 16:00 97.1 84 24 114/62 (79) 98 Nasal Cannula 1.0 I&O- Last 24 Hours up to 6 AM0 09/06/20 06:00 Intake Total 2420 ml Balance 2420 ml Laboratory Data 24H LABS Laboratory Tests 2 09/05/20 17:59: Bedside Glucose (Misc Panel) 209H 09/06/20 00:44: Bedside Glucose (Misc Panel) 163H 09/06/20 04:59: Nucleated Red Blood Cells % (auto) 0.0, Anion Gap 6L, Glomerular Filtration Rate > 60.0, Calcium Level 8.6L 09/06/20 11:44: Bedside Glucose (Misc Panel) 177H CBC/BMP Laboratory Tests 09/06/20 04:59 Microbiology Microbiology 09/03/20 Blood Culture - Preliminary, Resulted No Growth after 72 hours. All specime... 09/03/20 Respiratory Virus Panel (PCR) ([facility]ARREN) - Final, Complete RICCI FOREMAN MD September 06, 2020 17:06
[2020-09-06 20:44] VITALS: BP 157/72
[2020-09-06] MEDS: ATORVASTATIN 20 MG TAB PEG SCH (20:47)
[2020-09-06] MEDS: ENOXAPARIN 40MG/0.4ML SYRINGE (J1650 PER 10MG) SC SCH (20:47)
[2020-09-06] MEDS: LEVEMIR (INSULIN DETEMIR) 1 UNITS/0.01ML SC SCH (20:47)
[2020-09-07] VITALS: BP 128/61
[2020-09-07] MEDS: HumaLOG INSULIN (NovoLOG) PER UNIT SC SCH ×3 (00:22→11:30)
[2020-09-07] MEDS: KCL 20MEQ IN 0.45NS 1000ML 1,000 ML IV SCH ×2 (01:26→09:30)
[2020-09-07] MEDS: AMPICILLIN SOD/SULBACTAM SOD 3 GM in D5W MINI-BAG PLUS 100 ML IV SCH ×2 (01:27→07:29)
[2020-09-07] MEDS: IPRATROPIUM 0.5MG/ALBUTEROL 2.5MG INH SOL UD 3ML (DUONEB) NEB SCH ×2 (01:45→07:04)
[2020-09-07 05:19] LABS: HEMATOCRIT 28.9 % (42.0-52.0); HEMOGLOBIN 8.9 g/dl (13.5-17.5); MEAN CORPUSCULAR HEMOGLOBIN 24.3 pg (27.0-33.0); MEAN CORPUSCULAR HGB CONC 30.8 g/dl (32.0-36.5); MEAN CORPUSCULAR VOLUME 78.7 fl (80.0-96.0); PLATELET COUNT, AUTOMATED 216 10^3/uL (150-450); RED BLOOD COUNT 3.67 10^6/uL (4.30-6.10); WHITE BLOOD COUNT 8.9 10^3/uL (4.0-10.0)
[2020-09-07 05:41] LABS: BLOOD UREA NITROGEN 7 MG/DL (7-18); CALCIUM LEVEL 8.7 MG/DL (8.8-10.2); CARBON DIOXIDE LEVEL 32 MEQ/L (21-32); CHLORIDE LEVEL 101 MEQ/L (98-107); CREATININE FOR GFR 0.39 MG/DL (0.70-1.30); GLOMERULAR FILTRATION RATE > 60.0 (>42); GLUCOSE, FASTING 135 MG/DL (70-100); POTASSIUM SERUM 3.8 MEQ/L (3.5-5.1); SODIUM LEVEL 137 MEQ/L (136-145)
[2020-09-07 05:47] LABS: HEMOGLOBIN A1c 6.6 %
[2020-09-07 07:31] VITALS: BP 143/65
[2020-09-07] MEDS ORDERED: AUGMENTIN 875 MG TAB PO SCH (09:00)
[2020-09-07 09:23] VITALS: BP 143/65
[2020-09-07] MEDS: MULTIVITAMINS/MINERALS THERAP 1 TAB PEG SCH (09:23)
[2020-09-07] MEDS: SENOKOT S TAB PEG SCH (09:23)
[2020-09-07] MEDS: MODAFINIL 100 MG TABLET PEG SCH (09:24)
[2020-09-07] MEDS: LOSARTAN 50MG TABLET PEG SCH (09:24)
[2020-09-07] MEDS: ASPIRIN 81 MG CHEW TABLET PEG SCH (09:24)
[2020-09-07] MEDS: METOPROLOL TART 50 MG TAB PEG SCH (09:24)
[2020-09-07] MEDS: DOXAZOSIN MESYLATE 4 MG TAB PEG SCH (09:24)
[2020-09-07] MEDS: ESCITALOPRAM OXALATE 10 MG TAB (LEXAPRO) PEG SCH (09:25)
[2020-09-07] MEDS ORDERED: AMOX875T2 PO (10:58)
--- NOTE | 2020-09-07 16:48 | DSES ---
DISCHARGE SUMMARY DATE OF ADMISSION: 09/03/2020 DATE OF DISCHARGE: 09/07/2020 DISCHARGE DIAGNOSES: 1. Aspiration pneumonia with acute hypoxic respiratory failure. 2. 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 3. Diabetes mellitus, type 2. 4. History of carotid artery stenosis. 5. History of hypertension. 6. History of hyperlipidemia. PROCEDURES PERFORMED DURING THIS HOSPITALIZATION: None. CONSULTANTS ON THE CASE: None. DISPOSITION Patient is discharged back to [facility]. CONDUCTION AT DISCHARGE: Stable. DISCHARGE INSTRUCTIONS: Patient is instructed to complete course of oral antibiotics for treatment of his aspiration pneumonia. Patient is to followup with physician at [facility] and should have arrangements made for outpatient followup with gastrointestinal (GI) in approximately 2 weeks to investigate for any potential processes within the GI upper tract which could be contributing to his recurrent aspiration pneumonia. IMAGING STUDIES OBTAINED DURING THE PATIENT'S HOSPITAL STAY: A chest x-ray, one view, that showed mild cardiomegaly, mild, left base atelectasis/infiltrate. CT of the abdomen and pelvis with intravenous (IV) contrast showed no acute findings. Please reference full report for details. CTA of the chest with PE protocol. This showed no evidence of PE. There was diffuse fibroatelectatic changes appearing, similar to prior studies. Mild dependent patchy opacities posteriorly and inferiorly bilaterally that were compatible with mild patchy atelectasis and/or infiltrate. X-ray of the hip with no evidence of fracture. Modified barium swallow, which showed no evidence of aspiration. RELEVANT LABORATORY DATA: COVID swab was negative times two. Blood cultures showed no growth. White blood cell count 8.9, hemoglobin 8.9, hematocrit 28.9, platelet counts are 216,000. Coags normal with a PT 14.5, INR 1.1, PTT 30. Sodium 137, potassium 3.8, chloride 102, bicarbonate 32, BUN 7, creatinine 0.39, glucose 135, calcium 8.7. Hemoglobin A1c was 6.6%. Free T4 was 1.2. TSH was 1.72. NTproBNP was 338. Initial troponin marker was negative. CPK was 21. DISCHARGE MEDICATIONS: - Augmentin 875/125 one tablet twice a day for the next 6 days - Tylenol 650 every 4 hours as needed for pain or fever - Norvasc 10 mg daily down percutaneous endoscopic gastrostomy (PEG) - baby aspirin daily down PEG - atorvastatin 80 mg down PEG - Dulcolax daily as needed for constipation - clonidine 0.2 mg patch once a week - Cardura 4 mg down PEG twice a day - Trulicity 1.5 mg injection subcutaneous weekly - Lexapro 20 mg down PEG daily - ferrous sulfate 220 mg down PEG daily - insulin glargine 34 units subcutaneous daily - Humalog sliding scale twice a day - losartan 50 mg daily down PEG - milk of magnesia 240 mg by mouth daily as needed for constipation - metoprolol tartrate 50 mg twice a day down PEG - modafinil 50 mg twice a day down PEG - multivitamin with calcium one tablet daily via PEG - senna ST two tablets twice a day via PEG - whey protein isolate 6 grams twice a day via PEG HOSPITAL COURSE: Mr. Patterson is a 74-year-old gentleman who has a history of recent stroke with hemorrhagic conversion with dense left-sided hemiplegia, who presented to the hospital from [facility] with increasing fatigue and hypoxia. Patient was noted to have bilateral infiltrates on CT of the chest that was concerning for aspiration pneumonia. He was admitted to the hospitalist service to an inpatient status. His oxygen needs ranged anywhere from 2-4 liters. Clinically he improved with antibiotics. He was seen by speech therapy and underwent a modified barium swallow, which did not show any evidence of aspiration. He was placed on a pureed diet. It was recommended that patient be fully upright with feeding with tube feeds as well as orally. There was concern for potential GI contributor to his recurrent aspiration; however, GI is not available for consultations this week at the hospital; therefore this was deferred to outpatient setting, as there is nothing emergent that needed to be done. I did speak to the patient's , Lisa, on several occasions and updated her on her 's condition. She had wanted him to go to acute rehabilitation unit (ARU); however, physically he is not capable of participating in full rehabilitation and will be discharged back to [facility] today. At the time of discharge, patient's temperature is 97.3, pulse 91 and regular, respirations 20, blood pressure 143/65, oxygen saturation 99% on 4 liters. In general, the patient is alert and oriented times three. He is an elderly man who is obese. He is in no acute distress. His breathing is nonlabored. His skin is intact and warm to touch. Head is atraumatic. Pupils symmetric and reactive to light. He has a left facial droop. Neck is supple. Lungs sounds are present without rales, wheezing, or rhonchi. Heart is S1, S2. He is currently in sinus rhythm. Abdomen is soft, nontender. He has a PEG tube in place. He has dense left-sided hemiplegia. No visible pressure ulcers are noted in extremities. A total of 30 minutes was spent completing all discharge paperwork.
[2020-09-07] MEDS ORDERED: AUGMENTIN ES SUSP POWDER 600MG/5ML 125ML BTL PEG SCH (21:00)
== END 2020-09-07 12:02 | DRG 178 ==
LOC: EDBD 07:42 → M ED 07:42 → M ED INP 13:43 → ENRESERV 14:05 → M PCU 14:57
PROVIDERS: ADMIT Family Medicine; ATTEND Internal Medicine
DX: J69.0 Pneumonitis due to inhalation of food and vomit (principal); I50.32 Chronic diastolic (congestive) heart failure; I69.354 Hemiplegia and hemiparesis following cerebral infarction affecting left non-dominant side; Z68.41 Body mass index [BMI] 40.0-44.9, adult; E11.51 Type 2 diabetes mellitus with diabetic peripheral angiopathy without gangrene; I11.0 Hypertensive heart disease with heart failure; D50.9 Iron deficiency anemia, unspecified; R09.02 Hypoxemia; E66.9 Obesity, unspecified; I69.391 Dysphagia following cerebral infarction; G47.30 Sleep apnea, unspecified; R13.10 Dysphagia, unspecified; I65.21 Occlusion and stenosis of right carotid artery; I69.320 Aphasia following cerebral infarction; Z93.1 Gastrostomy status; Z79.4 Long term (current) use of insulin; Z79.82 Long term (current) use of aspirin; Z79.899 Other long term (current) drug therapy; Z85.46 Personal history of malignant neoplasm of prostate

== ENCOUNTER → 2020-09-21 | Outpatient (REF) ==
[~2020-09-21] MED LIST changes: +ACET1TAB55 PEG; +AMOX875T2 PO; +ASPI81CH33 PEG; +BENE1POW4 PEG; +CARD4TAB2 PEG; +CLON0.2D6 TOP; +DULC10SU2 PR; +FERR1ELX PEG; +INSU100I28 SC; +LEXA1TAB2 PEG; +LIPI80TA PEG; +LOSA50TA88 PEG; +METO50TA7 PEG; +MILK400S12 PO; +SENN-23 PEG; +THERTAB21 PEG; +TRUL0.5I SC
[2020-09-21 09:28] LABS: HEMATOCRIT 30.6 % (42.0-52.0); HEMOGLOBIN 9.2 g/dl (13.5-17.5); MEAN CORPUSCULAR HEMOGLOBIN 23.7 pg (27.0-33.0); MEAN CORPUSCULAR HGB CONC 30.1 g/dl (32.0-36.5); MEAN CORPUSCULAR VOLUME 78.7 fl (80.0-96.0); PLATELET COUNT, AUTOMATED 216 10^3/uL (150-450); RED BLOOD COUNT 3.89 10^6/uL (4.30-6.10); WHITE BLOOD COUNT 9.2 10^3/uL (4.0-10.0)
[2020-09-21 09:49] LABS: BLOOD UREA NITROGEN 14 MG/DL (7-18); CALCIUM LEVEL 8.7 MG/DL (8.8-10.2); CARBON DIOXIDE LEVEL 30 MEQ/L (21-32); CHLORIDE LEVEL 101 MEQ/L (98-107); CREATININE FOR GFR 0.49 MG/DL (0.70-1.30); GLOMERULAR FILTRATION RATE > 60.0 (>42); GLUCOSE, FASTING 163 MG/DL (70-100); POTASSIUM SERUM 3.7 MEQ/L (3.5-5.1); SODIUM LEVEL 138 MEQ/L (136-145)
== END ==
LOC: SKLAB7 14:21
DX: E11.9 Type 2 diabetes mellitus without complications (principal); I10 Essential (primary) hypertension; D64.9 Anemia, unspecified

== ENCOUNTER → 2020-09-28 | Outpatient (REF) ==
[2020-09-28 11:03] LABS: HEMATOCRIT 33.5 % (42.0-52.0); HEMOGLOBIN 10.2 g/dl (13.5-17.5); MEAN CORPUSCULAR HEMOGLOBIN 23.8 pg (27.0-33.0); MEAN CORPUSCULAR HGB CONC 30.4 g/dl (32.0-36.5); MEAN CORPUSCULAR VOLUME 78.1 fl (80.0-96.0); PLATELET COUNT, AUTOMATED 226 10^3/uL (150-450); RED BLOOD COUNT 4.29 10^6/uL (4.30-6.10); WHITE BLOOD COUNT 6.8 10^3/uL (4.0-10.0)
[2020-09-28 11:42] LABS: BLOOD UREA NITROGEN 11 MG/DL (7-18); CALCIUM LEVEL 8.7 MG/DL (8.8-10.2); CARBON DIOXIDE LEVEL 30 MEQ/L (21-32); CHLORIDE LEVEL 100 MEQ/L (98-107); CREATININE FOR GFR 0.47 MG/DL (0.70-1.30); GLOMERULAR FILTRATION RATE > 60.0 (>42); GLUCOSE, FASTING 153 MG/DL (70-100); POTASSIUM SERUM 3.5 MEQ/L (3.5-5.1); SODIUM LEVEL 138 MEQ/L (136-145)
== END ==
LOC: SKLAB7 07:00
DX: D64.9 Anemia, unspecified (principal); I11.0 Hypertensive heart disease with heart failure; I50.9 Heart failure, unspecified

== ENCOUNTER → 2020-10-05 | Outpatient (REF) ==
[2020-10-05 09:36] LABS: HEMATOCRIT 32.2 % (42.0-52.0); HEMOGLOBIN 9.7 g/dl (13.5-17.5); MEAN CORPUSCULAR HEMOGLOBIN 23.3 pg (27.0-33.0); MEAN CORPUSCULAR HGB CONC 30.1 g/dl (32.0-36.5); MEAN CORPUSCULAR VOLUME 77.4 fl (80.0-96.0); PLATELET COUNT, AUTOMATED 200 10^3/uL (150-450); RED BLOOD COUNT 4.16 10^6/uL (4.30-6.10); WHITE BLOOD COUNT 8.8 10^3/uL (4.0-10.0)
[2020-10-05 09:57] LABS: BLOOD UREA NITROGEN 10 MG/DL (7-18); CARBON DIOXIDE LEVEL 30 MEQ/L (21-32); CHLORIDE LEVEL 103 MEQ/L (98-107); CREATININE FOR GFR 0.52 MG/DL (0.70-1.30); GLOMERULAR FILTRATION RATE > 60.0 (>42); GLUCOSE, FASTING 148 MG/DL (70-100); POTASSIUM SERUM 3.7 MEQ/L (3.5-5.1); SODIUM LEVEL 139 MEQ/L (136-145)
== END ==
LOC: SKLAB7 07:00
DX: D64.9 Anemia, unspecified (principal); E11.9 Type 2 diabetes mellitus without complications

== ENCOUNTER → 2020-10-11 | Outpatient (CLI) | payer MEDICARE, BC ==
--- NOTE | 2020-10-11 16:28 | REP ---
INDICATION: DYSPHAGIA. COMPARISON: None. TECHNIQUE: The procedure was performed by NI Whitlock, under the direct supervision of Dr. Juarez. The procedure was performed with Johana Boss from speech pathology present. 5 ml aliquots of thin, pudding, mixed fruit with putting base, soft food, and hard food consistency barium was administered. FINDINGS: No aspiration or penetration was visualized during the exam. The detailed report of this examination will be provided by speech pathology. IMPRESSION: Unremarkable cookie swallow, a detailed report will be provided by speech pathology. 4.2 minutes of fluoroscopy time was utilized for this procedure. Some fluoroscopic images are performed with last image hold technology. These images require no additional radiation <Electronically signed by Tari Haley > 10/11/20 [id number] <Electronically signed by Chadwick Juarez > 10/11/20 [id number]
== END ==
LOC: M ST 14:36
PROVIDERS: ATTEND Nurse Practitioner Family
DX: R13.10 Dysphagia, unspecified (principal)

== ENCOUNTER → 2020-10-12 | Outpatient (REF) ==
[2020-10-12 09:46] LABS: HEMATOCRIT 33.3 % (42.0-52.0); MEAN CORPUSCULAR HEMOGLOBIN 23.5 pg (27.0-33.0); MEAN CORPUSCULAR VOLUME 78.2 fl (80.0-96.0); PLATELET COUNT, AUTOMATED 213 10^3/uL (150-450); RED BLOOD COUNT 4.26 10^6/uL (4.30-6.10); WHITE BLOOD COUNT 9.1 10^3/uL (4.0-10.0)
[2020-10-12 09:59] LABS: BLOOD UREA NITROGEN 14 MG/DL (7-18); CALCIUM LEVEL 8.9 MG/DL (8.8-10.2); CARBON DIOXIDE LEVEL 30 MEQ/L (21-32); CHLORIDE LEVEL 103 MEQ/L (98-107); GLOMERULAR FILTRATION RATE > 60.0 (>42); GLUCOSE, FASTING 125 MG/DL (70-100); POTASSIUM SERUM 3.7 MEQ/L (3.5-5.1); SODIUM LEVEL 141 MEQ/L (136-145)
== END ==
LOC: SKLAB7 07:00
DX: Z79.01 Long term (current) use of anticoagulants (principal); E11.9 Type 2 diabetes mellitus without complications

== ENCOUNTER → 2020-10-26 | Outpatient (REF) | payer MEDICARE, BC ==
--- NOTE | 2020-10-26 15:53 | REP ---
INDICATION: HYPOXIA COMPARISON: 09/03/2020 TECHNIQUE: Portable AP view of the chest FINDINGS: Examination is limited by portable technique, underpenetration and poor positioning. Left hemithorax is clear. Trace right basilar atelectasis cannot be excluded. Visualized portions of the mediastinum and cardiac silhouette are stable. IMPRESSION: Limited examination. No obvious acute findings although trace right basilar atelectasis cannot be excluded. <Electronically signed by Jason Elam > 10/26/20 [id number]
== END ==
LOC: SKLAB7 10:41
DX: R09.02 Hypoxemia (principal)

== ENCOUNTER → 2020-11-02 | Outpatient (REF) | LOC: SKLAB7 10:14 | DX: E61.1 Iron deficiency (principal) ==

== ENCOUNTER → 2020-11-23 | Outpatient (REF) | payer MEDICARE, BC ==
[2020-11-23 16:23] LABS: HEMATOCRIT 34.9 % (42.0-52.0); HEMOGLOBIN 10.9 g/dl (13.5-17.5); MEAN CORPUSCULAR HEMOGLOBIN 23.9 pg (27.0-33.0); MEAN CORPUSCULAR HGB CONC 31.2 g/dl (32.0-36.5); MEAN CORPUSCULAR VOLUME 76.4 fl (80.0-96.0); PLATELET COUNT, AUTOMATED 198 10^3/uL (150-450); RED BLOOD COUNT 4.57 10^6/uL (4.30-6.10); WHITE BLOOD COUNT 7.5 10^3/uL (4.0-10.0)
--- NOTE | 2020-11-23 16:25 | REP ---
INDICATION: ABDOMINAL DISCOMFORT. COMPARISON: KUB, 08/24/2020. TECHNIQUE: Three AP supine images the abdomen were obtained. FINDINGS: There is a gastrostomy tube projected over the midline at the T11 level. The gastrointestinal tract is unremarkable. There are brachytherapy seeds in the prostate gland. There is osteitis of the left SI joint. There are no other significant bony abnormalities. IMPRESSION: 1. The gastrostomy tube appears unchanged in position. 2. Other findings as noted not significantly changed. <Electronically signed by Jean-Pierre Childs > 11/23/20 [id number]
[2020-11-23 16:52] LABS: ALBUMIN 3.2 GM/DL (3.2-5.2); ALT/SGPT 28 U/L (12-78); BILIRUBIN,TOTAL 0.2 MG/DL (0.2-1.0); BLOOD UREA NITROGEN 17 MG/DL (7-18); CARBON DIOXIDE LEVEL 29 MEQ/L (21-32); CHLORIDE LEVEL 105 MEQ/L (98-107); CREATININE FOR GFR 0.61 MG/DL (0.70-1.30); GLOMERULAR FILTRATION RATE > 60.0 (>42); GLUCOSE, FASTING 178 MG/DL (70-100); LIPASE 47 U/L (73-393); POTASSIUM SERUM 3.5 MEQ/L (3.5-5.1); SODIUM LEVEL 141 MEQ/L (136-145); TOTAL PROTEIN 6.8 GM/DL (6.4-8.2)
== END ==
LOC: SKLAB7 07:00
PROVIDERS: ATTEND Internal Medicine
DX: R10.9 Unspecified abdominal pain (principal); Z93.1 Gastrostomy status; M86.9 Osteomyelitis, unspecified; Z97.8 Presence of other specified devices; R11.0 Nausea

== ENCOUNTER → 2020-11-27 | Outpatient (CLI) | payer MEDICARE, BC ==
[~2020-11-27] MED LIST changes: +GASTROGRAFIN SOLUTION 30ML (Q9963) As Ordered ONE; +ISOVUE-370 76% 100ML VIAL As Ordered ONE
--- NOTE | 2020-11-27 15:56 | REP ---
INDICATION: VOMITING, PEG TUBE -PT IN CT HOLDING AREA. 09/03/2020 COMPARISON: None. FINDINGS: A PEG tube is in satisfactory position. The stomach is distended the large and small bowel are unremarkable. There is no free fluid or air in the peritoneal cavity. There is no inflammatory change in the abdomen or pelvis. The gallbladder is fluid filled than some gallstone. The liver shows normal size and attenuation. There is no evidence of mass or biliary tract dilatation. The pancreas and spleen show normal size and attenuation. The adrenal glands are not enlarged. There is no mass or hydronephrosis in either kidney. There is a 3 cm parapelvic cyst in the right kidney. Both kidneys show normal excretion of contrast. There is no evidence of mesenteric or retroperitoneal adenopathy. Degenerative changes involve the lumbar spine and lumbar discs. Radiation seeds are noted in the prostate. The urinary bladder is distended. IMPRESSION: A 3 cm cyst right kidney. Distended stomach with PEG tube in satisfactory position. Large and small bowel unremarkable. <Electronically signed by Bharath Vila > 11/27/20 [id number]
== END ==
LOC: M RAD 12:28
PROVIDERS: ATTEND Nurse Practitioner Family
DX: R11.10 Vomiting, unspecified (principal); Z93.1 Gastrostomy status
CPT/HCPCS: 74178; Q9963; Q9967

== ENCOUNTER → 2020-12-07 | Outpatient (REF) | payer MEDICARE, BC ==
[~2020-12-07] MED LIST changes: -GASTROGRAFIN SOLUTION 30ML (Q9963) As Ordered ONE; -ISOVUE-370 76% 100ML VIAL As Ordered ONE
[2020-12-07 10:12] LABS: HEMOGLOBIN A1c 5.9 %
== END ==
LOC: SKLAB7 07:00
PROVIDERS: ATTEND Internal Medicine
DX: E11.9 Type 2 diabetes mellitus without complications (principal)

== ENCOUNTER → 2020-12-14 | Outpatient (REF) | payer MEDICARE, BC | LOC: SKLAB7 09:07 | PROVIDERS: ATTEND Internal Medicine | DX: D64.9 Anemia, unspecified (principal) ==

== ENCOUNTER → 2021-01-04 | Outpatient (REF) | payer MEDICARE, BC ==
[2021-01-04 09:29] LABS: HEMATOCRIT 35.7 % (42.0-52.0); MEAN CORPUSCULAR HEMOGLOBIN 24.3 pg (27.0-33.0); MEAN CORPUSCULAR HGB CONC 30.8 g/dl (32.0-36.5); MEAN CORPUSCULAR VOLUME 78.8 fl (80.0-96.0); PLATELET COUNT, AUTOMATED 179 10^3/uL (150-450); RED BLOOD COUNT 4.53 10^6/uL (4.30-6.10); WHITE BLOOD COUNT 6.5 10^3/uL (4.0-10.0)
[2021-01-04 09:57] LABS: BLOOD UREA NITROGEN 14 MG/DL (7-18); CARBON DIOXIDE LEVEL 31 MEQ/L (21-32); CHLORIDE LEVEL 103 MEQ/L (98-107); CREATININE FOR GFR 0.58 MG/DL (0.70-1.30); GLOMERULAR FILTRATION RATE > 60.0 (>42); GLUCOSE, FASTING 155 MG/DL (70-100); POTASSIUM SERUM 3.9 MEQ/L (3.5-5.1); SODIUM LEVEL 141 MEQ/L (136-145)
== END ==
LOC: SKLAB7 07:00
PROVIDERS: ATTEND Internal Medicine
DX: Z79.02 Long term (current) use of antithrombotics/antiplatelets (principal); E11.9 Type 2 diabetes mellitus without complications; Z12.5 Encounter for screening for malignant neoplasm of prostate
CPT/HCPCS: 36415; 80048; 85027; G0103

== ENCOUNTER → 2021-02-06 | Outpatient (REF) | payer MEDICARE, BC | LOC: SKLAB7 11:13 | PROVIDERS: ATTEND Internal Medicine | DX: Z20.822 Contact with and (suspected) exposure to COVID-19 (principal) ==

== ENCOUNTER → 2021-02-08 | Outpatient (REF) | payer MEDICARE, BC ==
[2021-02-08 12:50] LABS: CHOLESTEROL RISK RATIO 2.777 (<5)
== END ==
LOC: SKLAB7 05:58
PROVIDERS: ATTEND Internal Medicine
DX: I67.9 Cerebrovascular disease, unspecified (principal); E78.5 Hyperlipidemia, unspecified; Z20.822 Contact with and (suspected) exposure to COVID-19
CPT/HCPCS: 36415; 80061; U0002

== ENCOUNTER → 2021-02-12 | Outpatient (REF) | payer MEDICARE, BC | LOC: SKLAB7 09:00 | PROVIDERS: ATTEND Internal Medicine | DX: Z20.822 Contact with and (suspected) exposure to COVID-19 (principal) ==

== ENCOUNTER → 2021-02-15 | Outpatient (REF) | payer MEDICARE, BC | LOC: SKLAB7 07:20 | PROVIDERS: ATTEND Internal Medicine | DX: Z20.822 Contact with and (suspected) exposure to COVID-19 (principal) ==

== ENCOUNTER → 2021-02-19 | Outpatient (REF) | payer MEDICARE, BC | LOC: SKLAB7 08:07 | PROVIDERS: ATTEND Internal Medicine | DX: Z20.822 Contact with and (suspected) exposure to COVID-19 (principal) ==

== ENCOUNTER → 2021-02-22 | Outpatient (REF) | payer MEDICARE, BC | LOC: SKLAB7 05:58 | PROVIDERS: ATTEND Internal Medicine | DX: Z20.822 Contact with and (suspected) exposure to COVID-19 (principal) ==

== ENCOUNTER → 2021-02-28 | Outpatient (REF) | payer MEDICARE, BC | LOC: SKLAB7 05:24 | PROVIDERS: ATTEND Internal Medicine | DX: Z20.822 Contact with and (suspected) exposure to COVID-19 (principal); Z53.9 Procedure and treatment not carried out, unspecified reason ==